=== PATIENT | female | born 1970 | race Caucasian/White ===

== ENCOUNTER 2020-08-12 08:55 | Inpatient (IN) | payer BC, SELFPAY ==
[2020-08-12] VITALS (19 sets, daily range): BP systolic 105–144; BP diastolic 51–94; PULSE 90–111; RESP 16–24; TEMP 36.8–37.3; O2SAT 75–92; BMI 35.1
--- NOTE | ~2020-08-12 | XR_ITS ---
EXAMINATION: XR chest 1V portable DATE: 08/12/2020 09:51 INDICATION: Shortness of breath. COVID positive. TECHNIQUE: frontal view of the chest was obtained. COMPARISON: None FINDINGS: Patchy bilateral airspace opacities consistent with pneumonia. No pleural effusion or pneumothorax. T he cardiomediastinal silhouette is normal. Visualized bones and soft tissues are unremarkable. IMPRESSION: 1. Patchy bilateral airspace disease consistent with pneumonia. Reviewed, dictated and finalized at location A. CH [employer] LANGUAGE TUTOR
--- NOTE | 2020-08-12 09:20 | ECG_ITS ---
Measurements Intervals Deport Rate: 92 P: 37 CT: 159 QRS: 64 QRSD: 93 T: 18 QT: 355 QTc: 439 Interpretive Statements SINUS RHYTHM BORDERLINE T WAVE ABNORMALITY- INFERIOR LEADS BASELINE ARTIFACT- AVR BORDERLINE ECG Electronically Signed On 08-12-2020 10:15:53 [employer]PERATIONS BUSINESS PARTNER by Arthur Peres D.O.
--- NOTE | 2020-08-12 09:22 | ED.SOB ---
HPI - SOB/Dyspnea General Chief Complaint: Shortness of Breath/Dyspnea Stated Complaint: 49YO female w/ known h.o KJ BABIN (diagnosed on 08/08/20) was at home under self quarantine when she started having SOB that started last night. Patient here for eval. Source: patient Mode of arrival: ambulatory Limitations: no limitations History of Present Illness MD elicited complaint: shortness of breath Related Data Home Medications Medication Instructions Recorded Confirmed ketorolac 10 mg PO PRN PRN 08/12/20 08/12/20 montelukast 10 mg PO DAILY 08/12/20 08/12/20 rizatriptan 10 mg TRANSLINGUAL PRN PRN 08/12/20 08/12/20 Allergies Allergy/AdvReac Type Severity Reaction Status Date / Time No Known Allergies Allergy Verified 08/12/20 09:35 Review of Systems Constitutional: Constitutional: Reports as per HPI, Reports chills, Reports fatigue and Reports fever(s) Eyes: Eyes: Reports as per HPI and Reports no additional eye complaints ENT: Reports system reviewed and no additional complaints, except as documented Cardiovascular: Cardiovascular: Reports as per HPI, Reports no additional cardiovascular complaints, Denies chest pain and Denies rapid heart rate Respiratory: Respiratory: Reports as per HPI, Denies chest congestion, Reports cough, Reports dyspnea and Denies wheezing Gastrointestinal: Gastrointestinal: Reports no additional gastrointestinal complaints Genitourinary: Genitourinary: Reports no additional female genitourinary complaints Musculoskeletal: Musculoskeletal: Reports no additional musculoskeletal complaints Integumentary/Breasts: Skin/Breast: Reports system reviewed and no additional complaints, except as docu Neurologic: Reports system reviewed and no additional complaints, except as documented Psychiatric: Psychiatric: Reports no additional psychiatric complaints Endocrine: Endocrine: Reports no additional endocrine complaints Hematologic/Lymphatic: Hematologic/Lymphatic: Reports no additional hematologic/lymphatic complaints Allergic/Immunologic: Allergic/Immunologic: Reports no additional allergic/immunologic complaints PMFSH Past Medical History Medical History Migraine headache Seasonal allergies Exam Const: General: no acute distress, alert and ill appearing Orientation/consciousness: patient oriented x3 HENMT: Head: normal to inspection Eyes: Conjunctivae: conjunctivae normal Pupils: Equal, round and reactive pupils present Neck: Neck: normal visual inspection and no lymphadenopathy Chest: Chest palpation & inspection: normal inspection of the chest Resp: Effort & Inspection: normal respiratory effort, not labored and no retractions Auscultation: clear to auscultation bilaterally, breath sounds present and lung sounds not diminished Cardio: Rate: regular rate and bradycardic Rhythm: regular rhythm GI: Inspection: non-distended GI Palp: Yes Soft to palpation, No Tenderness to palpation present (GI), No Guarding due to palpation present (GI) and No Rigid due to palpation : General: Yes no CVA tenderness Skin: General skin exam: normal color Neuro: General: patient oriented x3, moves all extremities, no meningeal signs, no focal motor deficits and CN's II-XI intact bilaterally Cranial nerves: Yes Nystagmus not present Extrem: General: normal to inspection Psych: Mental Status: mental status grossly normal Affect: normal affect Attitude: cooperative Thought content: Yes Normal thought content present Course Course Emergency Course: Patient received Solumedrol, ALbuterol inh and Spiriva Inh. Will get admitted. 08/12/20 21:00 [facility] has no bed availability, however patient is on waiting list there. 08/13/20 00:24 D/W Dr Bah (Hospitalist) regarding transfer to [facility]. They have no beds. 08/13/20 00:30 Nursing calls as O2 sats persisting in 70-80% w/ ABG results that show PO2 34%
[2020-08-12] MEDS: methylPREDNISolone SOD SUCC 125 MG VIAL IV PUSH (09:34)
[2020-08-12] MEDS: ALBUTEROL SULFATE (*SP) INHALER 2 PUFF INHALATION ×3 (09:47→20:18)
[2020-08-12 09:54] LABS: Base Excess ABG -2.4 mmol/L (0-2); Basophils Absolute Auto 0.01 K/mm3 (0.00-0.10); Basophils Percent Auto 0.2 % (0.0-1.0); HCO3 ABG 21.4 mmol/L (23-29); Hematocrit 39.4 % (35.0-49.0); Hemoglobin 13.4 g/dL (12.0-15.0); Immature Granulocyte Absolute 0.05 K/mm3 (0.00-0.00); Immature Granulocyte Percent A 0.9 % (0.0-0.0); Lymphocytes Absolute Auto 0.83 K/mm3 (1.10-4.50); Lymphocytes Percent Auto 14.9 % (18.0-42.0); Mean Corpuscular Hemoglobin 30.1 pg (27.0-31.0); Mean Corpuscular Volume 88.5 fL (78.0-102.0); Mean Platelet Volume 8.9 fl (9.2-11.8); Monocytes Absolute Auto 0.26 K/mm3 (0.10-0.90); Monocytes Percent Auto 4.7 % (2.0-11.0); Neutrophils Absolute Auto 4.4 K/mm3 (1.7-7.2); Neutrophils Percent Auto 79.3 % (50.0-70.0); Oxygen Content ABG 20.5 %vol (16.0-22.0); Oxygen Saturation ABG 90.5 % (95-97); Oxyhemoglobin 89.9 % (94-100); PCO2 ABG 34.5 mmHg (35-45); PO2 ABG 55.6 mmHg (80-90); Platelet Count Result 242 K/mm3 (150-420); Red Blood Count 4.45 M/mm3 (4.20-5.40); Red Cell Distribution Width 12.4 % (11.6-14.4); Total Hemoglobin 16.3 g/dL; White Blood Count 5.6 K/mm3 (4.8-10.8); pH ABG 7.41 (7.35-7.45)
[2020-08-12 09:55] LABS: Site Drawn RIGHT RADIAL
--- NOTE | 2020-08-12 09:55 | PC.NURSE ---
SPOKE WITH DR DIXON REGARDING SAPO2 LEVEL 86-89% ON O25L. DR DIXON COMFORTABLE WITH THAT LEVEL. PT RESTING COMFORTABLY AT THIS LEVEL. EXPLAINED TO PT TO USE CALL DIGGS IF INCREASED SHORTNESS OF BREATH OR NEED ARISES FOR INCREASED OXYGEN. PT VERBALIZES UNDERSTANDING.
[2020-08-12 09:56] LABS: Device NASAL CANNULA; Modified Allen's Test Pass
[2020-08-12 10:07] LABS: INR 0.9; Partial Thromboplastin Time 33.8 SEC (22.3-31.6); Prothrombin Time 9.5 Seconds (9.64-11.0)
[2020-08-12 10:11] LABS: Alanine Aminotransferase 134 U/L (14-59); Albumin Level 3.4 g/dL (3.4-5.0); Alkaline Phosphatase 124 U/L (46-116); Anion Gap 13 mmol/L (8-16); Aspartate Amino Transferase 70 U/L (15-37); Bilirubin,Total 0.3 mg/dL (0.00-1.00); Blood Urea Nitrogen 14 mg/dL (7-18); Calcium 8.8 mg/dL (8.5-10.1); Carbon Dioxide 23 mmol/L (21-32); Chloride 101 mmol/L (98-108); Estimated Glomerular Filt Rate > 60; Glucose 114 mg/dL (70-99); Osmolality Calculated 285 mOsm/kg (285-295); Potassium 4.2 mmol/L (3.5-5.1); Sodium 137 mmol/L (136-145); Total Protein 7.8 g/dL (6.4-8.2)
[2020-08-12 10:12] LABS: D Dimer 0.46 mg/L (0.19-0.50); Troponin I < 0.02 ng/mL (0.00-0.056)
[2020-08-12 10:13] LABS: Influenza Control Valid (Valid)
[2020-08-12 10:22] LABS: BNP 18 pg/mL (0-100)
--- NOTE | 2020-08-12 10:46 | PC.NURSE ---
report to TEMITOPE Tripathi. care turned over at this time.
--- NOTE | 2020-08-12 11:04 | PC.NURSE ---
PT CARE IS ASSUMED AT THIS TIME. PT HERE AFTER RECENT DIAGNOSIS OF COVID-19 AND JUST KEEPS GETTING MORE SHORT OF BREATH. PT STATES THAT SHE FEELS BETTER SINCE ADMISSION WITH TREATMENT. SPO2 FOUND TO BE 85% ON 5 L NASAL CANULA AND DECREASES TO 83% WITH EXERTION. PT CHANGED TO NRB MASK AT 12L WITH SPO2 READING 91% - RT CALLED FOR HIGH FLOW TO BE APPLIED. PT DOES NOT APPEAR TO BE IN RESPIRATORY DISTRESS AT THIS TIME. PT SITTING UP ON PHONE. LUNG SOUNDS CLEAR.
--- NOTE | 2020-08-12 11:23 | PC.NURSE ---
[facility] CALLED FOR POSSIBLE TRANSFER - BED AVAILABILITY TONIGHT
--- NOTE | 2020-08-12 11:25 | PCRTNOTE ---
high flow humidified oxygen administered via AIRVO2, titrated to keep Sp02 >92%. settings titrated up to flow of 55 lpm via medium high flow nasal cannula, Fi02 80%, temperature 36 degrees. HR 90, RR 12-16, Sp02 94% resting comfortably. tolerating well.
[2020-08-12] MEDS: REMDESIVIR 200 MG/NS 250 ML 200 MG/250 ML BAG 250 MG IVPB (12:06)
[2020-08-12] MEDS: DEXAMETHASONE SOD PHOS INJ 4 MG/ML VIAL 6 MG IV PUSH (13:45)
--- NOTE | 2020-08-12 13:49 | PC.NURSE ---
1230 her from er to room #212 while waitng for bed at higher level of care (rajendra). high flow o2 on. sats between 86-90%hr per tele is sr with rates 80-90's. claims less sob since arrival. lungs sound clear. iv cont. call light use explained. eating lunch xavier
--- NOTE | 2020-08-12 13:55 | PC.NURSE ---
1356 rests quietly in bed. hob up. spo2 cont @ 88-90% with high flow. hr 90's xavier
--- NOTE | 2020-08-12 16:09 | PC.NURSE ---
pt resting in bed, reports loss of taste, given popsicle on request, no updates on bed from rajendra at this time, iv running
--- NOTE | 2020-08-12 19:49 | PC.NURSE ---
md called about 02 sat of 87% on high flow and increased work of breathing, orders another dose of spiriva, respiratory therapy has been up to change sterile water and check machine
--- NOTE | 2020-08-12 20:22 | PC.NURSE ---
One time dose of spiriva given at this time
--- NOTE | 2020-08-12 21:10 | PC.NURSE ---
Bhumi from ER calls with bed update, no beds available at this time per rajendra
--- NOTE | 2020-08-12 21:31 | PC.NURSE ---
pt is unhappy that there is no bed available at this time, requests that they try getting her into another hospital, dr notified, he will come up and speak with pt when able
--- NOTE | 2020-08-12 21:57 | PC.NURSE ---
Spo2 87% on high flow, heart rate 107 on telemetry. Charge nurse in speaking with the patient at this time per patient request.
--- NOTE | 2020-08-12 22:14 | PC.NURSE ---
Dr. Castro in speaking with patient
--- NOTE | 2020-08-12 22:40 | ADMGEN ---
This patient, Lou Boone, was admitted to 2nd Floor Room 212-1. Patient/family oriented to hospital policies and general routines including ID bracelet, bed and alarms, visiting hours, pain management, procedures, bathroom and other care routines, personal items, smoking policy, room service/diet, and visiting hours. Information on how to activate the Rapid Response Team has been discussed. Patient/Family are encouraged to report perceived risks to care and to ask questions if they do not understand what they are told or what they should do.
[2020-08-12] MEDS: LORazepam (*CRX) 0.5 MG TABLET PO (22:56)
--- NOTE | 2020-08-12 23:30 | PC.NURSE ---
SPO2 75% at this time on high flow oxygen. Respirations are tachypneic but appear unlabored. Charge nurse notified.
--- NOTE | 2020-08-12 23:48 | PC.NURSE ---
Dr. Castro notified of pt's SAO2 of 66% with high flow oxygen on. New orders for C-PAP received and noted.
--- NOTE | 2020-08-12 23:57 | PC.NURSE ---
Notified respiratory therapy of new order for C-pap for pt. They said they would be out to set it up.
[2020-08-13] VITALS: PULSE 98
[2020-08-13 00:08] LABS: Base Excess ABG 2.8 mmol/L (0-2); HCO3 ABG 25.2 mmol/L (23-29); Oxygen Content ABG 14.8 %vol (16.0-22.0); Oxygen Saturation ABG 76.2 % (95-97); Oxyhemoglobin 75.7 % (94-100); PCO2 ABG 32.5 mmHg (35-45); pH ABG 7.51 (7.35-7.45)
[2020-08-13 00:10] VITALS: PULSE 106; RESP 32; O2SAT 62
--- NOTE | 2020-08-13 00:26 | PC.NURSE ---
Lab called with critical low PO2 results of 34.6
--- NOTE | 2020-08-13 00:26 | PC.NURSE ---
Dr. Castro notified of pt's low critical PO2 of 34.6. He said he is talking to [facility] for a possible transfer.
[2020-08-13 00:28] LABS: PO2 ABG 34.6 mmHg (80-90)
[2020-08-13 00:29] LABS: Device CPAP; Modified Allen's Test Pass; Site Drawn RIGHT RADIAL
--- NOTE | 2020-08-13 00:59 | PC.NURSE ---
Dr. Castro notified of the respiratory therapists recommendations to intubate pt. He said he would be up to see pt.
--- NOTE | 2020-08-13 01:08 | PC.NURSE ---
[facility] called back and said pt has been accepted as a patient at their facility They will call back when they have a bed available.
--- NOTE | 2020-08-13 01:20 | PC.NURSE ---
Pt to ER for intubation procedure
--- NOTE | 2020-08-13 01:33 | PC.NURSE ---
[facility] called and said they have a bed available
--- NOTE | 2020-08-13 01:42 | PC.NURSE ---
Attempted to notify pt's per her request but he was unavailable. Message left on his voice mail.
[2020-08-13 02:05] VITALS: PULSE 100; O2SAT 90
--- NOTE | 2020-08-13 03:30 | PC.NURSE ---
Patient transferred to [facility] by Arch at this time.
--- NOTE | 2020-08-13 03:59 | PC.NURSE ---
Called pt's home phone but no one answered. Message left on voice mail.
--- NOTE | 2020-08-13 04:02 | PC.NURSE ---
Harry Boone notified of pt's being transferred to [facility] for continued treatment.
--- NOTE | 2020-08-13 04:25 | PC.NURSE ---
Mr. Boone called and said that he was coming to the hospital to miner pick his 's belongings. Pt was instructed where to come to miner pick pt's belongings.
--- NOTE | 2020-08-13 09:21 | PC.NURSE ---
[facility] gave Vecuronium (2nd dose before leaving ED)
--- NOTE | 2020-08-26 09:01 | P.SS_ITS ---
Same Day Admit/Disch: HPI History of Present Illness Chief complaint: SOB COVID Narrative: Lou Boone is a 49 year old female diagnosed w/ COVID Positive CAP and was an ER hold. She had a prolonged ER hold sec to lack of hospital beds. Multiple Hospitals were called however we were unable to find a bed for her. Patient was eventually admited as an Inpatient sec to SOB w/ Low O2 Sats. She was started on O2, titrate to max grace, then transitioned to High FLow NC and eventually NBR. Her O2 saturations were labile fluctuating anywhere from 70's% to 94%. Multiple breathing treatments, Steroids, Remdisivir were initiated however her O2 Sats remained labile. A stat ABG was repeated which showed decline in PaO2 Saturations now doesn to 34.6. Pulmonology fellow at [facility] was contacted who agreed with need for intubation and urgent transfer to [facility]. An ICU bed was available for this patient. She was transferred back down to ER for Intubation. An LMA was placed sec to Difficult RSI. LMA was appropriately placed with her O2 saturations >95%. Multiple medications were used to maintain Sedation (Versed, Fentanyl) however patient breaking through. Propofol was started with good response. Patient was transferred to [facility] by Helicopter. [facility] Past Medical History Medical History Migraine headache Seasonal allergies Social History Social History Smoking packs per day: 2 Smoking cigarettes per day: 40.0 Years smoked: 26 Smoking pack-years: 52.00 Smoking status: Former smoker Tobacco type: cigarettes Second hand tobacco smoke exposure: Yes Alcohol intake: current Substance use: never Gender identity (if verbalized by the patient): Female Sexual Orientation (if Verbalized by the Patient): Straight or Heterosexual Spiritual care concerns: No Same Day Admit/Disch: Med Pre-admit Medications Home Medications Medication Instructions Recorded Confirmed Type ketorolac 10 mg PO PRN PRN 08/12/20 08/12/20 History montelukast 10 mg PO DAILY 08/12/20 08/12/20 History rizatriptan 10 mg TRANSLINGUAL PRN PRN 08/12/20 08/12/20 History DS: Summary Time Spent with Patient Time attestation: Total time spent providing and/or coordinating discharge services: DS: Admitting Diagnosis Admitting Diagnosis Admitting Diagnosis: SOB COVID Discharge Plan Discharge Attending physician on discharge: Sky Castro Consulting providers: Arthur Peres ; Donny Sam Discharging Clinician: Sky Castro Patient Disposition: Acute Care Hospital Discharge Medications: No Action ketorolac 10 mg tablet 10 mg PO PRN PRN (Reason: Migraine Headache) RF: 0 rizatriptan 10 mg tablet,disintegrating 10 mg translingual PRN PRN (Reason: Migraine Headache) RF: 0 montelukast 10 mg tablet 10 mg PO DAILY RF: 0 Date of admission: 08/12/20 22:22 Primary Care Provider: Jad Ryan Admitting Provider: Sky Castro Attending physician on admission: Sky Castro Condition: Stable
--- NOTE | 2020-08-26 09:11 | P.PNCROSS_ITS ---
Event Note Event Note Event Note: Lou Boone is a 49 year old female diagnosed w/ COVID Positive CAP and was an ER hold. She had a prolonged ER hold sec to lack of hospital beds. Multiple Hospitals were called however we were unable to find a bed for her. Patient was eventually admited as an Inpatient sec to SOB w/ Low O2 Sats. She was started on O2, titrate to max grace, then transitioned to High FLow NC and eventually NBR. Her O2 saturations were labile fluctuating anywhere from 70's% to 94%. Multiple breathing treatments, Steroids, Remdisivir were initiated however her O2 Sats remained labile. A stat ABG was repeated which showed decline in PaO2 Saturations now doesn to 34.6. Pulmonology fellow at [facility] was contacted who agreed with need for intubation and urgent transfer to [facility]. An ICU bed was available for this patient. She was transferred back down to ER for Intubation. An LMA was placed sec to Difficult RSI. LMA was appropriately placed with her O2 saturations >95%. Multiple medications were used to maintain Sedation (Versed, Fentanyl) however patient breaking through. Propofol was started with good response. Patient was transferred to [facility] by Helicopter. Discharge Condition: Stable, Improved
== END 2020-08-13 03:30 | disposition short-term general hospital (02) | DRG 208 ==
LOC: CHSED 10:14 → CHS2ND 11:52 → CHSED 22:31 → CHS2ND 22:31
PROVIDERS: Admitting Provider Family Medicine; Emergency Provider Family Medicine; PCP Internal Medicine; Visit Provider Family Medicine
DX: U07.1 COVID-19 (principal); J12.89 Other viral pneumonia; J80 Acute respiratory distress syndrome
CPT/HCPCS: 36415; 36600; 71045; 80053; 82805; 83880; 84484; 85025; 85380; 85610; 85730; 87040; 87081; 87804; 87880; 93005; 94640; 94660; 96365; 96366; 96367; 96375; 99283; 99285; A9270; J0330; J1100; J2250; J2543; J2704; J2930; J3010

== ENCOUNTER 2020-10-18 11:55 | Outpatient (CLI) | payer BC, SELFPAY ==
--- NOTE | ~2020-10-18 | XR_ITS ---
EXAMINATION: XR chest 2V DATE: 10/18/2020 12:27 INDICATION: COVID-19 pneumonia. TECHNIQUE: Frontal and lateral views of the chest were obtained. COMPARISON: Chest single view 08/12/2020 FINDINGS: The chest demonstrates clear lungs without pneumonia, pleural effusion, or pneumothorax. Th e heart size is normal. IMPRESSION: 1. No acute cardiopulmonary disease. Reviewed, dictated and finalized at location A. RVISOR WATERPROOFING
[2020-10-18 12:11] LABS: Hematocrit 39.2 % (35.0-49.0); Hemoglobin 13.3 g/dL (12.0-15.0); Immature Granulocyte Absolute 0.02 K/mm3 (0.00-0.00); Immature Granulocyte Percent A 0.4 % (0.0-0.0); Lymphocytes Absolute Auto 2.36 K/mm3 (1.10-4.50); Lymphocytes Percent Auto 42.8 % (18.0-42.0); Mean Corpuscular HGB Conc 33.9 g/dL (32.0-36.0); Mean Corpuscular Hemoglobin 29.9 pg (27.0-31.0); Mean Corpuscular Volume 88.1 fL (78.0-102.0); Mean Platelet Volume 8.7 fl (9.2-11.8); Monocytes Absolute Auto 0.41 K/mm3 (0.10-0.90); Monocytes Percent Auto 7.4 % (2.0-11.0); Neutrophils Absolute Auto 2.7 K/mm3 (1.7-7.2); Neutrophils Percent Auto 49.4 % (50.0-70.0); Platelet Count Result 317 K/mm3 (150-420); Red Blood Count 4.45 M/mm3 (4.20-5.40); Red Cell Distribution Width 13.6 % (11.6-14.4); White Blood Count 5.5 K/mm3 (4.8-10.8)
[2020-10-18 12:16] LABS: Base Excess ABG -2.6 mmol/L (0-2); HCO3 ABG 21.9 mmol/L (23-29); Oxygen Content ABG 18.7 %vol (16.0-22.0); Oxygen Saturation ABG 94.5 % (95-97); Oxyhemoglobin 93.8 % (94-100); PCO2 ABG 37.1 mmHg (35-45); PO2 ABG 71.6 mmHg (80-90); Total Hemoglobin 14.2 g/dL; pH ABG 7.39 (7.35-7.45)
[2020-10-18 12:17] LABS: Device ROOM AIR; Modified Allen's Test Pass; Site Drawn RIGHT RADIAL
[2020-10-18 12:44] LABS: Alanine Aminotransferase 31 U/L (14-59); Albumin Level 4.4 g/dL (3.4-5.0); Alkaline Phosphatase 56 U/L (46-116); Anion Gap 8 mmol/L (8-16); Aspartate Amino Transferase 19 U/L (15-37); Bilirubin,Total 0.3 mg/dL (0.00-1.00); Blood Urea Nitrogen 17 mg/dL (7-18); Calcium 10.1 mg/dL (8.5-10.1); Carbon Dioxide 27 mmol/L (21-32); Chloride 101 mmol/L (98-108); Estimated Glomerular Filt Rate > 60; Glucose 95 mg/dL (70-99); Magnesium 2.2 mg/dL (1.8-2.4); Osmolality Calculated 283 mOsm/kg (285-295); Phosphorus 4.5 mg/dL (2.6-4.7); Potassium 4.6 mmol/L (3.5-5.1); Sodium 136 mmol/L (136-145); Total Protein 8.1 g/dL (6.4-8.2)
[2020-10-18 12:47] LABS: CRP < 0.2 mg/dL (0.0-0.9)
== END 2020-10-18 11:56 | disposition home or self-care (01) ==
LOC: CHSLAB 11:57
PROVIDERS: PCP Internal Medicine; Visit Provider Internal Medicine
DX: U07.1 COVID-19 (principal)
CPT/HCPCS: 36415; 36600; 71046; 80053; 82805; 83735; 84100; 85025; 86140

== ENCOUNTER 2022-04-26 13:47 | Outpatient (CLI) | payer BC, SELFPAY ==
--- NOTE | ~2022-04-26 | MM_ITS ---
EXAMINATION: MM screening chelly BI w jim HISTORY: Screening TECHNIQUE: Craniocaudal and mediolateral oblique 3-D tomosynthesis images were obtained and synthetic 2-D images were generated. CAD analysis was submitted and interpreted. COMPARISON: 03/11/2019 BREAST PARENCHYMAL COMPOSITION: Breast composed of scattered areas of fibroglandular density FINDINGS: There is no evidence of suspicious mass, calcification, or architectural distortion to sugg est malignancy in either breast. There has been no suspicious interval change. IMPRESSION: 1. No mammographic evidence of malignancy. 2. Recommend routine screening mammography in one year. BI-RADS Category 1: Negative Reviewed, dictated and finalized at location A.
== END 2022-04-26 13:48 | disposition home or self-care (01) ==
LOC: CHSIMG 13:48
PROVIDERS: PCP Internal Medicine; Visit Provider Internal Medicine
DX: Z12.31 Encounter for screening mammogram for malignant neoplasm of breast (principal)
CPT/HCPCS: 77063; 77067

== ENCOUNTER 2023-05-18 23:02 | Emergency (ER) | payer OTHER, SELFPAY ==
--- NOTE | 2023-05-18 23:10 | ED.ANIMALBIT ---
HPI - Animal Bite General Chief Complaint: Animal Bite Stated Complaint: Dog Bite on R ring finger Time Seen by Provider: 05/18/23 23:09 Source: patient Mode of arrival: ambulatory Limitations: no limitations History of Present Illness HPI narrative: Patient is a 52-year-old female with a dog bite from her own personal dog at home this evening prior to arrival. This was provoked event. The dog is up-to-date on vaccines. Patient does not remember her last tetanus shot. She has been using pressure on the area for over an hour without relief of bleeding. MD complaint: animal bite Onset (ago): hour(s) (1) Animal: dog Description of animal: household pet Mechanism: bite Location: other ( Right hand 4th digit /ring finger) Pain description: sharp Severity scale (1-10): 4 Context: playing with animal and provoked Associated symptoms: none Treatments prior to arrival: pressure Related Data Patient tetanus UTD: No Home Medications Medication Instructions Recorded Confirmed ketorolac 10 mg tablet 10 mg PO PRN PRN Migraine Headache 08/12/20 05/18/23 montelukast 10 mg tablet 10 mg PO DAILY 08/12/20 05/18/23 rizatriptan 10 mg disintegrating 10 mg translingual PRN PRN 08/12/20 05/18/23 tablet Migraine Headache Allergies Allergy/AdvReac Type Severity Reaction Status Date / Time No Known Allergies Allergy Verified 05/18/23 23:16 Review of Systems Review of Systems: All systems reviewed & are unremarkable except as noted in HPI and below Constitutional: Constitutional: Reports no additional constitutional complaints Eyes: Eyes: Reports no additional eye complaints ENT: Reports system reviewed and no additional complaints, except as documented Cardiovascular: Cardiovascular: Reports no additional cardiovascular complaints Respiratory: Respiratory: Reports no additional respiratory complaints Gastrointestinal: Gastrointestinal: Reports no additional gastrointestinal complaints Genitourinary: Genitourinary: Reports no additional female genitourinary complaints Musculoskeletal: Musculoskeletal: Reports no additional musculoskeletal complaints Integumentary/Breasts: Skin/Breast: Reports system reviewed and no additional complaints, except as docu Neurologic: Reports system reviewed and no additional complaints, except as documented Psychiatric: Psychiatric: Reports no additional psychiatric complaints Endocrine: Endocrine: Reports no additional endocrine complaints Hematologic/Lymphatic: Hematologic/Lymphatic: Reports no additional hematologic/lymphatic complaints Allergic/Immunologic: Allergic/Immunologic: Reports no additional allergic/immunologic complaints PMFSH Past Medical History Medical History Migraine headache Seasonal allergies Social History Social History Smoking packs per day: 2 Smoking cigarettes per day: 40.0 Years smoked: 26 Smoking pack-years: 52.00 Smoking status: Former smoker Tobacco type: cigarettes Second hand tobacco smoke exposure: Yes Alcohol intake: current Substance use: never Gender identity (if verbalized by the patient): Female Sexual Orientation (if Verbalized by the Patient): Straight or Heterosexual Spiritual care concerns: No Exam Const: General: healthy appearing Nutritional Appearance: well nourished Orientation/consciousness: patient oriented x3 HENMT: Head: normal to inspection Ears: external ears normal Face/Nose/Sinus: Normal external nose present Eyes: Conjunctivae: conjunctivae normal Pupils: Equal, round and reactive pupils present EOM: EOMs intact bilaterally Neck: Neck: normal visual inspection Chest: Chest palpation & inspection: normal inspection of the chest Resp: Effort & Inspection: normal respiratory effort Auscultation: clear to auscultation bilaterally Cardio: Rate: regular rate Rhythm: regular rhyt
[2023-05-18] MEDS: AMOXICILLIN/CLAVULANATE K 875-125 MG TAB 1 TABLET PO (23:25)
[2023-05-18] MEDS: TETANUS,DIPHTHERIA,AC PERTUSSIS ADULT 0.5 ML (ADACEL) IM (23:25)
[2023-05-18] MEDS: LIDOCAINE HCL 1% LOCAL INJ 10 ML VIAL INFILTRATE (23:26)
[2023-05-19 00:08] VITALS: BP 134/85; PULSE 78; RESP 18; TEMP 36.6; O2SAT 98
== END 2023-05-19 00:10 | disposition home or self-care (01) ==
PROVIDERS: Emergency Provider Emergency Medicine; PCP Internal Medicine
DX: S61.254A Open bite of right ring finger without damage to nail, initial encounter (principal); Z87.891 Personal history of nicotine dependence; Z23 Encounter for immunization; W54.0XXA Bitten by dog, initial encounter; Y92.009 Unspecified place in unspecified non-institutional (private) residence as the place of occurrence of the external cause
CPT/HCPCS: 12001; 90471; 90715; 99283; A9270

== ENCOUNTER 2023-07-08 11:41 | Outpatient (CLI) | payer OTHER, SELFPAY ==
--- NOTE | ~2023-07-08 | MM_ITS ---
EXAMINATION: MM screening [facility] BI w jim HISTORY: Screening mammogram TECHNIQUE: Craniocaudal and mediolateral oblique 3-D tomosynthesis images were obtained and synthetic 2-D images were generated. CAD analysis was submitted and interpreted. COMPARISON: 04/26/2022, 06/16/2019, 03/11/2019 BREAST PARENCHYMAL COMPOSITION: There are scattered areas of fibroglandular density. FINDINGS: A stable mass of the outer right breast is considered benign given the lack of interval peace nge. No suspicious mass, calcification, or architectural distortion are identified in either breast t o suggest malignancy. There has been no suspicious interval change. IMPRESSION: 1. No mammographic evidence of malignancy. 2. Recommend routine screening mammography in one year. BI-RADS Category 2: Benign finding(s). Reviewed, dictated and finalized at location A.
--- NOTE | ~2023-07-08 | DEXA_ITS ---
Bone Density Report Name: JEF HUMMEL Age: 52 Sex: Female Ethnicity: White Date of : 1970 Indication: postmenopausal; screening for osteoporosis; height loss; Referring Provider: Jad Ryan Study: Bone densitometry was performed. Exam Date: July 08, 2023 Accession number: [id number] Bone Density: Region BMD T-score Z-score Classification AP Spine(L1, L3, L4) 1.175 1.1 2.1 Normal Femoral Neck (Left) 0.798 -0.5 0.6 Normal Total Hip (Left) 0.983 0.3 1.0 Normal Femoral Neck (Right) 0.765 -0.8 0.3 Normal Total Hip (Right) 0.910 -0.3 0.4 Normal Femoral Neck Mean 0.782 -0.6 0.4 Normal Total Hip Mean 0.947 0.0 0.7 Normal World Health Organization criteria for BMD impression classify patients as: Normal (T-score at or above -1.0), Osteopenia (T-score between -1.0 and -2.5), or Osteoporosis (T-score at or below -2.5). 10-year Fracture Risk: FRAX not reported because: All T-scores for Spine Total, Hip Total, Femoral Neck at or above -1.0 Clinical Information Provided by Patient: Has used the following medications: Vitamin D Patient maximum height was 66 Menopause Age: 47 No regular weight bearing exercise Does not regularly consume dairy products Onset of menses at age 10 Number of children 3 Impression: The patient has normal bone mass. Discussion: BONE DENSITY IS ABOVE THE MINIMUM DESIRABLE LEVEL AT ALL SKELETAL SITES TESTED. This patient?s bone mineral density is above the minimum desirable level (T-score -1.0 or better) at all sites measured. The patient should follow a healthful lifestyle (good nutrition with adequate calcium and vitamin D, and appropriate weight-bearing exercise). Follow-Up: Consider repeating this study in 5 years or sooner if there is some new clinical indication. Reported by: Dr. Sundeep Green on 07/08/2023 12:17:00 PM. Reviewed, dictated and finalized at location A.
== END 2023-07-08 11:42 | disposition home or self-care (01) ==
LOC: CHSIMG 11:43
PROVIDERS: Absent Provider Family Medicine; PCP Internal Medicine; Visit Provider Internal Medicine
DX: Z12.31 Encounter for screening mammogram for malignant neoplasm of breast (principal); Z78.0 Asymptomatic menopausal state
CPT/HCPCS: 77063; 77067; 77080

== ENCOUNTER 2025-03-26 10:02 | Outpatient (NON) | payer OTHER, SELFPAY | END 2025-03-26 10:03 | disposition home or self-care (01) | LOC: ANHGOSHLAB 10:03 | PROVIDERS: PCP Internal Medicine; Visit Provider Otolaryngology | DX: G43.909 Migraine, unspecified, not intractable, without status migrainosus (principal); J30.2 Other seasonal allergic rhinitis | CPT/HCPCS: 87070; 87075; 87181; 87205 ==

== ENCOUNTER 2025-04-23 13:52 | Outpatient (CLI) | payer OTHER, SELFPAY ==
--- NOTE | ~2025-04-23 | CT_ITS ---
EXAMINATION: CT sinus wo con DATE: 04/23/2025 14:07 INDICATION: Chronic sinusitis TECHNIQUE: Computed tomography (CT) of the paranasal sinuses was performed without intravenous contra st. The dose-length product was 377.88 mGy-cm. Automated exposure control and iterative reconstructio n technique were employed. COMPARISON: None FINDINGS: There is mild mucosal thickening of the eighth white sinuses. There are surgical changes co nsistent with resection of the ostiomeatal units. Leftward nasal septal deviation. No air-fluid level s. No significant mucoperiosteal reaction. Mastoids are pneumatized. Mild mucosal thickening of the r ight maxillary sinus. IMPRESSION: 1. Minimal sinus disease involving the right maxillary and ethmoid sinuses. Reviewed, dictated and finalized at location B.
== END 2025-04-23 13:53 | disposition home or self-care (01) ==
LOC: GOSHIMG 13:53
PROVIDERS: PCP Internal Medicine; Visit Provider Otolaryngology
DX: J32.9 Chronic sinusitis, unspecified (principal); J34.3 Hypertrophy of nasal turbinates; Z87.09 Personal history of other diseases of the respiratory system
CPT/HCPCS: 70486

== ENCOUNTER 2025-04-27 11:53 | Outpatient (NON) | payer OTHER, SELFPAY ==
--- OUTSIDE RECORDS SUMMARY | 2025-04-27 11:56 | XMS_ITS | Clinical Summary ---
Author Organization [facility] Address [address] [place] [address] Care Team Providers Care Odd Bundle Worker Name Role Phone Jad Ryan MD Primary Care Provider [phone] Kristian Lam MD PhD Unavailable [phone] Allergies No known active allergies Medications ketorolac (TORADOL) 10 mg tablet Take 10 mg by mouth every 6 (six) hours as needed for pain Active montelukast (SINGULAIR) 10 mg tablet Take 10 mg by mouth nightly Active rizatriptan ENDS DOWN CHECKER (MAXALT-ENDS DOWN CHECKER) 10 mg disintegrating tabletIndications:M igraine Take 10 mg by mouth once as needed for migraine May repeat in 2 hours if unresolved. Do not exceed 30 mg in 24 hours. Active minocycline (MINOCIN,DYNACIN) 50 mg capsule TAKE 1 CAPSULE BY MOUTH ONCE DAILY NEEDED FOR ACNE 1 Active cholecalciferol, vitamin D3, (VITAMIN D3 ORAL) Take 100 mcg by mouth daily Active multivitamin capsule Take 1 capsule by mouth daily Active ibuprofen/pseudoeph edrine HCl (ADVIL COLD AND SINUS ORAL) Take 1-2 tablets by mouth twice daily Active doxylamine succinate (UNISOM, DOXYLAMINE, ORAL) Take 50 mg by mouth nightly Active fish oil/borage/flax/om3 ,6,9 1 (OMEGA 3-6-9 ORAL) Take 2,000 mg by mouth daily Active testosterone 200 mg pellet 200 mg by implant route every 3 (three) months Active metoprolol tartrate (LOPRESSOR) 25 mg immediate release tablet Take 1 tablet (25 mg total) by mouth daily 30 tablet 11 04/14/202 2 Active Active Problems Problem Noted Date Diagnosed Date Acute respiratory failure with hypoxia 0 Assessment & Plan (08/24/2020 9:01 AM CIVIL ENGINEERING PROJECT DESIGNER): Patient with no significant past medical history and only risk factors of vaping who presented with COVID pneumonia with persistent acute respiratory failure with hypoxia. This is most likely from her acute lung injury from the viral pneumonia and we anticipate a slow recovery process. Her serial CXR have showed bilateral patchy opacities and minimal pleural effusion. There was no evidence of desaturation while off CPAP and she has an overall low risk for STEPHANIE - continue to wean O2 as tolerated - there is currently no indication for nighttime CPAP use - patient may need sleep study in future after recovery from viral pneumonia - patient may benefit from a Pulmonology outpatient follow up to monitor respiratory function after COVID recovery - we appreciate ICU care for other problems History of 2018 novel coronavirus disease (COVID -19) Shortness of breath Immunizations Immunization Administration Dates Next Due Hep B Vaccine 03/08/2019 MMR 03/08/2019 Pfizer SARS-CoV-2 Monovalent Vaccination (12+ Yrs) PURPLE 11/30/2020,11/09/2020 Tdap 10/20/2014 Surgical History Surgery Date Site/Laterality Comments SECTION 10/07/1991 - 10/06/1992 SECTION 10/07/1997 - 10/06/1998 SECTION 10/07/2004 - 10/06/2005 AORTIC ANEURYSM REPAIR SINUS SURGERY 10/07/1986 - 10/06/1987 Medical History Medical History Date Comments Anxiety Social History Tobacco Use Types Packs/Day Years Used Date Smoking Tobacco: Never Smokeless Tobacco: Never Tobacco Cessation:Counseling Given: No Alcohol Use Standard Drinks/Week Comments Defer 0 [...] on file Legal Sex Female 1:13 AM CIVIL ENGINEERING PROJECT DESIGNER Gender Identity Female 06/13/2021 1:53 PM CDT Sexual Orientation Straight 06/13/2021 1: 53 PM CDT Obstetrics History Last Filed Vital Signs Vital Sign Reading Time Taken Comments Blood Pressure 121/62 09/19/2021 10:44 AM CIVIL ENGINEERING PROJECT DESIGNER Pulse 57 09/19/2021 10:44 AM CIVIL ENGINEERING PROJECT DESIGNER Temperature 36.6 C (97.9 F) 08/24/2021 10:40 AM CIVIL ENGINEERING PROJECT DESIGNER Respiratory Rate 18 08/25/2020 4:05 AM CIVIL ENGINEERING PROJECT DESIGNER Oxygen Saturation 95% 09/19/2021 10: 44 AM CIVIL ENGINEERING PROJECT DESIGNER Inhaled Oxygen Concentration - - Weight 103.1 kg (227 lb 6.4 oz) 021 10:44 AM CIVIL ENGINEERING PROJECT DESIGNER Height 167 cm (5' 5.75) 09/19/2021 10: 44 AM CIVIL ENGINEERING PROJECT DESIGNER Body Mass Index 36.98 09/19/2021 10:44 AM CIVIL ENGINEERING PROJECT DESIGNER Plan of Treatment Health Maintenance Due Date Last Done Comments Breast Cancer Screening-Mammogram 1970 Cervical Cancer Screening 1970 Colon Cancer Screening-Colonoscopy 1970 Depression Screening 1968 Regular Well Visit/Exam 18-64 1986 Zoster Vaccine (1 of 2) 2018 Covid-19 Vaccine (3 - 2023-2 5 season) 2024 11/30/2020, 11/09/2020 DTaP/Tdap/Td Vaccine (2 - Td or Tdap) 10/20/2024 10/20/2014 Influenza Vaccine (Season Ended) 2025 Hepatitis B Screening Completed 03/08/2019 Hepatitis C Screening Completed 08/19/2020 Pneumococcal vaccine <65 Aged Out No longer eligible based on patient's age to complete this topic Procedures Procedure Name Priority Date/Time Associated Diagnosis Comments HEPATITIS PANEL, ACUTE Routine 08/19/2020 6:59 PM CIVIL ENGINEERING PROJECT DESIGNER from Last 3 Months or Most Recently Relevant to Health Maintenance Results * Hepatitis panel, acute (08/19/2020 6:59 PM CIVIL ENGINEERING PROJECT DESIGNER) Hep A IgM Nonreactive Nonreactive [facility] Comment: Interpretive Data: If Hep A IgM Ab is reported as Equivocal, a new sample should be drawn in two weeks for testing. Current interpretive data was last revised on 19. Hep B core IgM Nonreactive Nonreactive [facility] Comment: Interpretive Data If HepB Core IgM Ab is reported as Equivocal, a new sample should be drawn in two weeks for testing. Current interpretive data was last revised on 19. Hep C Ab Nonreactive Nonreactive [facility] Comment:Antibodies to HCV no t detected. Does NOT exclude the possibility of recent exposure to HCV. HepBsAg Nonreactive Nonreactive [facility] Blood specimen (specimen) 08/19/2020 6:59 PM CIVIL ENGINEERING PROJECT DESIGNER 08/19/2020 7:29 PM CIVIL ENGINEERING PROJECT DESIGNER us Shanna Pretty MD LAB MICROBIOLOGY - GENER AL ORDERABLES Edited Result - Final [facility] Department [place] [address] from Last 3 Months or Most Recently Relevant to Health Maintenance Insurance [employer] [place] [employer] [place] [facility] Advance Directives For more information, please contact: [phone] * Full Code (Latest Code Status on File) Date Activated Date Inactivated Comments 08/13/2020 4:35 AM 08/25/2020 7:06 PM Care Teams Odd Bundle Worker Relationship Specialty Start Date End Date Jad Ryan MD PCP - General Internal Medicine 05/25/21 Kristian Lam MD PhD [address] [place] [address] Referring Physician Cardiology 01/17/22
--- OUTSIDE RECORDS SUMMARY | 2025-04-27 11:56 | XMS_ITS | Referral Summary ---
Author Organization [facility] Address [address] [place] [address] Care Team Providers Care Coach Name Role Phone Jad Ryan MD Primary Care Provider [phone] Kristian Lam MD PhD Unavailable [phone] Allergies No known active allergies Medications ketorolac (TORADOL) 10 mg tablet Take 10 mg by mouth every 6 (six) hours as needed for pain Active montelukast (SINGULAIR) 10 mg tablet Take 10 mg by mouth nightly Active rizatriptan NAIL KEGGER (MAXALT-NAIL KEGGER) 10 mg disintegrating tabletIndications:M igraine Take 10 [...] 0 Assessment & Plan (08/24/2020 9:01 AM TRACK SUPERINTENDENT): Patient with no significant past medical history [...] Vaccination (12+ Yrs) PURPLE 11/30/2020,11/09/2020 Tdap 10/20/2014 Social History Tobacco Use Types Packs/Day Years [...] on file Legal Sex Female 1:13 AM TRACK SUPERINTENDENT Gender Identity Female 06/13/2021 1:53 PM CDT Sexual Orientation Straight 06/13/2021 1: 53 PM CDT Last Filed Vital Signs Vital Sign Reading Time Taken Comments Blood Pressure 121/62 09/19/2021 10:44 AM TRACK SUPERINTENDENT Pulse 57 09/19/2021 10:44 AM TRACK SUPERINTENDENT Temperature 36.6 C (97.9 F) 08/24/2021 10:40 AM TRACK SUPERINTENDENT Respiratory Rate 18 08/25/2020 4:05 AM TRACK SUPERINTENDENT Oxygen Saturation 95% 09/19/2021 10: 44 AM TRACK SUPERINTENDENT Inhaled Oxygen Concentration - - Weight 103.1 kg (227 lb 6.4 oz) 021 10:44 AM TRACK SUPERINTENDENT Height 167 cm (5' 5.75) 09/19/2021 10: 44 AM TRACK SUPERINTENDENT Body Mass Index 36.98 09/19/2021 10:44 AM TRACK SUPERINTENDENT Plan of Treatment Not on file Procedures Procedure Name Priority Date/Time Associated Diagnosis Comments HEPATITIS PANEL, ACUTE Routine 08/19/2020 6:59 PM TRACK SUPERINTENDENT from Last 3 Months or Most Recently Relevant to Health Maintenance Results * Hepatitis panel, acute (08/19/2020 6:59 PM TRACK SUPERINTENDENT) Hep A IgM Nonreactive Nonreactive [facility] Comment: Interpretive Data: If Hep A IgM Ab is reported as Equivocal, a new sample should be drawn in two weeks for testing. Current interpretive data was last revised on 19. Hep B core IgM Nonreactive Nonreactive [facility] Comment: Interpretive Data If HepB Core IgM Ab is reported as Equivocal, a new sample should be drawn in two weeks for testing. Current interpretive data was last revised on 19. Hep C Ab Nonreactive Nonreactive [facility] Comment:Antibodies to HCV no t detected. Does NOT exclude the possibility of recent exposure to HCV. HepBsAg Nonreactive Nonreactive [facility] Blood specimen (specimen) 08/19/2020 6:59 PM TRACK SUPERINTENDENT 08/19/2020 7:29 PM TRACK SUPERINTENDENT Shanna Pretty MD LAB MICROBIOLOGY - GENER AL ORDERABLES Edited Result - Final [facility] Department [place] [address] from Last 3 Months or Most Recently Relevant to Health Maintenance Insurance [employer] [place] [employer] [place] [employer] [place] Advance Directives For more information, please contact: [phone] * Full Code (Latest Code Status on File) Date Activated Date Inactivated Comments 08/13/2020 4:35 AM 08/25/2020 7:06 PM Care Teams Coach Relationship Specialty Start Date End Date Jad Ryan MD PCP - General Internal Medicine 05/25/21 Kristian Lam MD PhD [address] [place] [address] Referring Physician Cardiology 01/17/22
--- OUTSIDE RECORDS SUMMARY | 2025-04-27 11:56 | XMS_ITS | Encounter Summary ---
Author Organization [facility] Address [address] [place] [address] Phone Care Team Providers Care Skill Labor Name Role Phone Jad Ryan MD Primary Care Provider Reason for Referral * (Routine) - Closed Specialty Diagnoses / Procedures Referred By Contac t Referred To Contact Diagnoses History of 2018 novel coronavirus disease (COVID-19) Sequelae of other specified infectious and parasitic diseases Shortness of breath Procedures Pulmonary Function Test -[facility] PFT [facility]- [facility]; Standard, Oxygen Assessment Titration; Spirometry, Spirometry w/bronchodilator, DLCO and Lung Volumes Nicolette Shaw NP Phone: tel: fax: Referral ID Status Reason Start Date Expiration Date Visits Re quested Visits Authorized [id number] Closed 05/25/2021 06/24/2022 1 1 Reason for Visit * (Routine) - Closed Specialty Diagnoses / Procedures Referred By Contac t Referred To Contact Diagnoses History of 2019 novel coronavirus disease (COVID-19) Sequelae of other specified infectious and parasitic diseases Shortness of breath Procedures Pulmonary Function Test -[facility]- [facility]; Standard, Oxygen Assessment Titration; Spirometry, Spirometry w/bronchodilator, DLCO and Lung Volumes Nicolette Shaw NP Phone: tel: fax: Referral ID Status Reason Start Date Expiration Date Visits Re quested Visits Authorized [id number] Closed 05/25/2021 06/24/2022 1 1 Encounter Details Date Type Department Care Team (Latest Contact Info) Description 06/20/2021 1:47 PM CDT Hospital Encounter [facility] PFT Lab [address] [facility] [address] [place] [address] History of 2019 novel coronavirus disease (COVID-19); [...] on file Legal Sex Female 1:13 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 RAW 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 Gender Identity Female 06/13/2021 1:53 PM CDT [...] 3:16 PM CDT) FVC PRE 3.22 L [facility] FVC %PRE PRED 89 % [facility] FEV1 PRE 2.77 L [facility] FEV1 %PRE PRED 97 % [facility] FEV1/FVC PRE 86.2 % [facility] FRC PL PRE 2.21 L [facility] FRC PL %PRE PRED 74 % [facility] RV PRE 2.10 L [facility] RV %PRE PRED 110 % [facility] TLC PRE 5.31 L [facility] TLC %PRE PRED 100 % [facility] DLCO PRE 20.4 ml/min/mmH g [facility] DLCO %PRE PRED 92 % [facility] Anatomical Region Laterality Modality PFT 06/20/2021 2:07 PM CDT Narrative 06/21/2021 7:51 PM CDT [facility] Division of Pulmonary & Critical Care Medicine [address] [place] [address]; [address]; [place] [address]; [phone] Pulmonary Function Laboratory Pulmonary Stress Test Simple/Oxygen Assessment Patient: Lou Boone Date: 06/20/2021 Physician: Robbin Lewis NP Ht: 65.5 in Wt: 220 lbs Room: OP Testing Director: Flora : 1970 Diagnosis: History of COVID, [...] Standard and oxygen assessment titration PFT performed at:->[facility] Adult PFT Lab- [facility] Procedure:->Standard Procedure:->Oxygen Assessment Titration Standard:->Spirometry, Spirometry w/bronchodilator, DLCO and Lung Volumes Nicolette Lowe SUPERVISOR LENS GENERATING PFT ORDERABLES Final Re sult documented in this encounter Visit Diagnoses Diagnosis History of 2019 novel coronavirus disease (COVID-19) Sequelae of other specified infectious and parasitic diseases Shortness of breath documented in this encounter Care Teams Skill Labor Relationship Specialty Start Date End Date Jad Ryan MD PCP - General Internal Medicine 05/25/21 documented as of this encounter
--- OUTSIDE RECORDS SUMMARY | 2025-04-27 11:56 | XMS_ITS | Clinical Summary ---
Author Organization [facility] Address [address] [place] [address] Care Team Providers Care Plywood Layup Line Core Feeder Name Role Phone Unavailable Primary Care Provider Unavailabl e Allergies No known active allergies Social History Tobacco Use Types Packs/Day Years Used Date Smoking Tobacco: Never Assessed Comments Unknown Sex and Gender Information Value Date Recorded Sex Assigned at Not on file Legal Sex Female 10:25 PM DATA MIGRATION LEAD Gender Identity Not on file Sexual Orientation Not on file Plan of Treatment Health Maintenance Due Date Last Done Comments Cervical Cancer Screening Pa p Smear (Age 30 to 64) Every 3 Years 1968 Colorectal Cancer Screening Colonoscopy (10 Years) 1968 Annual Physical 12/28/1971 Hepatitis C 1986 Cervical Cancer Screening Pa p with HPV Testing (Age 30 to 64) Every 5 Years 1998 Cervical Cancer Screening wi th HPV 1998 Mammogram Screening 2008 Pneumococcal Vaccine: 50+ Years (1 of 1 - PCV) 2018 Zoster Vaccines (1 of 2) 2018 Hepatitis B Vaccines (2 of 3 - 19+ 3-dose series) 04/05/2019 03/08/2019 COVID-19 Vaccine (3 - 2023-2 5 season) 2024 11/30/2020, 11/09/2020 DTaP, Tdap and Td Vaccines ( 2 - Td or Tdap) 10/20/2024 10/20/2014 Meningococcal B Vaccine Aged Out No l onger eligible based on patient's age to complete this topic Meningococcal Vaccine Aged Out No kirby solitario eligible based on patient's age to complete this topic RSV Immunizations Under 20 Months Aged Out No longer eligible b ased on patient's age to complete this topic
--- OUTSIDE RECORDS SUMMARY | 2025-04-27 11:56 | XMS_ITS | Encounter Summary ---
Author Organization [facility] Address [address] [place] [address] Phone Care Team Providers Care Meter Tester Primary Name Role Phone Unknown, Notinfile Primary Care Provider Unavail able Jad Ryan MD Primary Care Provider [phone] Unknown, Notinfile Primary Care Provider Unavail able Unknown, Notinfile Primary Care Provider Unavail able Jad Ryan MD Primary Care Provider [phone] Jad Ryan MD Primary Care Provider [phone] Kristian Lam MD PhD Unavailable [phone] Encounter Details Date Type Department Care Team (Latest Contact Info) Description 08/23/2012 Orders Only [facility] Scanning, Provider Social History Tobacco Use Types Packs/Day Years Used Date Smoking Tobacco: Never Assessed Comments Unknown Sex and Gender Information Value Date Recorded Sex Assigned at Not on file Legal Sex Female 1:13 AM 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 HATCHERY 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 Gender Identity Female 06/13/2021 1:53 PM CDT Sexual Orientation Straight 06/13/2021 1: 53 PM CDT documented as of this encounter Plan of Treatment Not on file documented as of this encounter Procedures Procedure Name Priority Date/Time Associated Diagnosis Comments CARDIOLOGY DOCUMENT SCAN 08/23/2012 documented in this encounter Results * SCAN - CARDIOLOGY (08/23/2012) Anatomical Region Laterality Modality Other us Provider Scanning [facility] CARDIAC SERVICES PROCEDURES Final Result documented in this encounter Visit Diagnoses Not on filedocumented in this encounter Additional Health Concerns Infection Onset Date Last Indicated Resolved Time COVID19 08/17/2020 08/17/2020 09/08/2020 3:05 AM POULTRY HATCHERY SUPERVISOR COVID: Recovered Comment:Added based on recent COVID infection. 09/08/2020 09/09/2020 01/06/2021 3:05 AM C DT documented as of this encounter Care Teams Meter Tester Primary Relationship Specialty Start Date End Date Unknown, Notinfile PCP - General 08/13/20 08/14/20 Jad Ryan MD PCP - General Internal Medicine 08/15/20 08/15/20 Unknown, Notinfile PCP - General 08/16/20 08/23/20 Unknown, Notinfile PCP - General 08/24/20 08/24/20 Jad Ryan MD PCP - General Internal Medicine 08/25/20 05/24/21 Jad Ryan MD PCP - General Internal Medicine 05/25/21 Kristian Lam MD PhD [address] [place] [address] Referring Physician Cardiology 01/17/22 documented as of this encounter
--- OUTSIDE RECORDS SUMMARY | 2025-04-27 11:56 | XMS_ITS | Encounter Summary ---
Author Organization [facility] Address [address] [place] [address] Phone Care Team Providers Care Central Stores Attendant Name Role Phone Unknown, Notinfile Primary Care Provider Unavail able Jad Ryan MD Primary Care Provider [phone] Unknown, Notinfile Primary Care Provider Unavail able Unknown, Notinfile Primary Care Provider Unavail able Jad Ryan MD Primary Care Provider [phone] Jad Ryan MD Primary Care Provider [phone] Kristian Lam MD PhD Unavailable [phone] Encounter Details Date Type Department Care Team (Latest Contact Info) Description 08/12/2020 Orders Only [facility] Scanning, Provider Social History Tobacco Use Types Packs/Day Years Used Date Smoking Tobacco: Never Assessed Comments Unknown Sex and Gender Information Value Date Recorded Sex Assigned at Not on file Legal Sex Female 1:13 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 Gender Identity Female 06/13/2021 1:53 PM CDT Sexual Orientation Straight 06/13/2021 1: 53 PM CDT documented as of this encounter Plan of Treatment Not on file documented as of this encounter Procedures Procedure Name Priority Date/Time Associated Diagnosis Comments CARDIOLOGY DOCUMENT SCAN 08/12/2020 documented in this encounter Results * SCAN - CARDIOLOGY (08/12/2020) Anatomical Region Laterality Modality Other us Provider Scanning CV CARDIAC SERVICES PROCEDURES Final Result documented in this encounter Visit Diagnoses Not on filedocumented in this encounter Additional Health Concerns Infection Onset Date Last Indicated Resolved Time COVID19 08/17/2020 08/17/2020 09/08/2020 3:05 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 COVID: Recovered Comment:Added based on recent COVID infection. 09/08/2020 09/09/2020 01/06/2021 3:05 AM C DT documented as of this encounter Care Teams Central Stores Attendant Relationship Specialty Start Date End Date Unknown, [...] MD PhD [address] [place] [address] Referring Physician Cardiology 01/17/22 documented as of this encounter
== END 2025-04-27 11:54 | disposition home or self-care (01) ==
LOC: ANHGOSHLAB 11:54
PROVIDERS: PCP Internal Medicine; Visit Provider Otolaryngology
DX: J34.89 Other specified disorders of nose and nasal sinuses (principal); J32.9 Chronic sinusitis, unspecified
CPT/HCPCS: 87070; 87075

== ENCOUNTER 2025-07-02 19:00 | Emergency (ER) | payer OTHER, SELFPAY ==
--- OUTSIDE RECORDS SUMMARY | 2021-06-20 13:47 | XMS_ITS | Encounter Summary ---
Author Organization [facility] Address [address] [place] [address] Phone Care Team Providers Care Log Operations Coordinator Name Role Phone Jad Ryan MD Primary Care Provider [phone] Reason for Referral * (Routine) - Closed Specialty Diagnoses / Procedures Referred By Contac t Referred To Contact Diagnoses History of 2018 novel coronavirus disease (COVID-19) Sequelae of other specified infectious and parasitic diseases Shortness of breath Procedures Pulmonary Function Test -[facility] Adult PFT Lab- [facility]; Standard, Oxygen Assessment Titration; Spirometry, Spirometry w/bronchodilator, DLCO and Lung Volumes Nicolette Shaw NP Phone: tel: fax: Referral ID Status Reason Start Date Expiration Date Visits Re quested Visits Authorized [id number] Closed 05/25/2021 06/24/2022 1 1 Reason for Visit * (Routine) - Closed Specialty Diagnoses / Procedures Referred By Contac t Referred To Contact Diagnoses History of 2019 novel coronavirus disease (COVID-19) Sequelae of other specified infectious and parasitic diseases Shortness of breath Procedures Pulmonary Function Test -[facility]FT [facility]- [facility]; Standard, Oxygen Assessment Titration; Spirometry, Spirometry w/bronchodilator, DLCO and Lung Volumes Nicolette Shaw NP Phone: tel: fax: Referral ID Status Reason Start Date Expiration Date Visits Re quested Visits Authorized [id number] Closed 05/25/2021 06/24/2022 1 1 Encounter Details Date Type Department Care Team (Latest Contact Info) Description 06/20/2021 1:47 PM CDT Hospital Encounter [facility] Medicine PFT Lab [address] [facility] [address] [place] [address] History of 2019 novel coronavirus disease (COVID-19); Sequelae of other specified infectious and parasitic diseases; Shortness of breath Social History Tobacco Use Types Packs/Day Years Used Date Smoking Tobacco: Never Smokeless Tobacco: Never Alcohol Use Standard Drinks/Week Comments Defer 0 (1 standard drink = 0.6 oz pur e alcohol) AUDIT-C Answer Date Recorded Q1: How often do you have a drink containing alc ohol? Monthly or less 05/25/2021 Q2: How many drinks containi ng alcohol do you have on a typical day when you are drinking? 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 Gender Identity Female 06/13/2021 1:53 PM CDT Sexual Orientation Straight 06/13/2021 1: 53 PM CDT documented as of this encounter Plan of Treatment Not on file documented as of this encounter Procedures Procedure Name Priority Date/Time Associated Diagnosis Comments PULMONARY FUNCTION TEST (PFT) Routine 06/20/2021 3:16 PM CDT History of 2019 novel coronavirus disease (COVID-19) Sequelae of other specified infectious and parasitic diseases Shortness of breath documented in this encounter Results * Pulmonary Function Test - (06/20/2021 3:16 PM CDT) FVC PRE 3.22 L [facility] FVC %PRE PRED 89 % [facility] FEV1 PRE 2.77 L [facility] FEV1 %PRE PRED 97 % [facility] FEV1/FVC PRE 86.2 % [facility] FRC PL PRE 2.21 L [facility] FRC PL %PRE PRED 74 % [facility] RV PRE 2.10 L [facility] RV %PRE PRED 110 % [facility] TLC PRE 5.31 L [facility] TLC %PRE PRED 100 % [facility] DLCO PRE 20.4 ml/min/mmH g [facility] DLCO %PRE PRED 92 % [facility] Anatomical Region Laterality Modality PFT 06/20/2021 2:07 PM CDT Narrative 06/21/2021 7:51 PM CDT [facility] Division of Pulmonary & Critical Care Medicine [address] [place] [address]; [address]; [place] [address]; [phone] Pulmonary Function Laboratory Pulmonary Stress Test Simple/Oxygen Assessment Patient: Lou Boone Date: 06/20/2021 Physician: Robbin Lewis NP Ht: 65.5 in Wt: 220 lbs Room: OP Pressurizer: Flora : 1970 Diagnosis: History of COVID, PARTIDA Time(min) Distance (ft)/ Sparks O2 L/M SpO2 HR Marcio* BP FEV1/ % Pred Rest: RA 97 93 0 124/84 2.77/97 Walk/Bike: 1 150 RA 100 104 2 2 300 RA 100 106 3 3 600 RA 100 114 3 4 750 RA 100 114 4 5 900 RA 100 118 4 6 min 0 sec 1100 RA 100 111 4 Recovery: 1 RA 100 102 2 132/84 2.71/94 5 RA 100 99 0.5 117/69 / *Marcio rate of perceived exertion (1-10 dyspnea scale) Memo, CHEST 2003; [id number] Walk Test Summary: Six Minute Walk Distance: 1100 ft Six minute Walk Work [distance (m) x body wt (kg)]: 33,550 kg.m (normal >60,000 kg.m) Oxygen required to maintain SpO2 greater than 90% during six minutes of walking: L/M Comments: ATS script; head probe; 0 stops. Oxygen assessment. Interpretation: Breathing room air, SpO2 is normal at rest and during exercise sufficient to increase pulse from 93 to 118 b/min, SpO2 is stable. On this basis, SpO2 is adequate at rest breathing room air and while walking breathing room air. This level of exercise is associated with no significant change of FEV1. Braeden Reed MD By signing this report, the attending pulmonary physician certifies that he/she has personally reviewed and interpreted the graphic and numerical data associated with this pulmonary function study and has reviewed and /or edited a preliminary draft report and agrees with the written final report. Standard and oxygen assessment titration PFT performed at:->[facility] Adult PFT Lab- [facility] Procedure:->Standard Procedure:->Oxygen Assessment Titration Standard:->Spirometry, Spirometry w/bronchodilator, DLCO and Lung Volumes Nicolette Lowe PROCESS CHECKER PFT ORDERABLES Final Re sult documented in this encounter Visit Diagnoses Diagnosis History of 2019 novel coronavirus disease (COVID-19) Sequelae of other specified infectious and parasitic diseases Shortness of breath documented in this encounter Care Teams Log Operations Coordinator Relationship Specialty Start Date End Date Jad Ryan MD PCP - General Internal Medicine 05/25/21 documented as of this encounter
[2025-07-02] VITALS (14 sets, daily range): BP systolic 130–155; BP diastolic 72–105; PULSE 60–79; RESP 12–26; TEMP 36.1; O2SAT 92–100
--- NOTE | ~2025-07-02 | CT_ITS ---
EXAMINATION: CT BRAIN W/O DATE: 07/02/2025 20:17 INDICATION: Headache. Near syncope. TECHNIQUE: Computed tomography (CT) of the head was performed without intravenous contrast. The dose-length product was 605.33 mGy-cm. Automated exposure control and iterative reconstruction technique were employed. COMPARISON: No prior studies for comparison. FINDINGS: Normal brain parenchymal volume for age. Normal barbour-white differentiation. No acute intracranial hemorrhage, infarction, mass or mass effect. No ventriculomegaly or midline shift. Midline sagittal images demonstrate a normal corpus callosum, craniovertebral junction and sella turcica. Basilar cisterns are patent. Paranasal sinuses and mastoids are pneumatized. No depressed skull fractures. IMPRESSION: 1. No acute intracranial abnormality. Reviewed, dictated and finalized at location O.
--- NOTE | ~2025-07-02 | XR_ITS ---
EXAMINATION: XR chest 2V 07/02/2025 20:17 INDICATION: Redness of breath PROCEDURE: 2 view chest COMPARISON: 10/18/2020 FINDINGS: The lungs are clear. The cardiomediastinal silhouette is within normal limits. There are no pleural effusions. There is no pneumothorax suspected. IMPRESSION: 1: NO ACUTE CARDIOPULMONARY DISEASE. Reviewed, dictated and finalized at location O.
--- NOTE | 2025-07-02 19:09 | ECG_ITS ---
Test Date: 2025-07-02 19:11:54 Measurements Intervals [place] Rate: 68 P: 44 VT: 145 QRS: 46 QRSD: 86 T: 30 QT: 410 QTc: 439 Interpretive Statements SINUS RHYTHM WITH MARKED SINUS ARRHYTHMIA LOW QRS VOLTAGE IN PRECORDIAL LEADS [QRS DEFLECTION < 1.0 mV IN CHEST LEADS] POSSIBLE INFERIOR MYOCARDIAL INFARCTION , OF INDETERMINATE AGE [30 ms Q WAVE IN II/aVF] No previous ECG available for comparison Electronically Signed On 07-05-2025 06:22:20 CDT by Brittney Rahman M.D.
--- NOTE | 2025-07-02 19:24 | ED_ITS ---
HPI - SOB/Dyspnea General Chief Complaint: Shortness of Breath/Dyspnea Stated Complaint: shortness of breath and dizzy Time Seen by Provider: 07/02/25 19:09 Source: patient Mode of arrival: ambulatory Limitations: no limitations History of Present Illness HPI Narrative: Patient is a 54-year-old female half-way picker feeder and exposure to COVID as well as a history of lung COVID here with shortness of breath and general weakness and near syncope today. She is also restless. MD elicited complaint: shortness of breath Pertinent past history: other (None) Onset (ago): day(s) (1) Context: other (Patient has shortness of breath and weakness with near syncope today and recent exposure to COVID at the half-way) Timing: constant Severity: moderate Exacerbating factors: movement Relieving factors: nothing Known history of: other (None) Associated symptoms: nausea/vomiting, sense of impending doom, dizziness and lightheadedness Treatment prior to arrival: none Related Data Home oxygen amount: none Home Medications ?Medication ?Instructions ?Recorded ?Confirmed ?Last Taken ?Type ketorolac 10 mg tablet 10 mg PO PRN PRN Migraine He adache 08/12/20 04/27/25 Unknown History rizatriptan 10 mg disintegrating 10 mg translingual WA N PRN 08/12/20 04/27/25 Unknown History tablet Migraine Headache norethindrone acetate 1 mg-ethinyl tablet PO 04/27/25 04/27/25 Unknown History estradiol 5 mcg tablet Allergies Allergy/AdvReac Type Severity Reaction Status Date / Time No Known Allergies Allergy Verified 04/27/25 10:18 Review of Systems 2 Review of Systems: All systems reviewed & are unremarkable except as noted in HPI and below Constitutional: Constitutional: Reports no additional constitutional complaints Eyes: Eyes: Reports no additional eye complaints ENT: Reports system reviewed and no additional complaints, except as documented Cardiovascular: Cardiovascular: Reports no additional cardiovascular complaints Respiratory: Respiratory: Reports no additional respiratory complaints Gastrointestinal: Gastrointestinal: Reports no additional gastrointestinal complaints Genitourinary: Genitourinary: Reports no additional female genitourinary complaints Musculoskeletal: Musculoskeletal: Reports no additional musculoskeletal complaints Integumentary/Breasts: Skin/Breast: Reports system reviewed and no additional complaints, except as docu Neurologic: Reports system reviewed and no additional complaints, except as documented Psychiatric: Psychiatric: Reports no additional psychiatric complaints Endocrine: Endocrine: Reports no additional endocrine complaints Hematologic/Lymphatic: Hematologic/Lymphatic: Reports no additional hematologic/lymphatic complaints Allergic/Immunologic: Allergic/Immunologic: Reports no additional allergic/immunologic complaints [facility] Past Medical History Medical History Seasonal allergies Migraine headache Social History Social History Smoking packs per day: 2 Smoking cigarettes per day: 40.0 Years smoked: 26 Smoking pack-years: 52.00 Smoking status: Former smoker Tobacco type: cigarettes Second hand tobacco smoke exposure: Yes Alcohol intake: current Substance use: never Gender identity (if verbalized by the patient): Female Sexual Orientation (if Verbalized by the Patient): Straight or Heterosexual Spiritual care concerns: No Exam 2 Const: General: healthy appearing Nutritional Appearance: well nourished Orientation/consciousness: patient oriented x3 HENMT: Head: normal to inspection Ears: external ears normal F leann/Nose/Sinus: Normal external nose present Eyes: Conjunctivae: conjunctivae normal Pupils: Equal, round and reactive pupils present EOM: EOMs intact bilaterally Neck: Neck: normal visual inspection Chest: Chest palpation & inspection: normal inspection of the chest Resp: Effort & Inspection: normal respiratory effort and not labored A uscultation: clear to auscultation bilaterally and no crackles Cardio: Rate: regular rate Rhythm: regular rhythm Heart sounds: no murmurs GI: Inspection: non-distended GI Palp: Yes Soft to palpation and No Tenderness to palpation present (GI) Auscultation: normal bowel sounds : General: Yes bladder normal to palpation Back/Spine/Pelvis: Back: no CVA tenderness Skin: General skin exam: normal color Rashes: no rashes Wounds: no wounds Neuro: General: patient oriented x3, moves all extremities, no meningeal signs, no focal motor deficits and CN's II-XI intact bilaterally Cranial nerves: Yes Nystagmus not present Speech: normal speech Gait exam (Neuro): Normal gait present Other: Fast exam is negative, GCS is 15, NIH is 0 Extrem: General: normal to inspection, no clubbing, cyanosis or edema and no pedal edema Psych: Mental Status: mental status grossly normal Affect: normal affect and Anxious affect present Attitude: cooperative Course Vital Signs Vital signs: Vital Signs Temperature 36.1 C L 07/02/25 19:00 Pulse Rate 79 07/02/25 19:00 Respiratory Rate 22 H 07/02/25 19:00 Blood Pressure 141/74 H 07/02/25 19:00 Pulse Oximetry 99 07/02/25 19:00 Oxygen Delivery Room Air 07/02/25 19:00 Temperature 36.1 C L 07/02/25 19:00 Pulse Rate 71 07/02/25 20:46 Respiratory Rate 15 07/02/25 20:46 Blood Pressure 150/82 H 07/02/25 20:46 Pulse Oximetry 95 07/02/25 20:46 Oxygen Delivery Room Air 07/02/25 19:00 MDM - SOB/Dyspnea MDM Narrative Medical decision making narrative: Patient is a 54-year-old female with shortness of breath, nausea, near syncope today. Checked neuro/general workup. CT head with worsening headaches over time. UA. EKG. Workup was essentially negative. After discussion with the patient, she says that stress is really her likely nidus of physical changes. She cried for a minute and the agreed that likely stress related changes tonight. Lab Data Attestation: I reviewed the patient's lab results. 07/02/25 20:02 07/02/25 19:50 Labs: Lab Results 07/02/25 07/02/25 07/02/25 Range/Units 19:08 19:26 19:50 WBC (4.8-10.8) K/mm3 RBC (4.20-5.40) M/mm3 Hgb (12.0-15.0) g/dL Hct (35.0-49.0) % MCV (78.0-102.0) fL MCH (27.0-31.0) pg MCHC (32-36) g/dL RDW (11.6-14.4) % Plt Count (150-420) K/mm3 MPV (9.2-11.8) fl Immature Gran % (Auto) (0.0-0.0) % Neut % (Auto) (50.0-70.0) % Lymph % (Auto) (18.0-42.0) % Slope % (Auto) (2.0-11.0) % Eos % (Auto) (1.0-6.0) % Baso % (Auto) (0.0-1.0) % Lymph # (Auto) (1.10-4.50) K/mm3 Slope # (Auto) (0.10-0.90) K/mm3 Eos # (Auto) (0.02-0.50) K/mm3 Baso # (Auto) (0.00-0.10) K/mm3 Abs Immat Gran (auto) (0.00-0.00) K/mm3 Absolute Neuts (auto) (1.70-7.20) K/mm3 Absolute Nucleated RBC (0.00-0.00) K/mm3 Nucleated RBC % (0-0.0) % D-Dimer 0.19 (0.19-0.50) mg/L Sodium 138 (137-145) mmol/L Potassium 4.0 (3.4-5.0) mmol/L Chloride 103 (98-107) mmol/L Carbon Dioxide 23 (22-30) mmol/L Anion Gap 12 (4-12) mmol/L BUN 10 (7-17) mg/dL Creatinine 0.84 (0.7-1.0) mg/dL Estim Creat Clear Calc 69 ml/min Estimated GFR > 60 (59 - ) Glucose 116 H (65-110) mg/dL POC Capillary Glucose 104 (65-105) mg/dl Calculated Osmolality 286 (285-295) mOsm/kg Lactic Acid 1.1 (0.4-2.0) mmol/L Calcium 10.1 (8.4-10.2) mg/dL Total Bilirubin 0.6 (0.2-1.3) mg/dL AST 30 (14-36) U/L ALT 28 (6-35) U/L Alkaline Phosphatase 39 (38-126) U/L Total Creatine Kinase 54 (30-135) U/L Troponin I Pending NT-Pro-B Natriuret Pep Pending Total Protein 8.5 H (6.3-8.2) g/dL Albumin 4.8 (3.5-5.1) g/dL Urine Color (Yellow) Urine Appearance (Clear) Urine pH (5.0-8.0) Ur Specific Industry (1.010-1.020) Urine Protein (Negative) Urine Glucose (UA) (Negative) Urine Ketones (Negative) Ur Blood (Man) (Negative) Urine Nitrate (Negative) Urine Bilirubin (Negative) Urine Urobilinogen (0.2-1.0) mg/dL Leukocyte Esterase Rfl (Negative) NESTOR/UL Influenza A (RT-PCR) Negative (Negative) Influenza B (RT-PCR) Negative (Negative) RSV (RT-PCR) Negative (Negative) SARS-CoV-2 RNA (RT-PCR) Negative (Negative) 07/02/25 Range/Units 20:02 WBC 9.2 (4.8-10.8) K/mm3 RBC 4.39 (4.20-5.40) M/mm3 Hgb 13.8 (12.0-15.0) g/dL Hct 39.9 (35.0-49.0) % MCV 90.9 (78.0-102.0) fL MCH 31.4 H (27.0-31.0) pg MCHC 34.6 (32-36) g/dL RDW 12.6 (11.6-14.4) % Plt Count 290 (150-420) K/mm3 MPV 9.2 (9.2-11.8) fl Immature Gran % (Auto) 0.4 H (0.0-0.0) % Neut % (Auto) 74.4 H (50.0-70.0) % Lymph % (Auto) 19.3 (18.0-42.0) % Slope % (Auto) 5.8 (2.0-11.0) % Eos % (Auto) 0.0 L (1.0-6.0) % Baso % (Auto) 0.1 (0.0-1.0) % Lymph # (Auto) 1.77 (1.10-4.50) K/mm3 Slope # (Auto) 0.53 (0.10-0.90) K/mm3 Eos # (Auto) 0.00 L (0.02-0.50) K/mm3 Baso # (Auto) 0.01 (0.00-0.10) K/mm3 Abs Immat Gran (auto) 0.04 H (0.00-0.00) K/mm3 Absolute Neuts (auto) 6.82 (1.70-7.20) K/mm3 Absolute Nucleated RBC 0.00 (0.00-0.00) K/mm3 Nucleated RBC % 0.0 (0-0.0) % D-Dimer (0.19-0.50) mg/L Sodium (137-145) mmol/L Potassium (3.4-5.0) mmol/L Chloride (98-107) mmol/L Carbon Dioxide (22-30) mmol/L Anion Gap (4-12) mmol/L BUN (7-17) mg/dL Creatinine (0.7-1.0) mg/dL Estim Creat Clear Calc ml/min Estimated GFR (59 - ) Glucose (65-110) mg/dL POC Capillary Glucose (65-105) mg/dl Calculated Osmolality (285-295) mOsm/kg Lactic Acid (0.4-2.0) mmol/L Calcium (8.4-10.2) mg/dL Total Bilirubin (0.2-1.3) mg/dL AST (14-36) U/L ALT (6-35) U/L Alkaline Phosphatase (38-126) U/L Total Creatine Kinase (30-135) U/L Troponin I NT-Pro-B Natriuret Pep Total Protein (6.3-8.2) g/dL Albumin (3.5-5.1) g/dL Urine Color Light yellow (Yellow) Urine Appearance Clear (Clear) Urine pH 6.0 (5.0-8.0) Ur Specific Industry 1.020 (1.010-1.020) Urine Protein Negative (Negative) Urine Glucose (UA) Negative (Negative) Urine Ketones 1+ H (Negative) Ur Blood (Man) Negative (Negative) Urine Nitrate Negative (Negative) Urine Bilirubin Negative (Negative) Urine Urobilinogen 0.2 (0.2-1.0) mg/dL Leukocyte Esterase Rfl Negative (Negative) NESTOR/UL Influenza A (RT-PCR) (Negative) Influenza B (RT-PCR) (Negative) RSV (RT-PCR) (Negative) SARS-CoV-2 RNA (RT-PCR) (Negative) Imaging Data Attestation: I personally reviewed and interpreted this imaging study as follows: Radiologist's impression: CT scan of the head was negative for acute process Chest x-ray was negative for acute process ECG Data EKG #1: Attestation: I personally reviewed and interpreted this ECG as follows: ECG completion date: 07/02/25 ECG completion time: 19:46 EKG Interpretation: normal rate, sinus rhythm, no ectopy, non-specific ST changes, normal QRS, normal QT and NL axis Discharge Plan Discharge Clinical Impression: Dizziness, Anxiety Patient Disposition: Home Condition: Stable Instructions: Stress (ED) Additional Instructions: Please follow-up with primary doctor next week. If this continues, further workup and medication to be started by the primary doctor in follow-up. Patient Language: Latvian Prescriptions: New ondansetron 4 mg tablet,disintegrating 4 mg PO Q8H PRN (Reason: nausea and vomiting) Qty: 30 0RF No Action ketorolac 10 mg tablet 10 mg PO PRN PRN (Reason: Migraine Headache) rizatriptan 10 mg tablet,disintegrating 10 mg translingual PRN PRN (Reason: Migraine Headache) norethindrone ac-eth estradiol 1-5 mg-mcg tablet PO mupirocin [Centany] 2 % ointment See Rx Instructions topical .COMPLEX Qty: 44 3RF Rx Instructions: topically; Melt one to two inches in each irrigation bottle. Irrigate with one to two bottles daily azelastine 137 mcg (0.1 %) spray,non-aerosol 1 - 2 spray intranasal Q12H Qty: 30 0RF Rx Instructions: administer into each nostril. Aim back/up/out fluticasone propionate [Flonase Allergy Relief] 50 mcg/actuation spray,suspension 2 spray intranasal BID Qty: 16 3RF Rx Instructions: administer into each nostril. Aim back/up/out doxycycline hyclate 100 mg capsule 100 mg PO BID Qty: 14 0RF Follow-up/Referrals: Jad Ryan MD [Primary Care Provider, Internal Medicine] Time of Disposition: 21:43
--- NOTE | 2025-07-02 19:28 | PC.NURSE ---
covid swab sent to lab
[2025-07-02] MEDS: SODIUM CHLORIDE 0.9% IV 1,000 ML 999 ML IV CONT (19:48)
[2025-07-02] MEDS: ONDANSETRON INJ 4 MG/2 ML VIAL IV PUSH (19:57)
[2025-07-02 20:21] LABS: Hematocrit 39.9 % (35.0-49.0); Hemoglobin 13.8 g/dL (12.0-15.0); Immature Granulocyte Percent A 0.4 % (0.0-0.0); Lymphocytes Absolute Auto 1.77 K/mm3 (1.10-4.50); Mean Corpuscular HGB Conc 34.6 g/dL (32-36); Mean Corpuscular Hemoglobin 31.4 pg (27.0-31.0); Mean Corpuscular Volume 90.9 fL (78.0-102.0); Nucleated Red Blood Cells Absolute Auto 0.00 K/mm3 (0.00-0.00); Nucleated Red Blood Cells Perc 0.0 % (0-0.0); Platelet Count Result 290 K/mm3 (150-420); Red Blood Count 4.39 M/mm3 (4.20-5.40); White Blood Count 9.2 K/mm3 (4.8-10.8)
--- OUTSIDE RECORDS SUMMARY | 2025-07-02 20:27 | XMS_ITS | Encounter Summary ---
Author Organization [facility] Address [address] [place] [address] Phone Care Team Providers Care Slot Floorperson Name Role Phone Unknown, Notinfile Primary Care Provider Unavail able Jad Ryan MD Primary Care Provider [phone] Unknown, Notinfile Primary Care Provider Unavail able Unknown, Notinfile Primary Care Provider Unavail able Jad Ryan MD Primary Care Provider [phone] Jad Ryan MD Primary Care Provider [phone] Kristian Lam MD PhD Unavailable [phone] Encounter Details Date Type Department Care Team (Latest Contact Info) Description 08/23/2012 Orders Only [facility] Scanning, Provider Social History Tobacco Use Types Packs/Day Years Used Date Smoking Tobacco: Never Assessed Comments Unknown Sex and Gender Information Value Date Recorded Sex Assigned at Not on file 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 09/08/2020 09/09/2020 01/06/2021 3:05 AM C DT documented as of this encounter Care Teams Slot Floorperson Relationship Specialty Start Date End Date Unknown, [...] MD PhD [address] [place] [address] Referring Physician Cardiology 01/17/22 documented as of this encounter
--- OUTSIDE RECORDS SUMMARY | 2025-07-02 20:27 | XMS_ITS | Clinical Summary ---
Author Organization [facility] Address [address] [place] [address] Care Team Providers Care Title Insurance Sales Representative Name Role Phone Jad Ryan MD Primary Care Provider [phone] Kristian Lam MD PhD Unavailable [phone] Allergies No known active allergies Medications ketorolac (TORADOL) 10 mg tablet Take 10 mg by mouth every 6 (six) hours as needed for pain Active montelukast (SINGULAIR) 10 mg tablet Take 10 mg by mouth nightly Active rizatriptan REFINISHER (MAXALT-REFINISHER) 10 mg disintegrating tabletIndications:M igraine Take 10 [...] 0 Assessment & Plan (08/24/2020 9:01 AM FINANCIAL SYSTEMS DIRECTOR): Patient with no significant past medical history [...] on file Legal Sex Female 1:13 AM FINANCIAL SYSTEMS DIRECTOR Gender Identity Female 06/13/2021 1:53 PM CDT Sexual Orientation Straight 06/13/2021 1: 53 PM CDT Obstetrics History Last Filed Vital Signs Vital Sign Reading Time Taken Comments Blood Pressure 121/62 09/19/2021 10:44 AM FINANCIAL SYSTEMS DIRECTOR Pulse 57 09/19/2021 10:44 AM FINANCIAL SYSTEMS DIRECTOR Temperature 36.6 C (97.9 F) 08/24/2021 10:40 AM FINANCIAL SYSTEMS DIRECTOR Respiratory Rate 18 08/25/2020 4:05 AM FINANCIAL SYSTEMS DIRECTOR Oxygen Saturation 95% 09/19/2021 10: 44 AM FINANCIAL SYSTEMS DIRECTOR Inhaled Oxygen Concentration - - Weight 103.1 kg (227 lb 6.4 oz) 021 10:44 AM FINANCIAL SYSTEMS DIRECTOR Height 167 cm (5' 5.75) 09/19/2021 10: 44 AM FINANCIAL SYSTEMS DIRECTOR Body Mass Index 36.98 09/19/2021 10:44 AM FINANCIAL SYSTEMS DIRECTOR Plan of Treatment Health Maintenance Due Date Last Done Comments Breast Cancer Screening-Mammogram 1968 Cervical Cancer Screening 1968 Colon Cancer Screening-Colonoscopy 1968 Depression Screening 1968 Regular Well Visit/Exam 18-64 1986 Zoster Vaccine (1 of 2) 2018 DTaP/Tdap/Td Vaccine (2 - Td or Tdap) 10/20/2024 10/20/2014 Covid-19 Vaccine (3 - 2024-2 6 season) 2025 11/30/2020, 11/09/2020 Influenza Vaccine (#1) 2025 Hepatitis B Screening Completed 03/08/2019 Hepatitis C Screening Completed 08/19/2020 Pneumococcal vaccine <65 Aged Out No longer eligible based on patient's age to complete this topic Procedures Procedure Name Priority Date/Time Associated Diagnosis Comments HEPATITIS PANEL, ACUTE Routine 08/19/2020 6:59 PM FINANCIAL SYSTEMS DIRECTOR from Last 3 Months or Most Recently Relevant to Health Maintenance Results * Hepatitis panel, acute (08/19/2020 6:59 PM FINANCIAL SYSTEMS DIRECTOR) Hep A IgM Nonreactive Nonreactive [facility] Comment: Interpretive Data: If Hep A IgM Ab is reported as Equivocal, a new sample should be drawn in two weeks for testing. Current interpretive data was last revised on 19. Hep B core IgM Nonreactive Nonreactive [facility] Comment: Interpretive Data If HepB Core IgM Ab is reported as Equivocal, a new sample should be drawn in two weeks for testing. Current interpretive data was last revised on 19. Hep C Ab Nonreactive Nonreactive [facility] Comment:Antibodies to HCV no t detected. Does NOT exclude the possibility of recent exposure to HCV. HepBsAg Nonreactive Nonreactive [facility] Blood specimen (specimen) 08/19/2020 6:59 PM FINANCIAL SYSTEMS DIRECTOR 08/19/2020 7:29 PM FINANCIAL SYSTEMS DIRECTOR us Shanna Pretty MD LAB MICROBIOLOGY - GENER AL ORDERABLES Edited Result - Final [facility] Department [place] [address] from Last 3 Months or Most Recently Relevant to Health Maintenance Insurance [employer] [facility] Advance Directives For more information, please contact: [phone] * Full Code (Latest Code Status on File) Date Activated Date Inactivated Comments 08/13/2020 4:35 AM 08/25/2020 7:06 PM Care Teams Title Insurance Sales Representative Relationship Specialty Start Date End Date Jad Ryan MD PCP - General Internal Medicine 05/25/21 Kristian Lam MD PhD [address] [place] [address] Referring Physician Cardiology 01/17/22
--- OUTSIDE RECORDS SUMMARY | 2025-07-02 20:27 | XMS_ITS | Clinical Summary ---
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
--- NOTE | 2025-07-02 20:43 | PC.NURSE ---
Pt's breathing labored when she got up to use the restroom.
[2025-07-02 21:09] LABS: Influenza A QL RT-PCR Negative (Negative); Influenza B QL RT-PCR Negative (Negative); RSV RNA, RT-PCR Negative (Negative); SARS-CoV-2 RNA PCR Negative (Negative)
[2025-07-02 21:21] LABS: Add Urine Microscopic? NO; Appearance Urine Clear (Clear); Glucose Urine UA Negative (Negative); Leukocyte Esterase Ur Negative LEU/UL (Negative); Nitrate Urine Negative (Negative); Specific Grav Ur 1.020 (1.010-1.020)
[2025-07-02 21:29] LABS: Alanine Aminotransferase 28 U/L (6-35); Albumin Level 4.8 g/dL (3.5-5.1); Alkaline Phosphatase 39 U/L (38-126); Anion Gap 12 mmol/L (4-12); Aspartate Amino Transferase 30 U/L (14-36); Bilirubin,Total 0.6 mg/dL (0.2-1.3); Blood Urea Nitrogen 10 mg/dL (7-17); Calcium 10.1 mg/dL (8.4-10.2); Carbon Dioxide 23 mmol/L (22-30); Chloride 103 mmol/L (98-107); Creatine Kinase 54 U/L (30-135); Estimated CRCL calculation 69 ml/min; Estimated Glomerular Filt Rate > 60; Glucose 116 mg/dL (65-110); Osmolality Calculated 286 mOsm/kg (285-295); Potassium 4.0 mmol/L (3.4-5.0); Sodium 138 mmol/L (137-145); Total Protein 8.5 g/dL (6.3-8.2)
--- NOTE | 2025-07-02 21:29 | PC.NURSE ---
Pt's breathing not as labored when she got up to use the restroom. Much improved from last time.
[2025-07-02 21:41] LABS: NT Pro B Type Natriuretic Pept 108 pg/mL (19.9-100); Troponin I < 0.012 ng/mL (0.000-0.034)
--- NOTE | 2025-07-02 21:44 | PC.NURSE ---
ERP aware of pt's vital signs. No new orders.
--- NOTE | 2025-07-06 14:02 | PC.NURSE ---
preliminary blood cultures x2 reviewed. no growth in 24 hours
--- NOTE | 2025-07-07 13:26 | PC.NURSE ---
PRELIMINARY BLOOD CULTURE RESULTS X2: NO GROWTH IN 48 HRS
--- NOTE | 2025-07-08 13:15 | PC.NURSE ---
PRELIMINARY BLOOD CULTURE REPORT; NO GROWTH IN 48 HOURS.
--- NOTE | 2025-07-09 13:48 | PC.NURSE ---
PRELIMINARY BLOOD CULTURE REPORT; NO GROWTH IN 48 HOURS.
--- NOTE | 2025-07-11 01:33 | PC.NURSE ---
final blood culture reports no growth in five days.
--- NOTE | 2025-07-13 14:21 | PC.NURSE ---
Preliminary blood culture report; no growth in 48 hours.
--- NOTE | 2025-07-14 13:20 | PC.NURSE ---
final blood culture reviewed. no growth in 7 days
== END 2025-07-02 22:02 | disposition home or self-care (01) ==
PROVIDERS: Emergency Provider Emergency Medicine; PCP Internal Medicine
DX: R42 Dizziness and giddiness (principal); F41.9 Anxiety disorder, unspecified; Z87.891 Personal history of nicotine dependence; Z20.822 Contact with and (suspected) exposure to COVID-19
CPT/HCPCS: 36415; 70450; 71046; 80053; 81003; 82550; 82948; 83605; 83880; 84484; 85025; 85380; 87637; 93005; 96361; 96374; 99284; J2405; J7030

== ENCOUNTER 2025-07-14 11:51 | Emergency (ER) | payer OTHER, SELFPAY ==
--- NOTE | ~2025-07-14 | CT_ITS ---
Lou Boone EXAMINATION: CT abdomen pelvis w con COMPARISON: None HISTORY: RLQ pain TECHNIQUE: Axial images were obtained through the abdomen, pelvis post administration of IV contrast. Oral contrast was also administered. Coronal reconstruction images were obtained from the axial views. CT scan performed using dose optimization techniques including the following automated exposure control; adjustment of mA and/or kV; use of iterative reconstruction technique. Automatic exposure control was used to reduce radiation dose. Permanent radiation dose record is archived to PACS. FINDINGS: CT abdomen: LUNG BASES: The lung bases are clear. The visualized portions of the heart and pericardium are unremarkable. LIVER: Unremarkable, liver contours intact, no lesions. SPLEEN: Unremarkable. KIDNEYS: Right Kidney: Unremarkable. No calculi. No hydronephrosis. Left Kidney: Unremarkable. No calculi. No hydronephrosis ADRENAL GLANDS: Unremarkable. PANCREAS: Unremarkable. GALLBLADDER/BILIARY: Unremarkable. No biliary dilatation. STOMACH AND ESOPHAGUS: Visualized stomach and esophagus within normal limits. BOWEL/MESENTERY: Moderate fecal content, no colitis or diverticulitis. Mesentery normal. There are some fluid-filled loops of small bowel however there are no dilated small bowel loops appreciated. Appendix is not identified however there is no inflammation surrounding the cecum. ADENOPATHY/RETROPERITONEUM: No lymphadenopathy. AORTA/VASCULATURE: Normal caliber aorta. FREE FLUID OR FREE AIR: No free fluid.. CT pelvis: SOLID ORGANS/REPRODUCTIVE: Uterus appears atrophic, no adnexal mass. BLADDER: Within normal limits. OSSEOUS STRUCTURES: No acute osseous abnormality.No suspicious lesions. OVERLYING SOFT TISSUES: Unremarkable. IMPRESSION: Nonspecific fluid-filled loops of small bowel, findings can BE seen with early enteritis. Appendix not identified.If pain persists follow-up is recommended Reviewed, dictated and finalized at location P.
[2025-07-14 11:53] VITALS: BP 149/92; PULSE 87; RESP 18; TEMP 36.7; O2SAT 99
--- NOTE | 2025-07-14 11:53 | ED.ABDPAIN ---
HPI - Abdominal Pain General Chief Complaint: Abdominal Pain Stated Complaint: rt. side flank pain Time Seen by Provider: 07/14/25 11:52 Source: patient Mode of arrival: ambulatory Limitations: no limitations History of Present Illness HPI narrative: Patient is a 54-year-old female with right lower quadrant abdominal pain for the past day. She had acute onset pain today. No nausea vomiting or diarrhea. There was some initial nausea however. MD elicited complaint: abdominal pain (Right lower quadrant) and flank pain (Right) Pertinent past history: none Onset (ago): day(s) (1) Pain Consistency: constant Location: RLQ Severity: severe Pain scale (0-10): 8 Quality: sharp Radiation: R flank Migration to: no migration Exacerbating factors: nothing Relieving factors: nothing Context: confirms other (Patient has acute onset of right lower quadrant pain today without relationship to any particular issue) Associated symptoms: nausea Treatments prior to arrival: other (None) Related Data Home Medications ?Medication ?Instructions ?Recorded ?Confirmed ?Last Taken ?Type ketorolac 10 mg tablet 10 mg PO PRN PRN Migraine Headache 08/12/20 04/27/25 Unknown History rizatriptan 10 mg disintegrating 10 mg translingual PRN PRN 08/12/20 04/27/25 Unknown History tablet Migraine Headache norethindrone acetate 1 mg-ethinyl tablet PO 04/27/25 04/27/25 Unknown History estradiol 5 mcg tablet Allergies Allergy/AdvReac Type Severity Reaction Status Date / Time No Known Allergies Allergy Verified 07/14/25 11:58 Review of Systems Review of Systems: All systems reviewed & are unremarkable except as noted in HPI and below Constitutional: Constitutional: Reports no additional constitutional complaints Eyes: Eyes: Reports no additional eye complaints ENT: Reports system reviewed and no additional complaints, except as documented Cardiovascular: Cardiovascular: Reports no additional cardiovascular complaints Respiratory: Respiratory: Reports no additional respiratory complaints Gastrointestinal: Gastrointestinal: Reports no additional gastrointestinal complaints Genitourinary: Genitourinary: Reports no additional female genitourinary complaints Musculoskeletal: Musculoskeletal: Reports no additional musculoskeletal complaints Integumentary/Breasts: Skin/Breast: Reports system reviewed and no additional complaints, except as docu Neurologic: Reports system reviewed and no additional complaints, except as documented Psychiatric: Psychiatric: Reports no additional psychiatric complaints Endocrine: Endocrine: Reports no additional endocrine complaints Hematologic/Lymphatic: Hematologic/Lymphatic: Reports no additional hematologic/lymphatic complaints Allergic/Immunologic: Allergic/Immunologic: Reports no additional allergic/immunologic complaints PENDING SALE TO [facility] Past Medical History Medical History Seasonal allergies Migraine headache Social History Social History Smoking packs per day: 2 Smoking cigarettes per day: 40.0 Years smoked: 26 Smoking pack-years: 52.00 Smoking status: Former smoker Tobacco type: cigarettes Second hand tobacco smoke exposure: Yes Alcohol intake: current Substance use: never Gender identity (if verbalized by the patient): Female Sexual Orientation (if Verbalized by the Patient): Straight or Heterosexual Spiritual care concerns: No Exam Const: General: ill appearing; No no acute distress (Acute pain right lower quadrant) Nutritional Appearance: well nourished Orientation/consciousness: patient oriented x3 Limitations: no limitations HENMT: Head: normal to inspection Ears: external ears normal Face/Nose/Sinus: Normal external nose present Eyes: Conjunctivae: conjunctivae normal Pupils: Equal, round and reactive pupils present EOM: EOMs intact bilaterally Neck: Neck: normal visual inspection Chest: Chest palpation & inspection: normal inspection of the chest Resp: Effort & Inspection: normal respiratory effort and not labored Auscultation: clear to auscultation bilaterally and no crackles Cardio: Rate: regular rate Rhythm: regular rhythm Heart sounds: no murmurs GI: Inspection: non-distended GI Palp: Yes Soft to palpation, Yes Tenderness to palpation present (GI) (Right lower quadrant), Yes Guarding due to palpation present (GI), No Rigid due to palpation, No Hernia present, No Palpable mass present and Yes Rebound tenderness present Auscultation: normal bowel sounds : General: Yes bladder normal to palpation Back/Spine/Pelvis: Back: no CVA tenderness Skin: General skin exam: normal color Rashes: no rashes Wounds: no wounds Neuro: General: patient oriented x3, moves all extremities, no meningeal signs, no focal motor deficits and CN's II-XI intact bilaterally Extrem: General: normal to inspection, no clubbing, cyanosis or edema and no pedal edema Psych: Mental Status: mental status grossly normal Affect: normal affect Attitude: cooperative Course Vital Signs Vital signs: Vital Signs Temperature 36.7 C 07/14/25 11:53 Pulse Rate 87 07/14/25 11:53 Respiratory Rate 18 07/14/25 11:53 Blood Pressure 149/92 H 07/14/25 11:53 Pulse Oximetry 99 07/14/25 11:53 Oxygen Delivery Room Air 07/14/25 11:53 Temperature 36.7 C 07/14/25 11:53 Pulse Rate 91 07/14/25 12:48 Respiratory Rate 20 07/14/25 12:48 Blood Pressure 151/85 H 07/14/25 12:48 Pulse Oximetry 96 07/14/25 12:48 Oxygen Delivery Room Air 07/14/25 12:48 MDM - Abdominal Pain MDM Narrative Medical decision making narrative: Patient is a 54-year-old female with right lower quadrant pain radiating to the right flank for the past day. We will do abdominal pain workup. Workup was essentially negative and I discussed the case with surgery at [facility] and they will accept the patient to monitor for 24 hours and make further recommendations. No need for antibiotics with no white count or fever. Lab Data Attestation: I reviewed the patient's lab results. 07/14/25 12:12 07/14/25 12:12 Labs: Lab Results 07/14/25 Range/Units 12:12 WBC 7.4 (4.8-10.8) K/mm3 RBC 5.00 (4.20-5.40) M/mm3 Hgb 15.5 H (12.0-15.0) g/dL Hct 45.1 (35.0-49.0) % MCV 90.2 (78.0-102.0) fL MCH 31.0 (27.0-31.0) pg MCHC 34.4 (32-36) g/dL RDW 12.7 (11.6-14.4) % Plt Count 330 (150-420) K/mm3 MPV 9.0 L (9.2-11.8) fl Immature Gran % (Auto) 0.5 H (0.0-0.0) % Neut % (Auto) 63.9 (50.0-70.0) % Lymph % (Auto) 29.8 (18.0-42.0) % [place] % (Auto) 5.7 (2.0-11.0) % Eos % (Auto) 0.0 L (1.0-6.0) % Baso % (Auto) 0.1 (0.0-1.0) % Lymph # (Auto) 2.21 (1.10-4.50) K/mm3 [place] # (Auto) 0.42 (0.10-0.90) K/mm3 Eos # (Auto) 0.00 L (0.02-0.50) K/mm3 Baso # (Auto) 0.01 (0.00-0.10) K/mm3 Abs Immat Gran (auto) 0.04 H (0.00-0.00) K/mm3 Absolute Neuts (auto) 4.73 (1.70-7.20) K/mm3 Absolute Nucleated RBC 0.00 (0.00-0.00) K/mm3 Nucleated RBC % 0.0 (0-0.0) % PT 9.5 (9.50-12.1) Seconds INR 0.8 APTT 26.5 (23.9-30.70) Sec Sodium 141 (137-145) mmol/L Potassium 4.3 (3.4-5.0) mmol/L Chloride 106 (98-107) mmol/L Carbon Dioxide 21 L (22-30) mmol/L Anion Gap 14 H (4-12) mmol/L BUN 10 (7-17) mg/dL Creatinine 0.93 (0.7-1.0) mg/dL Estim Creat Clear Calc 64 ml/min Estimated GFR > 60 (59 - ) Glucose 94 (65-110) mg/dL Calculated Osmolality 291 (285-295) mOsm/kg Lactic Acid 0.9 (0.4-2.0) mmol/L Calcium 10.7 H (8.4-10.2) mg/dL Total Bilirubin 0.7 (0.2-1.3) mg/dL AST 27 (14-36) U/L ALT 27 (6-35) U/L Alkaline Phosphatase 42 (38-126) U/L Troponin I < 0.012 (0.000-0.034) ng/mL Total Protein 10.5 H (6.3-8.2) g/dL Albumin 5.2 H (3.5-5.1) g/dL Lipase 123 (23-300) U/L Urine Color Light yellow (Yellow) Urine Appearance Clear (Clear) Urine pH 6.0 (5.0-8.0) Ur Specific [place] 1.010 (1.010-1.020) Urine Protein Negative (Negative) Urine Glucose (UA) Negative (Negative) Urine Ketones Negative (Negative) Ur Blood (Man) Negative (Negative) Urine Nitrate Negative (Negative) Urine Bilirubin Negative (Negative) Urine Urobilinogen 0.2 (0.2-1.0) mg/dL Leukocyte Esterase Rfl Negative (Negative) NESTOR/UL Imaging Data Attestation: I personally reviewed and interpreted this imaging study as follows: Radiologist's impression: ITS Impressions Abdomen/Pelvis CT 07/14/25 12:26 IMPRESSION: Nonspecific fluid-filled loops of small bowel, findings can BE seen with early enteritis. Appendix not identified.If pain persists follow-up is recommended CT scan with contrast of abdomen and pelvis shows IMPRESSION: Nonspecific fluid-filled loops of small bowel, findings can BE seen with early enteritis. Appendix not identified.If pain persists follow-up is recommended ECG Data EKG #1: Attestation: I personally reviewed and interpreted this ECG as follows: ECG completion date: 07/14/25 ECG completion time: 13:44 normal rate, sinus rhythm (With sinus arrhythmia), no ectopy, non-specific ST changes (Inferior Q-wave without change from prior EKG), normal QRS, normal QT and NL axis Discharge Plan Discharge Clinical Impression: Abdominal pain, right lower quadrant Patient Disposition: Acute Care Hospital Condition: Stable Patient Language: Kazakh Prescriptions: No Action ketorolac 10 mg tablet 10 mg PO PRN PRN (Reason: Migraine Headache) rizatriptan 10 mg tablet,disintegrating 10 mg translingual PRN PRN (Reason: Migraine Headache) ondansetron 4 mg tablet,disintegrating 4 mg PO Q8H PRN (Reason: nausea and vomiting) Qty: 30 0RF norethindrone ac-eth estradiol 1-5 mg-mcg tablet PO mupirocin [Centany] 2 % ointment See Rx Instructions topical .COMPLEX Qty: 44 3RF Rx Instructions: topically; Melt one to two inches in each irrigation bottle. Irrigate with one to two bottles daily azelastine 137 mcg (0.1 %) spray,non-aerosol 1 - 2 spray intranasal Q12H Qty: 30 0RF Rx Instructions: administer into each nostril. Aim back/up/out doxycycline hyclate 100 mg capsule 100 mg PO BID Qty: 14 0RF fluticasone propionate [Flonase Allergy Relief] 50 mcg/actuation spray,suspension 2 spray intranasal BID Qty: 16 3RF Rx Instructions: administer into each nostril. Aim back/up/out Follow-up/Referrals: Jad Ryan MD [Primary Care Provider, Internal Medicine] Time of Disposition: 14:34
[2025-07-14] MEDS: ONDANSETRON INJ 4 MG/2 ML VIAL IV PUSH (12:06)
[2025-07-14] MEDS: MORPHINE SULFATE (*CRX) 2 MG/ML INJ 4 MG IV PUSH (12:06)
[2025-07-14] MEDS: SODIUM CHLORIDE 0.9% IV 1,000 ML 999 ML IV CONT (12:09)
[2025-07-14 12:19] LABS: Hematocrit 45.1 % (35.0-49.0); Hemoglobin 15.5 g/dL (12.0-15.0); Immature Granulocyte Percent A 0.5 % (0.0-0.0); Lymphocytes Absolute Auto 2.21 K/mm3 (1.10-4.50); Mean Corpuscular HGB Conc 34.4 g/dL (32-36); Mean Corpuscular Hemoglobin 31.0 pg (27.0-31.0); Mean Corpuscular Volume 90.2 fL (78.0-102.0); Nucleated Red Blood Cells Absolute Auto 0.00 K/mm3 (0.00-0.00); Nucleated Red Blood Cells Perc 0.0 % (0-0.0); Platelet Count Result 330 K/mm3 (150-420); Red Blood Count 5.00 M/mm3 (4.20-5.40); White Blood Count 7.4 K/mm3 (4.8-10.8)
[2025-07-14 12:21] LABS: Add Urine Microscopic? NO; Appearance Urine Clear (Clear); Glucose Urine UA Negative (Negative); Leukocyte Esterase Ur Negative LEU/UL (Negative); Nitrate Urine Negative (Negative); Specific Grav Ur 1.010 (1.010-1.020)
[2025-07-14 12:29] LABS: Alanine Aminotransferase 27 U/L (6-35); Albumin Level 5.2 g/dL (3.5-5.1); Alkaline Phosphatase 42 U/L (38-126); Anion Gap 14 mmol/L (4-12); Aspartate Amino Transferase 27 U/L (14-36); Bilirubin,Total 0.7 mg/dL (0.2-1.3); Blood Urea Nitrogen 10 mg/dL (7-17); Calcium 10.7 mg/dL (8.4-10.2); Carbon Dioxide 21 mmol/L (22-30); Chloride 106 mmol/L (98-107); Estimated CRCL calculation 64 ml/min; Estimated Glomerular Filt Rate > 60; Glucose 94 mg/dL (65-110); Lipase 123 U/L (23-300); Osmolality Calculated 291 mOsm/kg (285-295); Potassium 4.3 mmol/L (3.4-5.0); Sodium 141 mmol/L (137-145); Total Protein 10.5 g/dL (6.3-8.2)
[2025-07-14] MEDS: HYDROmorphone HCL INJ (*CRX) 2 MG/ML VIAL 0.5 MG IV PUSH (12:30)
[2025-07-14 12:32] LABS: INR 0.8; Partial Thromboplastin Time 26.5 Sec (23.9-30.70); Prothrombin Time 9.5 Seconds (9.50-12.1)
--- NOTE | 2025-07-14 12:37 | ECG_ITS ---
Test Date: 2025-07-14 12:43:59 Measurements Intervals Embudo Rate: 88 P: 65 GA: 169 QRS: 75 QRSD: 87 T: 26 QT: 361 QTc: 439 Interpretive Statements SINUS RHYTHM MINIMAL Q WAVES- LATERAL LEADS INFERIOR INFARCT, AGE INDETERMINATE BASELINE ARTIFACT- I, II, III, AVR, AVL, AVF, V1 ABNORMAL ECG Compared to ECG 07/02/2025 19:11:54 NO SIGNIFICANT CHANGE Electronically Signed On 07-14-2025 13:00:13 CDT by Arthur Peres D.O.
[2025-07-14 12:48] VITALS: BP 151/85; PULSE 91; RESP 20; O2SAT 96
[2025-07-14 13:01] LABS: Troponin I < 0.012 ng/mL (0.000-0.034)
--- NOTE | 2025-07-14 13:06 | PC.NURSE ---
Pt resting, still c/o pain, ERP Dr matute in to speak w/ pt about tests and POC to transfer for surgical consult and eval. Pt wants to go to [facility].
[2025-07-14] MEDS: HYDROmorphone HCL INJ (*CRX) 2 MG/ML VIAL 1 MG IV PUSH ×2 (13:23→16:28)
--- NOTE | 2025-07-14 14:10 | PC.NURSE ---
Dr Rosario spoke w/ pt and her spouse about POC for possible transfer or d/c home and return if pain isn't better in 24 hrs. Explained consult information given by Dr Mcelroy at [facility]. Pt states she will transfer to [facility].
[2025-07-14 14:46] VITALS: BP 144/85; PULSE 77; RESP 20; O2SAT 96
--- NOTE | 2025-07-14 14:50 | PC.NURSE ---
Pt resting w/ lights off, awaiting bed assignment call from [facility].
--- NOTE | 2025-07-14 16:24 | PC.NURSE ---
Pt states pain is increasing again. Order obtained for pain med before transferring w/ EMS.
[2025-07-14 16:30] VITALS: BP 155/85; PULSE 82; RESP 20; TEMP 36.8; O2SAT 98
--- NOTE | 2025-07-17 12:49 | PC.NURSE ---
blood culture, preliminary, no growth
--- NOTE | 2025-07-21 14:38 | PC.NURSE ---
blood final no growth
== END 2025-07-14 16:31 | disposition short-term general hospital (02) ==
PROVIDERS: Emergency Provider Emergency Medicine; PCP Internal Medicine
DX: R10.31 Right lower quadrant pain (principal); Z87.891 Personal history of nicotine dependence
CPT/HCPCS: 36415; 74177; 80053; 81003; 83605; 83690; 84484; 85025; 85610; 85730; 87040; 93005; 96361; 96374; 96375; 96376; 99285; J1171; J2270; J2405; J7030; Q9967

== ENCOUNTER 2025-07-14 17:20 | Inpatient (IN) | payer OTHER, SELFPAY ==
--- NOTE | ~2025-07-14 | US_ITS ---
Clinical history:Severe pelvic pain. LMP 2018. EXAM:Ultrasound pelvis complete with transvaginal TECHNIQUE:Multiple static grayscale images and color Doppler and abdominal and transvaginal images were obtained of the pelvis. Comparisons:None available FINDINGS: Uterus measures 6.8 x 3.10 x 4.7 cm. Endometrial stripe is not adequately visualized for evaluation. Ovaries were not visualized. Nonspecific fluid in the cervical canal and endometrial canal. Nonspecific fluid in the cul-de-sac.There is a 6 x 4 x 4 mm probable nabothian cyst in the cervix. IMPRESSION: 1. Nonspecific fluid in the cervical canal and endometrial canal. Nonspecific fluid in the cul-de-sac. 2. Ovaries were not visualized. 3. Endometrial stripe was not adequately visualized for evaluation. 4. Visualized uterus is unremarkable. If symptoms persist or worsen, consider a short-term follow-up study or additional imaging for further assessment. Reviewed, dictated and finalized at location Q. IMPRESSION: 1. Nonspecific fluid in the cervical canal and endometrial canal. Nonspecific f luid in the cul-de-sac. 2. Ovaries were not visualized. 3. Endometrial stripe was not adequately visualized for evaluation. 4. Visualized uterus is unremarkable. If symptoms persist or worsen, consider a short-term follow-up study or additio nal imaging for further assessment.
--- NOTE | ~2025-07-14 | XR_ITS ---
Examination: XR chest 2V Clinical History: elevated WBC, eval for pneumonia Comparison: 07/02/2025 Technique: PA and Lateral Findings: NG tube. Cardiomediastinal silhouette normal size and configuration. Minimal bibasilar atelectasis. No acute bony abnormality. IMPRESSION: 1. NG tube in place. 2. Mild bibasilar atelectasis. Small developing airspace opacity left base not excluded. Reviewed, dictated and finalized at location R.
--- NOTE | ~2025-07-14 | XR_ITS ---
EXAMINATION: XR sm bowel follow through WS DATE: 07/16/2025 14:08 INDICATION: Small bowel obstruction TECHNIQUE: Pit Boss radiograph(s) of the abdomen was/were obtained. Oral contrast was administered, and sequential radiographs of the abdomen were obtained through 4 1/2 hours. COMPARISON: CT dated 07/15/2025 FINDINGS: Pit Boss image demonstrates nasogastric tube tip in proximal side port in the body the stomach. There several dilated loops of small bowel in the central to left abdomen which measure up to 5 cm in maximal diameter. Subsequent images demonstrate slow advancement of contrast through multiple mildly dilated loops of small bowel. There is still significant contrast material in the stomach but no definitive contrast within the colon on the 4 1/2 hour images. IMPRESSION: 1. Persistent small bowel obstruction with multiple persistent mildly dilated loops of small bowel and no definitive oral contrast material in the colon after 4 1/2 hours. Reviewed, dictated and finalized at location A. IMPRESSION: 1. Persistent small bowel obstruction with multiple persistent mildly dilated l oops of small bowel and no definitive oral contrast material in the colon after 4 1/2 hours.
--- NOTE | ~2025-07-14 | XR_ITS ---
EXAMINATION: XR abdomen gastric tube insert DATE: 07/15/2025 19:11 INDICATION: Nasogastric tube placement TECHNIQUE: A supine view of the abdomen and lower chest was obtained for evaluation of feeding tube placement. COMPARISON: None. FINDINGS: Nasogastric tube tip in proximal side port in the body the stomach. Excreted contrast in the bilateral renal collecting systems from prior contrast enhanced CT. Lung bases are clear. Heart size is normal. IMPRESSION: 1. Nasogastric tube in the stomach. Reviewed, dictated and finalized at location A.
--- NOTE | ~2025-07-14 | XR_ITS ---
Abdominal radiograph(s) INDICATION: Vomiting COMPARISON: Small bowel follow-through one week prior TECHNIQUE: Supine and upright AP abdomen FINDINGS/IMPRESSION: 1. Residual enteric contrast scattered throughout ascending, transverse, proximal descending colon, and rectum. 2. Persistent dilated small bowel loops with air-fluid levels. Severe ileus possible but more worrisome for small bowel obstruction. Reviewed, dictated and finalized at location R.
--- NOTE | ~2025-07-14 | CT_ITS ---
EXAMINATION: CT abdomen pelvis w con DATE: 07/15/2025 17:05 INDICATION: Severe abdominal pain TECHNIQUE: Computed tomography (CT) of the abdomen and pelvis was performed with 100 mL Omnipaque-350 intravenous contrast. Automated exposure control and iterative reconstruction technique were employed. The dose-length product was 584.80 mGy-cm. COMPARISON: 07/14/2025 FINDINGS: Discoid atelectasis in the bilateral lower lobes. Heart size is normal. No pericardial or pleural effusion. Liver, spleen, pancreas, bilateral adrenal glands and kidneys are normal. Bladder, uterus and bilateral adnexa are unremarkable. Colon is unremarkable. The appendix is not visualized. No periceca l inflammatory change to suggest acute appendicitis. Interval increase in now extensive mildly dilated gas and fluid-filled small bowel which extends from a transition point in the right lower quadrant as seen on the prior study to the proximal jejunum. The transition point is best appreciated on coronal series 601, image 52. The more distal ileum is relatively decompressed extending to the ileocecal valve. There has been interval development of mild wall thickening along many of the loops of dilated jejunum extending to a transition point consistent with enteritis. There is relatively uniform mucosal enhancement throughout the small bowel including the dilated bowel and loops with wall thickening. Contrast enhanced mesenteric arteries and draining veins can be seen in the small bowel mesentery extending to the affected loops of small bowel which argues against ischemia. Small amount of atherosclerotic plaque at the origins of the celiac axis and superior mesenteric artery without hemodynamicall y significant stenosis. Small amount of likely reactive ascites in the pelvis. No abscess or free intraperitoneal gas. No pathologically enlarged abdominal or pelvic lymphadenopathy. Mild to moderate lower thoracic and moderate to severe lumbar spondylosis. IMPRESSION: 1. Interval progression of now multiple mildly dilated loops of small bowel extending to persistent transition point in the right lower quadrant consistent with small bowel obstruction. 2. New edematous wall thickening of many of the loops of jejunum consistent with an enteritis which could be infectious or inflammatory in etiology. Ischemia is considered unlikely given the contrast enhanced arteries and veins extending to the mesentery to the affected segments of bowel which also demonstrate mucosal enhancement. 3. New small amount of likely reactive ascites. Reviewed, dictated and finalized at location A. IMPRESSION: 1. Interval progression of now multiple mildly dilated loops of small bowel ext ending to persistent transition point in the right lower quadrant consistent wi th small bowel obstruction. 2. New edematous wall thickening of many of the loops of jejunum consistent wit h an enteritis which could be infectious or inflammatory in etiology. Ischemia is considered unlikely given the contrast enhanced arteries and veins extending to the mesentery to the affected segments of bowel which also demonstrate muco melinda enhancement. 3. New small amount of likely reactive ascites.
--- NOTE | ~2025-07-14 | XR_ITS ---
EXAMINATION: XR abdomen gastric tube insert, 07/23/2025 15:20 CDT HISTORY: NG tube insertion COMPARISON: No comparisons available. Technique: 3 view. Findings: There are dilated small bowel loops consistent with obstruction the largest 4 cm. No free air. No abnormal calcifications No acute osseous abnormality. Nasogastric tube terminates in the distal stomach. Impression: 1. Nasogastric tube in appropriate location Reviewed, dictated and finalized at location P. Impression: 1. Nasogastric tube in appropriate location
--- NOTE | ~2025-07-14 | XR_ITS ---
XR abdomen/kub 1V INDICATION: rule out Ileus REFERENCE: NONE FINDINGS: A supine view of the abdomen is submitted.Diffuse gaseous distention of bowel loops may represent ileus. Partial to early small bowel obstruction cannot be excluded. No free air is identified. Osseous structures are intact. IMPRESSION: Diffuse gaseous distention of the bowel loops suggestive of a ileus. Partial to early small bowel obstruction cannot be excluded. Reviewed, dictated and finalized at location S.
[2025-07-14 17:29] VITALS: BMI 29.5
--- NOTE | 2025-07-14 17:31 | ADMGEN ---
This patient, Lou Boone, was admitted to Medical Room 346-01. Patient/family oriented to hospital policies and general routines including ID bracelet, bed and alarms, visiting hours, pain management, procedures, bathroom and other care routines, personal items, smoking policy, room service/diet, and visiting hours. Information on how to activate the Rapid Response Team has been discussed. Patient/Family are encouraged to report perceived risks to care and to ask questions if they do not understand what they are told or what they should do.
[2025-07-14] MEDS: LACTATED RINGERS 1,000 ML 100 ML IV CONT (18:22)
[2025-07-14] MEDS: MORPHINE SULFATE (*CRX) 4 MG/ML INJ IV PUSH (18:23)
--- NOTE | 2025-07-14 18:27 | P.HP_ITS ---
H&P: HPI History of Present Illness Date/Time: 07/14/25 18:27 Chief Complaint: Acute abdominal pain Narrative: 54-year-old female past medical history of migraines presents the hospital with acute abdominal pain. Patient presented to acute abdominal pain out of proportion to exam and diagnostic findings. Patient was transferred to [facility] for surgical consult and higher level of care. Patient has acute acute complaints of right lower quadrant pain on palpation. Some guarding. No rebound tenderness. Denies nausea vomiting fever chills. Lab work shows a normal white count, hemoglobin 15.5, anion gap 14, calcium at 10.7, CT abdomen shows nonspecific fluid-filled loops of small bowel, findings can be seen with early enteritis. Appendix not identified.If pain persists follow-up is recommended. Surgery was consulted plan for NPO at midnight and possible surgery tomorrow. Review of Systems Review of Systems: 12 systems were reviewed and are negativ e except for as per HPI. [facility] Past Medical History Medical History Seasonal allergies Migraine headache Social History Social History Smoking packs per day: 2 Smoking cigarettes per day: 40.0 Years smoked: 26 Smoking pack-years: 52.00 Smoking status: Former smoker Second hand tobacco smoke exposure: Yes Alcohol intake: current Substance use: never Substance use type: does not use Lack of Transportation: No Lack of Food: Never True Current Housing: Decline to Answer Concerned About Future Housing: Decline to Answer Difficulty Paying Gas/Electric Bills: Decline to Answer Difficulty Paying for Meds: Decline to Answer Currently Unemployed: Decline to Answer Education: Decline to Answer Difficulty w/ Childcare or Family Care: Decline to Answer Gender identity (if verbalized by the patient): Female Sexual Orientation (if Verbalized by the Patient): Straight or Heterosexual Spiritual care concerns: No Meds Home Medications and Allergies Home Medications ?Medication ?Instructions ?Recorded ?Confirmed ?Type ketorolac 10 mg tablet 10 mg PO PRN PRN Migraine He adache 08/12/20 07/14/25 History rizatriptan 10 mg disintegrating 10 mg translingual NC N PRN 08/12/20 07/14/25 History tablet Migraine Headache azelastine 137 mcg (0.1 %) nasal 1 - 2 spray intranasa l Q12H #30 mL 03/29/25 07/14/25 Rx spray mupirocin 2 % topical ointment See Rx Instructions top ical 04/27/25 07/14/25 Rx (Centany) .COMPLEX #44 grams norethindrone acetate 1 mg-ethinyl 1 tablet PO DAILY 0 04/27/25 07/14/25 History estradiol 5 mcg tablet ondansetron 4 mg disintegrating 4 mg PO Q8H PRN nausea and 07/02/25 07/14/25 Rx tablet vomiting #30 tabs fluticasone propionate 50 2 spray intranasal BID #16 m L 07/12/25 07/14/25 Rx mcg/actuation nasal spray,suspension (Flonase Allergy Relief) Allergies Allergy/AdvReac Type Severity Reaction Status Date / Time No Known Allergies Allergy Verified 07/14/25 18:08 Exam Narrative: General: well appearing, appears stated age. HEENT: normocephalic, atraumatic. Mucous membranes moist. EOMI, PERRLA, bilateral sclera anicteric, no conjunctival injection. Neck supple without JVD, lymphadenopathy, or bruit. Respiratory: clear to ascultation bilaterally. No rales/rhonic/wheezes. Cardiovascular: Regular rate and rhythm, normal S1-S2 upon ascultation. No murmurs, rubs, or clicks. PMI is nondisplaced, capillary refill less than 3 second. Abdomen: Soft, round, no pulsatile masses, nondistended No rebound, no guarding. No CVA tenderness, no hepatosplenomegaly. Bowel sounds present to all four quadrants. No high pitch or tinkling sounds, resonant to percussion. Right lower quadrant tender to light palpation Extremities: No cyanosis, clubbing, or edema present. Pulses are palpable 2/2. Active ROM to all four extremities. Neuro: Alert and orientated x 4. PERRLA. Cranial nerves 2-12 intact without focal deficit. Skin: Warm, dry, and intact, without rash, erythema, or lesion. Psych: pleasant, cooperative, normal speech, normal affect, no hallucinations, no dysarthia Assessment and Plan Assessment and plan (1) Acute abdominal pain: Code(s): R10.9 - Unspecified abdominal pain Status: Acute Assessment and Plan: Disproportion will to exam and diagnostic findings Surgery consulted NPO midnight for possible surgery Hold pain medication at 6 am, exam so surgeon can evaluate patient White count within normal limits, CRP negative Will defer antibiotics at this time (2) Enteritis: Code(s): K52.9 - Noninfective gastroenteritis and colitis, unspecified Status: Acute Assessment and Plan: IV fluids for hydration White count within normal limits, CRP negative Will defer antibiotics at this time (3) Migraine headache: Code(s): G43.909 - Migraine, unspecified, not intractable, without status migrainosus Status: Acute Assessment and Plan: Continue home meds Quality VTE Prophylaxis VTE prophylaxis: mechanical ordered Hospitalist MIPS Advance Care Plan I have confirmed that the patient's Advanced Care Plan is present, code status i s documented, or surrogate decision maker is listed in patient medical record.: Yes Medication Reconciliation I have utilized all available resources to obtain, update and review the patients current medications (includes all prescriptions, OTC, herbals, cannabis, and nutritional supplements).: Yes
[2025-07-14] MEDS: KETOROLAC 15 MG/ML VIAL (*BKC) IV PUSH (19:49)
[2025-07-14 20:18] LABS: CRP < 0.5 mg/dL (<1.0)
[2025-07-14 21:55] VITALS: BP 153/87; PULSE 57; RESP 16; TEMP 36.5; O2SAT 100
[2025-07-14] MEDS: FLUTICASONE PROPIONATE 0.05% NA SPR 16 GM BTL (*BKC) 2 SPRAY NASAL (22:29)
[2025-07-14] MEDS: HYDROmorphone HCL INJ (*CRX) 1 MG/ML SYR 0.5 MG IV PUSH (22:32)
[2025-07-15] MEDS: KETOROLAC 15 MG/ML VIAL (*BKC) IV PUSH (02:13)
[2025-07-15] MEDS: HYDROmorphone HCL INJ (*CRX) 1 MG/ML SYR 0.5 MG IV PUSH ×2 (02:50→04:05)
[2025-07-15 04:46] LABS: Hematocrit 41.6 % (37.0-47.0); Hemoglobin 14.2 g/dL (12.0-15.0); Immature Granulocyte Percent A 0.5 % (0-0.5); Lymphocytes Absolute Auto 1.68 K/mm3 (0.9-3.2); Mean Corpuscular HGB Conc 34.1 g/dl (32-36); Mean Corpuscular Hemoglobin 30.7 pg (26-34); Mean Corpuscular Volume 90.0 fl (80-100); Nucleated Red Blood Cells Absolute Auto 0.000 K/mm3 (0.0-0.012); Nucleated Red Blood Cells Perc 0.0 % (0.0-0.2); Platelet Count Result 275 k/mm3 (150-375); Red Blood Count 4.62 M/mm3 (4.2-5.4); White Blood Count 10.8 K/mm3 (4.5-10.0)
[2025-07-15 04:55] LABS: Anion Gap 10 mmol/L (4-12); Blood Urea Nitrogen 10 mg/dL (7-17); Calcium 9.2 mg/dL (8.4-10.2); Carbon Dioxide 23 mmol/L (22-30); Chloride 101 mmol/L (98-107); Estimated CRCL calculation 72 ml/min; Estimated Glomerular Filt Rate > 60; Glucose 97 mg/dL (65-110); Potassium 3.7 mmol/L (3.4-5.0); Sodium 134 mmol/L (137-145)
[2025-07-15] MEDS: LACTATED RINGERS 1,000 ML 100 ML IV CONT ×2 (05:31→17:25)
[2025-07-15 05:36] VITALS: BP 154/86; PULSE 95; RESP 16; TEMP 36.2; O2SAT 97
[2025-07-15] MEDS: ONDANSETRON HCL ODT 4 MG TABLET PO (09:41)
[2025-07-15] MEDS: HYDROmorphone HCL INJ (*CRX) 1 MG/ML SYR IV PUSH ×4 (10:19→21:03)
--- NOTE | 2025-07-15 11:09 | PM.CNGS ---
Assessment and Plan Assessment and plan (1) Intractable abdominal pain: Code(s): R10.9 - Unspecified abdominal pain Status: Acute Assessment and Plan: Patient presented to [place] ED yesterday with complaints of right lower quadrant pain that started earlier in the morning. Patient also had associated nausea and vomiting. CT scan demonstrated nonspecific fluid-filled loops of small bowel, findings can be seen with early enteritis. Appendix not identified. Due to patient's unremitting pain, she was transferred to [facility] for further workup. While patient had fairly normal labs yesterday, repeat labs today demonstrated a WBC count of 10.8. Upon exam, patient is very uncomfortable and tearful in bed. Tender to palpation of right lower quadrant and mid lower abdomen. CT reviewed by surgeon with radiologist. Scan still appears to be fairly insignificant for the amount of pain that the patient is in. Lactate drawn and was normal. Continue to treat patient's pain. Will reassess tomorrow and consider repeat imaging or exploratory laparotomy. NPO at midnigt. Plan Discussed patient's case and plan of care with Dr. Mcelroy. History of Present Illness Consult details Consult date: 07/15/25 Reason for consult: abdominal pain Requesting physician: Jonah Lee Oca, MD Narrative: Patient is a 54-year-old female with history of migraines who we have been asked to see in surgical consultation for abdominal pain. Patient states that right lower quadrant pain began yesterday morning when she was getting ready for work. Patient then developed nausea and vomiting. She presented to [place] ED. upon admission there, vital signs were stable and labs were insignificant. A CT of the abdomen and pelvis was performed and demonstrated nonspecific fluid-filled loops of small bowel, findings can be seen with early enteritis. Appendix not identified. Patient continued to have severe right lower quadrant pain. At this time she was transferred to [facility]. Patient states that she has never had pain like this before. Patient's abdominal surgical history includes 3 C sections. She denies any history of ovarian cysts or endometriosis. No bowel or bladder changes. She states that her last bowel movement was yesterday morning. She has not eaten in 2 days. Nacho sstates that she drinks on te weekends. Denies smoking history. When asked about drug use she states that she sometimes gets a shot for migraines, but nothing other than that. [facility] Past Medical History Medical History Seasonal allergies Migraine headache Social History Social History Smoking packs per day: 2 Smoking cigarettes per day: 40.0 Years smoked: 26 Smoking pack-years: 52.00 Smoking status: Former smoker Second hand tobacco smoke exposure: Yes Alcohol intake: current Substance use: never Substance use type: does not use Lack of Transportation: No Lack of Food: Never True Current Housing: Decline to Answer Concerned About Future Housing: Decline to Answer Difficulty Paying Gas/Electric Bills: Decline to Answer Difficulty Paying for Meds: Decline to Answer Currently Unemployed: Decline to Answer Education: Decline to Answer Difficulty w/ Childcare or Family Care: Decline to Answer Gender identity (if verbalized by the patient): Female Sexual Orientation (if Verbalized by the Patient): Straight or Heterosexual Spiritual care concerns: No Meds Home Medications and Allergies Home Medications ?Medication ?Instructions ?Recorded ?Confirmed ?Type ketorolac 10 mg tablet 10 mg PO PRN PRN Migraine Headache 08/12/20 07/14/25 History rizatriptan 10 mg disintegrating 10 mg translingual PRN PRN 08/12/20 07/14/25 History tablet Migraine Headache azelastine 137 mcg (0.1 %) nasal 1 - 2 spray intranasal Q12H #30 mL 03/29/25 07/14/25 Rx spray mupirocin 2 % topical ointment See Rx Instructions topical 04/27/25 07/14/25 Rx ([facility]any) .COMPLEX #44 grams norethindrone acetate 1 mg-ethinyl 1 tablet PO DAILY 04/27/25 07/14/25 History estradiol 5 mcg tablet ondansetron 4 mg disintegrating 4 mg PO Q8H PRN nausea and 07/02/25 07/14/25 Rx tablet vomiting #30 tabs fluticasone propionate 50 2 spray intranasal BID #16 mL 07/12/25 07/14/25 Rx mcg/actuation nasal spray,suspension (Flonase Allergy Relief) Allergies Allergy/AdvReac Type Severity Reaction Status Date / Time No Known Allergies Allergy Verified 07/14/25 18:08 Vital Signs Vital Signs - 24 hr 07/14/25 18:40 07/14/25 21:55 07/15/25 05:36 Temperature 97.7 F 97.2 F L Pulse Rate 57 L 95 Respiratory Rate 16 16 Blood Pressure 153/87 H 154/86 H Pulse Oximetry 100 97 Oxygen Delivery Room Air 07/15/25 08:00 Temperature Pulse Rate Respiratory Rate Blood Pressure Pulse Oximetry Oxygen Delivery Room Air Exam Const: General: in distress and uncomfortable Eyes: General: appearance normal, both eyes and all related structures Neck: Neck: supple and no JVD Resp: Effort & Inspection: normal respiratory effort Cardio: Rate: regular rate GI: Inspection: non-distended GI Palp: Yes Soft to palpation and Yes Tenderness to palpation present (GI) (tender to palpation of right lower quadrant radiating to lower abdomen) Auscultation: normal bowel sounds Skin: General skin exam: normal color and no rashes or lesions noted Neuro: Speech: normal speech Extrem: General: normal to inspection Psych: Mental Status: mental status grossly normal Results Labs 07/15/25 04:32 07/15/25 04:32 Labs: Abnormal lab results 07/15/25 Range/Units 04:32 WBC 10.8 H (4.5-10.0) K/mm3 Neut % (Auto) 77.4 H (45.5-73.1) % Lymph % (Auto) 15.6 L (18.3-44.2) % Baso % (Auto) 0.1 L (0.2-1.2) % [place] # (Auto) 0.7 H (0.1-0.6) K/mm3 Abs Immat Gran (auto) 0.05 H (0.00-0.031) K/mm3 Absolute Neuts (auto) 8.4 H (1.3-6.7) K/mm3 Sodium 134 L (137-145) mmol/L Diabetes panel 07/15/25 Range/Units 04:32 Sodium 134 L (137-145) mmol/L Potassium 3.7 (3.4-5.0) mmol/L Chloride 101 (98-107) mmol/L Carbon Dioxide 23 (22-30) mmol/L BUN 10 (7-17) mg/dL Creatinine 0.82 (0.7-1.0) mg/dL Glucose 97 (65-110) mg/dL Calcium 9.2 (8.4-10.2) mg/dL Calcium panel 07/15/25 Range/Units 04:32 Calcium 9.2 (8.4-10.2) mg/dL Pituitary panel 07/15/25 Range/Units 04:32 Sodium 134 L (137-145) mmol/L Potassium 3.7 (3.4-5.0) mmol/L Chloride 101 (98-107) mmol/L Carbon Dioxide 23 (22-30) mmol/L BUN 10 (7-17) mg/dL Creatinine 0.82 (0.7-1.0) mg/dL Glucose 97 (65-110) mg/dL Calcium 9.2 (8.4-10.2) mg/dL Adrenal panel 07/15/25 Range/Units 04:32 Sodium 134 L (137-145) mmol/L Potassium 3.7 (3.4-5.0) mmol/L Chloride 101 (98-107) mmol/L Carbon Dioxide 23 (22-30) mmol/L BUN 10 (7-17) mg/dL Creatinine 0.82 (0.7-1.0) mg/dL Glucose 97 (65-110) mg/dL Calcium 9.2 (8.4-10.2) mg/dL All other labs normal.
[2025-07-15] MEDS: PIPERACILLIN/TAZOBACTAM SOD 3.375 GM in SODIUM CHLORIDE 0.9% IV 50 ML 100 ML IVPB ×2 (12:31→17:20)
[2025-07-15 14:00] VITALS: BP 147/75; PULSE 95; RESP 19; TEMP 36.4; O2SAT 97
--- NOTE | 2025-07-15 16:41 | P.PNIM_ITS ---
Progress Note: A&P Assessment and Plan (1) Acute abdominal pain: Code(s): R10.9 - Unspecified abdominal pain Status: Acute Assessment and Plan: Disproportion will to exam and diagnostic findings Surgery consulted- NPO midnight for possible surgery tomorrow White count has increased- zosyn started by surgical team Now presenting with new onset lower right/central abdominal pain, cramping, on/off, severe, with nausea. Concern for ovarian torsion or similar pathology. US Pelvis ordered, cyclobenzaprine administered, as well as active pain and nausea medications. Surgery notified. (2) Enteritis: Code(s): K52.9 - Noninfective gastroenteritis and colitis, unspecified Status: Acute Assessment and Plan: IV fluids for hydration White count within normal limits, CRP negative Will defer antibiotics at this time (3) Migraine headache: Code(s): G43.909 - Migraine, unspecified, not intractable, without status migrainosus Status: Acute Assessment and Plan: Continue home meds Subjective Date/time seen: 07/15/25 16:41 Review of Systems Review of Systems: 12 systems were reviewed and are negativ e except for as per HPI. Exam Narrative: General: well appearing, appears stated age. HEENT: normocephalic, atraumatic. Mucous membranes moist. EOMI, PERRLA, bilateral sclera anicteric, no conjunctival injection. Neck supple without JVD, lymphadenopathy, or bruit. Respiratory: clear to ascultation bilaterally. No rales/rhonic/wheezes. Cardiovascular: Regular rate and rhythm, normal S1-S2 upon ascultation. No murmurs, rubs, or clicks. PMI is nondisplaced, capillary refill less than 3 second. Abdomen: Soft, round, no pulsatile masses, nondistended No rebound, no guarding. No CVA tenderness, no hepatosplenomegaly. Bowel sounds present to all four quadrants. No high pitch or tinkling sounds, resonant to percussion. Right lower quadrant tender to light palpation Extremities: No cyanosis, clubbing, or edema present. Pulses are palpable 2/2. Active ROM to all four extremities. Neuro: Alert and orientated x 4. PERRLA. Cranial nerves 2-12 intact without focal deficit. Skin: Warm, dry, and intact, without rash, erythema, or lesion. Psych: pleasant, cooperative, normal speech, normal affect, no hallucinations, no dysarthia Objective Data Vital Signs Vital Signs: Vital Signs - 24 hr 07/14/25 18:40 07/14/25 21:55 07/15/25 05:36 Temperature 97.7 F 97.2 F L Pulse Rate 57 L 95 Respiratory Rate 16 16 Blood Pressure 153/87 H 154/86 H Pulse Oximetry 100 97 Oxygen Delivery Room Air 07/15/25 08:00 07/15/25 14:00 Temperature 97.6 F Pulse Rate 95 Respiratory Rate 19 Blood Pressure 147/75 H Pulse Oximetry 97 Oxygen Delivery Room Air Intake/Output Intake/Output: Intake & Output 07/12/25 07/13/25 07/14/25 07/15/25 23:59 23:59 23:59 23:59 Intake Total 1005 845 Balance 1005 845 Meds/Results Medications: Active Medications Generic Name Dose Route Start Last Admin Trade Name Freq PRN Reason Stop Dose Admin Fluticasone Propionate 2 spray 07/14/25 21:00 07/15/25 11:28 Fluticasone Propionate 0.05% Na Spr 16 Gm Btl (*Bkc) NASAL Not Given Q12HR SONIA Hydromorphone HCl 0.5 mg 07/15/25 10:03 Hydromorphone Hcl Inj (*Crx) 1 Mg/Ml Syr IV PUSH Q3H PRN Pain Rated 7-10 Hydromorphone HCl 1 mg 07/15/25 10:03 07/15/25 13:20 Hydromorphone Hcl Inj (*Crx) 1 Mg/Ml Syr IV PUSH 1 mg Q3H PRN Administration Pain Rated 7-10 Lactated Ringer's 1,000 mls @ 100 mls/hr 07/14/25 17:45 07/15/25 05:31 Lr - Lactated Ringers Iv IV CONT 100 mls/hr .Q10H SONIA Administration Piperacillin Sod/Tazobactam 50 mls @ 100 mls/hr 07/15/25 10:40 07/15/25 12:31 Sod 3.375 gm/ Sodium Chloride IVPB 100 mls/hr Q6HR SONIA Administration Miscellaneous Information 0 each 07/14/25 00:01 Norethindrone Ac-Eth Estradiol 1-5 Mg-Mcg Tablet Can Pt Bring From Home? XX 08/13/25 00:00 CLARIFY SONIA Non-Formulary Medication 1 tablet 07/15/25 09:00 Norethindrone Ac-Eth Estradiol PO 08/14/25 08:59 DAILY SONIA Ondansetron HCl 4 mg 07/15/25 14:16 Ondansetron Inj 4 Mg/2 Ml Vial IV PUSH Q6H PRN Nausea And Vomiting Rizatriptan Benzoate 10 mg 07/14/25 19:02 Rizatriptan Benzoate 10 Mg Odt PO PRN PRN Migraine Headache Labs Labs: Laboratory Results - last 24 hr 07/14/25 07/15/25 07/15/25 19:57 04:32 10:32 WBC 10.8 H RBC 4.62 Hgb 14.2 Hct 41.6 MCV 90.0 MCH 30.7 MCHC 34.1 RDW 12.6 Plt Count 275 MPV 8.9 Immature Gran % (Auto) 0.5 Neut % (Auto) 77.4 H Lymph % (Auto) 15.6 L [place] % (Auto) 6.4 Eos % (Auto) 0.0 Baso % (Auto) 0.1 L Lymph # (Auto) 1.68 [place] # (Auto) 0.7 H Eos # (Auto) 0.0 Baso # (Auto) 0.0 Abs Immat Gran (auto) 0.05 H Absolute Neuts (auto) 8.4 H Absolute Nucleated RBC 0.000 Nucleated RBC % 0.0 Sodium 134 L Potassium 3.7 Chloride 101 Carbon Dioxide 23 Anion Gap 10 BUN 10 Creatinine 0.82 Estim Creat Clear Calc 72 Estimated GFR > 60 Glucose 97 Lactic Acid 1.0 Calcium 9.2 C-Reactive Protein < 0.5 Quality VTE Prophylaxis VTE prophylaxis: mechanical ordered Hospitalist MIPS Advance Care Plan I have confirmed that the patient's Advanced Care Plan is present, code status is documented, or surrogate decision maker is listed in patient medical record.: Yes Medication Reconciliation I have utilized all available resources to obtain, update and review the patients current medications (includes all prescriptions, OTC, herbals, cannab is, and nutritional supplements).: Yes
[2025-07-15] MEDS: ONDANSETRON INJ 4 MG/2 ML VIAL IV PUSH (16:45)
[2025-07-15 16:54] LABS: SPREG INTERNAL CONTROL Positive; Serum Qual hCG Negative
[2025-07-15] MEDS: CYCLOBENZAPRINE HCL 10 MG TABLET PO (17:20)
[2025-07-15 21:12] VITALS: BP 171/97; PULSE 117; RESP 18; TEMP 36.6; O2SAT 96
[2025-07-16] VITALS (13 sets, daily range): BP systolic 114–141; BP diastolic 65–84; PULSE 107–117; RESP 15–20; TEMP 36.1–36.9; O2SAT 92–99
[2025-07-16] MEDS: PIPERACILLIN/TAZOBACTAM SOD 3.375 GM in SODIUM CHLORIDE 0.9% IV 50 ML 100 ML IVPB ×4 (00:32→20:21)
[2025-07-16] MEDS: HYDROmorphone HCL INJ (*CRX) 1 MG/ML SYR IV PUSH ×3 (00:33→08:34)
[2025-07-16] MEDS: ONDANSETRON INJ 4 MG/2 ML VIAL IV PUSH ×2 (00:33→08:35)
[2025-07-16] MEDS: LACTATED RINGERS 1,000 ML 100 ML IV CONT (05:22)
[2025-07-16 06:04] LABS: Hematocrit 47.1 % (37.0-47.0); Hemoglobin 16.5 g/dL (12.0-15.0); Immature Granulocyte Percent A 0.3 % (0-0.5); Lymphocytes Absolute Auto 1.01 K/mm3 (0.9-3.2); Mean Corpuscular HGB Conc 35.0 g/dl (32-36); Mean Corpuscular Hemoglobin 31.4 pg (26-34); Mean Corpuscular Volume 89.5 fl (80-100); Nucleated Red Blood Cells Absolute Auto 0.000 K/mm3 (0.0-0.012); Nucleated Red Blood Cells Perc 0.0 % (0.0-0.2); Platelet Count Result 322 k/mm3 (150-375); Red Blood Count 5.26 M/mm3 (4.2-5.4); White Blood Count 12.4 K/mm3 (4.5-10.0)
[2025-07-16 06:15] LABS: Blood Urea Nitrogen 11 mg/dL (7-17); Carbon Dioxide < 5 mmol/L (22-30); Chloride 96 mmol/L (98-107); Estimated CRCL calculation 22 ml/min; Estimated Glomerular Filt Rate 17; Potassium 5.1 mmol/L (3.4-5.0); Sodium 130 mmol/L (137-145)
[2025-07-16 06:33] LABS: Alanine Aminotransferase 21 U/L (6-35); Alkaline Phosphatase 57 U/L (38-126); Aspartate Amino Transferase 25 U/L (14-36); Bilirubin,Total 0.8 mg/dL (0.2-1.3); Calcium 9.2 mg/dL (8.4-10.2); Glucose 109 mg/dL (65-110); Total Protein 7.3 g/dL (6.3-8.2)
[2025-07-16 08:55] LABS: Albumin Level 4.2 g/dL (3.5-5.1)
--- NOTE | 2025-07-16 09:42 | P.PNIM_ITS ---
Progress Note: A&P Assessment and Plan (1) Acute abdominal pain: Code(s): R10.9 - Unspecified abdominal pain Status: Acute Assessment and Plan: Disproportion will to exam and diagnostic findings Surgery consult noted. White count has increased- zosyn started by surgical team . (2) Enteritis: Code(s): K52.9 - Noninfective gastroenteritis and colitis, unspecified Status: Acute Assessment and Plan: IV fluids for hydration White count within normal limits, CRP negative Will monitor closely (3) Migraine headache: Code(s): G43.909 - Migraine, unspecified, not intractable, without status migrainosus Status: Acute Assessment and Plan: Continue home meds Subjective Date/time seen: 07/16/25 09:42 Interval history: Patient was seen in during the morning rounds today. Feeling slightly better. Pain control. No shortness of breath or chest pain. No nausea or vomiting. Review of Systems Review of Systems: 12 systems were reviewed and are negativ e except for as per HPI. Exam Narrative: General: well appearing, appears stated age. HEENT: normocephalic, atraumatic. Mucous membranes moist. EOMI, PERRLA, bilateral sclera anicteric, no conjunctival injection. Neck supple without JVD, lymphadenopathy, or bruit. Respiratory: clear to ascultation bilaterally. No rales/rhonic/wheezes. Cardiovascular: Regular rate and rhythm, normal S1-S2 upon ascultation. No murmurs, rubs, or clicks. PMI is nondisplaced, capillary refill less than 3 second. Abdomen: Soft, round, no pulsatile masses, nondistended No rebound, no guarding. No CVA tenderness, no hepatosplenomegaly. Bowel sounds present to all four quadrants. No high pitch or tinkling sounds, resonant to percussion. Right lower quadrant tender to light palpation Extremities: No cyanosis, clubbing, or edema present. Pulses are palpable 2/2. Active ROM to all four extremities. Neuro: Alert and orientated x 4. PERRLA. Cranial nerves 2-12 intact without focal deficit. Skin: Warm, dry, and intact, without rash, erythema, or lesion. Psych: pleasant, cooperative, normal speech, normal affect, no hallucinations, no dysarthia Objective Data Vital Signs Vital Signs: Vital Signs - 24 hr 07/15/25 14:00 07/15/25 20:00 07/15/25 21:12 Temperature 36.4 C 36.6 C Pulse Rate 95 117 H Respiratory Rate 19 18 Blood Pressure 147/75 H 171/97 H Pulse Oximetry 97 96 Oxygen Delivery Room Air 07/16/25 05:02 Temperature 36.3 C L Pulse Rate 111 H Respiratory Rate 18 Blood Pressure 141/72 H Pulse Oximetry 97 Oxygen Delivery Intake/Output Intake/Output: Intake & Output 07/13/25 07/14/25 07/15/25 07/16/25 23:59 23:59 23:59 23:59 Intake Total 1005 1945 1050 Output Total 1200 Balance 1005 1945 -150 Meds/Results Medications: Active Medications Generic Name Dose Route Start Last Admin Trade Name Freq PRN Reason Stop Dose Admin Fluticasone Propionate 2 spray 07/14/25 21:00 07/15/25 21:07 Fluticasone Propionate 0.05% Na Spr 16 Gm Btl (*Bkc) NASAL Not Given Q12HR SONIA Hydromorphone HCl 0.5 mg 07/15/25 10:03 Hydromorphone Hcl Inj (*Crx) 1 Mg/Ml Syr IV PUSH Q3H PRN Pain Rated 7-10 Hydromorphone HCl 1 mg 07/15/25 10:03 07/16/25 08:34 Hydromorphone Hcl Inj (*Crx) 1 Mg/Ml Syr IV PUSH 1 mg Q3H PRN Administration Pain Rated 7-10 Lactated Ringer's 1,000 mls @ 100 mls/hr 07/14/25 17:45 07/16/25 05:22 Lr - Lactated Ringers Iv IV CONT 100 mls/hr .Q10H SONIA Administration Piperacillin Sod/Tazobactam 50 mls @ 100 mls/hr 07/15/25 10:40 07/16/25 05:20 Sod 3.375 gm/ Sodium Chloride IVPB 100 mls/hr Q6HR SONIA Administration Miscellaneous Information 0 each 07/14/25 00:01 Norethindrone Ac-Eth Estradiol 1-5 Mg-Mcg Tablet Can Pt Bring From Home? XX 08/13/25 00:00 CLARIFY SONIA Non-Formulary Medication 1 tablet 07/15/25 09:00 Norethindrone Ac-Eth Estradiol PO 08/14/25 08:59 DAILY SONIA Ondansetron HCl 4 mg 07/15/25 14:16 07/16/25 08:35 Ondansetron Inj 4 Mg/2 Ml Vial IV PUSH 4 mg Q6H PRN Administration Nausea And Vomiting Phenol 1 spray 07/15/25 21:34 Phenol/Sod Pheno [place] Eliz[place]de (*Bkc) MUCOUS MEM PRN PRN Sore Throat Rizatriptan Benzoate 10 mg 07/14/25 19:02 Rizatriptan Benzoate 10 Mg Odt PO PRN PRN Migraine Headache Radiology Results: ITS Impressions Abdomen/Pelvis CT 07/15/25 17:09 IMPRESSION: 1. Interval progression of now multiple mildly dilated loops of small bowel extending to persistent transition point in the right lower quadrant consistent with small bowel obstruction. 2. New edematous wall thickening of many of the loops of jejunum consistent with an enteritis which could be infectious or inflammatory in etiology. Ischemia is considered unlikely given the contrast enhanced arteries and veins extending to the mesentery to the affected segments of bowel which also demonstrate mucosal enhancement. 3. New small amount of likely reactive ascites. Pelvic/Transvag US 07/15/25 17:13 IMPRESSION: 1. Nonspecific fluid in the cervical canal and endometrial canal. Nonspecific fluid in the cul-de-sac. 2. Ovaries were not visualized. 3. Endometrial stripe was not adequately visualized for evaluation. 4. Visualized uterus is unremarkable. If symptoms persist or worsen, consider a short-term follow-up study or additional imaging for further assessment. Abdomen X-Ray 07/15/25 19:48 IMPRESSION: 1. Nasogastric tube in the stomach. Labs Labs: Laboratory Results - last 24 hr 07/15/25 07/15/25 07/16/25 04:31 10:32 05:54 WBC 12.4 H RBC 5.26 Hgb 16.5 H Hct 47.1 H MCV 89.5 MCH 31.4 MCHC 35.0 RDW 12.7 Plt Count 322 MPV 9.0 Immature Gran % (Auto) 0.3 Neut % (Auto) 83.2 H Lymph % (Auto) 8.1 L [place] % (Auto) 8.3 Eos % (Auto) 0.0 Baso % (Auto) 0.1 L Lymph # (Auto) 1.01 [place] # (Auto) 1.0 H Eos # (Auto) 0.0 Baso # (Auto) 0.0 Abs Immat Gran (auto) 0.04 H Absolute Neuts (auto) 10.3 H Absolute Nucleated RBC 0.000 Nucleated RBC % 0.0 Sodium 130 L Potassium 5.1 H Chloride 96 L Carbon Dioxide < 5 L Anion Gap BUN 11 Creatinine 2.89 H Estim Creat Clear Calc 22 Estimated GFR 17 L Glucose 109 Lactic Acid 1.0 Calcium 9.2 Total Bilirubin 0.8 AST 25 ALT 21 Alkaline Phosphatase 57 Total Protein 7.3 Albumin 4.2 Serum HCG, Qual Negative Quality VTE Prophylaxis VTE prophylaxis: mechanical ordered
--- NOTE | 2025-07-16 10:56 | WPDPN ---
Subjective Date/time seen: 07/16/25 10:56 Interval history: Patient was having pretty severe abdominal pain last evening. Repeat CT scan abdomen pelvis was done with IV contrast. This time the CT showed what appeared to be a transition point in the distal small bowel consistent with a small-bowel obstruction without perforation or evidence of bowel ischemia. Nasogastric tube was placed which did help some of her symptoms of abdominal pain. Was able to get some sleep last night without need for IV pain medications. Still is not passing more flatus or had a bowel movement. Water-soluble small bowel study is in progress. Final results still pending. [place] [address] [place] [address] this morning.. She is on IV Zosyn. Her creatinine went from normal to 2.8. This likely due to some degree of volume depletion but also the fact she had [address] scan studies in the course of 48hours likely causing degree of contrast nephropathy. For flush the kidneys with normal saline IV [id number]. Will need to monitor kidney function closely and if it continues to worsen then will need a Nephrology consult. If the small bowel follow-through study shows she has a high-grade small-bowel obstruction on imaging then she will likely need to have exploratory laparotomy with possible bowel resection later today. Objective Data Vital Signs Vital Signs: Vital Signs - 24 hr 07/15/25 14:00 07/15/25 20:00 07/15/25 21:12 Temperature 36.4 C 36.6 C Pulse Rate 95 117 H Respiratory Rate 19 18 Blood Pressure 147/75 H 171/97 H Pulse Oximetry 97 96 Oxygen Delivery Room Air 07/16/25 05:02 07/16/25 08:00 Temperature 36.3 C L Pulse Rate 111 H Respiratory Rate 18 Blood Pressure 141/72 H Pulse Oximetry 97 Oxygen Delivery Room Air Intake/Output Intake/Output: Intake & Output 07/13/25 07/14/25 07/15/25 07/16/25 23:59 23:59 23:59 23:59 Intake Total 1005 1945 1050 Output Total 1200 Balance 1005 1945 -150 Meds/Results Medications: Active Medications Generic Name Dose Route Start Last Admin Trade Name Freq PRN Reason Stop Dose Admin Fluticasone Propionate 2 spray 07/14/25 21:00 07/16/25 10:25 Fluticasone Propionate 0.05% Na Spr 16 Gm Btl (*Bkc) NASAL Not Given Q12HR SONIA Hydromorphone HCl 0.5 mg 07/15/25 10:03 Hydromorphone Hcl Inj (*Crx) 1 Mg/Ml Syr IV PUSH Q3H PRN Pain Rated 7-10 Hydromorphone HCl 1 mg 07/15/25 10:03 07/16/25 08:34 Hydromorphone Hcl Inj (*Crx) 1 Mg/Ml Syr IV PUSH 1 mg Q3H PRN Administration Pain Rated 7-10 Piperacillin Sod/Tazobactam 50 mls @ 100 mls/hr 07/15/25 10:40 07/16/25 05:20 Sod 3.375 gm/ Sodium Chloride IVPB 100 mls/hr Q6HR SONIA Administration Sodium Chloride 1,000 mls @ 150 mls/hr 07/16/25 10:55 Normal Saline Iv IV CONT .Q6H40M [facility] Miscellaneous Information 0 each 07/14/25 00:01 Norethindrone Ac-Eth Estradiol 1-5 Mg-Mcg Tablet Can Pt Bring From Home? XX 08/13/25 00:00 CLARIFY [facility] Non-Formulary Medication 1 tablet 07/15/25 09:00 Norethindrone Ac-Eth Estradiol PO 08/14/25 08:59 DAILY [facility] Ondansetron HCl 4 mg 07/15/25 14:16 07/16/25 08:35 Ondansetron Inj 4 Mg/2 Ml Vial IV PUSH 4 mg Q6H PRN Administration Nausea And Vomiting Phenol 1 spray 07/15/25 21:34 Phenol/Sod Pheno [place] Elizalde (*Bkc) MUCOUS MEM PRN PRN Sore Throat Rizatriptan Benzoate 10 mg 07/14/25 19:02 Rizatriptan Benzoate 10 Mg Odt PO PRN PRN Migraine Headache Radiology Results: ITS Impressions Abdomen/Pelvis CT 07/15/25 17:09 IMPRESSION: 1. Interval progression of now multiple mildly dilated loops of small bowel extending to persistent transition point in the right lower quadrant consistent with small bowel obstruction. 2. New edematous wall thickening of many of the loops of jejunum consistent with an enteritis which could be infectious or inflammatory in etiology. Ischemia is considered unlikely given the contrast enhanced arteries and veins extending to the mesentery to the affected segments of bowel which also demonstrate mucosal enhancement. 3. New small amount of likely reactive ascites. Pelvic/Transvag US 07/15/25 17:13 IMPRESSION: 1. Nonspecific fluid in the cervical canal and endometrial canal. Nonspecific fluid in the cul-de-sac. 2. Ovaries were not visualized. 3. Endometrial stripe was not adequately visualized for evaluation. 4. Visualized uterus is unremarkable. If symptoms persist or worsen, consider a short-term follow-up study or additional imaging for further assessment. Abdomen X-Ray 07/15/25 19:48 IMPRESSION: 1. Nasogastric tube in the stomach. Labs Labs: Laboratory Results - last 24 hr 07/15/25 07/15/25 07/16/25 04:31 10:32 05:54 WBC 12.4 H RBC 5.26 Hgb 16.5 H Hct 47.1 H MCV 89.5 MCH 31.4 MCHC 35.0 RDW 12.7 Plt Count 322 MPV 9.0 Immature Gran % (Auto) 0.3 Neut % (Auto) 83.2 H Lymph % (Auto) 8.1 L [place] % (Auto) 8.3 Eos % (Auto) 0.0 Baso % (Auto) 0.1 L Lymph # (Auto) 1.01 [place] # (Auto) 1.0 H Eos # (Auto) 0.0 Baso # (Auto) 0.0 Abs Immat Gran (auto) 0.04 H Absolute Neuts (auto) 10.3 H Absolute Nucleated RBC 0.000 Nucleated RBC % 0.0 Sodium 130 L Potassium 5.1 H Chloride 96 L Carbon Dioxide < 5 L Anion Gap BUN 11 Creatinine 2.89 H Estim Creat Clear Calc 22 Estimated GFR 17 L Glucose 109 Lactic Acid 1.0 Calcium 9.2 Total Bilirubin 0.8 AST 25 ALT 21 Alkaline Phosphatase 57 Total Protein 7.3 Albumin 4.2 Serum HCG, Qual Negative
[2025-07-16] MEDS: SODIUM CHLORIDE 0.9% IV 1,000 ML 150 ML IV CONT ×2 (12:28→21:38)
--- NOTE | 2025-07-16 12:43 | PC.NURSE ---
Pt angry, not feeling well and wants to be connected back to suction. Education provided that we cannot do that until the procedure is completed. Call made to [facility]ar[facility] and . Per radiologist, ok to attach to suction and take out only 100ml. Pt made aware of situation and 100ml suctioned. Pt ng re-clamped after. Pt resting comfortably at this time.
--- NOTE | 2025-07-16 14:10 | WPDHPUPDATE1 ---
History and Physical Update Update Date/Time: 07/16/25 14:10 History and Physical has been reviewed, including an updated exam of the patient. There are NO changes in the patient's condition. Risks, benefits, and alternatives have been discussed and questions answered. Patient agrees to proceed with procedure.
--- NOTE | 2025-07-16 15:42 | WPDANESEPPF ---
Anes - Initial Pre Proc Eval Procedure: Operation Date: 07/16/25 15:30 Proposed Procedures p Exploratory Laparotomy, Possible Bowel Resection - Garry Mcelroy MD Date/Time: 07/16/25 15:42 Surgeon: Darrel Lopez MD Pre Op Diagnosis: Acute Abdominal Pain Patient Data Age: 54 Gender: F Height: 1.68 m Weight: 82.8 kg Last Vital Signs Temp 36.1 C L 07/16/25 14:57 Pulse 117 H 07/16/25 14:57 Resp 18 07/16/25 05:02 BP 132/65 07/16/25 14:57 Pulse Ox 97 07/16/25 14:57 O2 Del Method Room Air 07/16/25 14:57 Allergies Allergy/AdvReac Type Severity Reaction Status Date / Time No Known Allergies Allergy Verified 07/14/25 18:08 Home Medications ?Medication ?Instructions ?Recorded ?Confirmed ?Type ketorolac 10 mg tablet 10 mg PO PRN PRN Migraine Headache 08/12/20 07/14/25 History rizatriptan 10 mg disintegrating 10 mg translingual PRN PRN 08/12/20 07/14/25 History tablet Migraine Headache azelastine 137 mcg (0.1 %) nasal 1 - 2 spray intranasal Q12H #30 mL 03/29/25 07/14/25 Rx spray mupirocin 2 % topical ointment See Rx Instructions topical 04/27/25 07/14/25 Rx ([facility]) .COMPLEX #44 grams norethindrone acetate 1 mg-ethinyl 1 tablet PO DAILY 04/27/25 07/14/25 History estradiol 5 mcg tablet ondansetron 4 mg disintegrating 4 mg PO Q8H PRN nausea and 07/02/25 07/14/25 Rx tablet vomiting #30 tabs fluticasone propionate 50 2 spray intranasal BID #16 mL 07/12/25 07/14/25 Rx mcg/actuation nasal spray,suspension (Flonase Allergy Relief) Laboratory Tests 07/15/25 07/16/25 04:31 05:54 WBC 12.4 H K/mm3 (4.5-10.0) RBC 5.26 M/mm3 (4.2-5.4) Hgb 16.5 H g/dL (12.0-15.0) Hct 47.1 H % (37.0-47.0) MCV 89.5 fl (80-100) MCH 31.4 pg (26-34) MCHC 35.0 g/dl (32-36) RDW 12.7 % (11.5-14.5) Plt Count 322 k/mm3 (150-375) MPV 9.0 fl (7.4-10.4) Immature Gran % (Auto) 0.3 % (0-0.5) Neut % (Auto) 83.2 H % (45.5-73.1) Lymph % (Auto) 8.1 L % (18.3-44.2) [place] % (Auto) 8.3 % (2.6-8.5) Eos % (Auto) 0.0 % (0-4.4) Baso % (Auto) 0.1 L % (0.2-1.2) Lymph # (Auto) 1.01 K/mm3 (0.9-3.2) [place] # (Auto) 1.0 H K/mm3 (0.1-0.6) Eos # (Auto) 0.0 K/mm3 (0-0.3) Baso # (Auto) 0.0 K/mm3 (0.0-0.1) Abs Immat Gran (auto) 0.04 H K/mm3 (0.00-0.031) Absolute Neuts (auto) 10.3 H K/mm3 (1.3-6.7) Absolute Nucleated RBC 0.000 K/mm3 (0.0-0.012) Nucleated RBC % 0.0 % (0.0-0.2) Sodium 130 L mmol/L (137-145) Potassium 5.1 H mmol/L (3.4-5.0) Chloride 96 L mmol/L (98-107) Carbon Dioxide < 5 L mmol/L (22-30) Anion Gap mmol/L (4-12) BUN 11 mg/dL (7-17) Creatinine 2.89 H mg/dL (0.7-1.0) Estim Creat Clear Calc 22 ml/min Estimated GFR 17 L (59 - ) Glucose 109 mg/dL (65-110) Calcium 9.2 mg/dL (8.4-10.2) Total Bilirubin 0.8 mg/dL (0.2-1.3) AST 25 U/L (14-36) ALT 21 U/L (6-35) Alkaline Phosphatase 57 U/L (38-126) Total Protein 7.3 g/dL (6.3-8.2) Albumin 4.2 g/dL (3.5-5.1) Serum HCG, Qual Negative Patient hx anesthesia problems: none Family hx anesthesia problems: none Results Review: All pre-operative results and documents have been reviewed as part of the pre-operative evaluation. [facility] Past Medical History Medical History Seasonal allergies Migraine headache Social History Social History Smoking packs per day: 2 Smoking cigarettes per day: 40.0 Years smoked: 26 Smoking pack-years: 52.00 Smoking status: Former smoker Second hand tobacco smoke exposure: Yes Alcohol intake: current Substance use: never Substance use type: does not use Lack of Transportation: No Lack of Food: Never True Current Housing: Decline to Answer Concerned About Future Housing: Decline to Answer Difficulty Paying Gas/Electric Bills: Decline to Answer Difficulty Paying for Meds: Decline to Answer Currently Unemployed: Decline to Answer Education: Decline to Answer Difficulty w/ Childcare or Family Care: Decline to Answer Gender identity (if verbalized by the patient): Female Sexual Orientation (if Verbalized by the Patient): Straight or Heterosexual Spiritual care concerns: No Anes - Eval Final PreProcedure Day of Procedure 07/16/25 15:42 Patient weight: overweight Heart: tachycardia Lungs: decreased breath sounds Airway: Mallampati scale class II Neurological: alert and oriented Last oral intake: >/= 8 hours ASA classification: III Emergent: yes Anesthetic plan: proceed Anesthesia type and monitoring: general ETT and standard monitoring Results Review: All pre-operative results and documents have been reviewed as part of the pre-operative evaluation. Informed Consent: The patient's anesthetic plan and its attendant risks and benefits were discussed with the patient/family/POA. Questions were solicited and answers provided to the satisfaction of the patient/family/POA.
[2025-07-16] MEDS: LACTATED RINGERS 1,000 ML 30 ML IV CONT ×2 (15:46→17:48)
[2025-07-16] MEDS: LIDO 1%/EPINEPHRINE/PF 1:200,000 30 ML VIAL XX (17:03)
[2025-07-16] MEDS: BUPivacaine HCL 0.5% 10 ML AMP 30 ML INFILTRATE (17:04)
--- NOTE | 2025-07-16 18:45 | P.OP_ITS ---
Procedure Note - Detailed Date of Procedure 07/16/25 Pre-op Diagnosis High-grade small-bowel obstruction Post-op Diagnosis Other (High-grade small-bowel obstruction secondary to internal hernia and abdominal adhesions) Procedure Performed Exploratory laparotomy with abdominal adhesiolysis. Surgeon Garry Mcelroy MD Transmitter Engineer [employer] Rachael Benton Anesthesia General Indications Patient is a 54-year-old female who presented to an outside emergency room with severe right lower quadrant abdominal pain. She was then subsequent transfer to [facility] for further evaluation. Her initial CT scan of the abdomen pelvis showed no evidence of acute appendicitis and only a single loop of small bowel which was minimally dilated which was fluid filled without inflammatory changes. There is no evidence to suggest ischemic bowel. She continued having abdominal pain was very severe and another CT scan was performed 24hours later. This showed the interval development of multiple loops of dilated small bowel with air-fluid levels and a transition zone the right lower quadrant suggestive of a small-bowel obstruction. Nasogastric tube was then placed for decompression and then a water-soluble small bowel follow-through was then performed. Contrast was very delayed going through the small bowel and at4.5hours there was not convincing evidence that the contrast had reached the colon. Given the initial CT scan findings and the patient's overall abdominal exam and clinical course it was recommended that she undergo exploratory laparotomy for what was likely adhesions causing a mechanical small-bowel obstruction. Findings The patient distal small-bowel obstruction which was high grade. It appeared to be due to abdominal adhesions and what I could only most closely described as an internal hernia. Patient had a loop of the distals ileum which coursed up underneath the mesentery to the cecum and proximal ascending colon into a deep pocket of the retroperitoneum where the knuckle of small bowel came and trapped within acute angulation and causing a high-grade small-bowel obstruction. No perforation. All the small bowel appeared to be viable. Once the small bowel had been reduced out of this defect I then examined and found that mostly defect was actually thin mesentery and peritoneal reflection and so this was divided opening up the defect so could no longer constrict the small bowel. I then proceeded to mobilize the cecum and proximal ascending colon to make sure that the small bowel cannot get entrapped underneath the cecum any longer. Description of Procedure After informed consent was obtained patient brought to the operating room she was placed supine position and general endotracheal anesthesia was administered. A Swan catheter was placed to decompress the bladder. The abdomen was then prepped and draped usual sterile fashion. A nasogastric tube was already in place. Time-out was then performed correctly identifying the patient as well as procedure to be performed. She was already on scheduled IV antibiotics. I made a midline incision starting in the mid epigastric region and extending it to midway between the umbilicus and the pubic symphysis. Dissection carried sharply down to the skin with a scalpel the electrocautery I dissected down through the subcutaneous tissues into the midline fascia. I entered the abdomen through the midline fascia just at the umbilicus. Once I was inside the abdomen there was moderate amount of clear non cloudy moser appearing ascites fluid which was aspirated from the abdomen with a pool sucker. I then opened the fascia to mesh to skin incision length. I then proceeded to eviscerate the small bowel. All the small bowel was dilated but was all completely viable. I followed the distal small bowel until it entered what seemed to be an adhesive band and defect through the mesentery to the cecum and ascending right colon. A knuckle of distal jejunum name and trapped within this internal hernia defect and became adherent to the peritoneum causing sharp angulation of this knuckle of small bowel and a high-grade small-bowel obstruction. The bowel was completely viable. Once I had divided the adhesion and small amount the mesentery I was able to reduce the small bowel easily. There was no injury to the small bowel and it was all viable. I then examined the defect through the mesentery which was relatively small and on the inferior side of it there was only a small amount of the mesentery and peritoneal reflection which was present. I divided this electrocautery without any significant bleeding. I then mobilized the cecum and the proximal right ascending colon from its lateral peritoneal attachments in order to make sure that the small bowel could no longer be entrapped underneath the cecum. This was done electrocautery. I then proceeded to run the whole small bowel from the ileocecal valve proximal to the ligament of Treitz. There were no other adhesions. Curiously I did not find the appendix and so it was likely removed at 1 of her previous C-sections. Patient ever having an appendectomy. Ice milked all the small bowel contents back into the stomach on aspirated from the already placed NG tube. Approximately1.5L of succus was aspirated from the stomach. The small bowel was then decompressed and it was then gently placed back into the midportion of the abdomen in general folds. I then irrigated the abdomen with L of warm saline solution. The irrigation fluid was aspirated from the abdomen and there is no bleeding noted. I then pulled the omentum down over the small bowel. I then proceeded to close the abdomen by placement of looped 1. PDS suture at each end incision and running the fascial sutures to the med just above the umbilicus. The 2 sutures were then tied together. I then irrigated out the subcutaneous tissue sterile saline solution hemostasis was good. I then injected 1% lidocaine mixed with 0.5% Marcaine with some epinephrine around the fascial edges for postoperative pain relief. I then close incision utilizing interrupted 3-0 Vicryl sutures in subcutaneous tissues. This then followed by a running subcuticular 4-0 Monocryl suture to approximate the skin edges. The incision was then cleaned the skin glue was applied. A sterile dressing was applied. The patient tolerated the procedure well no complications. All sponges, needles, and instrument counts were correct at the end procedure. EBL was _50__cc. The patient was awakened and taken to recovery in stable and satisfactory condition. Implants None Estimated Blood Loss 50 Urine Output 400 Drains No Packing No Pathology None sent Complications No immediate complications Condition Stable Disposition PACU [facility] Billing Surgery - Charge Forward: Surgery Billing
[2025-07-16] MEDS: fentaNYL CITRATE INJ (*CRX) 100 MCG/2 ML VIAL 25 MCG IV PUSH ×4 (18:53→19:02)
--- NOTE | 2025-07-16 19:54 | PC.NURSE ---
1924 PATIENT RETURN TO ROOM VIA BED FROM PACU. BRENDEN STATES SHE IS COMFORTABLE AT THIS TIME. CURRENTLY REVIEWING NEW ORDERS.
[2025-07-16] MEDS: diazePAM INJ (*CRX) 10 MG/2 ML SYRINGE 5 MG IV PUSH (20:24)
[2025-07-16] MEDS: MAG HYDROX/AL HYDROX/SIMETH 30 ML UDC FEED TUBE (21:25)
[2025-07-16] MEDS: MORPHINE SULFATE PCA (*CRX) 30 MG/30 ML SYR IV CONT (21:39)
[2025-07-16] MEDS: MORPHINE SULFATE (*CRX) 4 MG/ML INJ IV PUSH (23:24)
[2025-07-17] VITALS (9 sets, daily range): BP systolic 106–129; BP diastolic 58–74; PULSE 94–112; RESP 16–20; TEMP 36.5–37; O2SAT 92–97
[2025-07-17] MEDS: PIPERACILLIN/TAZOBACTAM SOD 3.375 GM in SODIUM CHLORIDE 0.9% IV 50 ML 100 ML IVPB ×5 (01:12→23:51)
[2025-07-17] MEDS: SODIUM CHLORIDE 0.9% IV 1,000 ML 150 ML IV CONT ×3 (04:39→19:27)
[2025-07-17] MEDS: ONDANSETRON INJ 4 MG/2 ML VIAL IV PUSH (04:49)
[2025-07-17 05:32] LABS: Hematocrit 40.6 % (37.0-47.0); Hemoglobin 13.6 g/dL (12.0-15.0); Immature Granulocyte Percent A 0.6 % (0-0.5); Lymphocytes Absolute Auto 0.90 K/mm3 (0.9-3.2); Mean Corpuscular HGB Conc 33.5 g/dl (32-36); Mean Corpuscular Hemoglobin 31.1 pg (26-34); Mean Corpuscular Volume 92.9 fl (80-100); Nucleated Red Blood Cells Absolute Auto 0.000 K/mm3 (0.0-0.012); Nucleated Red Blood Cells Perc 0.0 % (0.0-0.2); Platelet Count Result 281 k/mm3 (150-375); Red Blood Count 4.37 M/mm3 (4.2-5.4); White Blood Count 11.8 K/mm3 (4.5-10.0)
[2025-07-17] MEDS: MORPHINE SULFATE (*CRX) 4 MG/ML INJ IV PUSH ×4 (05:44→22:26)
[2025-07-17 06:02] LABS: Alanine Aminotransferase 25 U/L (6-35); Albumin Level 3.3 g/dL (3.5-5.1); Alkaline Phosphatase 40 U/L (38-126); Anion Gap 7 mmol/L (4-12); Aspartate Amino Transferase 35 U/L (14-36); Bilirubin,Total 0.7 mg/dL (0.2-1.3); Blood Urea Nitrogen 13 mg/dL (7-17); Calcium 7.9 mg/dL (8.4-10.2); Carbon Dioxide 28 mmol/L (22-30); Chloride 104 mmol/L (98-107); Estimated CRCL calculation 64 ml/min; Estimated Glomerular Filt Rate > 60; Glucose 127 mg/dL (65-110); Potassium 4.1 mmol/L (3.4-5.0); Sodium 139 mmol/L (137-145); Total Protein 5.9 g/dL (6.3-8.2)
[2025-07-17] MEDS: MAG HYDROX/AL HYDROX/SIMETH 30 ML UDC FEED TUBE ×3 (06:38→22:27)
[2025-07-17] MEDS: ENOXAPARIN 30 MG/0.3 ML SYRINGE SUB-Q (08:43)
[2025-07-17] MEDS: diazePAM INJ (*CRX) 10 MG/2 ML SYRINGE 5 MG IV PUSH ×2 (08:43→20:23)
[2025-07-17] MEDS: PANTOPRAZOLE SODIUM IV 40 MG VIAL IV PUSH (08:43)
[2025-07-17] MEDS: LIDOCAINE 5% PATCH 1 PATCH TRANSDERM (08:44)
--- NOTE | 2025-07-17 14:34 | PM.PNGS ---
Progress Note: A&P Assessment and Plan (1) Complete small bowel obstruction: Code(s): K56.601 - Complete intestinal obstruction, unspecified as to cause Status: Acute Assessment and Plan: Await return of bowel function Increase activity Continue RESEARCH MANUFACTURING OPERATOR for pain management (2) Enteritis: Code(s): K52.9 - Noninfective gastroenteritis and colitis, unspecified Status: Acute Assessment and Plan: On Zosyn for presumed coverage. Might be able to discontinue tomorrow since no infectious source identified at time of surgery. Subjective Subjective Date/Time Seen: 07/17/25 14:34 Interval history: Pain control still an issue. Using RESEARCH MANUFACTURING OPERATOR but requiring breakthrough pain meds. No flatus yet. Sat up in chair overnight and did well. Exam GI: Inspection: non-distended and incision (intact, dressing dry) GI Palp: Yes Tenderness to palpation present (GI) (incisional) Auscultation: normoactive bowel sounds Objective Data Vital Signs Vital Signs: Vital Signs - 24 hr 07/16/25 14:57 07/16/25 17:48 07/16/25 18:00 Temperature 97 F L 97.1 F L Pulse Rate 117 H 110 H 109 H Respiratory Rate 16 16 Blood Pressure 132/65 136/76 130/73 Pulse Oximetry 97 98 99 Oxygen Delivery Room Air Simple Face Mask Simple Face Mask Oxygen Flow Rate 6 6 07/16/25 18:15 07/16/25 18:30 07/16/25 18:45 Temperature Pulse Rate 107 H 110 H 110 H Respiratory Rate 16 16 20 Blood Pressure 124/72 114/84 128/74 Pulse Oximetry 98 95 94 Oxygen Delivery Simple Face Mask Room Air Room Air Oxygen Flow Rate 6 07/16/25 19:00 07/16/25 19:15 07/16/25 20:00 Temperature 98.4 F Pulse Rate 113 H 115 H 115 H Respiratory Rate 15 20 16 Blood Pressure 131/69 124/77 128/72 Pulse Oximetry 92 95 96 Oxygen Delivery Room Air Nasal Cannula Oxygen Flow Rate 2 07/16/25 20:00 07/16/25 20:15 07/16/25 20:45 Temperature 98.2 F 98.2 F Pulse Rate 115 H 115 H Respiratory Rate 16 16 Blood Pressure 114/76 123/72 Pulse Oximetry 96 96 Oxygen Delivery Room Air Oxygen Flow Rate 07/16/25 21:39 07/17/25 00:00 07/17/25 04:38 Temperature 98.2 F 97.7 F Pulse Rate 107 H 103 H Respiratory Rate 18 18 18 Blood Pressure 114/67 112/71 Pulse Oximetry 96 97 Oxygen Delivery Oxygen Flow Rate 07/17/25 08:00 07/17/25 08:15 07/17/25 10:55 Temperature 97.7 F Pulse Rate 94 Respiratory Rate 18 16 Blood Pressure 106/58 L Pulse Oximetry 94 96 Oxygen Delivery Room Air Oxygen Flow Rate Intake/Output Intake/Output: Intake & Output 07/14/25 07/15/25 07/16/25 07/17/25 23:59 23:59 23:59 23:59 Intake Total 1005 1945 2200 2250 Output Total 1700 600 Balance 1005 0064 [id number] 0582 Meds/Results Medications: Active Medications Generic Name Dose Route Start Last Admin Trade Name Freq PRN Reason Stop Dose Admin Acetaminophen 650 mg 07/16/25 19:16 Acetaminophen 650 Mg Suppository RECTAL Q6H PRN Mild Pain (1-3) or Fever Al Hydrox/Mg Hydrox/Simethicone 30 ml 07/16/25 22:00 07/17/25 14:33 Mag Hydrox/Al Hydrox/Simeth 30 Ml Udc FEED TUBE 30 ml Q8H SONIA Administration Diazepam 5 mg 07/16/25 20:00 07/17/25 08:43 Diazepam Inj (*Crx) 10 Mg/2 Ml Syringe IV PUSH 5 mg Q12H SONIA Administration Enoxaparin Sodium 30 mg 07/17/25 09:00 07/17/25 08:43 Enoxaparin 30 Mg/0.3 Ml Syringe SUB-Q 30 mg DAILY SONIA Administration Fluticasone Propionate 2 spray 07/14/25 21:00 07/17/25 08:44 Fluticasone Propionate 0.05% Na Spr 16 Gm Btl (*Bkc) NASAL Not Given Q12HR SONIA Piperacillin Sod/Tazobactam 50 mls @ 100 mls/hr 07/15/25 10:40 07/17/25 12:30 Sod 3.375 gm/ Sodium Chloride IVPB Infused Q6HR SONIA Infusion Sodium Chloride 1,000 mls @ 150 mls/hr 07/16/25 10:55 07/17/25 11:51 Normal Saline Iv IV CONT 150 mls/hr .Q6H40M SONIA Administration Morphine Sulfate 30 mg in 30 mls @ 1 mls/hr 07/16/25 18:14 07/17/25 10:55 Morphine Sulfate [employer] Server IV CONT 1 mg/hr PRN PRN 1 mls/hr RESEARCH MANUFACTURING OPERATOR Management Titration Protocol 1 MG/HR Lidocaine 1 patch 07/17/25 09:00 07/17/25 08:44 Lidocaine 5% Patch TRANSDERM 1 patch DAILY SONIA Administration Miscellaneous Information 0 each 07/14/25 00:01 07/16/25 12:29 Norethindrone Ac-Eth Estradiol 1-5 Mg-Mcg Tablet Can Pt Bring From Home? XX 08/13/25 00:00 Not Given CLARIFY SONIA Morphine Sulfate 4 mg 07/16/25 19:32 07/17/25 14:32 Morphine Sulfate (*Crx) 4 Mg/Ml Inj IV PUSH 4 mg Q4H PRN Administration Breakthrough Pain Non-Formulary Medication 1 tablet 07/15/25 09:00 Norethindrone Ac-Eth Estradiol PO 08/14/25 08:59 DAILY SONIA Ondansetron HCl 4 mg 07/15/25 14:16 07/17/25 04:49 Ondansetron Inj 4 Mg/2 Ml Vial IV PUSH 4 mg Q6H PRN Administration Nausea And Vomiting Pantoprazole Sodium 40 mg 07/17/25 09:00 07/17/25 08:43 Pantoprazole Sodium Iv 40 Mg Vial IV PUSH 40 mg QAM SONIA Administration Phenol 1 spray 07/15/25 21:34 Phenol/Sod Pheno [place] Elizalde (*Bkc) MUCOUS MEM PRN PRN Sore Throat Rizatriptan Benzoate 10 mg 07/14/25 19:02 Rizatriptan Benzoate 10 Mg Odt PO PRN PRN Migraine Headache Radiology Results: ITS Impressions Abdomen/Pelvis CT 07/15/25 17:09 IMPRESSION: 1. Interval progression of now multiple mildly dilated loops of small bowel extending to persistent transition point in the right lower quadrant consistent with small bowel obstruction. 2. New edematous wall thickening of many of the loops of jejunum consistent with an enteritis which could be infectious or inflammatory in etiology. Ischemia is considered unlikely given the contrast enhanced arteries and veins extending to the mesentery to the affected segments of bowel which also demonstrate mucosal enhancement. 3. New small amount of likely reactive ascites. Pelvic/Transvag US 07/15/25 17:13 IMPRESSION: 1. Nonspecific fluid in the cervical canal and endometrial canal. Nonspecific fluid in the cul-de-sac. 2. Ovaries were not visualized. 3. Endometrial stripe was not adequately visualized for evaluation. 4. Visualized uterus is unremarkable. If symptoms persist or worsen, consider a short-term follow-up study or additional imaging for further assessment. Abdomen X-Ray 07/15/25 19:48 IMPRESSION: 1. Nasogastric tube in the stomach. Small Bowel X-Ray 07/16/25 14:10 IMPRESSION: 1. Persistent small bowel obstruction with multiple persistent mildly dilated loops of small bowel and no definitive oral contrast material in the colon after 4 1/2 hours. Labs Labs: Laboratory Results - last 24 hr 07/17/25 05:18 WBC 11.8 H RBC 4.37 Hgb 13.6 Hct 40.6 MCV 92.9 MCH 31.1 MCHC 33.5 RDW 13.2 Plt Count 281 MPV 9.1 Immature Gran % (Auto) 0.6 H Neut % (Auto) 82.0 H Lymph % (Auto) 7.6 L [place] % (Auto) 9.7 H Eos % (Auto) 0.0 Baso % (Auto) 0.1 L Lymph # (Auto) 0.90 [place] # (Auto) 1.2 H Eos # (Auto) 0.0 Baso # (Auto) 0.0 Abs Immat Gran (auto) 0.07 H Absolute Neuts (auto) 9.7 H Absolute Nucleated RBC 0.000 Nucleated RBC % 0.0 Sodium 139 Potassium 4.1 Chloride 104 Carbon Dioxide 28 Anion Gap 7 BUN 13 Creatinine 0.93 Estim Creat Clear Calc 64 Estimated GFR > 60 Glucose 127 H Calcium 7.9 L Total Bilirubin 0.7 AST 35 ALT 25 Alkaline Phosphatase 40 Total Protein 5.9 L Albumin 3.3 L
--- NOTE | 2025-07-17 15:39 | P.PNIM_ITS ---
Progress Note: A&P Assessment and Plan (1) Enteritis: Code(s): K52.9 - Noninfective gastroenteritis and colitis, unspecified Status: Acute Assessment and Plan: IV fluids for hydration White count within normal limits, CRP negative Will monitor closely DC Zosyn 07/18 if WBC continues to trend stable (2) Migraine headache: Code(s): G43.909 - Migraine, unspecified, not intractable, without status migrainosus Status: Acute Assessment and Plan: Continue home meds (3) Complete small bowel obstruction: Code(s): K56.601 - Complete intestinal obstruction, unspecified as to cause Status: Acute Assessment and Plan: Onset of severe abdominal pain, initial CT largely negative, did not show appendix. Pelvis US negative as well, with ovaries not appearing. Repeat CT then positive for SBO, for which NG tube was started and patient was planned for surgery. Labs initially showed elevation of Cr, but repeat in the AM normal- likely contrast-mediated. Exploratory laparotomy confirmed high-grade SBO. Bowel was viable, no need for colostomy. NG tube still in place, pain control with PROBATION AND PATROL AGENT, monitoring for patient to pass flatus and stool. Subjective Date/time seen: 07/17/25 15:39 Interval history: Admitted for SBO s/p ex-lap with surgery service. Review of Systems Review of Systems: 12 systems were reviewed and are negativ e except for as per HPI. Exam Narrative: General: well appearing, appears stated age. HEENT: normocephalic, atraumatic. Mucous membranes moist. EOMI, PERRLA, bilateral sclera anicteric, no conjunctival injection. Neck supple without JVD, lymphadenopathy, or bruit. Respiratory: clear to ascultation bilaterally. No rales/rhonic/wheezes. Cardiovascular: Regular rate and rhythm, normal S1-S2 upon ascultation. No murmurs, rubs, or clicks. PMI is nondisplaced, capillary refill less than 3 second. Abdomen: Soft, round, no pulsatile masses, nondistended. No CVA tenderness, no hepatosplenomegaly. Bowel sounds present to all four quadrants. No high pitch o r tinkling sounds, resonant to percussion. Right lower quadrant tender to light palpation Extremities: No cyanosis, clubbing, or edema present. Pulses are palpable 2/2. Active ROM to all four extremities. Neuro: Alert and orientated x 4. PERRLA. Cranial nerves 2-12 intact without focal deficit. Skin: Warm, dry, and intact, without rash, erythema, or lesion. Psych: pleasant, cooperative, normal speech, normal affect, no hallucinations, no dysarthia Objective Data Vital Signs Vital Signs: Vital Signs - 24 hr 07/16/25 17:48 07/16/25 18:00 07/16/25 18:15 Temperature 97.1 F L Pulse Rate 110 H 109 H 107 H Respiratory Rate 16 16 16 Blood Pressure 136/76 130/73 124/72 Pulse Oximetry 98 99 98 Oxygen Delivery Simple Face Mask Simple Face Mask Simple Face Mask Oxygen Flow Rate 6 6 6 07/16/25 18:30 07/16/25 18:45 07/16/25 19:00 Temperature Pulse Rate 110 H 110 H 113 H Respiratory Rate 16 20 15 Blood Pressure 114/84 128/74 131/69 Pulse Oximetry 95 94 92 Oxygen Delivery Room Air Room Air Room Air Oxygen Flow Rate 07/16/25 19:15 07/16/25 20:00 07/16/25 20:00 Temperature 98.4 F Pulse Rate 115 H 115 H Respiratory Rate 20 16 Blood Pressure 124/77 128/72 Pulse Oximetry 95 96 Oxygen Delivery Nasal Cannula Room Air Oxygen Flow Rate 2 07/16/25 20:15 07/16/25 20:45 07/16/25 21:39 Temperature 98.2 F 98.2 F Pulse Rate 115 H 115 H Respiratory Rate 16 16 18 Blood Pressure 114/76 123/72 Pulse Oximetry 96 96 Oxygen Delivery Oxygen Flow Rate 07/17/25 00:00 07/17/25 04:38 07/17/25 08:00 Temperature 98.2 F 97.7 F Pulse Rate 107 H 103 H Respiratory Rate 18 18 Blood Pressure 114/67 112/71 Pulse Oximetry 96 97 Oxygen Delivery Room Air Oxygen Flow Rate 07/17/25 08:15 07/17/25 10:55 07/17/25 15:24 Temperature 97.7 F Pulse Rate 94 Respiratory Rate 18 16 18 Blood Pressure 106/58 L Pulse Oximetry 94 96 Oxygen Delivery Oxygen Flow Rate Intake/Output Intake/Output: Intake & Output 07/14/25 07/15/25 07/16/25 07/17/25 23:59 23:59 23:59 23:59 Intake Total 1005 1945 2200 2250 Output Total 1700 600 Balance 1005 5498 304 9950 Meds/Results Medications: Active Medications Generic Name Dose Route Start Last Admin Trade Name Freq PRN Reason Stop Dose Admin Acetaminophen 650 mg 07/16/25 19:16 Acetaminophen 650 Mg Suppository RECTAL Q6H PRN Mild Pain (1-3) or Fever Al Hydrox/Mg Hydrox/Simethicone 30 ml 07/16/25 22:00 07/17/25 14:33 Mag Hydrox/Al Hydrox/Simeth 30 Ml Udc FEED TUBE 30 ml Q8H SONIA Administration Diazepam 5 mg 07/16/25 20:00 07/17/25 08:43 Diazepam Inj (*Crx) 10 Mg/2 Ml Syringe IV PUSH 5 mg Q12H SONIA Administration Enoxaparin Sodium 30 mg 07/17/25 09:00 07/17/25 08:43 Enoxaparin 30 Mg/0.3 Ml Syringe SUB-Q 30 mg DAILY SONIA Administration Fluticasone Propionate 2 spray 07/14/25 21:00 07/17/25 08:44 Fluticasone Propionate 0.05% Na Spr 16 Gm Btl (*Bkc) NASAL Not Given Q12HR SONIA Piperacillin Sod/Tazobactam 50 mls @ 100 mls/hr 07/15/25 10:40 07/17/25 12:30 Sod 3.375 gm/ Sodium Chloride IVPB Infused Q6HR SONIA Infusion Sodium Chloride 1,000 mls @ 150 mls/hr 07/16/25 10:55 07/17/25 11:51 Normal Saline Iv IV CONT 150 mls/hr .Q6H40M SONIA Administration Morphine Sulfate 30 mg in 30 mls @ 1 mls/hr 07/16/25 18:14 07/17/25 15:24 Morphine Sulfate Internal Revenue Agent IV CONT 1 mg/hr PRN PRN 1 mls/hr PROBATION AND PATROL AGENT Management Titration Protocol 1 MG/HR Lidocaine 1 patch 07/17/25 09:00 07/17/25 08:44 Lidocaine 5% Patch TRANSDERM 1 patch DAILY SONIA Administration Miscellaneous Information 0 each 07/14/25 00:01 07/16/25 12:29 Norethindrone Ac-Eth Estradiol 1-5 Mg-Mcg Tablet Can Pt Bring From Home? XX 08/13/25 00:00 Not Given CLARIFY SONIA Morphine Sulfate 4 mg 07/16/25 19:32 07/17/25 14:32 Morphine Sulfate (*Crx) 4 Mg/Ml Inj IV PUSH 4 mg Q4H PRN Administration Breakthrough Pain Non-Formulary Medication 1 tablet 07/15/25 09:00 Norethindrone Ac-Eth Estradiol PO 08/14/25 08:59 DAILY SONIA Ondansetron HCl 4 mg 07/15/25 14:16 07/17/25 04:49 Ondansetron Inj 4 Mg/2 Ml Vial IV PUSH 4 mg Q6H PRN Administration Nausea And Vomiting Pantoprazole Sodium 40 mg 07/17/25 09:00 07/17/25 08:43 Pantoprazole Sodium Iv 40 Mg Vial IV PUSH 40 mg QAM SONIA Administration Phenol 1 spray 07/15/25 21:34 Phenol/Sod Pheno [place] Elizalde (*Bkc) MUCOUS MEM PRN PRN Sore Throat Rizatriptan Benzoate 10 mg 07/14/25 19:02 Rizatriptan Benzoate 10 Mg Odt PO PRN PRN Migraine Headache Radiology Results: ITS Impressions Abdomen/Pelvis CT 07/15/25 17:09 IMPRESSION: 1. Interval progression of now multiple mildly dilated loops of small bowel extending to persistent transition point in the right lower quadrant consistent with small bowel obstruction. 2. New edematous wall thickening of many of the loops of jejunum consistent with an enteritis which could be infectious or inflammatory in etiology. Ischemia is considered unlikely given the contrast enhanced arteries and veins extending to the mesentery to the affected segments of bowel which also demonstrate mucosal enhancement. 3. New small amount of likely reactive ascites. Pelvic/Transvag US 07/15/25 17:13 IMPRESSION: 1. Nonspecific fluid in the cervical canal and endometrial canal. Nonspecific fluid in the cul-de-sac. 2. Ovaries were not visualized. 3. Endometrial stripe was not adequately visualized for evaluation. 4. Visualized uterus is unremarkable. If symptoms persist or worsen, consider a short-term follow-up study or additional imaging for further assessment. Abdomen X-Ray 07/15/25 19:48 IMPRESSION: 1. Nasogastric tube in the stomach. Small Bowel X-Ray 07/16/25 14:10 IMPRESSION: 1. Persistent small bowel obstruction with multiple persistent mildly dilated loops of small bowel and no definitive oral contrast material in the colon after 4 1/2 hours. Labs Labs: Laboratory Results - last 24 hr 07/17/25 05:18 WBC 11.8 H RBC 4.37 Hgb 13.6 Hct 40.6 MCV 92.9 MCH 31.1 MCHC 33.5 RDW 13.2 Plt Count 281 MPV 9.1 Immature Gran % (Auto) 0.6 H Neut % (Auto) 82.0 H Lymph % (Auto) 7.6 L [place] % (Auto) 9.7 H Eos % (Auto) 0.0 Baso % (Auto) 0.1 L Lymph # (Auto) 0.90 [place] # (Auto) 1.2 H Eos # (Auto) 0.0 Baso # (Auto) 0.0 Abs Immat Gran (auto) 0.07 H Absolute Neuts (auto) 9.7 H Absolute Nucleated RBC 0.000 Nucleated RBC % 0.0 Sodium 139 Potassium 4.1 Chloride 104 Carbon Dioxide 28 Anion Gap 7 BUN 13 Creatinine 0.93 Estim Creat Clear Calc 64 Estimated GFR > 60 Glucose 127 H Calcium 7.9 L Total Bilirubin 0.7 AST 35 ALT 25 Alkaline Phosphatase 40 Total Protein 5.9 L Albumin 3.3 L Quality VTE Prophylaxis VTE prophylaxis: mechanical ordered Hospitalist [facility] Advance Care Plan I have confirmed that the patient's Advanced Care Plan is present, code status is documented, or surrogate decision maker is listed in patient medical record.: Yes Medication Reconciliation I have utilized all available resources to obtain, update and review the patients current medications (includes all prescriptions, OTC, herbals, cannabis, and nutritional supplements).: Yes
[2025-07-17] MEDS: MORPHINE SULFATE PCA (*CRX) 30 MG/30 ML SYR IV CONT (16:37)
[2025-07-17] MEDS: FLUTICASONE PROPIONATE 0.05% NA SPR 16 GM BTL (*BKC) 2 SPRAY NASAL (20:28)
[2025-07-18] VITALS (13 sets, daily range): BP systolic 124–149; BP diastolic 72–85; PULSE 100–114; RESP 16–20; TEMP 36.4–37.2; O2SAT 90–96
[2025-07-18] MEDS: SODIUM CHLORIDE 0.9% IV 1,000 ML 150 ML IV CONT ×4 (03:21→23:30)
[2025-07-18] MEDS: PIPERACILLIN/TAZOBACTAM SOD 3.375 GM in SODIUM CHLORIDE 0.9% IV 50 ML 100 ML IVPB ×2 (05:39→11:31)
[2025-07-18] MEDS: MAG HYDROX/AL HYDROX/SIMETH 30 ML UDC FEED TUBE ×3 (05:39→23:29)
[2025-07-18 05:44] LABS: Hematocrit 37.8 % (37.0-47.0); Hemoglobin 12.3 g/dL (12.0-15.0); Immature Granulocyte Percent A 0.2 % (0-0.5); Lymphocytes Absolute Auto 0.82 K/mm3 (0.9-3.2); Mean Corpuscular HGB Conc 32.5 g/dl (32-36); Mean Corpuscular Hemoglobin 31.0 pg (26-34); Mean Corpuscular Volume 95.2 fl (80-100); Nucleated Red Blood Cells Absolute Auto 0.000 K/mm3 (0.0-0.012); Nucleated Red Blood Cells Perc 0.0 % (0.0-0.2); Platelet Count Result 232 k/mm3 (150-375); Red Blood Count 3.97 M/mm3 (4.2-5.4); White Blood Count 4.6 K/mm3 (4.5-10.0)
[2025-07-18] MEDS: MORPHINE SULFATE PCA (*CRX) 30 MG/30 ML SYR IV CONT ×2 (06:03→13:48)
[2025-07-18 06:04] LABS: Alanine Aminotransferase 25 U/L (6-35); Albumin Level 3.2 g/dL (3.5-5.1); Alkaline Phosphatase 41 U/L (38-126); Anion Gap 4 mmol/L (4-12); Aspartate Amino Transferase 49 U/L (14-36); Bilirubin,Total 0.7 mg/dL (0.2-1.3); Blood Urea Nitrogen 9 mg/dL (7-17); Calcium 7.4 mg/dL (8.4-10.2); Carbon Dioxide 27 mmol/L (22-30); Chloride 105 mmol/L (98-107); Estimated CRCL calculation 77 ml/min; Estimated Glomerular Filt Rate > 60; Glucose 107 mg/dL (65-110); Potassium 3.7 mmol/L (3.4-5.0); Sodium 136 mmol/L (137-145); Total Protein 5.8 g/dL (6.3-8.2)
[2025-07-18] MEDS: PANTOPRAZOLE SODIUM IV 40 MG VIAL IV PUSH (09:44)
[2025-07-18] MEDS: diazePAM INJ (*CRX) 10 MG/2 ML SYRINGE 5 MG IV PUSH ×2 (09:44→23:29)
[2025-07-18] MEDS: ENOXAPARIN 30 MG/0.3 ML SYRINGE SUB-Q (09:45)
[2025-07-18] MEDS: LIDOCAINE 5% PATCH 1 PATCH TRANSDERM (09:45)
[2025-07-18] MEDS: ONDANSETRON INJ 4 MG/2 ML VIAL IV PUSH (09:59)
--- NOTE | 2025-07-18 13:31 | P.PNIM_ITS ---
Progress Note: A&P Assessment and Plan (1) Enteritis: Code(s): K52.9 - Noninfective gastroenteritis and colitis, unspecified Status: Acute Assessment and Plan: IV fluids for hydration DC Zosyn 07/18 if WBC continues to trend stable-WBC has normalized significantly, will await surgery note in regards to discontinuing Zosyn (2) Migraine headache: Code(s): G43.909 - Migraine, unspecified, not intractable, without status migrainosus Status: Acute Assessment and Plan: Continue home meds (3) Complete small bowel obstruction: Code(s): K56.601 - Complete intestinal obstruction, unspecified as to cause Status: Acute Assessment and Plan: Onset of severe abdominal pain, initial CT largely negative, did not show appendix. Pelvis US negative as well, with ovaries not appearing. Repeat CT then positive for SBO, for which NG tube was started and patient was planned for surgery. Labs initially showed elevation of Cr, but repeat in the AM normal- likely contrast-mediated. Exploratory laparotomy confirmed high-grade SBO. Bowel was viable, no need for colostomy. NG tube still in place, pain control with COMPUTER TYPESETTER, monitoring for patient to pass flatus and stool. Subjective Date/time seen: 07/18/25 13:31 Interval history: Admitted for SBO s/p ex-lap with surgery service. Review of Systems Review of Systems: 12 systems were reviewed and are negativ e except for as per HPI. Exam Narrative: General: well appearing, appears stated age. HEENT: normocephalic, atraumatic. Mucous membranes moist. EOMI, PERRLA, bilateral sclera anicteric, no conjunctival injection. Neck supple without JVD, lymphadenopathy, or bruit. Respiratory: clear to ascultation bilaterally. No rales/rhonic/wheezes. Cardiovascular: Regular rate and rhythm, normal S1-S2 upon ascultation. No murmurs, rubs, or clicks. PMI is nondisplaced, capillary refill less than 3 second. Abdomen: Soft, round, no pulsatile masses, nondistended. No CVA tenderness, no hepatosplenomegaly. Bowel sounds present to all four quadrants. No high pitch or tinkling sounds, resonant to percussion. Right lower quadrant tender to light palpation. NG tube in place Extremities: No cyanosis, clubbing, or edema present. Pulses are palpable 2/2. Active ROM to all four extremities. Neuro: Alert and orientated x 4. PERRLA. Cranial nerves 2-12 intact without focal deficit. Skin: Warm, dry, and intact, without rash, erythema, or lesion. Psych: pleasant, cooperative, normal speech, normal affect, no hallucinations, no dysarthia Objective Data Vital Signs Vital Signs: Vital Signs - 24 hr 07/17/25 15:24 07/17/25 16:08 07/17/25 16:37 Temperature 97.9 F Pulse Rate 112 H Respiratory Rate 18 20 20 Blood Pressure 127/70 Pulse Oximetry 92 92 Oxygen Delivery 07/17/25 16:37 07/17/25 19:36 07/17/25 20:00 Temperature 98.6 F Pulse Rate 109 H Respiratory Rate 20 20 20 Blood Pressure 129/74 Pulse Oximetry 92 92 Oxygen Delivery 07/18/25 00:00 07/18/25 00:59 07/18/25 04:00 Temperature 98.2 F 98.1 F Pulse Rate 114 H 109 H Respiratory Rate 20 18 20 Blood Pressure 124/72 142/82 H Pulse Oximetry 96 96 93 Oxygen Delivery 07/18/25 06:03 07/18/25 08:00 07/18/25 09:50 Temperature Pulse Rate Respiratory Rate 18 Blood Pressure Pulse Oximetry 94 92 Oxygen Delivery Room Air Room Air 07/18/25 09:51 07/18/25 09:52 Temperature 97.9 F Pulse Rate 107 H Respiratory Rate 18 18 Blood Pressure 140/76 Pulse Oximetry 92 92 Oxygen Delivery Intake/Output Intake/Output: Intake & Output 10/09/25 10/10/25 10/11/25 10/12/25 23:59 23:59 23:59 23:59 Intake Total 194 2200 4090 2422.5 Output Total 6801 694 6282 Balance 7051 005 4580 1222.5 Meds/Results Medications: Active Medications Generic Name Dose Route Start Last Admin Trade Name Freq PRN Reason Stop Dose Admin Acetaminophen 650 mg 07/16/25 19:16 Acetaminophen 650 Mg Suppository RECTAL Q6H PRN Mild Pain (1-3) or Fever Al Hydrox/Mg Hydrox/Simethicone 30 ml 07/16/25 22:00 07/18/25 05:39 Mag Hydrox/Al Hydrox/Simeth 30 Ml Udc FEED TUBE 30 ml Q8H SONIA Administration Diazepam 5 mg 07/16/25 20:00 07/18/25 09:44 Diazepam Inj (*Crx) 10 Mg/2 Ml Syringe IV PUSH 5 mg Q12H SONIA Administration Enoxaparin Sodium 30 mg 07/17/25 09:00 07/18/25 09:45 Enoxaparin 30 Mg/0.3 Ml Syringe SUB-Q 30 mg DAILY SONIA Administration Fluticasone Propionate 2 spray 07/14/25 21:00 07/18/25 09:55 Fluticasone Propionate 0.05% Na Spr 16 Gm Btl (*Bkc) NASAL Not Given Q12HR SONIA Piperacillin Sod/Tazobactam 50 mls @ 100 mls/hr 07/15/25 10:40 07/18/25 11:31 Sod 3.375 gm/ Sodium Chloride IVPB 100 mls/hr Q6HR SONIA Administration Sodium Chloride 1,000 mls @ 150 mls/hr 07/16/25 10:55 07/18/25 09:58 Normal Saline Iv IV CONT 150 mls/hr .Q6H40M SONIA Administration Morphine Sulfate 30 mg in 30 mls @ 1 mls/hr 07/16/25 18:14 07/18/25 09:52 Morphine Sulfate Sound Ranging Crewmember IV CONT 1 mg/hr PRN PRN 1 mls/hr COMPUTER TYPESETTER Management Titration Protocol 1 MG/HR Lidocaine 1 patch 07/17/25 09:00 07/18/25 09:45 Lidocaine 5% Patch TRANSDERM 1 patch DAILY SONIA Administration Miscellaneous Information 0 each 07/14/25 00:01 07/16/25 12:29 Norethindrone Ac-Eth Estradiol 1-5 Mg-Mcg Tablet Can Pt Bring From Home? XX 08/13/25 00:00 Not Given CLARIFY SONIA Morphine Sulfate 4 mg 07/16/25 19:32 07/17/25 22:26 Morphine Sulfate (*Crx) 4 Mg/Ml Inj IV PUSH 4 mg Q4H PRN Administration Breakthrough Pain Non-Formulary Medication 1 tablet 07/15/25 09:00 Norethindrone Ac-Eth Estradiol PO 08/14/25 08:59 DAILY SONIA Ondansetron HCl 4 mg 07/15/25 14:16 07/18/25 09:59 Ondansetron Inj 4 Mg/2 Ml Vial IV PUSH 4 mg Q6H PRN Administration Nausea And Vomiting Pantoprazole Sodium 40 mg 07/17/25 09:00 07/18/25 09:44 Pantoprazole Sodium Iv 40 Mg Vial IV PUSH 40 mg QAM SONIA Administration Phenol 1 spray 07/15/25 21:34 Phenol/Sod Pheno [place] Elizalde (*Bkc) MUCOUS MEM PRN PRN Sore Throat Rizatriptan Benzoate 10 mg 07/14/25 19:02 Rizatriptan Benzoate 10 Mg Odt PO PRN PRN Migraine Headache Radiology Results: ITS Impressions Abdomen/Pelvis CT 07/15/25 17:09 IMPRESSION: 1. Interval progression of now multiple mildly dilated loops of small bowel extending to persistent transition point in the right lower quadrant consistent with small bowel obstruction. 2. New edematous wall thickening of many of the loops of jejunum consistent with an enteritis which could be infectious or inflammatory in etiology. Ischemia is considered unlikely given the contrast enhanced arteries and veins extending to the mesentery to the affected segments of bowel which also demonstrate mucosal enhancement. 3. New small amount of likely reactive ascites. Pelvic/Transvag US 07/15/25 17:13 IMPRESSION: 1. Nonspecific fluid in the cervical canal and endometrial canal. Nonspecific fluid in the cul-de-sac. 2. Ovaries were not visualized. 3. Endometrial stripe was not adequately visualized for evaluation. 4. Visualized uterus is unremarkable. If symptoms persist or worsen, consider a short-term follow-up study or additional imaging for further assessment. Abdomen X-Ray 07/15/25 19:48 IMPRESSION: 1. Nasogastric tube in the stomach. Small Bowel X-Ray 07/16/25 14:10 IMPRESSION: 1. Persistent small bowel obstruction with multiple persistent mildly dilated loops of small bowel and no definitive oral contrast material in the colon after 4 1/2 hours. Labs Labs: Laboratory Results - last 24 hr 07/18/25 05:28 WBC 4.6 RBC 3.97 L Hgb 12.3 Hct 37.8 MCV 95.2 MCH 31.0 MCHC 32.5 RDW 13.2 Plt Count 232 MPV 9.3 Immature Gran % (Auto) 0.2 Neut % (Auto) 61.2 Lymph % (Auto) 18.0 L [place] % (Auto) 20.4 H Eos % (Auto) 0.0 Baso % (Auto) 0.2 Lymph # (Auto) 0.82 L [place] # (Auto) 0.9 H Eos # (Auto) 0.0 Baso # (Auto) 0.0 Abs Immat Gran (auto) 0.01 Absolute Neuts (auto) 2.8 Absolute Nucleated RBC 0.000 Nucleated RBC % 0.0 Sodium 136 L Potassium 3.7 Chloride 105 Carbon Dioxide 27 Anion Gap 4 BUN 9 Creatinine 0.77 Estim Creat Clear Calc 77 Estimated GFR > 60 Glucose 107 Calcium 7.4 L Total Bilirubin 0.7 AST 49 H ALT 25 Alkaline Phosphatase 41 Total Protein 5.8 L Albumin 3.2 L Quality VTE Prophylaxis VTE prophylaxis: mechanical ordered Hospitalist [facility] [place] Advance Care Plan I have confirmed that the patient's Advanced Care Plan is present, code status is documented, or surrogate decision maker is listed in patient medical record.: Yes Medication Reconciliation I have utilized all available resources to obtain, update and review the patients current medications (includes all prescriptions, OTC, herbals, cannabi s, and nutritional supplements).: Yes
--- NOTE | 2025-07-18 13:36 | P.PNGS_ITS ---
Progress Note: A&P Assessment and Plan (1) Complete small bowel obstruction: Code(s): K56.601 - Complete intestinal obstruction, unspecified as to cause Status: Acute Assessment and Plan: * Await return of bowel function * Increase activity * Continue PROGRAM MANAGEMENT INTERN for pain management (2) Enteritis: Code(s): K52.9 - Noninfective gastroenteritis and colitis, unspecified Status: Acute Assessment and Plan: * Discontinue Zosyn Subjective Subjective Date/Time Seen: 07/18/25 13:36 Interval history: No flatus or BM yet. Still requiring PROGRAM MANAGEMENT INTERN for pain control. Exam GI: Inspection: non-distended and incision (intact with glue) GI Palp: Yes Tenderness to palpation present (GI) (incisional) Auscultation: normoactive bowel sounds Objective Data Vital Signs Vital Signs: Vital Signs - 24 hr 07/17/25 15:24 07/17/25 16:08 07/17/25 16:37 Temperature 97.9 F Pulse Rate 112 H Respiratory Rate 18 20 20 Blood Pressure 127/70 Pulse Oximetry 92 92 Oxygen Delivery 07/17/25 16:37 07/17/25 19:36 07/17/25 20:00 Temperature 98.6 F Pulse Rate 109 H Respiratory Rate 20 20 20 Blood Pressure 129/74 Pulse Oximetry 92 92 Oxygen Delivery 07/18/25 00:00 07/18/25 00:59 07/18/25 04:00 Temperature 98.2 F 98.1 F Pulse Rate 114 H 109 H Respiratory Rate 20 18 20 Blood Pressure 124/72 142/82 H Pulse Oximetry 96 96 93 Oxygen Delivery 07/18/25 06:03 07/18/25 08:00 07/18/25 09:50 Temperature Pulse Rate Respiratory Rate 18 Blood Pressure Pulse Oximetry 94 92 Oxygen Delivery Room Air Room Air 07/18/25 09:51 07/18/25 09:52 Temperature 97.9 F Pulse Rate 107 H Respiratory Rate 18 18 Blood Pressure 140/76 Pulse Oximetry 92 92 Oxygen Delivery Intake/Output Intake/Output: Intake & Output 07/15/25 07/16/25 07/17/25 07/18/25 23:59 23:59 23:59 23:59 Intake Total 1945 2200 4090 2422.5 Output Total 0218 824 5523 Balance 0734 424 4474 1222.5 Meds/Results Medications: Active Medications Generic Name Dose Route Start Last Admin Trade Name Freq PRN Reason Stop Dose Admin Acetaminophen 650 mg 07/16/25 19:16 Acetaminophen 650 Mg Suppository RECTAL Q6H PRN Mild Pain (1-3) or Fever Al Hydrox/Mg Hydrox/Simethicone 30 ml 07/16/25 22:00 07/18/25 05:39 Mag Hydrox/Al Hydrox/Simeth 30 Ml Udc FEED TUBE 30 ml Q8H SONIA Administration Diazepam 5 mg 07/16/25 20:00 07/18/25 09:44 Diazepam Inj (*Crx) 10 Mg/2 Ml Syringe IV PUSH 5 mg Q12H SONIA Administration Enoxaparin Sodium 30 mg 07/17/25 09:00 07/18/25 09:45 Enoxaparin 30 Mg/0.3 Ml Syringe SUB-Q 30 mg DAILY SONIA Administration Fluticasone Propionate 2 spray 07/14/25 21:00 07/18/25 09:55 Fluticasone Propionate 0.05% Na Spr 16 Gm Btl (*Bkc) NASAL Not Given Q12HR SONIA Piperacillin Sod/Tazobactam 50 mls @ 100 mls/hr 07/15/25 10:40 07/18/25 11:31 Sod 3.375 gm/ Sodium Chloride IVPB 100 mls/hr Q6HR SONIA Administration Sodium Chloride 1,000 mls @ 150 mls/hr 07/16/25 10:55 07/18/25 09:58 Normal Saline Iv IV CONT 150 mls/hr .Q6H40M SONIA Administration Morphine Sulfate 30 mg in 30 mls @ 1 mls/hr 07/16/25 18:14 07/18/25 09:52 Morphine Sulfate Tug Captain IV CONT 1 mg/hr PRN PRN 1 mls/hr PROGRAM MANAGEMENT INTERN Management Titration Protocol 1 MG/HR Lidocaine 1 patch 07/17/25 09:00 07/18/25 09:45 Lidocaine 5% Patch TRANSDERM 1 patch DAILY SONIA Administration Miscellaneous Information 0 each 07/14/25 00:01 07/16/25 12:29 Norethindrone Ac-Eth Estradiol 1-5 Mg-Mcg Tablet Can Pt Bring From Home? XX 08/13/25 00:00 Not Given CLARIFY SONIA Morphine Sulfate 4 mg 07/16/25 19:32 07/17/25 22:26 Morphine Sulfate (*Crx) 4 Mg/Ml Inj IV PUSH 4 mg Q4H PRN Administration Breakthrough Pain Non-Formulary Medication 1 tablet 07/15/25 09:00 Norethindrone Ac-Eth Estradiol PO 08/14/25 08:59 DAILY SONIA Ondansetron HCl 4 mg 07/15/25 14:16 07/18/25 09:59 Ondansetron Inj 4 Mg/2 Ml Vial IV PUSH 4 mg Q6H PRN Administration Nausea And Vomiting Pantoprazole Sodium 40 mg 07/17/25 09:00 07/18/25 09:44 Pantoprazole Sodium Iv 40 Mg Vial IV PUSH 40 mg QAM SONIA Administration Phenol 1 spray 07/15/25 21:34 Phenol/Sod Pheno [place] Elizalde (*Bkc) MUCOUS MEM PRN PRN Sore Throat Rizatriptan Benzoate 10 mg 07/14/25 19:02 Rizatriptan Benzoate 10 Mg Odt PO PRN PRN Migraine Headache Radiology Results: ITS Impressions Abdomen/Pelvis CT 07/15/25 17:09 IMPRESSION: 1. Interval progression of now multiple mildly dilated loops of small bowel extending to persistent transition point in the right lower quadrant consistent with small bowel obstruction. 2. New edematous wall thickening of many of the loops of jejunum consistent with an enteritis which could be infectious or inflammatory in etiology. Ischemia is considered unlikely given the contrast enhanced arteries and veins extending to the mesentery to the affected segments of bowel which also demonstrate mucosal enhancement. 3. New small amount of likely reactive ascites. Pelvic/Transvag US 07/15/25 17:13 IMPRESSION: 1. Nonspecific fluid in the cervical canal and endometrial canal. Nonspecific fluid in the cul-de-sac. 2. Ovaries were not visualized. 3. Endometrial stripe was not adequately visualized for evaluation. 4. Visualized uterus is unremarkable. If symptoms persist or worsen, consider a short-term follow-up study or additional imaging for further assessment. Abdomen X-Ray 07/15/25 19:48 IMPRESSION: 1. Nasogastric tube in the stomach. Small Bowel X-Ray 07/16/25 14:10 IMPRESSION: 1. Persistent small bowel obstruction with multiple persistent mildly dilated loops of small bowel and no definitive oral contrast material in the colon after 4 1/2 hours. Labs Labs: Laboratory Results - last 24 hr 07/18/25 05:28 WBC 4.6 RBC 3.97 L Hgb 12.3 Hct 37.8 MCV 95.2 MCH 31.0 MCHC 32.5 RDW 13.2 Plt Count 232 MPV 9.3 Immature Gran % (Auto) 0.2 Neut % (Auto) 61.2 Lymph % (Auto) 18.0 L [place] % (Auto) 20.4 H Eos % (Auto) 0.0 Baso % (Auto) 0.2 Lymph # (Auto) 0.82 L [place] # (Auto) 0.9 H Eos # (Auto) 0.0 Baso # (Auto) 0.0 Abs Immat Gran (auto) 0.01 Absolute Neuts (auto) 2.8 Absolute Nucleated RBC 0.000 Nucleated RBC % 0.0 Sodium 136 L Potassium 3.7 Chloride 105 Carbon Dioxide 27 Anion Gap 4 BUN 9 Creatinine 0.77 Estim Creat Clear Calc 77 Estimated GFR > 60 Glucose 107 Calcium 7.4 L Total Bilirubin 0.7 AST 49 H ALT 25 Alkaline Phosphatase 41 Total Protein 5.8 L Albumin 3.2 L
[2025-07-18] MEDS: RIZATRIPTAN BENZOATE 10 MG ODT PO ×2 (15:40→18:26)
[2025-07-18] MEDS: FLUTICASONE PROPIONATE 0.05% NA SPR 16 GM BTL (*BKC) 2 SPRAY NASAL (23:30)
[2025-07-19] VITALS (10 sets, daily range): BP systolic 127–146; BP diastolic 73–87; PULSE 102–110; RESP 16–18; TEMP 36.4–37; O2SAT 90–99
[2025-07-19] MEDS: MORPHINE SULFATE PCA (*CRX) 30 MG/30 ML SYR IV CONT ×3 (01:39→22:46)
[2025-07-19 06:02] LABS: Hematocrit 36.1 % (37.0-47.0); Hemoglobin 12.1 g/dL (12.0-15.0); Immature Granulocyte Percent A 0.4 % (0-0.5); Lymphocytes Absolute Auto 1.03 K/mm3 (0.9-3.2); Mean Corpuscular HGB Conc 33.5 g/dl (32-36); Mean Corpuscular Hemoglobin 31.0 pg (26-34); Mean Corpuscular Volume 92.6 fl (80-100); Nucleated Red Blood Cells Absolute Auto 0.000 K/mm3 (0.0-0.012); Nucleated Red Blood Cells Perc 0.0 % (0.0-0.2); Platelet Count Result 248 k/mm3 (150-375); Red Blood Count 3.90 M/mm3 (4.2-5.4); White Blood Count 5.5 K/mm3 (4.5-10.0)
[2025-07-19 06:34] LABS: Alanine Aminotransferase 29 U/L (6-35); Albumin Level 3.1 g/dL (3.5-5.1); Alkaline Phosphatase 48 U/L (38-126); Anion Gap 6 mmol/L (4-12); Aspartate Amino Transferase 46 U/L (14-36); Bilirubin,Total 0.7 mg/dL (0.2-1.3); Blood Urea Nitrogen 7 mg/dL (7-17); Calcium 7.5 mg/dL (8.4-10.2); Carbon Dioxide 28 mmol/L (22-30); Chloride 99 mmol/L (98-107); Estimated CRCL calculation 85 ml/min; Estimated Glomerular Filt Rate > 60; Glucose 98 mg/dL (65-110); Potassium 3.2 mmol/L (3.4-5.0); Sodium 133 mmol/L (137-145); Total Protein 6.0 g/dL (6.3-8.2)
[2025-07-19] MEDS: MAG HYDROX/AL HYDROX/SIMETH 30 ML UDC FEED TUBE ×3 (06:35→20:37)
[2025-07-19] MEDS: diazePAM INJ (*CRX) 10 MG/2 ML SYRINGE 5 MG IV PUSH ×2 (09:04→20:35)
[2025-07-19] MEDS: ENOXAPARIN 40 MG/0.4 ML SYRINGE SUB-Q (09:04)
[2025-07-19] MEDS: FLUTICASONE PROPIONATE 0.05% NA SPR 16 GM BTL (*BKC) 2 SPRAY NASAL ×2 (09:05→20:36)
[2025-07-19] MEDS: LIDOCAINE 5% PATCH 1 PATCH TRANSDERM (09:05)
[2025-07-19] MEDS: POTASSIUM CHLORIDE INJ 40 MEQ in SODIUM CHLORIDE 0.9% IV 500 ML 130 MEQ IVPB (09:06)
[2025-07-19] MEDS: PANTOPRAZOLE SODIUM IV 40 MG VIAL IV PUSH (09:06)
--- NOTE | 2025-07-19 13:09 | PC.NURSE ---
preliminary blood culture results x2: no growth in 48 hrs
--- NOTE | 2025-07-19 14:03 | P.PNIM_ITS ---
Progress Note: A&P Assessment and Plan (1) Complete small bowel obstruction: Code(s): K56.601 - Complete intestinal obstruction, unspecified as to cause Status: Acute Assessment and Plan: Onset of severe abdominal pain, initial CT largely negative, did not show appendix. Pelvis US negative as well, with ovaries not appearing. Repeat CT then positive for SBO, for which NG tube was started and patient was planned for surgery. Labs initially showed elevation of Cr, but repeat in the AM normal- likely contrast-mediated. Exploratory laparotomy confirmed high-grade SBO. Bowel was viable, no need for colostomy. NG tube still in place, pain control with WASTEWATER DESIGN ENGINEER, monitoring for patient to pass flatus and stool. Zosyn discontinued, white count remained stable. (2) Enteritis: Code(s): K52.9 - Noninfective gastroenteritis and colitis, unspecified Status: Acute Assessment and Plan: IV fluids for hydration Zosyn discontinued (3) Migraine headache: Code(s): G43.909 - Migraine, unspecified, not intractable, without status migrainosus Status: Acute Assessment and Plan: Takes rizatriptan home, however not able to take medications at this time, sumatriptan subcutaneous p.r.n. Subjective Date/time seen: 07/19/25 14:03 Interval history: Admitted for SBO s/p ex-lap with surgery service. Review of Systems Review of Systems: 12 systems were reviewed and are negativ e except for as per HPI. Exam Narrative: General: well appearing, appears stated age. HEENT: normocephalic, atraumatic. Mucous membranes moist. EOMI, PERRLA, bilateral sclera anicteric, no conjunctival injection. Neck supple without JVD, lymphadenopathy, or bruit. Respiratory: clear to ascultation bilaterally. No rales/rhonic/wheezes. Cardiovascular: Regular rate and rhythm, normal S1-S2 upon ascultation. No murmu rs, rubs, or clicks. PMI is nondisplaced, capillary refill less than 3 second. Abdomen: Soft, round, no pulsatile masses, nondistended. No CVA tenderness, no hepatosplenomegaly. Bowel sounds present to all four quadrants. No high pitch or tinkling sounds, resonant to percussion. Right lower quadrant tender to light palpation. NG tube in place Extremities: No cyanosis, clubbing, or edema present. Pulses are palpable 2/2. Active ROM to all four extremities. Neuro: Alert and orientated x 4. PERRLA. Cranial nerves 2-12 intact without focal deficit. Skin: Warm, dry, and intact, without rash, erythema, or lesion. Psych: pleasant, cooperative, normal speech, normal affect, no hallucinations, no dysarthia Objective Data Vital Signs Vital Signs: Vital Signs - 24 hr 07/18/25 15:47 07/18/25 17:42 07/18/25 20:00 Temperature Pulse Rate 106 H Respiratory Rate 19 16 16 Blood Pressure Pulse Oximetry 91 91 Oxygen Delivery Room Air 07/18/25 21:00 07/19/25 01:39 07/19/25 01:39 Temperature 98.9 F Pulse Rate 100 Respiratory Rate 18 18 18 Blood Pressure 149/85 H Pulse Oximetry 90 Oxygen Delivery 07/19/25 05:00 07/19/25 09:00 07/19/25 09:05 Temperature 98.2 F 98.4 F Pulse Rate 110 H 104 H Respiratory Rate 18 16 Blood Pressure 131/73 127/87 Pulse Oximetry 93 99 Oxygen Delivery Room Air 07/19/25 11:54 07/19/25 11:54 07/19/25 13:00 Temperature 98.6 F Pulse Rate 107 H Respiratory Rate 16 16 17 Blood Pressure 131/87 Pulse Oximetry 99 99 96 Oxygen Delivery Intake/Output Intake/Output: Intake & Output 07/16/25 07/17/25 07/18/25 07/19/25 23:59 23:59 23:59 23:59 Intake Total 2200 4090 4390.0 65 Output Total 4961 081 8289 300 Balance 500 3490 1290.0 -235 Meds/Results Medications: Active Medications Generic Name Dose Route Start Last Admin Trade Name Freq PRN Reason Stop Dose Admin Acetaminophen 650 mg 07/16/25 19:16 Acetaminophen 650 Mg Suppository RECTAL Q6H PRN Mild Pain (1-3) or Fever Al Hydrox/Mg Hydrox/Simethicone 30 ml 07/16/25 22:00 07/19/25 06:35 Mag Hydrox/Al Hydrox/Simeth 30 Ml Udc FEED TUBE 30 ml Q8H SONIA Administration Diazepam 5 mg 07/16/25 20:00 07/19/25 09:04 Diazepam Inj (*Crx) 10 Mg/2 Ml Syringe IV PUSH 5 mg Q12H SONIA Administration Enoxaparin Sodium 40 mg 07/19/25 09:00 07/19/25 09:04 Enoxaparin 40 Mg/0.4 Ml Syringe SUB-Q 40 mg DAILY SONIA Administration Fluticasone Propionate 2 spray 07/14/25 21:00 07/19/25 09:05 Fluticasone Propionate 0.05% Na Spr 16 Gm Btl (*Bkc) NASAL 2 spray Q12HR SONIA Administration Sodium Chloride 1,000 mls @ 150 mls/hr 07/16/25 10:55 07/18/25 23:30 Normal Saline Iv IV CONT 150 mls/hr .Q6H40M SONIA Administration Morphine Sulfate 30 mg in 30 mls @ 1 mls/hr 07/16/25 18:14 07/19/25 11:54 Morphine Sulfate Reconciliation Analyst IV CONT 1 mg/hr PRN PRN 1 mls/hr WASTEWATER DESIGN ENGINEER Management Administration Protocol 1 MG/HR Lidocaine 1 patch 07/17/25 09:00 07/19/25 09:05 Lidocaine 5% Patch TRANSDERM 1 patch DAILY SONIA Administration Miscellaneous Information 0 each 07/14/25 00:01 07/16/25 12:29 Norethindrone Ac-Eth Estradiol 1-5 Mg-Mcg Tablet Can Pt Bring From Home? XX 08/13/25 00:00 Not Given CLARIFY SONIA Morphine Sulfate 4 mg 07/16/25 19:32 07/17/25 22:26 Morphine Sulfate (*Crx) 4 Mg/Ml Inj IV PUSH 4 mg Q4H PRN Administration Breakthrough Pain Non-Formulary Medication 1 tablet 07/15/25 09:00 Norethindrone Ac-Eth Estradiol PO 08/14/25 08:59 DAILY SONIA Ondansetron HCl 4 mg 07/15/25 14:16 07/18/25 09:59 Ondansetron Inj 4 Mg/2 Ml Vial IV PUSH 4 mg Q6H PRN Administration Nausea And Vomiting Pantoprazole Sodium 40 mg 07/17/25 09:00 07/19/25 09:06 Pantoprazole Sodium Iv 40 Mg Vial IV PUSH 40 mg QAM SONIA Administration Phenol 1 spray 07/15/25 21:34 Phenol/Sod Pheno [place] Elizalde (*Bkc) MUCOUS MEM PRN PRN Sore Throat Rizatriptan Benzoate 10 mg 07/14/25 19:02 07/18/25 18:26 Rizatriptan Benzoate 10 Mg Odt PO 10 mg PRN PRN Administration Migraine Headache Radiology Results: ITS Impressions Abdomen/Pelvis CT 07/15/25 17:09 IMPRESSION: 1. Interval progression of now multiple mildly dilated loops of small bowel extending to persistent transition point in the right lower quadrant consistent with small bowel obstruction. 2. New edematous wall thickening of many of the loops of jejunum consistent with an enteritis which could be infectious or inflammatory in etiology. Ischemia is considered unlikely given the contrast enhanced arteries and veins extending to the mesentery to the affected segments of bowel which also demonstrate mucosal enhancement. 3. New small amount of likely reactive ascites. Pelvic/Transvag US 07/15/25 17:13 IMPRESSION: 1. Nonspecific fluid in the cervical canal and endometrial canal. Nonspecific fluid in the cul-de-sac. 2. Ovaries were not visualized. 3. Endometrial stripe was not adequately visualized for evaluation. 4. Visualized uterus is unremarkable. If symptoms persist or worsen, consider a short-term follow-up study or additional imaging for further assessment. Abdomen X-Ray 07/15/25 19:48 IMPRESSION: 1. Nasogastric tube in the stomach. Small Bowel X-Ray 07/16/25 14:10 IMPRESSION: 1. Persistent small bowel obstruction with multiple persistent mildly dilated loops of small bowel and no definitive oral contrast material in the colon after 4 1/2 hours. Labs Labs: Laboratory Results - last 24 hr 07/19/25 05:22 WBC 5.5 RBC 3.90 L Hgb 12.1 Hct 36.1 L MCV 92.6 MCH 31.0 MCHC 33.5 RDW 12.9 Plt Count 248 MPV 9.7 Immature Gran % (Auto) 0.4 Neut % (Auto) 66.7 Lymph % (Auto) 18.6 [place] % (Auto) 14.1 H Eos % (Auto) 0.0 Baso % (Auto) 0.2 Lymph # (Auto) 1.03 [place] # (Auto) 0.8 H Eos # (Auto) 0.0 Baso # (Auto) 0.0 Abs Immat Gran (auto) 0.02 Absolute Neuts (auto) 3.7 Absolute Nucleated RBC 0.000 Nucleated RBC % 0.0 Sodium 133 L Potassium 3.2 L Chloride 99 Carbon Dioxide 28 Anion Gap 6 BUN 7 Creatinine 0.69 L Estim Creat Clear Calc 85 Estimated GFR > 60 Glucose 98 Calcium 7.5 L Total Bilirubin 0.7 AST 46 H ALT 29 Alkaline Phosphatase 48 Total Protein 6.0 L Albumin 3.1 L Quality VTE Prophylaxis VTE prophylaxis: mechanical ordered Hospitalist [facility] Advance Care Plan I have confirmed that the patient's Advanced Care Plan is present, code status is documented, or surrogate decision maker is listed in patient medical record.: Yes Medication Reconciliation I have utilized all available resources to obtain, update and review the patients current medications (includes all prescriptions, OTC, herbals, cannabis, and nutritional supplements).: Yes
--- NOTE | 2025-07-19 14:54 | PM.PNGS ---
Progress Note: A&P Assessment and Plan (1) Complete small bowel obstruction: Code(s): K56.601 - Complete intestinal obstruction, unspecified as to cause Status: Acute Assessment and Plan: Await return of bowel function. Continue NG tube and bowel rest. Will decrease IV fluids to 120 mL/hr. Pain is controlled on CUSTOM GARMENT DESIGNER. Will adjust the CUSTOM GARMENT DESIGNER setting and stop the continuous infusion. Also will add IV Ibuprofen scheduled every 8 hours. Potassium 3.2 and replaced this morning. Repeat labs in the am and check mag and phos. Increase activity. Ambulate in the halls and up to chair during the day. Plan I have discussed the patient's case and plan of care with Dr. Mcelroy Subjective Subjective Date/Time Seen: 07/19/25 14:54 Post Op day: 3 (Exploratory laparotomy with abdominal adhesiolysis) Patient reports: no new complaints, no flatus, no bowel movement and afebrile Interval history: Patient seen today. NG in place with 1L out in past 24 hours. No flatus or BM. Pain is better controlled today. She reports feeling like she has pushed the CUSTOM GARMENT DESIGNER less this morning. No other complaints at this time. Exam Const: General: comfortable and no acute distress GI: Inspection: non-distended and incision (dry and glue intact, no drainage, no erythema) GI Palp: Yes Soft to palpation, Yes Tenderness to palpation present (GI) and No Guarding due to palpation present (GI) Auscultation: Hypoactive bowel sounds present Rectal Exam: deferred Other: NG with bilious output Extrem: General: no calf tenderness and no edema Objective Data Vital Signs Vital Signs: Vital Signs - 24 hr 07/18/25 15:47 07/18/25 17:42 07/18/25 20:00 Temperature Pulse Rate 106 H Respiratory Rate 19 16 16 Blood Pressure Pulse Oximetry 91 91 Oxygen Delivery Room Air 07/18/25 21:00 07/19/25 01:39 07/19/25 01:39 Temperature 98.9 F Pulse Rate 100 Respiratory Rate 18 18 18 Blood Pressure 149/85 H Pulse Oximetry 90 Oxygen Delivery 07/19/25 05:00 07/19/25 09:00 07/19/25 09:05 Temperature 98.2 F 98.4 F Pulse Rate 110 H 104 H Respiratory Rate 18 16 Blood Pressure 131/73 127/87 Pulse Oximetry 93 99 Oxygen Delivery Room Air 07/19/25 11:54 07/19/25 11:54 07/19/25 13:00 Temperature 98.6 F Pulse Rate 107 H Respiratory Rate 16 16 17 Blood Pressure 131/87 Pulse Oximetry 99 99 96 Oxygen Delivery Intake/Output Intake/Output: Intake & Output 07/16/25 07/17/25 07/18/25 07/19/25 23:59 23:59 23:59 23:59 Intake Total 2200 4090 4390.0 65 Output Total 1527 824 0682 300 Balance 500 3490 1290.0 -235 Meds/Results Medications: Active Medications Generic Name Dose Route Start Last Admin Trade Name Freq PRN Reason Stop Dose Admin Acetaminophen 650 mg 07/16/25 19:16 Acetaminophen 650 Mg Suppository RECTAL Q6H PRN Mild Pain (1-3) or Fever Al Hydrox/Mg Hydrox/Simethicone 30 ml 07/16/25 22:00 07/19/25 14:49 Mag Hydrox/Al Hydrox/Simeth 30 Ml Udc FEED TUBE 30 ml Q8H SONIA Administration Diazepam 5 mg 07/16/25 20:00 07/19/25 09:04 Diazepam Inj (*Crx) 10 Mg/2 Ml Syringe IV PUSH 5 mg Q12H SONIA Administration Enoxaparin Sodium 40 mg 07/19/25 09:00 07/19/25 09:04 Enoxaparin 40 Mg/0.4 Ml Syringe SUB-Q 40 mg DAILY SONIA Administration Fluticasone Propionate 2 spray 07/14/25 21:00 07/19/25 09:05 Fluticasone Propionate 0.05% Na Spr 16 Gm Btl (*Bkc) NASAL 2 spray Q12HR SONIA Administration Sodium Chloride 1,000 mls @ 150 mls/hr 07/16/25 10:55 07/18/25 23:30 Normal Saline Iv IV CONT 150 mls/hr .Q6H40M SONIA Administration Morphine Sulfate 30 mg in 30 mls @ 1 mls/hr 07/16/25 18:14 07/19/25 11:54 Morphine Sulfate Vice President Of Recruiting IV CONT 1 mg/hr PRN PRN 1 mls/hr CUSTOM GARMENT DESIGNER Management Administration Protocol 1 MG/HR Lidocaine 1 patch 07/17/25 09:00 07/19/25 09:05 Lidocaine 5% Patch TRANSDERM 1 patch DAILY SONIA Administration Miscellaneous Information 0 each 07/14/25 00:01 07/16/25 12:29 Norethindrone Ac-Eth Estradiol 1-5 Mg-Mcg Tablet Can Pt Bring From Home? XX 08/13/25 00:00 Not Given CLARIFY SONIA Morphine Sulfate 4 mg 07/16/25 19:32 07/17/25 22:26 Morphine Sulfate (*Crx) 4 Mg/Ml Inj IV PUSH 4 mg Q4H PRN Administration Breakthrough Pain Non-Formulary Medication 1 tablet 07/15/25 09:00 Norethindrone Ac-Eth Estradiol PO 08/14/25 08:59 DAILY SONIA Ondansetron HCl 4 mg 07/15/25 14:16 07/18/25 09:59 Ondansetron Inj 4 Mg/2 Ml Vial IV PUSH 4 mg Q6H PRN Administration Nausea And Vomiting Pantoprazole Sodium 40 mg 07/17/25 09:00 07/19/25 09:06 Pantoprazole Sodium Iv 40 Mg Vial IV PUSH 40 mg QAM SONIA Administration Phenol 1 spray 07/15/25 21:34 Phenol/Sod Pheno [place] Elizalde (*Bkc) MUCOUS MEM PRN PRN Sore Throat Sumatriptan Succinate 6 mg 07/20/25 09:00 Sumatriptan Succinate 6 Mg/0.5 Ml Vial SUB-Q PRN PRN migraine Radiology Results: ITS Impressions Abdomen/Pelvis CT 07/15/25 17:09 IMPRESSION: 1. Interval progression of now multiple mildly dilated loops of small bowel extending to persistent transition point in the right lower quadrant consistent with small bowel obstruction. 2. New edematous wall thickening of many of the loops of jejunum consistent with an enteritis which could be infectious or inflammatory in etiology. Ischemia is considered unlikely given the contrast enhanced arteries and veins extending to the mesentery to the affected segments of bowel which also demonstrate mucosal enhancement. 3. New small amount of likely reactive ascites. Pelvic/Transvag US 07/15/25 17:13 IMPRESSION: 1. Nonspecific fluid in the cervical canal and endometrial canal. Nonspecific fluid in the cul-de-sac. 2. Ovaries were not visualized. 3. Endometrial stripe was not adequately visualized for evaluation. 4. Visualized uterus is unremarkable. If symptoms persist or worsen, consider a short-term follow-up study or additional imaging for further assessment. Abdomen X-Ray 07/15/25 19:48 IMPRESSION: 1. Nasogastric tube in the stomach. Small Bowel X-Ray 07/16/25 14:10 IMPRESSION: 1. Persistent small bowel obstruction with multiple persistent mildly dilated loops of small bowel and no definitive oral contrast material in the colon after 4 1/2 hours. Labs Labs: Laboratory Results - last 24 hr 07/19/25 05:22 WBC 5.5 RBC 3.90 L Hgb 12.1 Hct 36.1 L MCV 92.6 MCH 31.0 MCHC 33.5 RDW 12.9 Plt Count 248 MPV 9.7 Immature Gran % (Auto) 0.4 Neut % (Auto) 66.7 Lymph % (Auto) 18.6 [place] % (Auto) 14.1 H Eos % (Auto) 0.0 Baso % (Auto) 0.2 Lymph # (Auto) 1.03 [place] # (Auto) 0.8 H Eos # (Auto) 0.0 Baso # (Auto) 0.0 Abs Immat Gran (auto) 0.02 Absolute Neuts (auto) 3.7 Absolute Nucleated RBC 0.000 Nucleated RBC % 0.0 Sodium 133 L Potassium 3.2 L Chloride 99 Carbon Dioxide 28 Anion Gap 6 BUN 7 Creatinine 0.69 L Estim Creat Clear Calc 85 Estimated GFR > 60 Glucose 98 Calcium 7.5 L Total Bilirubin 0.7 AST 46 H ALT 29 Alkaline Phosphatase 48 Total Protein 6.0 L Albumin 3.1 L
[2025-07-19] MEDS: IBUPROFEN IV 800 MG/200 ML 800 MG/200 ML BAG 400 MG IVPB ×2 (15:43→20:36)
[2025-07-19] MEDS: SODIUM CHLORIDE 0.9% IV 1,000 ML 120 ML IV CONT ×2 (16:50→20:36)
[2025-07-20] VITALS (7 sets, daily range): BP systolic 128–154; BP diastolic 69–92; PULSE 78–102; RESP 15–20; TEMP 36.6–37.1; O2SAT 90–98; BMI 29.5
[2025-07-20] MEDS: ONDANSETRON INJ 4 MG/2 ML VIAL IV PUSH (02:30)
[2025-07-20] MEDS: IBUPROFEN IV 800 MG/200 ML 800 MG/200 ML BAG 400 MG IVPB ×3 (05:22→20:22)
[2025-07-20] MEDS: MAG HYDROX/AL HYDROX/SIMETH 30 ML UDC FEED TUBE ×3 (05:23→20:22)
[2025-07-20 05:59] LABS: Hematocrit 30.5 % (37.0-47.0); Hemoglobin 10.2 g/dL (12.0-15.0); Immature Granulocyte Percent A 0.8 % (0-0.5); Lymphocytes Absolute Auto 1.14 K/mm3 (0.9-3.2); Mean Corpuscular HGB Conc 33.4 g/dl (32-36); Mean Corpuscular Hemoglobin 30.8 pg (26-34); Mean Corpuscular Volume 92.1 fl (80-100); Nucleated Red Blood Cells Absolute Auto 0.000 K/mm3 (0.0-0.012); Nucleated Red Blood Cells Perc 0.0 % (0.0-0.2); Platelet Count Result 211 k/mm3 (150-375); Red Blood Count 3.31 M/mm3 (4.2-5.4); White Blood Count 4.7 K/mm3 (4.5-10.0)
[2025-07-20 06:37] LABS: Alanine Aminotransferase 21 U/L (6-35); Albumin Level 2.5 g/dL (3.5-5.1); Alkaline Phosphatase 54 U/L (38-126); Anion Gap 10 mmol/L (4-12); Aspartate Amino Transferase 31 U/L (14-36); Bilirubin,Total 0.3 mg/dL (0.2-1.3); Blood Urea Nitrogen 4 mg/dL (7-17); Calcium 6.1 mg/dL (8.4-10.2); Carbon Dioxide 22 mmol/L (22-30); Chloride 100 mmol/L (98-107); Estimated CRCL calculation 120 ml/min; Estimated Glomerular Filt Rate > 60; Glucose 75 mg/dL (65-110); Magnesium 2.0 mg/dL (1.6-2.3); Potassium 2.8 mmol/L (3.4-5.0); Sodium 132 mmol/L (137-145); Total Protein 5.0 g/dL (6.3-8.2)
[2025-07-20] MEDS: diazePAM INJ (*CRX) 10 MG/2 ML SYRINGE 5 MG IV PUSH ×2 (09:21→20:21)
[2025-07-20] MEDS: PANTOPRAZOLE SODIUM IV 40 MG VIAL IV PUSH (09:21)
[2025-07-20] MEDS: POTASSIUM CHLORIDE INJ 40 MEQ in SODIUM CHLORIDE 0.9% IV 500 ML 130 MEQ IVPB (09:22)
[2025-07-20] MEDS: LIDOCAINE 5% PATCH 1 PATCH TRANSDERM (09:22)
[2025-07-20] MEDS: FLUTICASONE PROPIONATE 0.05% NA SPR 16 GM BTL (*BKC) 2 SPRAY NASAL ×2 (09:33→20:21)
[2025-07-20] MEDS: ENOXAPARIN 40 MG/0.4 ML SYRINGE SUB-Q (09:34)
--- NOTE | 2025-07-20 11:17 | P.PNGS_ITS ---
Progress Note: A&P Assessment and Plan (1) Complete small bowel obstruction: Code(s): K56.601 - Complete intestinal obstruction, unspecified as to cause Status: Acute Assessment and Plan: * Await return of bowel function. She is passing some flatus, no BM yet. Continue NG tube and bowel rest. Will give dulcolax suppository. * Postoperative pain is controlled on ASSISTANT QUALITY MANAGER, will increase the interval for boluses and plan to d/c the ASSISTANT QUALITY MANAGER tomorrow with transition to IV push pain medication. Continue diazepam and IV ibuprofen. * Potassium 2.8 this am and being replaced with IV KCL 40 meq and continuous fluids adjusted to have 30 meq KCL in NS. Phos significantly high, will repeat phos and potassium this afternoon. Corrected calcium low, will give 1 gm Ca gluconate. * Increase activity. Ambulate in the halls and up to chair during the day. Plan I have discussed the patient's case and plan of care with Dr. Mcelroy Subjective Subjective Date/Time Seen: 07/20/25 11:17 Post Op day: 4 (Exploratory laparotomy with abdominal adhesiolysis) Patient reports: voiding w/o difficulty, flatus, no bowel movement and afebrile Interval history: Patient feels her postoperative pain is improving. She did well overnight with only bolus doses from the ASSISTANT QUALITY MANAGER pump. Her boluses have decreased in the amount she required over the past 24 hours. She was able to sit in the chair yesterday and ambulate in the room without any issues. She passed a lot of flatus last night and this morning. No BM yet. She had 1100 cc documented output from the NG tube in the past 24 hours. Nursing does not believe they have given her many ice chips. Exam Const: General: comfortable and no acute distress GI: Inspection: non-distended and incision (dry and glue intact, no drainage, no erythema) GI Palp: Yes Soft to palpation, Yes Tenderness to palpation present (GI) (expected incisional tenderness) and No Guarding due to palpation present (GI) Auscultation: normal bowel sounds Other: NG with bilious output Extrem: General: no calf tenderness and no edema Objective Data Vital Signs Vital Signs: Vital Signs - 24 hr 07/19/25 11:54 07/19/25 11:54 07/19/25 13:00 Temperature 98.6 F Pulse Rate 107 H Respiratory Rate 16 16 17 Blood Pressure 131/87 Pulse Oximetry 99 99 96 Oxygen Delivery 07/19/25 16:06 07/19/25 16:51 07/19/25 20:00 Temperature 98.4 F Pulse Rate 108 H 102 H Respiratory Rate 16 16 18 Blood Pressure 130/84 Pulse Oximetry 99 98 90 Oxygen Delivery Room Air 07/19/25 22:00 07/19/25 22:46 07/20/25 02:00 Temperature 97.5 F L Pulse Rate 102 H 78 Respiratory Rate 16 18 20 Blood Pressure 146/82 H Pulse Oximetry 93 90 90 Oxygen Delivery 07/20/25 06:22 07/20/25 09:56 Temperature 98.8 F Pulse Rate 102 H 97 Respiratory Rate 18 16 Blood Pressure 154/82 H 128/79 Pulse Oximetry 97 91 Oxygen Delivery Intake/Output Intake/Output: Intake & Output 07/17/25 07/18/25 07/19/25 07/20/25 23:59 23:59 23:59 23:59 Intake Total 4090 4390.0 1957 5 Output Total 600 3100 300 2100 Balance 3490 1290.0 6837 -0192 Meds/Results Medications: Active Medications Generic Name Dose Route Start Last Admin Trade Name Freq PRN Reason Stop Dose Admin Acetaminophen 650 mg 07/16/25 19:16 Acetaminophen 650 Mg Suppository RECTAL Q6H PRN Mild Pain (1-3) or Fever Al Hydrox/Mg Hydrox/Simethicone 30 ml 07/16/25 22:00 07/20/25 05:23 Mag Hydrox/Al Hydrox/Simeth 30 Ml Udc FEED TUBE 30 ml Q8H SONIA Administration Diazepam 5 mg 07/16/25 20:00 07/20/25 09:21 Diazepam Inj (*Crx) 10 Mg/2 Ml Syringe IV PUSH 5 mg Q12H SONIA Administration Enoxaparin Sodium 40 mg 07/19/25 09:00 07/20/25 09:34 Enoxaparin 40 Mg/0.4 Ml Syringe SUB-Q 40 mg DAILY SONIA Administration Fluticasone Propionate 2 spray 07/14/25 21:00 07/20/25 09:33 Fluticasone Propionate 0.05% Na Spr 16 Gm Btl (*Bkc) NASAL 2 spray Q12HR SONIA Administration Morphine Sulfate 30 mg in 30 mls @ 0 mls/hr 07/16/25 18:14 07/19/25 22:46 Morphine Sulfate Lettuce Cutter IV CONT 0 mg/hr PRN PRN 0 mls/hr ASSISTANT QUALITY MANAGER Management Administration Protocol 0 MG/HR Ibuprofen 800 mg in 200 mls @ 400 mls/hr 07/19/25 15:00 07/20/25 05:22 Caldolor 800 Mg/200 Ml IVPB 400 mls/hr Q8HR SONIA Administration Potassium Chloride/Sodium Chloride 1,000 mls @ 100 mls/hr 07/20/25 07:45 Kcl 30 Meq/Ns IV CONT .Q10H SONIA Potassium Chloride 40 meq/ 520 mls @ 130 mls/hr 07/20/25 08:30 07/20/25 09:22 Sodium Chloride IVPB 07/20/25 12:29 130 mls/hr ONCE ONE Administration Lidocaine 1 patch 07/17/25 09:00 07/20/25 09:22 Lidocaine 5% Patch TRANSDERM 1 patch DAILY SONIA Administration Morphine Sulfate 4 mg 07/16/25 19:32 07/17/25 22:26 Morphine Sulfate (*Crx) 4 Mg/Ml Inj IV PUSH 4 mg Q4H PRN Administration Breakthrough Pain Ondansetron HCl 4 mg 07/15/25 14:16 07/20/25 02:30 Ondansetron Inj 4 Mg/2 Ml Vial IV PUSH 4 mg Q6H PRN Administration Nausea And Vomiting Pantoprazole Sodium 40 mg 07/17/25 09:00 07/20/25 09:21 Pantoprazole Sodium Iv 40 Mg Vial IV PUSH 40 mg QAM SONIA Administration Phenol 1 spray 07/15/25 21:34 Phenol/Sod Pheno [place] Elizalde (*Bkc) MUCOUS MEM PRN PRN Sore Throat Sumatriptan Succinate 6 mg 07/20/25 09:00 Sumatriptan Succinate 6 Mg/0.5 Ml Vial SUB-Q PRN PRN migraine Radiology Results: ITS Impressions Abdomen/Pelvis CT 07/15/25 17:09 IMPRESSION: 1. Interval progression of now multiple mildly dilated loops of small bowel extending to persistent transition point in the right lower quadrant consistent with small bowel obstruction. 2. New edematous wall thickening of many of the loops of jejunum consistent with an enteritis which could be infectious or inflammatory in etiology. Ischemia is considered unlikely given the contrast enhanced arteries and veins extending to the mesentery to the affected segments of bowel which also demonstrate mucosal enhancement. 3. New small amount of likely reactive ascites. Pelvic/Transvag US 07/15/25 17:13 IMPRESSION: 1. Nonspecific fluid in the cervical canal and endometrial canal. Nonspecific fluid in the cul-de-sac. 2. Ovaries were not visualized. 3. Endometrial stripe was not adequately visualized for evaluation. 4. Visualized uterus is unremarkable. If symptoms persist or worsen, consider a short-term follow-up study or additional imaging for further assessment. Abdomen X-Ray 07/15/25 19:48 IMPRESSION: 1. Nasogastric tube in the stomach. Small Bowel X-Ray 07/16/25 14:10 IMPRESSION: 1. Persistent small bowel obstruction with multiple persistent mildly dilated loops of small bowel and no definitive oral contrast material in the colon after 4 1/2 hours. Labs Labs: Laboratory Results - last 24 hr 07/20/25 05:50 WBC 4.7 RBC 3.31 L Hgb 10.2 L Hct 30.5 L MCV 92.1 MCH 30.8 MCHC 33.4 RDW 12.6 Plt Count 211 MPV 9.0 Immature Gran % (Auto) 0.8 H Neut % (Auto) 60.0 Lymph % (Auto) 24.2 [place] % (Auto) 14.8 H Eos % (Auto) 0.0 Baso % (Auto) 0.2 Lymph # (Auto) 1.14 [place] # (Auto) 0.7 H Eos # (Auto) 0.0 Baso # (Auto) 0.0 Abs Immat Gran (auto) 0.04 H Absolute Neuts (auto) 2.8 Absolute Nucleated RBC 0.000 Nucleated RBC % 0.0 Sodium 132 L Potassium 2.8 L* Chloride 100 Carbon Dioxide 22 Anion Gap 10 BUN 4 L Creatinine 0.47 L Estim Creat Clear Calc 120 Estimated GFR > 60 Glucose 75 Calcium 6.1 L Phosphorus 10.0 H Magnesium 2.0 Total Bilirubin 0.3 AST 31 ALT 21 Alkaline Phosphatase 54 Total Protein 5.0 L Albumin 2.5 L
[2025-07-20] MEDS: KCL 30 MEQ/0.9% SOD CHL 1,000 ML 100 ML IV CONT ×2 (13:52→22:17)
[2025-07-20] MEDS: BISACODYL 10 MG SUPPOSITORY RECTAL (13:54)
--- NOTE | 2025-07-20 14:04 | P.PNIM_ITS ---
Progress Note: A&P Assessment and Plan (1) Complete small bowel obstruction: Code(s): K56.601 - Complete intestinal obstruction, unspecified as to cause Status: Acute Assessment and Plan: Onset of severe abdominal pain, initial CT largely negative, did not show appendix. Pelvis US negative as well, with ovaries not appearing. Repeat CT then positive for SBO S/p Exlap with abdominal adhesiolysis advance diet per Gen surgery Continue NG tube drainage and IVF (2) Enteritis: Code(s): K52.9 - Noninfective gastroenteritis and colitis, unspecified Status: Acute Assessment and Plan: IV fluids for hydration Zosyn discontinued (3) Migraine headache: Code(s): G43.909 - Migraine, unspecified, not intractable, without status migrainosus Status: Acute Assessment and Plan: Takes rizatriptan home, however not able to take medications at this time, sumatriptan subcutaneous p.r.n. Plan DVT prophylaxis on Sq Lovenox Subjective Date/time seen: 07/20/25 14:04 Interval history: Comfortable at bedside bowel sounds present, s/p Ex Lap Review of Systems Review of Systems: 12 systems were reviewed and are negativ e except for as per HPI. Exam Narrative: General: well appearing, appears stated age. HEENT: normocephalic, atraumatic. Mucous membranes moist. EOMI, PERRLA, bilateral sclera anicteric, no conjunctival injection. Neck supple without JVD, lymphadenopathy, or bruit. Respiratory: clear to ascultation bilaterally. No rales/rhonic/wheezes. Cardiovascular: Regular rate and rhythm, normal S1-S2 upon ascultation. No murmu rs, rubs, or clicks. PMI is nondisplaced, capillary refill less than 3 second. Abdomen: Soft, round, no pulsatile masses, nondistended. No CVA tenderness, no hepatosplenomegaly. Bowel sounds present to all four quadrants. No high pitch or tinkling sounds, resonant to percussion. Right lower quadrant tender to light palpation. NG tube in place Extremities: No cyanosis, clubbing, or edema present. Pulses are palpable 2/2. Active ROM to all four extremities. Neuro: Alert and orientated x 4. PERRLA. Cranial nerves 2-12 intact without focal deficit. Skin: Warm, dry, and intact, without rash, erythema, or lesion. Psych: pleasant, cooperative, normal speech, normal affect, no hallucinations, no dysarthia Objective Data Vital Signs Vital Signs: Vital Signs - 24 hr 07/19/25 16:06 07/19/25 16:51 07/19/25 20:00 Temperature 98.4 F Pulse Rate 108 H 102 H Respiratory Rate 16 16 18 Blood Pressure 130/84 Pulse Oximetry 99 98 90 Oxygen Delivery Room Air 07/19/25 22:00 07/19/25 22:46 07/20/25 02:00 Temperature 97.5 F L Pulse Rate 102 H 78 Respiratory Rate 16 18 20 Blood Pressure 146/82 H Pulse Oximetry 93 90 90 Oxygen Delivery 07/20/25 06:22 07/20/25 08:00 07/20/25 09:56 Temperature 98.8 F Pulse Rate 102 H 97 Respiratory Rate 18 16 Blood Pressure 154/82 H 128/79 Pulse Oximetry 97 91 Oxygen Delivery Room Air 07/20/25 13:43 Temperature 97.9 F Pulse Rate 99 Respiratory Rate 18 Blood Pressure 152/92 H Pulse Oximetry 95 Oxygen Delivery Intake/Output Intake/Output: Intake & Output 07/17/25 07/18/25 07/19/25 07/20/25 23:59 23:59 23:59 23:59 Intake Total 4090 4390.0 1957 5 Output Total 600 3100 300 2100 Balance 3490 1290.0 0827 -4903 Meds/Results Medications: Active Medications Generic Name Dose Route Start Last Admin Trade Name Freq PRN Reason Stop Dose Admin Acetaminophen 650 mg 07/16/25 19:16 Acetaminophen 650 Mg Suppository RECTAL Q6H PRN Mild Pain (1-3) or Fever Al Hydrox/Mg Hydrox/Simethicone 30 ml 07/16/25 22:00 07/20/25 05:23 Mag Hydrox/Al Hydrox/Simeth 30 Ml Udc FEED TUBE 30 ml Q8H SONIA Administration Diazepam 5 mg 07/16/25 20:00 07/20/25 09:21 Diazepam Inj (*Crx) 10 Mg/2 Ml Syringe IV PUSH 5 mg Q12H SONIA Administration Enoxaparin Sodium 40 mg 07/19/25 09:00 07/20/25 09:34 Enoxaparin 40 Mg/0.4 Ml Syringe SUB-Q 40 mg DAILY SONIA Administration Fluticasone Propionate 2 spray 07/14/25 21:00 07/20/25 09:33 Fluticasone Propionate 0.05% Na Spr 16 Gm Btl (*Bkc) NASAL 2 spray Q12HR SONIA Administration Morphine Sulfate 30 mg in 30 mls @ 0 mls/hr 07/16/25 18:14 07/19/25 22:46 Morphine Sulfate Supervisor [employer] IV CONT 0 mg/hr PRN PRN 0 mls/hr CONCRETE BLOCK PLANT SUPERVISOR Management Administration Protocol 0 MG/HR Ibuprofen 800 mg in 200 mls @ 400 mls/hr 07/19/25 15:00 07/20/25 05:22 Caldolor 800 Mg/200 Ml IVPB 400 mls/hr Q8HR SONIA Administration Potassium Chloride/Sodium Chloride 1,000 mls @ 100 mls/hr 07/20/25 07:45 07/20/25 13:52 Kcl 30 Meq/Ns IV CONT 100 mls/hr .Q10H SONIA Administration Lidocaine 1 patch 07/17/25 09:00 07/20/25 09:22 Lidocaine 5% Patch TRANSDERM 1 patch DAILY SONIA Administration Morphine Sulfate 4 mg 07/16/25 19:32 07/17/25 22:26 Morphine Sulfate (*Crx) 4 Mg/Ml Inj IV PUSH 4 mg Q4H PRN Administration Breakthrough Pain Ondansetron HCl 4 mg 07/15/25 14:16 07/20/25 02:30 Ondansetron Inj 4 Mg/2 Ml Vial IV PUSH 4 mg Q6H PRN Administration Nausea And Vomiting Pantoprazole Sodium 40 mg 07/17/25 09:00 07/20/25 09:21 Pantoprazole Sodium Iv 40 Mg Vial IV PUSH 40 mg QAM SONIA Administration Phenol 1 spray 07/15/25 21:34 Phenol/Sod Pheno [place] Elizalde (*Bkc) MUCOUS MEM PRN PRN Sore Throat Sumatriptan Succinate 6 mg 07/20/25 09:00 Sumatriptan Succinate 6 Mg/0.5 Ml Vial SUB-Q PRN PRN migraine Radiology Results: ITS Impressions Abdomen/Pelvis CT 07/15/25 17:09 IMPRESSION: 1. Interval progression of now multiple mildly dilated loops of small bowel extending to persistent transition point in the right lower quadrant consistent with small bowel obstruction. 2. New edematous wall thickening of many of the loops of jejunum consistent with an enteritis which could be infectious or inflammatory in etiology. Ischemia is considered unlikely given the contrast enhanced arteries and veins extending to the mesentery to the affected segments of bowel which also demonstrate mucosal enhancement. 3. New small amount of likely reactive ascites. Pelvic/Transvag US 07/15/25 17:13 IMPRESSION: 1. Nonspecific fluid in the cervical canal and endometrial canal. Nonspecific fluid in the cul-de-sac. 2. Ovaries were not visualized. 3. Endometrial stripe was not adequately visualized for evaluation. 4. Visualized uterus is unremarkable. If symptoms persist or worsen, consider a short-term follow-up study or additional imaging for further assessment. Abdomen X-Ray 07/15/25 19:48 IMPRESSION: 1. Nasogastric tube in the stomach. Small Bowel X-Ray 07/16/25 14:10 IMPRESSION: 1. Persistent small bowel obstruction with multiple persistent mildly dilated loops of small bowel and no definitive oral contrast material in the colon after 4 1/2 hours. Labs Labs: Laboratory Results - last 24 hr 07/20/25 05:50 WBC 4.7 RBC 3.31 L Hgb 10.2 L Hct 30.5 L MCV 92.1 MCH 30.8 MCHC 33.4 RDW 12.6 Plt Count 211 MPV 9.0 Immature Gran % (Auto) 0.8 H Neut % (Auto) 60.0 Lymph % (Auto) 24.2 [place] % (Auto) 14.8 H Eos % (Auto) 0.0 Baso % (Auto) 0.2 Lymph # (Auto) 1.14 [place] # (Auto) 0.7 H Eos # (Auto) 0.0 Baso # (Auto) 0.0 Abs Immat Gran (auto) 0.04 H Absolute Neuts (auto) 2.8 Absolute Nucleated RBC 0.000 Nucleated RBC % 0.0 Sodium 132 L Potassium 2.8 L* Chloride 100 Carbon Dioxide 22 Anion Gap 10 BUN 4 L Creatinine 0.47 L Estim Creat Clear Calc 120 Estimated GFR > 60 Glucose 75 Calcium 6.1 L Phosphorus 10.0 H Magnesium 2.0 Total Bilirubin 0.3 AST 31 ALT 21 Alkaline Phosphatase 54 Total Protein 5.0 L Albumin 2.5 L Quality VTE Prophylaxis VTE prophylaxis: mechanical ordered
[2025-07-20] MEDS: CALCIUM GLUC 1,000 MG/NS 50 ML 1,000 MG/50 ML BAG 100 MG IVPB (16:23)
[2025-07-20] MEDS: MAGNESIUM SULF 2 GM/WATER 50ML 2 GM/50 ML BAG IVPB (16:23)
[2025-07-20 18:37] LABS: Potassium 3.5 mmol/L (3.4-5.0)
[2025-07-20] MEDS: MORPHINE SULFATE PCA (*CRX) 30 MG/30 ML SYR IV CONT (22:07)
[2025-07-21 02:00] VITALS: PULSE 66
[2025-07-21 05:37] LABS: Hematocrit 34.9 % (37.0-47.0); Hemoglobin 11.8 g/dL (12.0-15.0); Immature Granulocyte Percent A 1.5 % (0-0.5); Lymphocytes Absolute Auto 1.33 K/mm3 (0.9-3.2); Mean Corpuscular HGB Conc 33.8 g/dl (32-36); Mean Corpuscular Hemoglobin 30.7 pg (26-34); Mean Corpuscular Volume 90.9 fl (80-100); Nucleated Red Blood Cells Absolute Auto 0.000 K/mm3 (0.0-0.012); Nucleated Red Blood Cells Perc 0.0 % (0.0-0.2); Platelet Count Result 274 k/mm3 (150-375); Red Blood Count 3.84 M/mm3 (4.2-5.4); White Blood Count 7.8 K/mm3 (4.5-10.0)
[2025-07-21] MEDS: IBUPROFEN IV 800 MG/200 ML 800 MG/200 ML BAG 400 MG IVPB ×3 (05:37→21:02)
[2025-07-21 06:00] VITALS: BP 154/91; PULSE 93; RESP 18; TEMP 36.2; O2SAT 96
[2025-07-21 06:01] LABS: Alanine Aminotransferase 25 U/L (6-35); Albumin Level 3.2 g/dL (3.5-5.1); Alkaline Phosphatase 49 U/L (38-126); Anion Gap 10 mmol/L (4-12); Aspartate Amino Transferase 36 U/L (14-36); Bilirubin,Total 0.6 mg/dL (0.2-1.3); Blood Urea Nitrogen 4 mg/dL (7-17); Calcium 7.9 mg/dL (8.4-10.2); Carbon Dioxide 20 mmol/L (22-30); Chloride 103 mmol/L (98-107); Estimated CRCL calculation 110 ml/min; Estimated Glomerular Filt Rate > 60; Glucose 80 mg/dL (65-110); Magnesium 2.3 mg/dL (1.6-2.3); Potassium 3.4 mmol/L (3.4-5.0); Sodium 133 mmol/L (137-145); Total Protein 5.8 g/dL (6.3-8.2)
[2025-07-21] MEDS: KCL 30 MEQ/0.9% SOD CHL 1,000 ML 100 ML IV CONT (09:36)
[2025-07-21] MEDS: PANTOPRAZOLE SODIUM IV 40 MG VIAL IV PUSH (09:38)
[2025-07-21] MEDS: diazePAM INJ (*CRX) 10 MG/2 ML SYRINGE 5 MG IV PUSH ×2 (09:39→21:02)
[2025-07-21] MEDS: LIDOCAINE 5% PATCH 1 PATCH TRANSDERM (09:39)
[2025-07-21] MEDS: FLUTICASONE PROPIONATE 0.05% NA SPR 16 GM BTL (*BKC) 2 SPRAY NASAL ×2 (09:39→21:05)
[2025-07-21] MEDS: ENOXAPARIN 40 MG/0.4 ML SYRINGE SUB-Q (09:39)
[2025-07-21] MEDS: POTASSIUM PHOS,M-BASIC-D-BASIC 20 MMOL in SODIUM CHLORIDE 0.9% IV 250 ML 64.17 MMOL IVPB (09:54)
[2025-07-21 10:00] VITALS: BP 148/95; PULSE 95; RESP 16; TEMP 36.6; O2SAT 98
--- NOTE | 2025-07-21 12:22 | P.PNGS_ITS ---
Progress Note: A&P Assessment and Plan (1) Complete small bowel obstruction: Code(s): K56.601 - Complete intestinal obstruction, unspecified as to cause Status: Acute Assessment and Plan: * Patient had several bowel movements overnight. Will clamp NG this morning and consider pulling NG this afternoon if she tolerates well. * Postoperative pain is controlled on SUPPLY PLANNER. Will d/c this and transition to IV push pain medication. Continue diazepam and IV ibuprofen. * Potassium 3.4 this am and phosphorus 1.6. Repleted with Kphos. Corrected calcium is within normal limits. * Increase activity. Ambulate in the halls and up to chair during the day. Plan I have discussed the patient's case and plan of care with Dr. Mcelroy Subjective Subjective Date/Time Seen: 07/21/25 12:22 Post Op day: 5 Patient reports: no new complaints and feels better Interval history: Patient doing well today. Reports several bowel movements yesterday and throughout the night. NG canister had 800 ml of bilious thick green output this morning. However, patient has been eating quite a few cups of icee chips. No nausea or vomiting. Exam Const: General: comfortable and no acute distress GI: Inspection: non-distended and incision (dry and glue intact, no drainage, no erythema) Auscultation: normal bowel sounds Other: NG with bilious output Objective Data Vital Signs Vital Signs: Vital Signs - 24 hr 07/20/25 13:43 07/20/25 16:24 07/20/25 20:00 Temperature 97.9 F 97.9 F Pulse Rate 99 98 98 Respiratory Rate 18 15 15 Blood Pressure 152/92 H 134/70 Pulse Oximetry 95 98 98 Oxygen Delivery Room Air 07/20/25 22:00 07/21/25 02:00 07/21/25 06:00 Temperature 98.1 F 97.1 F L Pulse Rate 100 66 93 Respiratory Rate 16 18 Blood Pressure 131/69 154/91 H Pulse Oximetry 94 96 Oxygen Delivery 07/21/25 09:40 07/21/25 10:00 Temperature 97.9 F Pulse Rate 95 Respiratory Rate 16 Blood Pressure 148/95 H Pulse Oximetry 98 Oxygen Delivery Room Air Intake/Output Intake/Output: Intake & Output 07/18/25 07/19/25 07/20/25 07/21/25 23:59 23:59 23:59 23:59 Intake Total 4390.0 1957 1476.7 1000 Output Total 3100 300 2600 2100 Balance 1290.0 1657 -1123.3 -1100 Meds/Results Medications: Active Medications Generic Name Dose Route Start Last Admin Trade Name Freq PRN Reason Stop Dose Admin Acetaminophen 650 mg 07/16/25 19:16 Acetaminophen 650 Mg Suppository RECTAL Q6H PRN Mild Pain (1-3) or Fever Al Hydrox/Mg Hydrox/Simethicone 30 ml 07/16/25 22:00 07/21/25 05:35 Mag Hydrox/Al Hydrox/Simeth 30 Ml Udc FEED TUBE Not Given Q8H SONIA Diazepam 5 mg 07/16/25 20:00 07/21/25 09:39 Diazepam Inj (*Crx) 10 Mg/2 Ml Syringe IV PUSH 5 mg Q12H SONIA Administration Enoxaparin Sodium 40 mg 07/19/25 09:00 07/21/25 09:39 Enoxaparin 40 Mg/0.4 Ml Syringe SUB-Q 40 mg DAILY SONIA Administration Fluticasone Propionate 2 spray 07/14/25 21:00 07/21/25 09:39 Fluticasone Propionate 0.05% Na Spr 16 Gm Btl (*Bkc) NASAL 2 spray Q12HR SONIA Administration Morphine Sulfate 30 mg in 30 mls @ 0 mls/hr 07/16/25 18:14 07/20/25 22:07 Morphine Sulfate [employer] IV CONT 0 mg/hr PRN PRN 0 mls/hr SUPPLY PLANNER Management Administration Protocol 0 MG/HR Ibuprofen 800 mg in 200 mls @ 400 mls/hr 07/19/25 15:00 07/21/25 05:37 Caldolor 800 Mg/200 Ml IVPB 400 mls/hr Q8HR SONIA Administration Potassium Chloride/Sodium Chloride 1,000 mls @ 100 mls/hr 07/20/25 07:45 07/21/25 09:36 Kcl 30 Meq/Ns IV CONT 100 mls/hr .Q10H SONIA Administration Potassium Phosphate 20 mmol/ 256.6667 mls @ 64.167 mls/hr 07/21/25 09:00 07/21/25 09:54 Sodium Chloride IVPB 07/21/25 12:59 64.17 mls/hr ONCE ONE Administration Lidocaine 1 patch 07/17/25 09:00 07/21/25 09:39 Lidocaine 5% Patch TRANSDERM 1 patch DAILY SONIA Administration Morphine Sulfate 4 mg 07/16/25 19:32 07/17/25 22:26 Morphine Sulfate (*Crx) 4 Mg/Ml Inj IV PUSH 4 mg Q4H PRN Administration Breakthrough Pain Ondansetron HCl 4 mg 07/15/25 14:16 07/20/25 02:30 Ondansetron Inj 4 Mg/2 Ml Vial IV PUSH 4 mg Q6H PRN Administration Nausea And Vomiting Pantoprazole Sodium 40 mg 07/17/25 09:00 07/21/25 09:38 Pantoprazole Sodium Iv 40 Mg Vial IV PUSH 40 mg QAM SONIA Administration Phenol 1 spray 07/15/25 21:34 Phenol/Sod Pheno [place] Elizalde (*Bkc) MUCOUS MEM PRN PRN Sore Throat Sumatriptan Succinate 6 mg 07/20/25 09:00 Sumatriptan Succinate 6 Mg/0.5 Ml Vial SUB-Q PRN PRN migraine Radiology Results: ITS Impressions Abdomen/Pelvis CT 07/15/25 17:09 IMPRESSION: 1. Interval progression of now multiple mildly dilated loops of small bowel extending to persistent transition point in the right lower quadrant consistent with small bowel obstruction. 2. New edematous wall thickening of many of the loops of jejunum consistent with an enteritis which could be infectious or inflammatory in etiology. Ischemia is considered unlikely given the contrast enhanced arteries and veins extending to the mesentery to the affected segments of bowel which also demonstrate mucosal enhancement. 3. New small amount of likely reactive ascites. Pelvic/Transvag US 07/15/25 17:13 IMPRESSION: 1. Nonspecific fluid in the cervical canal and endometrial canal. Nonspecific fluid in the cul-de-sac. 2. Ovaries were not visualized. 3. Endometrial stripe was not adequately visualized for evaluation. 4. Visualized uterus is unremarkable. If symptoms persist or worsen, consider a short-term follow-up study or additional imaging for further assessment. Abdomen X-Ray 07/15/25 19:48 IMPRESSION: 1. Nasogastric tube in the stomach. Small Bowel X-Ray 07/16/25 14:10 IMPRESSION: 1. Persistent small bowel obstruction with multiple persistent mildly dilated loops of small bowel and no definitive oral contrast material in the colon after 4 1/2 hours. Labs Labs: Laboratory Results - last 24 hr 07/20/25 07/20/25 07/21/25 15:15 15:15 05:22 WBC 7.8 RBC 3.84 L Hgb 11.8 L Hct 34.9 L MCV 90.9 MCH 30.7 MCHC 33.8 RDW 12.6 Plt Count 274 MPV 9.2 Immature Gran % (Auto) 1.5 H Neut % (Auto) 68.0 Lymph % (Auto) 17.1 L [place] % (Auto) 12.6 H Eos % (Auto) 0.3 Baso % (Auto) 0.5 Lymph # (Auto) 1.33 [place] # (Auto) 1.0 H Eos # (Auto) 0.0 Baso # (Auto) 0.0 Abs Immat Gran (auto) 0.12 H Absolute Neuts (auto) 5.3 Absolute Nucleated RBC 0.000 Nucleated RBC % 0.0 Sodium 133 L Potassium 3.5 3.4 Chloride 103 Carbon Dioxide 20 L Anion Gap 10 BUN 4 L Creatinine 0.52 L Estim Creat Clear Calc 110 Estimated GFR > 60 Glucose 80 Calcium 7.9 L Phosphorus 1.6 L Cancelled Magnesium 2.3 Total Bilirubin 0.6 AST 36 ALT 25 Alkaline Phosphatase 49 Total Protein 5.8 L Albumin 3.2 L
[2025-07-21 13:25] VITALS: BP 138/81; PULSE 94; RESP 18; TEMP 36.9; O2SAT 99
--- NOTE | 2025-07-21 13:56 | P.PNIM_ITS ---
Progress Note: A&P Assessment and Plan (1) Complete small bowel obstruction: Code(s): K56.601 - Complete intestinal obstruction, unspecified as to cause Status: Acute Assessment and Plan: Onset of severe abdominal pain, initial CT largely negative, did not show appendix. Pelvis US negative as well, with ovaries not appearing. Repeat CT then positive for SBO S/p Exlap with abdominal adhesiolysis advance diet per Gen surgery Continue NG tube drainage and IVF pending diet advancement (2) Enteritis: Code(s): K52.9 - Noninfective gastroenteritis and colitis, unspecified Status: Acute Assessment and Plan: IV fluids for hydration Zosyn discontinued (3) Migraine headache: Code(s): G43.909 - Migraine, unspecified, not intractable, without status migrainosus Status: Acute Assessment and Plan: Takes rizatriptan home, however not able to take medications at this time, sumatriptan subcutaneous p.r.n. Plan DVT prophylaxis on Sq Lovenox Subjective Date/time seen: 07/21/25 13:56 Interval history: Comfortable at bedside Review of Systems Review of Systems: 12 systems were reviewed and are negativ e except for as per HPI. Exam Narrative: General: well appearing, appears stated age. HEENT: normocephalic, atraumatic. Mucous membranes moist. EOMI, PERRLA, bilateral sclera anicteric, no conjunctival injection. Neck supple without JVD, lymphadenopathy, or bruit. Respiratory: clear to ascultation bilaterally. No rales/rhonic/wheezes. Cardiovascular: Regular rate and rhythm, normal S1-S2 upon ascultation. No murmurs, rubs, or clicks. PMI is nondisplaced, capillary refill less than 3 second. Abdomen: Soft, round, no pulsatile masses, nondistended. No CVA tenderness, no hepatosplenomegaly. Bowel sounds present to all four quadrants. No high pitch or tinkling sounds, resonant to percussion. Right lower quadrant tender to light palpation. NG tube in place Extremities: No cyanosis, clubbing, or edema present. Pulses are palpable 2/2. Active ROM to all four extremities. Neuro: Alert and orientated x 4. PERRLA. Cranial nerves 2-12 intact without focal deficit. Skin: Warm, dry, and intact, without rash, erythema, or lesion. Psych: pleasant, cooperative, normal speech, normal affect, no hallucinations, no dysarthia Objective Data Vital Signs Vital Signs: Vital Signs - 24 hr 07/20/25 16:24 07/20/25 20:00 07/20/25 22:00 Temperature 97.9 F 98.1 F Pulse Rate 98 98 100 Respiratory Rate 15 15 16 Blood Pressure 134/70 131/69 Pulse Oximetry 98 98 94 Oxygen Delivery Room Air 07/21/25 02:00 07/21/25 06:00 07/21/25 09:40 Temperature 97.1 F L Pulse Rate 66 93 Respiratory Rate 18 Blood Pressure 154/91 H Pulse Oximetry 96 Oxygen Delivery Room Air 07/21/25 10:00 07/21/25 13:25 Temperature 97.9 F 98.4 F Pulse Rate 95 94 Respiratory Rate 16 18 Blood Pressure 148/95 H 138/81 Pulse Oximetry 98 99 Oxygen Delivery Intake/Output Intake/Output: Intake & Output 07/18/25 07/19/25 07/20/25 07/21/25 23:59 23:59 23:59 23:59 Intake Total 4390.0 1957 1476.7 1200 Output Total 3100 300 2600 2100 Balance 1290.0 1657 -1123.3 -900 Meds/Results Medications: Active Medications Generic Name Dose Route Start Last Admin Trade Name Freq PRN Reason Stop Dose Admin Acetaminophen 650 mg 07/16/25 19:16 Acetaminophen 650 Mg Suppository RECTAL Q6H PRN Mild Pain (1-3) or Fever Al Hydrox/Mg Hydrox/Simethicone 30 ml 07/16/25 22:00 07/21/25 05:35 Mag Hydrox/Al Hydrox/Simeth 30 Ml Udc FEED TUBE Not Given Q8H SONIA Diazepam 5 mg 07/16/25 20:00 07/21/25 09:39 Diazepam Inj (*Crx) 10 Mg/2 Ml Syringe IV PUSH 5 mg Q12H SONIA Administration Enoxaparin Sodium 40 mg 07/19/25 09:00 07/21/25 09:39 Enoxaparin 40 Mg/0.4 Ml Syringe SUB-Q 40 mg DAILY SONIA Administration Fluticasone Propionate 2 spray 07/14/25 21:00 07/21/25 09:39 Fluticasone Propionate 0.05% Na Spr 16 Gm Btl (*Bkc) NASAL 2 spray Q12HR SONIA Administration Ibuprofen 800 mg in 200 mls @ 400 mls/hr 07/19/25 15:00 07/21/25 13:18 Caldolor 800 Mg/200 Ml IVPB 400 mls/hr Q8HR SONIA Administration Potassium Chloride/Sodium Chloride 1,000 mls @ 100 mls/hr 07/20/25 07:45 09:36 Kcl 30 Meq/Ns IV CONT 100 mls/hr .Q10H SONIA Administration Lidocaine 1 patch 07/17/25 09:00 07/21/25 09:39 Lidocaine 5% Patch TRANSDERM 1 patch DAILY SONIA Administration Morphine Sulfate 4 mg 07/16/25 19:32 07/17/25 22:26 Morphine Sulfate (*Crx) 4 Mg/Ml Inj IV PUSH 4 mg Q4H PRN Administration Pain Rated 7-10 Morphine Sulfate 2 mg 07/21/25 12:29 Morphine Sulfate (*Crx) 4 Mg/Ml Inj IV PUSH Q4H PRN Pain Rated 4-6 Ondansetron HCl 4 mg 07/15/25 14:16 07/20/25 02:30 Ondansetron Inj 4 Mg/2 Ml Vial IV PUSH 4 mg Q6H PRN Administration Nausea And Vomiting Pantoprazole Sodium 40 mg 07/17/25 09:00 07/21/25 09:38 Pantoprazole Sodium Iv 40 Mg Vial IV PUSH 40 mg QAM SONIA Administration Phenol 1 spray 07/15/25 21:34 Phenol/Sod Pheno [place] Elizalde (*Bkc) MUCOUS MEM PRN PRN Sore Throat Sumatriptan Succinate 6 mg 07/20/25 09:00 Sumatriptan Succinate 6 Mg/0.5 Ml Vial SUB-Q PRN PRN migraine Radiology Results: ITS Impressions Abdomen/Pelvis CT 07/15/25 17:09 IMPRESSION: 1. Interval progression of now multiple mildly dilated loops of small bowel extending to persistent transition point in the right lower quadrant consistent with small bowel obstruction. 2. New edematous wall thickening of many of the loops of jejunum consistent with an enteritis which could be infectious or inflammatory in etiology. Ischemia is considered unlikely given the contrast enhanced arteries and veins extending to the mesentery to the affected segments of bowel which also demonstrate mucosal enhancement. 3. New small amount of likely reactive ascites. Pelvic/Transvag US 07/15/25 17:13 IMPRESSION: 1. Nonspecific fluid in the cervical canal and endometrial canal. Nonspecific fluid in the cul-de-sac. 2. Ovaries were not visualized. 3. Endometrial stripe was not adequately visualized for evaluation. 4. Visualized uterus is unremarkable. If symptoms persist or worsen, consider a short-term follow-up study or additional imaging for further assessment. Abdomen X-Ray 07/15/25 19:48 IMPRESSION: 1. Nasogastric tube in the stomach. Small Bowel X-Ray 07/16/25 14:10 IMPRESSION: 1. Persistent small bowel obstruction with multiple persistent mildly dilated loops of small bowel and no definitive oral contrast material in the colon after 4 1/2 hours. Labs Labs: Laboratory Results - last 24 hr 07/20/25 07/20/25 07/21/25 15:15 15:15 05:22 WBC 7.8 RBC 3.84 L Hgb 11.8 L Hct 34.9 L MCV 90.9 MCH 30.7 MCHC 33.8 RDW 12.6 Plt Count 274 MPV 9.2 Immature Gran % (Auto) 1.5 H Neut % (Auto) 68.0 Lymph % (Auto) 17.1 L [place] % (Auto) 12.6 H Eos % (Auto) 0.3 Baso % (Auto) 0.5 Lymph # (Auto) 1.33 [place] # (Auto) 1.0 H Eos # (Auto) 0.0 Baso # (Auto) 0.0 Abs Immat Gran (auto) 0.12 H Absolute Neuts (auto) 5.3 Absolute Nucleated RBC 0.000 Nucleated RBC % 0.0 Sodium 133 L Potassium 3.5 3.4 Chloride 103 Carbon Dioxide 20 L Anion Gap 10 BUN 4 L Creatinine 0.52 L Estim Creat Clear Calc 110 Estimated GFR > 60 Glucose 80 Calcium 7.9 L Phosphorus 1.6 L Cancelled Magnesium 2.3 Total Bilirubin 0.6 AST 36 ALT 25 Alkaline Phosphatase 49 Total Protein 5.8 L Albumin 3.2 L Quality VTE Prophylaxis VTE prophylaxis: mechanical ordered
[2025-07-21] MEDS: MORPHINE SULFATE (*CRX) 4 MG/ML INJ 2 MG IV PUSH (16:58)
[2025-07-21 18:00] VITALS: BP 134/78; PULSE 93; RESP 16; TEMP 36.6; O2SAT 98
[2025-07-21] MEDS: MORPHINE SULFATE (*CRX) 4 MG/ML INJ IV PUSH (19:51)
[2025-07-21 22:00] VITALS: BP 166/92; PULSE 100; RESP 20; TEMP 36.5; O2SAT 98
[2025-07-22] MEDS: MORPHINE SULFATE (*CRX) 4 MG/ML INJ IV PUSH ×3 (03:53→13:08)
[2025-07-22] MEDS: KCL 30 MEQ/0.9% SOD CHL 1,000 ML 100 ML IV CONT ×3 (03:54→17:33)
[2025-07-22 04:51] LABS: Hematocrit 40.6 % (37.0-47.0); Hemoglobin 13.8 g/dL (12.0-15.0); Immature Granulocyte Percent A 5.9 % (0-0.5); Lymphocytes Absolute Auto 1.28 K/mm3 (0.9-3.2); Mean Corpuscular HGB Conc 34.0 g/dl (32-36); Mean Corpuscular Hemoglobin 30.4 pg (26-34); Mean Corpuscular Volume 89.4 fl (80-100); Nucleated Red Blood Cells Absolute Auto 0.000 K/mm3 (0.0-0.012); Nucleated Red Blood Cells Perc 0.0 % (0.0-0.2); Platelet Count Result 345 k/mm3 (150-375); Red Blood Count 4.54 M/mm3 (4.2-5.4); White Blood Count 9.6 K/mm3 (4.5-10.0)
[2025-07-22 05:22] LABS: Alanine Aminotransferase 35 U/L (6-35); Albumin Level 3.5 g/dL (3.5-5.1); Alkaline Phosphatase 55 U/L (38-126); Anion Gap 11 mmol/L (4-12); Aspartate Amino Transferase 44 U/L (14-36); Bilirubin,Total 0.8 mg/dL (0.2-1.3); Blood Urea Nitrogen 3 mg/dL (7-17); Calcium 8.3 mg/dL (8.4-10.2); Carbon Dioxide 19 mmol/L (22-30); Chloride 102 mmol/L (98-107); Estimated CRCL calculation 108 ml/min; Estimated Glomerular Filt Rate > 60; Glucose 100 mg/dL (65-110); Magnesium 2.0 mg/dL (1.6-2.3); Potassium 3.8 mmol/L (3.4-5.0); Sodium 132 mmol/L (137-145); Total Protein 6.4 g/dL (6.3-8.2)
[2025-07-22] MEDS: IBUPROFEN IV 800 MG/200 ML 800 MG/200 ML BAG 400 MG IVPB (05:34)
[2025-07-22 06:00] VITALS: BP 155/93; PULSE 108; RESP 18; TEMP 36.2; O2SAT 97
[2025-07-22] MEDS: diazePAM INJ (*CRX) 10 MG/2 ML SYRINGE 5 MG IV PUSH (08:41)
[2025-07-22] MEDS: ENOXAPARIN 40 MG/0.4 ML SYRINGE SUB-Q (08:41)
[2025-07-22] MEDS: PANTOPRAZOLE SODIUM IV 40 MG VIAL IV PUSH (08:41)
[2025-07-22] MEDS: LIDOCAINE 5% PATCH 1 PATCH TRANSDERM (08:46)
[2025-07-22] MEDS: FLUTICASONE PROPIONATE 0.05% NA SPR 16 GM BTL (*BKC) 2 SPRAY NASAL ×2 (08:49→19:55)
[2025-07-22 11:06] VITALS: BP 153/89; PULSE 106; RESP 18; TEMP 36.5; O2SAT 98
[2025-07-22] MEDS: ONDANSETRON INJ 4 MG/2 ML VIAL IV PUSH ×3 (11:31→23:17)
--- NOTE | 2025-07-22 13:23 | P.PNIM_ITS ---
Progress Note: A&P Assessment and Plan (1) Complete small bowel obstruction: Code(s): K56.601 - Complete intestinal obstruction, unspecified as to cause Status: Acute Assessment and Plan: Onset of severe abdominal pain, initial CT largely negative, did not show appendix. Pelvis US negative as well, with ovaries not appearing. Repeat CT then positive for SBO S/p Exlap with abdominal adhesiolysis S/p NG tube advance diet per Gen surgery (2) Enteritis: Code(s): K52.9 - Noninfective gastroenteritis and colitis, unspecified Status: Acute Assessment and Plan: IV fluids for hydration Zosyn discontinued (3) Migraine headache: Code(s): G43.909 - Migraine, unspecified, not intractable, without status migrainosus Status: Acute Assessment and Plan: Takes rizatriptan home, however not able to take medications at this time, sumatriptan subcutaneous p.r.n. Plan DVT prophylaxis on Sq Lovenox Subjective Date/time seen: 07/22/25 13:23 Interval history: Comfortable at bedside Advance diet per gen surgery Review of Systems Review of Systems: 12 systems were reviewed and are negativ e except for as per HPI. Exam Narrative: General: well appearing, appears stated age. HEENT: normocephalic, atraumatic. Mucous membranes moist. EOMI, PERRLA, bilateral sclera anicteric, no conjunctival injection. Neck supple without JVD, lymphadenopathy, or bruit. Respiratory: clear to ascultation bilaterally. No rales/rhonic/wheezes. Cardiovascular: Regular rate and rhythm, normal S1-S2 upon ascultation. No murmurs, rubs, or clicks. PMI is nondisplaced, capillary refill less than 3 second. Abdomen: Soft, round, no pulsatile masses, nondistended. No CVA tenderness, no hepatosplenomegaly. Bowel sounds present to all four quadrants. No high pitch or tinkling sounds, resonant to percussion. Right lower quadrant tender to light palpation. NG tube in place Extremities: No cyanosis, clubbing, or edema present. Pulses are palpable 2/2. Active ROM to all four extremities. Neuro: Alert and orientated x 4. PERRLA. Cranial nerves 2-12 intact without focal deficit. Skin: Warm, dry, and intact, without rash, erythema, or lesion. Psych: pleasant, cooperative, normal speech, normal affect, no hallucinations, no dysarthia Objective Data Vital Signs Vital Signs: Vital Signs - 24 hr 07/21/25 13:25 07/21/25 18:00 07/21/25 21:02 Temperature 98.4 F 97.8 F Pulse Rate 94 93 Respiratory Rate 18 16 Blood Pressure 138/81 134/78 Pulse Oximetry 99 98 Oxygen Delivery Room Air 07/21/25 22:00 07/22/25 06:00 07/22/25 08:00 Temperature 97.7 F 97.1 F L Pulse Rate 100 108 H Respiratory Rate 20 18 Blood Pressure 166/92 H 155/93 H Pulse Oximetry 98 97 Oxygen Delivery Room Air 07/22/25 11:06 Temperature 97.7 F Pulse Rate 106 H Respiratory Rate 18 Blood Pressure 153/89 H Pulse Oximetry 98 Oxygen Delivery Intake/Output Intake/Output: Intake & Output 07/19/25 07/20/25 07/21/25 07/22/25 23:59 23:59 23:59 23:59 Intake Total 1957 1476.7 3630 1256.7 Output Total 300 2600 2102 Balance 1657 -1123.3 1528 1256.7 Meds/Results Medications: Active Medications Generic Name Dose Route Start Last Admin Trade Name Freq PRN Reason Stop Dose Admin Acetaminophen 650 mg 07/16/25 19:16 Acetaminophen 650 Mg Suppository RECTAL Q6H PRN Mild Pain (1-3) or Fever Hydrocodone Bitart/Acetaminophen 1 tab 07/22/25 11:42 Hydrocodone/Acetaminophen (*Crx) 5-325 Mg Tablet PO Q4H PRN Pain Rated 4-6 Hydrocodone Bitart/Acetaminophen 1 tab 07/22/25 11:43 Hydrocodone/Acetaminophen (*Crx) 10-325 Mg Tablet PO Q6H PRN Pain Rated 7-10 Diazepam 5 mg 07/22/25 11:35 07/22/25 13:12 Diazepam (*Crx) 5 Mg Tablet PO Not Given Q12HR SONIA Enoxaparin Sodium 40 mg 07/19/25 09:00 07/22/25 08:41 Enoxaparin 40 Mg/0.4 Ml Syringe SUB-Q 40 mg DAILY SONIA Administration Fluticasone Propionate 2 spray 07/14/25 21:00 07/22/25 08:49 Fluticasone Propionate 0.05% Na Spr 16 Gm Btl (*Bkc) NASAL 2 spray Q12HR SONIA Administration Potassium Chloride/Sodium Chloride 1,000 mls @ 100 mls/hr 07/20/25 07:45 07/22/25 08:46 Kcl 30 Meq/Ns IV CONT 100 mls/hr .Q10H SONIA Administration Ibuprofen 800 mg 07/22/25 14:00 Ibuprofen 400 Mg Tablet PO Q8HR SONIA Lidocaine 1 patch 07/17/25 09:00 07/22/25 08:46 Lidocaine 5% Patch TRANSDERM 1 patch DAILY SONIA Administration Morphine Sulfate 4 mg 07/16/25 19:32 07/22/25 13:08 Morphine Sulfate (*Crx) 4 Mg/Ml Inj IV PUSH 4 mg Q4H PRN Administration Pain Rated 7-10 Morphine Sulfate 2 mg 07/21/25 12:29 07/21/25 16:58 Morphine Sulfate (*Crx) 4 Mg/Ml Inj IV PUSH 2 mg Q4H PRN Administration Pain Rated 4-6 Ondansetron HCl 4 mg 07/15/25 14:16 07/22/25 11:31 Ondansetron Inj 4 Mg/2 Ml Vial IV PUSH 4 mg Q6H PRN Administration Nausea And Vomiting Pantoprazole Sodium 40 mg 07/17/25 09:00 07/22/25 08:41 Pantoprazole Sodium Iv 40 Mg Vial IV PUSH 40 mg QAM SONIA Administration Phenol 1 spray 07/15/25 21:34 Phenol/Sod Pheno [place] Elizalde (*Bkc) MUCOUS MEM PRN PRN Sore Throat Sumatriptan Succinate 6 mg 07/20/25 09:00 Sumatriptan Succinate 6 Mg/0.5 Ml Vial SUB-Q PRN PRN migraine Radiology Results: ITS Impressions Abdomen/Pelvis CT 07/15/25 17:09 IMPRESSION: 1. Interval progression of now multiple mildly dilated loops of small bowel extending to persistent transition point in the right lower quadrant consistent with small bowel obstruction. 2. New edematous wall thickening of many of the loops of jejunum consistent with an enteritis which could be infectious or inflammatory in etiology. Ischemia is considered unlikely given the contrast enhanced arteries and veins extending to the mesentery to the affected segments of bowel which also demonstrate mucosal enhancement. 3. New small amount of likely reactive ascites. Pelvic/Transvag US 07/15/25 17:13 IMPRESSION: 1. Nonspecific fluid in the cervical canal and endometrial canal. Nonspecific fluid in the cul-de-sac. 2. Ovaries were not visualized. 3. Endometrial stripe was not adequately visualized for evaluation. 4. Visualized uterus is unremarkable. If symptoms persist or worsen, consider a short-term follow-up study or additional imaging for further assessment. Abdomen X-Ray 07/15/25 19:48 IMPRESSION: 1. Nasogastric tube in the stomach. Small Bowel X-Ray 07/16/25 14:10 IMPRESSION: 1. Persistent small bowel obstruction with multiple persistent mildly dilated loops of small bowel and no definitive oral contrast material in the colon after 4 1/2 hours. Labs Labs: Laboratory Results - last 24 hr 07/22/25 04:35 WBC 9.6 RBC 4.54 Hgb 13.8 Hct 40.6 MCV 89.4 MCH 30.4 MCHC 34.0 RDW 12.6 Plt Count 345 MPV 8.9 Immature Gran % (Auto) 5.9 H Neut % (Auto) 67.7 Lymph % (Auto) 13.4 L [place] % (Auto) 12.3 H Eos % (Auto) 0.0 Baso % (Auto) 0.7 Lymph # (Auto) 1.28 [place] # (Auto) 1.2 H Eos # (Auto) 0.0 Baso # (Auto) 0.1 Abs Immat Gran (auto) 0.57 H Absolute Neuts (auto) 6.5 Absolute Nucleated RBC 0.000 Nucleated RBC % 0.0 Sodium 132 L Potassium 3.8 Chloride 102 Carbon Dioxide 19 L Anion Gap 11 BUN 3 L Creatinine 0.53 L Estim Creat Clear Calc 108 Estimated GFR > 60 Glucose 100 Calcium 8.3 L Magnesium 2.0 Total Bilirubin 0.8 AST 44 H ALT 35 Alkaline Phosphatase 55 Total Protein 6.4 Albumin 3.5 Quality VTE Prophylaxis VTE prophylaxis: mechanical ordered
[2025-07-22 15:00] VITALS: BP 156/91; PULSE 98; RESP 18; TEMP 35.9; O2SAT 96
--- NOTE | 2025-07-22 15:44 | P.PNGS_ITS ---
Progress Note: A&P Assessment and Plan (1) Complete small bowel obstruction: Code(s): K56.601 - Complete intestinal obstruction, unspecified as to cause Status: Acute Assessment and Plan: * Patient had a more formed bowel movement today. Tolerated full liquids without nausea or vomiting. Will advance to regular diet as tolerated. * IV pain medications switched to orals. * Potassium 3.8 this am. Corrected calcium is within normal limits. * Increase activity. Ambulate in the halls and up to chair during the day. Plan I have discussed the patient's case and plan of care with Dr. Mcelroy Subjective Subjective Date/Time Seen: 07/22/25 15:44 Patient reports: no new complaints, still having pain, bowel movement (formed) and afebrile Interval history: Patient doing well today. Tolerating full liquids. Still complains of some abdominal pain. Exam GI: Inspection: non-distended and incision (dry and glue intact, no drainage, no erythema) GI Palp: Yes Soft to palpation, Yes Tenderness to palpation present (GI) (lower abdominal tenderness), No Guarding due to palpation present (GI) and No Hernia present Rectal Exam: deferred Objective Data Vital Signs Vital Signs: Vital Signs - 24 hr 07/21/25 18:00 07/21/25 21:02 07/21/25 22:00 Temperature 97.8 F 97.7 F Pulse Rate 93 100 Respiratory Rate 16 20 Blood Pressure 134/78 166/92 H Pulse Oximetry 98 98 Oxygen Delivery Room Air 07/22/25 06:00 07/22/25 08:00 07/22/25 11:06 Temperature 97.1 F L 97.7 F Pulse Rate 108 H 106 H Respiratory Rate 18 18 Blood Pressure 155/93 H 153/89 H Pulse Oximetry 97 98 Oxygen Delivery Room Air 07/22/25 15:00 Temperature 96.6 F L Pulse Rate 98 Respiratory Rate 18 Blood Pressure 156/91 H Pulse Oximetry 96 Oxygen Delivery Intake/Output Intake/Output: Intake & Output 07/19/25 07/20/25 07/21/25 07/22/25 23:59 23:59 23:59 23:59 Intake Total 7 1476.7 3630 1496.7 Output Total 300 2600 2102 Balance 1657 -1123.3 1528 1496.7 Meds/Results Medications: Active Medications Generic Name Dose Route Start Last Admin Trade Name Freq PRN Reason Stop Dose Admin Acetaminophen 650 mg 07/16/25 19:16 Acetaminophen 650 Mg Suppository RECTAL Q6H PRN Mild Pain (1-3) or Fever Hydrocodone Bitart/Acetaminophen 1 tab 07/22/25 11:42 Hydrocodone/Acetaminophen (*Crx) 5-325 Mg Tablet PO Q4H PRN Pain Rated 4-6 Hydrocodone Bitart/Acetaminophen 1 tab 07/22/25 11:43 Hydrocodone/Acetaminophen (*Crx) 10-325 Mg Tablet PO Q6H PRN Pain Rated 7-10 Diazepam 5 mg 07/22/25 11:35 07/22/25 13:12 Diazepam (*Crx) 5 Mg Tablet PO Not Given Q12HR SONIA Enoxaparin Sodium 40 mg 07/19/25 09:00 07/22/25 08:41 Enoxaparin 40 Mg/0.4 Ml Syringe SUB-Q 40 mg DAILY SONIA Administration Fluticasone Propionate 2 spray 07/14/25 21:00 07/22/25 08:49 Fluticasone Propionate 0.05% Na Spr 16 Gm Btl (*Bkc) NASAL 2 spray Q12HR SONIA Administration Potassium Chloride/Sodium Chloride 1,000 mls @ 100 mls/hr 07/20/25 07:45 07/22/25 08:46 Kcl 30 Meq/Ns IV CONT 100 mls/hr .Q10H SONIA Administration Ibuprofen 800 mg 07/22/25 14:00 Ibuprofen 400 Mg Tablet PO Q8HR SONIA Lidocaine 1 patch 07/17/25 09:00 07/22/25 08:46 Lidocaine 5% Patch TRANSDERM 1 patch DAILY SONIA Administration Morphine Sulfate 4 mg 07/16/25 19:32 07/22/25 13:08 Morphine Sulfate (*Crx) 4 Mg/Ml Inj IV PUSH 4 mg Q4H PRN Administration Pain Rated 7-10 Ondansetron HCl 4 mg 07/15/25 14:16 07/22/25 11:31 Ondansetron Inj 4 Mg/2 Ml Vial IV PUSH 4 mg Q6H PRN Administration Nausea And Vomiting Pantoprazole Sodium 40 mg 07/17/25 09:00 07/22/25 08:41 Pantoprazole Sodium Iv 40 Mg Vial IV PUSH 40 mg QAM SONIA Administration Phenol 1 spray 07/15/25 21:34 Phenol/Sod Pheno [place] Elizalde (*Bkc) MUCOUS MEM PRN PRN Sore Throat Sumatriptan Succinate 6 mg 07/20/25 09:00 Sumatriptan Succinate 6 Mg/0.5 Ml Vial SUB-Q PRN PRN migraine Radiology Results: ITS Impressions Abdomen/Pelvis CT 07/15/25 17:09 IMPRESSION: 1. Interval progression of now multiple mildly dilated loops of small bowel extending to persistent transition point in the right lower quadrant consistent with small bowel obstruction. 2. New edematous wall thickening of many of the loops of jejunum consistent with an enteritis which could be infectious or inflammatory in etiology. Ischemia is considered unlikely given the contrast enhanced arteries and veins extending to the mesentery to the affected segments of bowel which also demonstrate mucosal enhancement. 3. New small amount of likely reactive ascites. Pelvic/Transvag US 07/15/25 17:13 IMPRESSION: 1. Nonspecific fluid in the cervical canal and endometrial canal. Nonspecific fluid in the cul-de-sac. 2. Ovaries were not visualized. 3. Endometrial stripe was not adequately visualized for evaluation. 4. Visualized uterus is unremarkable. If symptoms persist or worsen, consider a short-term follow-up study or additional imaging for further assessment. Abdomen X-Ray 07/15/25 19:48 IMPRESSION: 1. Nasogastric tube in the stomach. Small Bowel X-Ray 07/16/25 14:10 IMPRESSION: 1. Persistent small bowel obstruction with multiple persistent mildly dilated loops of small bowel and no definitive oral contrast material in the colon after 4 1/2 hours. Labs Labs: Laboratory Results - last 24 hr 07/22/25 04:35 WBC 9.6 RBC 4.54 Hgb 13.8 Hct 40.6 MCV 89.4 MCH 30.4 MCHC 34.0 RDW 12.6 Plt Count 345 MPV 8.9 Immature Gran % (Auto) 5.9 H Neut % (Auto) 67.7 Lymph % (Auto) 13.4 L [place] % (Auto) 12.3 H Eos % (Auto) 0.0 Baso % (Auto) 0.7 Lymph # (Auto) 1.28 [place] # (Auto) 1.2 H Eos # (Auto) 0.0 Baso # (Auto) 0.1 Abs Immat Gran (auto) 0.57 H Absolute Neuts (auto) 6.5 Absolute Nucleated RBC 0.000 Nucleated RBC % 0.0 Sodium 132 L Potassium 3.8 Chloride 102 Carbon Dioxide 19 L Anion Gap 11 BUN 3 L Creatinine 0.53 L Estim Creat Clear Calc 108 Estimated GFR > 60 Glucose 100 Calcium 8.3 L Magnesium 2.0 Total Bilirubin 0.8 AST 44 H ALT 35 Alkaline Phosphatase 55 Total Protein 6.4 Albumin 3.5
[2025-07-22] MEDS: IBUPROFEN 400 MG TABLET 800 MG PO ×2 (17:26→19:54)
[2025-07-22] MEDS: HYDROcodone/acetaminophen (*CRX) 10-325 MG TABLET 1 TAB PO ×2 (17:29→23:13)
[2025-07-22] MEDS: diazePAM (*CRX) 5 MG TABLET PO (19:54)
[2025-07-22 21:24] VITALS: BP 153/80; PULSE 102; RESP 18; TEMP 36.2; O2SAT 100
[2025-07-23] MEDS: ONDANSETRON INJ 4 MG/2 ML VIAL IV PUSH ×2 (05:33→13:23)
[2025-07-23 06:00] VITALS: BP 158/99; PULSE 110; RESP 16; TEMP 37.2; O2SAT 94
[2025-07-23 06:32] LABS: Hematocrit 40.7 % (37.0-47.0); Hemoglobin 14.0 g/dL (12.0-15.0); Immature Granulocyte Percent A 6.5 % (0-0.5); Lymphocytes Absolute Auto 1.69 K/mm3 (0.9-3.2); Mean Corpuscular HGB Conc 34.4 g/dl (32-36); Mean Corpuscular Hemoglobin 30.6 pg (26-34); Mean Corpuscular Volume 89.1 fl (80-100); Nucleated Red Blood Cells Absolute Auto 0.000 K/mm3 (0.0-0.012); Nucleated Red Blood Cells Perc 0.0 % (0.0-0.2); Platelet Count Result 442 k/mm3 (150-375); Red Blood Count 4.57 M/mm3 (4.2-5.4); White Blood Count 13.8 K/mm3 (4.5-10.0)
[2025-07-23] MEDS: METOCLOPRAMIDE HCL INJ 10 MG/2 ML VIAL 5 MG IV PUSH (06:37)
[2025-07-23 06:55] LABS: Alanine Aminotransferase 61 U/L (6-35); Albumin Level 3.9 g/dL (3.5-5.1); Alkaline Phosphatase 65 U/L (38-126); Anion Gap 16 mmol/L (4-12); Aspartate Amino Transferase 63 U/L (14-36); Bilirubin,Total 0.7 mg/dL (0.2-1.3); Blood Urea Nitrogen 4 mg/dL (7-17); Calcium 9.2 mg/dL (8.4-10.2); Carbon Dioxide 18 mmol/L (22-30); Chloride 99 mmol/L (98-107); Estimated CRCL calculation 94 ml/min; Estimated Glomerular Filt Rate > 60; Glucose 98 mg/dL (65-110); Magnesium 2.0 mg/dL (1.6-2.3); Potassium 3.9 mmol/L (3.4-5.0); Sodium 133 mmol/L (137-145); Total Protein 7.0 g/dL (6.3-8.2)
[2025-07-23] MEDS: PANTOPRAZOLE 40 MG TABLET PO (08:32)
[2025-07-23] MEDS: ENOXAPARIN 40 MG/0.4 ML SYRINGE SUB-Q (08:32)
[2025-07-23] MEDS: LIDOCAINE 5% PATCH 1 PATCH TRANSDERM (08:32)
[2025-07-23] MEDS: diazePAM (*CRX) 5 MG TABLET PO (08:32)
[2025-07-23] MEDS: FLUTICASONE PROPIONATE 0.05% NA SPR 16 GM BTL (*BKC) 2 SPRAY NASAL ×2 (08:33→21:05)
--- NOTE | 2025-07-23 08:45 | PC.NURSE ---
During nursing handoff and morning medications this RN educated the patient on the importance of ambulation with her history of a recent small bowel obstruction. Patient refused activity at both times. RN encouraged patient to walk and move to the chair for breakfast time, even if she doesn't feel up to moving, so she has more movement than staying in bed or to ambulate in the halls. Patient refused.
--- NOTE | 2025-07-23 10:08 | P.PNGS_ITS ---
Progress Note: A&P Assessment and Plan (1) Complete small bowel obstruction: Code(s): K56.601 - Complete intestinal obstruction, unspecified as to cause Status: Acute Assessment and Plan: * Patient developed nausea and vomiting overnight. Still retching up bilious fluid. Will obtain obstructive series today. Added scheduled Reglan. * WBC increased to 13.8 from 9.6. Incision looks clean and dry and is not likely source of infection. UA ordered. Backed diet down to clear liquids. * Pain is tolerable on oral medications. Patient has been declining pain meds due to nausea. * Potassium and magnesium repleted this morning. Plan I have discussed the patient's case and plan of care with Dr. Mcelroy Subjective Subjective Date/Time Seen: 07/23/25 10:08 Patient reports: nausea, vomiting and afebrile Interval history: Patient feeling very nauseous today. States this started yesterday evening and continued throughout the night. Retching up small amounts of bilious fluid upon my visit today. No BM or flatus since yesterday. Abdominal pain decreased. Exam GI: Inspection: non-distended and incision (dry and glue intact, no drainage, no erythema) Auscultation: normal bowel sounds Rectal Exam: deferred Other: minimal tenderness to palpation Extrem: Other: No redness or warmth anywhere on lower extremities. Negative Malinda's sign. Objective Data Vital Signs Vital Signs: Vital Signs - 24 hr 07/22/25 11:06 07/22/25 15:00 07/22/25 21:24 Temperature 97.7 F 96.6 F L 97.2 F L Pulse Rate 106 H 98 102 H Respiratory Rate 18 18 18 Blood Pressure 153/89 H 156/91 H 153/80 H Pulse Oximetry 98 96 100 Oxygen Delivery 07/23/25 06:00 07/23/25 08:00 Temperature 98.9 F Pulse Rate 110 H Respiratory Rate 16 Blood Pressure 158/99 H Pulse Oximetry 94 Oxygen Delivery Room Air Intake/Output Intake/Output: Intake & Output 07/20/25 07/21/25 07/22/25 07/23/25 23:59 23:59 23:59 23:59 Intake Total 1476.7 3630 2375.0 600 Output Total 2600 2102 50 Balance -1123.3 1528 2375.0 550 Meds/Results Medications: Active Medications Generic Name Dose Route Start Last Admin Trade Name Freq PRN Reason Stop Dose Admin Acetaminophen 650 mg 07/16/25 19:16 Acetaminophen 650 Mg Suppository RECTAL Q6H PRN Mild Pain (1-3) or Fever Hydrocodone Bitart/Acetaminophen 1 tab 07/22/25 11:42 Hydrocodone/Acetaminophen (*Crx) 5-325 Mg Tablet PO Q4H PRN Pain Rated 4-6 Hydrocodone Bitart/Acetaminophen 1 tab 07/22/25 11:43 07/22/25 23:13 Hydrocodone/Acetaminophen (*Crx) 10-325 Mg Tablet PO 1 tab Q6H PRN Administration Pain Rated 7-10 Calcium Carbonate 200 mg 07/23/25 04:05 Calcium Carbonate (Tums) 500 Mg (200 Mg Elemental) PO Q6H PRN Indigestion Diazepam 5 mg 07/22/25 11:35 07/23/25 08:32 Diazepam (*Crx) 5 Mg Tablet PO 5 mg Q12HR OSNIA Administration Enoxaparin Sodium 40 mg 07/19/25 09:00 07/23/25 08:32 Enoxaparin 40 Mg/0.4 Ml Syringe SUB-Q 40 mg DAILY SONIA Administration Fluticasone Propionate 2 spray 07/14/25 21:00 07/23/25 08:33 Fluticasone Propionate 0.05% Na Spr 16 Gm Btl (*Bkc) NASAL 2 spray Q12HR SONIA Administration Ibuprofen 800 mg 07/22/25 14:00 07/23/25 06:05 Ibuprofen 400 Mg Tablet PO Not Given Q8HR SONIA Lidocaine 1 patch 07/17/25 09:00 07/23/25 08:32 Lidocaine 5% Patch TRANSDERM 1 patch DAILY SONIA Administration Metoclopramide HCl 10 mg 07/23/25 12:00 Metoclopramide Hcl Inj 10 Mg/2 Ml Vial IV PUSH Q6HR SONIA Morphine Sulfate 4 mg 07/16/25 19:32 07/22/25 13:08 Morphine Sulfate (*Crx) 4 Mg/Ml Inj IV PUSH 4 mg Q4H PRN Administration Pain Rated 7-10 Ondansetron HCl 4 mg 07/15/25 14:16 07/23/25 05:33 Ondansetron Inj 4 Mg/2 Ml Vial IV PUSH 4 mg Q6H PRN Administration Nausea And Vomiting Pantoprazole Sodium 40 mg 07/23/25 09:00 07/23/25 08:32 Pantoprazole 40 Mg Tablet PO 40 mg QAM SONIA Administration Phenol 1 spray 07/15/25 21:34 Phenol/Sod Pheno [place] Elizalde (*Bkc) MUCOUS MEM PRN PRN Sore Throat Sumatriptan Succinate 6 mg 07/20/25 09:00 Sumatriptan Succinate 6 Mg/0.5 Ml Vial SUB-Q PRN PRN migraine Radiology Results: ITS Impressions Abdomen/Pelvis CT 07/15/25 17:09 IMPRESSION: 1. Interval progression of now multiple mildly dilated loops of small bowel extending to persistent transition point in the right lower quadrant consistent with small bowel obstruction. 2. New edematous wall thickening of many of the loops of jejunum consistent with an enteritis which could be infectious or inflammatory in etiology. Ischemia is considered unlikely given the contrast enhanced arteries and veins extending to the mesentery to the affected segments of bowel which also demonstrate mucosal enhancement. 3. New small amount of likely reactive ascites. Pelvic/Transvag US 07/15/25 17:13 IMPRESSION: 1. Nonspecific fluid in the cervical canal and endometrial canal. Nonspecific fluid in the cul-de-sac. 2. Ovaries were not visualized. 3. Endometrial stripe was not adequately visualized for evaluation. 4. Visualized uterus is unremarkable. If symptoms persist or worsen, consider a short-term follow-up study or additional imaging for further assessment. Abdomen X-Ray 07/15/25 19:48 IMPRESSION: 1. Nasogastric tube in the stomach. Small Bowel X-Ray 07/16/25 14:10 IMPRESSION: 1. Persistent small bowel obstruction with multiple persistent mildly dilated loops of small bowel and no definitive oral contrast material in the colon after 4 1/2 hours. Labs Labs: Laboratory Results - last 24 hr 07/23/25 07/23/25 05:43 05:59 WBC 13.8 H RBC 4.57 Hgb 14.0 Hct 40.7 MCV 89.1 MCH 30.6 MCHC 34.4 RDW 12.8 Plt Count 442 H MPV 9.2 Immature Gran % (Auto) 6.5 H Neut % (Auto) 71.0 Lymph % (Auto) 12.3 L [place] % (Auto) 9.5 H Eos % (Auto) 0.0 Baso % (Auto) 0.7 Lymph # (Auto) 1.69 [place] # (Auto) 1.3 H Eos # (Auto) 0.0 Baso # (Auto) 0.1 Abs Immat Gran (auto) 0.89 H Absolute Neuts (auto) 9.8 H Absolute Nucleated RBC 0.000 Nucleated RBC % 0.0 Sodium 133 L Potassium 3.9 Chloride 99 Carbon Dioxide 18 L Anion Gap 16 H BUN 4 L Creatinine 0.62 L Estim Creat Clear Calc 94 Estimated GFR > 60 Glucose 98 POC Capillary Glucose 103 Calcium 9.2 Magnesium 2.0 Total Bilirubin 0.7 AST 63 H ALT 61 H Alkaline Phosphatase 65 Total Protein 7.0 Albumin 3.9
[2025-07-23] MEDS: MAGNESIUM SULF 1 GM/D5W 100 ML 1 GM/100 ML BAG IVPB (11:17)
[2025-07-23] MEDS: METOCLOPRAMIDE HCL INJ 10 MG/2 ML VIAL IV PUSH ×3 (11:17→23:18)
[2025-07-23] MEDS: POTASSIUM PHOS,M-BASIC-D-BASIC 40 MMOL in SODIUM CHLORIDE 0.9% IV 250 ML 43.89 MMOL IVPB (12:31)
--- NOTE | 2025-07-23 13:19 | PCNFU ---
Nutrition Follow-Up Complete: Altered GI function as related to SBO as evidenced by NPO> 5 days. Goal: Meet estimated nutritional needs. Patient has limited progress towards goal. We will continue current goal. Pt current nutrition is Clear liquids. Nutrition recommendation: PPN at 80 ml/hr. Last recorded weight is 82.8 kg, stable Bowel Motility: Last reported BM 07/22 Labs Reviewed:PO4 1.6, Cr 0.62, BUN 4, Na 133 Meds Noted: Reglan, Protonix. Skin: WNL Additional Notes: Patient unable to tolerate full liquids. Emesis and nausea reported. Spoke with surgery today, plans for PPN for nutritional support. Recommend: Clinimix 4.25/5 at 80 ml/hr with 250 ml of 20% Lipid Emulsion. Total Nutrition: 1153 kcal/82 gm protein, meeting 58% kcal needs at 24 kcal/kg and 99% protein needs at 1.0 gm/kg. Agree with diet orders at this time. Will monitor weight, labs, skin, diet orders, meds every Saturday and Saturday.
[2025-07-23 14:00] VITALS: BP 148/88; PULSE 106; RESP 16; TEMP 37; O2SAT 94
--- NOTE | 2025-07-23 14:11 | P.PNIM_ITS ---
Progress Note: A&P Assessment and Plan (1) Complete small bowel obstruction: Code(s): K56.601 - Complete intestinal obstruction, unspecified as to cause Status: Acute Assessment and Plan: Onset of severe abdominal pain, initial CT largely negative, did not show appendix. Pelvis US negative as well, with ovaries not appearing. Repeat CT then positive for SBO S/p Exlap with abdominal adhesiolysis Patient vomiting this morning and repeat Abd imaging showed ileus vs SBO recurrence NPO, IVF, reinsert NG tube Gen surgery informed (2) Enteritis: Code(s): K52.9 - Noninfective gastroenteritis and colitis, unspecified Status: Acute Assessment and Plan: IV fluids for hydration Zosyn discontinued (3) Migraine headache: Code(s): G43.909 - Migraine, unspecified, not intractable, without status migrainosus Status: Acute Assessment and Plan: Takes rizatriptan home, however not able to take medications at this time, sumatriptan subcutaneous p.r.n. Plan DVT prophylaxis on Sq Lovenox Subjective Date/time seen: 07/23/25 14:11 Interval history: Comfortable at bedside Patient vomiting this morning at bedside Abdominal series showed ileus vs SBO reinsert NG tube Review of Systems Review of Systems: 12 systems were reviewed and are negativ e except for as per HPI. Exam Narrative: General: well appearing, appears stated age. HEENT: normocephalic, atraumatic. Mucous membranes moist. EOMI, PERRLA, bilateral sclera anicteric, no conjunctival injection. Neck supple without JVD, lymphadenopathy, or bruit. Respiratory: clear to ascultation bilaterally. No rales/rhonic/wheezes. Cardiovascular: Regular rate and rhythm, normal S1-S2 upon ascultation. No murmurs, rubs, or clicks. PMI is nondisplaced, capillary refill less than 3 second. Abdomen: Soft, round, no pulsatile masses, nondistended. No CVA tenderness, no hepatosplenomegaly. Bowel sounds present to all four quadrants. No high pitch or tinkling sounds, resonant to percussion. Right lower quadrant tender to light palpation. NG tube in place Extremities: No cyanosis, clubbing, or edema present. Pulses are palpable 2/2. Active ROM to all four extremities. Neuro: Alert and orientated x 4. PERRLA. Cranial nerves 2-12 intact without focal deficit. Skin: Warm, dry, and intact, without rash, erythema, or lesion. Psych: pleasant, cooperative, normal speech, normal affect, no hallucinations, no dysarthia Objective Data Vital Signs Vital Signs: Vital Signs - 24 hr 07/22/25 15:00 07/22/25 21:24 07/23/25 06:00 Temperature 96.6 F L 97.2 F L 98.9 F Pulse Rate 98 102 H 110 H Respiratory Rate 18 18 16 Blood Pressure 156/91 H 153/80 H 158/99 H Pulse Oximetry 96 100 94 Oxygen Delivery 07/23/25 08:00 Temperature Pulse Rate Respiratory Rate Blood Pressure Pulse Oximetry Oxygen Delivery Room Air Intake/Output Intake/Output: Intake & Output 07/20/25 07/21/25 07/22/25 07/23/25 23:59 23:59 23:59 23:59 Intake Total 1476.7 3630 2375.0 600 Output Total 2600 2102 550 Balance -1123.3 1528 2375.0 50 Meds/Results Medications: Active Medications Generic Name Dose Route Start Last Admin Trade Name Freq PRN Reason Stop Dose Admin Acetaminophen 650 mg 07/16/25 19:16 Acetaminophen 650 Mg Suppository RECTAL Q6H PRN Mild Pain (1-3) or Fever Hydrocodone Bitart/Acetaminophen 1 tab 07/22/25 11:42 Hydrocodone/Acetaminophen (*Crx) 5-325 Mg Tablet PO Q4H PRN Pain Rated 4-6 Hydrocodone Bitart/Acetaminophen 1 tab 07/22/25 11:43 07/22/25 23:13 Hydrocodone/Acetaminophen (*Crx) 10-325 Mg Tablet PO 1 tab Q6H PRN Administration Pain Rated 7-10 Calcium Carbonate 200 mg 07/23/25 04:05 Calcium Carbonate (Tums) 500 Mg (200 Mg Elemental) PO Q6H PRN Indigestion Diazepam 5 mg 07/22/25 11:35 07/23/25 08:32 Diazepam (*Crx) 5 Mg Tablet PO 5 mg Q12HR SONIA Administration Enoxaparin Sodium 40 mg 07/19/25 09:00 07/23/25 08:32 Enoxaparin 40 Mg/0.4 Ml Syringe SUB-Q 40 mg DAILY SONIA Administration Fluticasone Propionate 2 spray 07/14/25 21:00 07/23/25 08:33 Fluticasone Propionate 0.05% Na Spr 16 Gm Btl (*Bkc) NASAL 2 spray Q12HR SONIA Administration Potassium Phosphate 40 mmol/ 263.3333 mls @ 43.889 mls/hr 07/23/25 11:00 07/23/25 12:31 Sodium Chloride IVPB 07/23/25 16:59 43.89 mls/hr ONCE ONE Administration Ibuprofen 800 mg 07/22/25 14:00 07/23/25 14:03 Ibuprofen 400 Mg Tablet PO Not Given Q8HR SONIA Lidocaine 1 patch 07/17/25 09:00 07/23/25 08:32 Lidocaine 5% Patch TRANSDERM 1 patch DAILY SONIA Administration Metoclopramide HCl 10 mg 07/23/25 12:00 07/23/25 11:17 Metoclopramide Hcl Inj 10 Mg/2 Ml Vial IV PUSH 10 mg Q6HR SONIA Administration Morphine Sulfate 4 mg 07/16/25 19:32 07/22/25 13:08 Morphine Sulfate (*Crx) 4 Mg/Ml Inj IV PUSH 4 mg Q4H PRN Administration Pain Rated 7-10 Ondansetron HCl 4 mg 07/15/25 14:16 07/23/25 13:23 Ondansetron Inj 4 Mg/2 Ml Vial IV PUSH 4 mg Q6H PRN Administration Nausea And Vomiting Pantoprazole Sodium 40 mg 07/23/25 09:00 07/23/25 08:32 Pantoprazole 40 Mg Tablet PO 40 mg QAM SONIA Administration Phenol 1 spray 07/15/25 21:34 Phenol/Sod Pheno [place] Elizalde (*Bkc) MUCOUS MEM PRN PRN Sore Throat Sumatriptan Succinate 6 mg 07/20/25 09:00 Sumatriptan Succinate 6 Mg/0.5 Ml Vial SUB-Q PRN PRN migraine Radiology Results: ITS Impressions Abdomen/Pelvis CT 07/15/25 17:09 IMPRESSION: 1. Interval progression of now multiple mildly dilated loops of small bowel extending to persistent transition point in the right lower quadrant consistent with small bowel obstruction. 2. New edematous wall thickening of many of the loops of jejunum consistent with an enteritis which could be infectious or inflammatory in etiology. Ischemia is considered unlikely given the contrast enhanced arteries and veins extending to the mesentery to the affected segments of bowel which also demonstrate mucosal enhancement. 3. New small amount of likely reactive ascites. Pelvic/Transvag US 07/15/25 17:13 IMPRESSION: 1. Nonspecific fluid in the cervical canal and endometrial canal. Nonspecific fluid in the cul-de-sac. 2. Ovaries were not visualized. 3. Endometrial stripe was not adequately visualized for evaluation. 4. Visualized uterus is unremarkable. If symptoms persist or worsen, consider a short-term follow-up study or additional imaging for further assessment. Small Bowel X-Ray 07/16/25 14:10 IMPRESSION: 1. Persistent small bowel obstruction with multiple persistent mildly dilated loops of small bowel and no definitive oral contrast material in the colon after 4 1/2 hours. Labs Labs: Laboratory Results - last 24 hr 07/23/25 07/23/25 05:43 05:59 WBC 13.8 H RBC 4.57 Hgb 14.0 Hct 40.7 MCV 89.1 MCH 30.6 MCHC 34.4 RDW 12.8 Plt Count 442 H MPV 9.2 Immature Gran % (Auto) 6.5 H Neut % (Auto) 71.0 Lymph % (Auto) 12.3 L [place] % (Auto) 9.5 H Eos % (Auto) 0.0 Baso % (Auto) 0.7 Lymph # (Auto) 1.69 [place] # (Auto) 1.3 H Eos # (Auto) 0.0 Baso # (Auto) 0.1 Abs Immat Gran (auto) 0.89 H Absolute Neuts (auto) 9.8 H Absolute Nucleated RBC 0.000 Nucleated RBC % 0.0 Sodium 133 L Potassium 3.9 Chloride 99 Carbon Dioxide 18 L Anion Gap 16 H BUN 4 L Creatinine 0.62 L Estim Creat Clear Calc 94 Estimated GFR > 60 Glucose 98 POC Capillary Glucose 103 Calcium 9.2 Magnesium 2.0 Total Bilirubin 0.7 AST 63 H ALT 61 H Alkaline Phosphatase 65 Total Protein 7.0 Albumin 3.9 Quality VTE Prophylaxis VTE prophylaxis: mechanical ordered
[2025-07-23] MEDS: KETOROLAC 15 MG/ML VIAL (*BKC) IV PUSH ×2 (14:56→23:17)
[2025-07-23 16:52] LABS: Hematocrit 40.8 % (37.0-47.0); Hemoglobin 14.2 g/dL (12.0-15.0); Immature Granulocyte Percent A 3.7 % (0-0.5); Lymphocytes Absolute Auto 1.44 K/mm3 (0.9-3.2); Mean Corpuscular HGB Conc 34.8 g/dl (32-36); Mean Corpuscular Hemoglobin 30.8 pg (26-34); Mean Corpuscular Volume 88.5 fl (80-100); Nucleated Red Blood Cells Absolute Auto 0.000 K/mm3 (0.0-0.012); Nucleated Red Blood Cells Perc 0.0 % (0.0-0.2); Platelet Count Result 437 k/mm3 (150-375); Red Blood Count 4.61 M/mm3 (4.2-5.4); White Blood Count 17.6 K/mm3 (4.5-10.0)
[2025-07-23 17:12] LABS: Transferrin 163 mg/dL (206-381)
[2025-07-23 17:35] LABS: Partial Thromboplastin Time 30.5 Seconds (22.3-36.8)
[2025-07-23] MEDS: PANTOPRAZOLE SODIUM IV 40 MG VIAL IV PUSH (18:11)
[2025-07-23] MEDS: FAT EMULSIONS IV 20% 250 ML 20.83 ML IVPB (18:20)
[2025-07-23] MEDS: AMINO ACIDS 4.25%/D5W/LYTES/CA 1,000 ML 80 ML IV CONT (18:20)
[2025-07-23 18:36] LABS: Add Urine Microscopic? YES; Appearance Urine Clear (Clear); Glucose Urine UA Negative (Negative); Leukocyte Esterase Ur Negative LEU/UL (Negative); Nitrate Urine Negative (Negative); Specific Grav Ur 1.026 (1.001-1.035)
[2025-07-23] MEDS: MAG HYDROX/AL HYDROX/SIMETH 30 ML UDC PO (21:05)
[2025-07-23 22:00] VITALS: BP 146/97; PULSE 81; RESP 18; TEMP 36.4; O2SAT 96
[2025-07-23] MEDS: diazePAM INJ (*CRX) 10 MG/2 ML SYRINGE 5 MG IV PUSH (23:18)
[2025-07-24 05:21] VITALS: BP 140/94; PULSE 102; RESP 18; TEMP 36.3; O2SAT 97
[2025-07-24 06:07] LABS: Hematocrit 38.5 % (37.0-47.0); Hemoglobin 13.2 g/dL (12.0-15.0); Immature Granulocyte Percent A 5.5 % (0-0.5); Lymphocytes Absolute Auto 2.29 K/mm3 (0.9-3.2); Mean Corpuscular HGB Conc 34.3 g/dl (32-36); Mean Corpuscular Hemoglobin 30.8 pg (26-34); Mean Corpuscular Volume 90.0 fl (80-100); Nucleated Red Blood Cells Absolute Auto 0.000 K/mm3 (0.0-0.012); Nucleated Red Blood Cells Perc 0.0 % (0.0-0.2); Platelet Count Result 404 k/mm3 (150-375); Red Blood Count 4.28 M/mm3 (4.2-5.4); White Blood Count 13.9 K/mm3 (4.5-10.0)
[2025-07-24] MEDS: AMINO ACIDS 4.25%/D5W/LYTES/CA 1,000 ML 80 ML IV CONT ×2 (06:17→17:22)
[2025-07-24] MEDS: METOCLOPRAMIDE HCL INJ 10 MG/2 ML VIAL IV PUSH ×3 (06:17→17:19)
[2025-07-24] MEDS: MAG HYDROX/AL HYDROX/SIMETH 30 ML UDC PO ×3 (06:17→21:28)
[2025-07-24 06:29] LABS: Alanine Aminotransferase 66 U/L (6-35); Albumin Level 3.5 g/dL (3.5-5.1); Alkaline Phosphatase 62 U/L (38-126); Anion Gap 12 mmol/L (4-12); Aspartate Amino Transferase 54 U/L (14-36); Bilirubin,Total 0.8 mg/dL (0.2-1.3); Blood Urea Nitrogen 13 mg/dL (7-17); Calcium 8.7 mg/dL (8.4-10.2); Carbon Dioxide 24 mmol/L (22-30); Chloride 98 mmol/L (98-107); Estimated CRCL calculation 80 ml/min; Estimated Glomerular Filt Rate > 60; Glucose 100 mg/dL (65-110); Magnesium 2.2 mg/dL (1.6-2.3); Potassium 3.1 mmol/L (3.4-5.0); Sodium 134 mmol/L (137-145); Total Protein 6.4 g/dL (6.3-8.2)
[2025-07-24] MEDS: KETOROLAC 15 MG/ML VIAL (*BKC) IV PUSH ×2 (07:16→17:14)
[2025-07-24] MEDS: POTASSIUM CHLORIDE INJ 40 MEQ in SODIUM CHLORIDE 0.9% IV 500 ML 130 MEQ IVPB (08:41)
[2025-07-24] MEDS: PANTOPRAZOLE SODIUM IV 40 MG VIAL IV PUSH (08:42)
[2025-07-24] MEDS: ENOXAPARIN 40 MG/0.4 ML SYRINGE SUB-Q (08:45)
[2025-07-24] MEDS: LIDOCAINE 5% PATCH 1 PATCH TRANSDERM (08:45)
[2025-07-24] MEDS: FLUTICASONE PROPIONATE 0.05% NA SPR 16 GM BTL (*BKC) 2 SPRAY NASAL ×2 (08:50→21:28)
--- NOTE | 2025-07-24 10:38 | PM.PNGS ---
Progress Note: A&P Assessment and Plan (1) Complete small bowel obstruction: Code(s): K56.601 - Complete intestinal obstruction, unspecified as to cause Status: Acute Assessment and Plan: status post ex lap and repair of internal hernia, patient now with ileus, continue NG decompression and bowel rest for now, encourage out of bed and use of IS, await return of bowel function, continue PPN for now Subjective Subjective Date/Time Seen: 07/24/25 10:38 Interval history: feels a little better today, passing some flatus Review of Systems Review of Systems: All systems reviewed & are unremarkable except as noted in HPI and below Exam Const: General: cooperative, comfortable and no acute distress Resp: Auscultation: clear to auscultation bilaterally Cardio: Rate: regular rate Rhythm: regular rhythm GI: Inspection: normal to inspection, distended and incision GI Palp: Yes abdominal tenderness and Yes Soft to palpation Objective Data Vital Signs Vital Signs: Vital Signs - 24 hr 07/23/25 14:00 07/23/25 20:00 07/23/25 22:00 Temperature 37.0 C 36.4 C L Pulse Rate 106 H 81 Respiratory Rate 16 18 Blood Pressure 148/88 H 146/97 H Pulse Oximetry 94 96 Oxygen Delivery Room Air 07/24/25 05:21 Temperature 36.3 C L Pulse Rate 102 H Respiratory Rate 18 Blood Pressure 140/94 H Pulse Oximetry 97 Oxygen Delivery Intake/Output Intake/Output: Intake & Output 07/21/25 07/22/25 07/23/25 07/24/25 23:59 23:59 23:59 23:59 Intake Total 3630 2375.0 600 956 Output Total 2102 3725 1575 Balance 1528 2375.0 -3125 -619 Meds/Results Medications: Active Medications Generic Name Dose Route Start Last Admin Trade Name Freq PRN Reason Stop Dose Admin Acetaminophen 650 mg 07/16/25 19:16 Acetaminophen 650 Mg Suppository RECTAL Q6H PRN Mild Pain (1-3) or Fever Hydrocodone Bitart/Acetaminophen 1 tab 07/22/25 11:42 Hydrocodone/Acetaminophen (*Crx) 5-325 Mg Tablet PO On Hold: 07/23/25 17:17 Q4H PRN Pain Rated 4-6 Al Hydrox/Mg Hydrox/Simethicone 30 ml 07/23/25 22:00 07/24/25 06:17 Mag Hydrox/Al Hydrox/Simeth 30 Ml Udc PO 30 ml Q8HR SONIA Administration Bisacodyl 10 mg 07/23/25 17:10 Bisacodyl 10 Mg Suppository RECTAL QAM PRN Constipation Dextrose 12.5 gm 07/23/25 15:59 Dextrose 50% 25 Gm/50 Ml Syringe IV PUSH PRN PRN Hypoglycemia Protocol Diazepam 5 mg 07/23/25 17:15 07/23/25 23:18 Diazepam Inj (*Crx) 10 Mg/2 Ml Syringe IV PUSH 5 mg Q12H PRN Administration Muscle Spasm Enoxaparin Sodium 40 mg 07/19/25 09:00 07/24/25 08:45 Enoxaparin 40 Mg/0.4 Ml Syringe SUB-Q 40 mg DAILY SONIA Administration Fluticasone Propionate 2 spray 07/14/25 21:00 07/24/25 08:50 Fluticasone Propionate 0.05% Na Spr 16 Gm Btl (*Bkc) NASAL 2 spray Q12HR SONIA Administration Glucagon 1 mg 07/23/25 15:59 Glucagon For Inj 1 Mg Vial IM PRN PRN Hypoglycemia Protocol Glucose 15 gm 07/23/25 15:59 Glucose Oral Gel 15 Gm Of Glucse In 37.5 Gm Tube PO PRN PRN Hypoglycemia Protocol Dextrose 1,000 mls @ 50 mls/hr 07/23/25 17:00 Dextrose 10% IV CONT .Q20H PRN if PN is interrupted Amino Acids/Electrolytes/Dextrose 1,000 mls @ 80 mls/hr 07/23/25 17:00 07/24/25 06:17 Clinimix E 4.25%/5% Solution IV CONT 80 mls/hr .[id number] SONIA Administration Protocol Fat Emulsion Intravenous 250 mls @ 20.833 mls/hr 07/23/25 17:00 07/23/25 18:20 Lipids 20% IVPB 20.83 mls/hr Q24H SONIA Administration Dextrose 1,000 mls @ 100 mls/hr 07/23/25 15:59 Dextrose 5% 1,000 Ml IVPB PRN PRN Hypoglycemia Protocol Potassium Chloride 40 meq/ 520 mls @ 130 mls/hr 07/24/25 07:19 07/24/25 08:41 Sodium Chloride IVPB 07/24/25 11:18 130 mls/hr ONCE ONE Administration Insulin Human Regular 0 units 07/23/25 18:00 07/24/25 06:40 Insulin Human Regular (*Bkc) 100 Units/Ml SUB-Q Not Given Q6HR [facility] Protocol Ketorolac Tromethamine 15 mg 07/23/25 14:22 07/24/25 07:16 Ketorolac 15 Mg/Ml Vial (*Bkc) IV PUSH 07/25/25 06:00 15 mg Q8H PRN Administration Pain Rated 6 or Greater Lidocaine 1 patch 07/17/25 09:00 07/24/25 08:45 Lidocaine 5% Patch TRANSDERM 1 patch DAILY SONIA Administration Metoclopramide HCl 10 mg 07/23/25 12:00 07/24/25 06:17 Metoclopramide Hcl Inj 10 Mg/2 Ml Vial IV PUSH 10 mg Q6HR SONIA Administration Morphine Sulfate 4 mg 07/16/25 19:32 07/22/25 13:08 Morphine Sulfate (*Crx) 4 Mg/Ml Inj IV PUSH 4 mg Q4H PRN Administration Pain Rated 7-10 Ondansetron HCl 4 mg 07/15/25 14:16 07/23/25 13:23 Ondansetron Inj 4 Mg/2 Ml Vial IV PUSH 4 mg Q6H PRN Administration Nausea And Vomiting Pantoprazole Sodium 40 mg 07/24/25 09:00 07/24/25 08:42 Pantoprazole Sodium Iv 40 Mg Vial IV PUSH 40 mg QAM SONIA Administration Phenol 1 spray 07/15/25 21:34 Phenol/Sod Pheno [place] Elizalde (*Bkc) MUCOUS MEM PRN PRN Sore Throat Sumatriptan Succinate 6 mg 07/20/25 09:00 Sumatriptan Succinate 6 Mg/0.5 Ml Vial SUB-Q PRN PRN migraine Radiology Results: ITS Impressions Abdomen/Pelvis CT 07/15/25 17:09 IMPRESSION: 1. Interval progression of now multiple mildly dilated loops of small bowel extending to persistent transition point in the right lower quadrant consistent with small bowel obstruction. 2. New edematous wall thickening of many of the loops of jejunum consistent with an enteritis which could be infectious or inflammatory in etiology. Ischemia is considered unlikely given the contrast enhanced arteries and veins extending to the mesentery to the affected segments of bowel which also demonstrate mucosal enhancement. 3. New small amount of likely reactive ascites. Pelvic/Transvag US 07/15/25 17:13 IMPRESSION: 1. Nonspecific fluid in the cervical canal and endometrial canal. Nonspecific fluid in the cul-de-sac. 2. Ovaries were not visualized. 3. Endometrial stripe was not adequately visualized for evaluation. 4. Visualized uterus is unremarkable. If symptoms persist or worsen, consider a short-term follow-up study or additional imaging for further assessment. Small Bowel X-Ray 07/16/25 14:10 IMPRESSION: 1. Persistent small bowel obstruction with multiple persistent mildly dilated loops of small bowel and no definitive oral contrast material in the colon after 4 1/2 hours. Abdomen X-Ray 07/23/25 15:46 Impression: 1. Nasogastric tube in appropriate location Chest X-Ray 07/24/25 08:19 IMPRESSION: 1. NG tube in place. 2. Mild bibasilar atelectasis. Small developing airspace opacity left base not excluded. Labs Labs: Laboratory Results - last 24 hr 07/23/25 07/23/25 07/23/25 16:15 18:07 18:38 WBC 17.6 H RBC 4.61 Hgb 14.2 Hct 40.8 MCV 88.5 MCH 30.8 MCHC 34.8 RDW 12.8 Plt Count 437 H MPV 9.6 Immature Gran % (Auto) 3.7 H Neut % (Auto) 80.3 H Lymph % (Auto) 8.2 L Gregory % (Auto) 7.1 Eos % (Auto) 0.0 Baso % (Auto) 0.7 Lymph # (Auto) 1.44 Gregory # (Auto) 1.3 H Eos # (Auto) 0.0 Baso # (Auto) 0.1 Abs Immat Gran (auto) 0.66 H Absolute Neuts (auto) 14.2 H Absolute Nucleated RBC 0.000 Nucleated RBC % 0.0 APTT 30.5 Sodium Potassium Chloride Carbon Dioxide Anion Gap BUN Creatinine Estim Creat Clear Calc Estimated GFR Glucose POC Capillary Glucose 112 H Calcium Phosphorus Magnesium Transferrin 163 L Total Bilirubin AST ALT Alkaline Phosphatase Total Protein Albumin Urine Color Dark yellow Urine Appearance Clear Urine pH 5.5 Ur Specific [place] 1.026 Urine Protein 1+ H Urine Glucose (UA) Negative Urine Ketones 4+ H Ur Blood (Man) Negative Urine Nitrate Negative Urine Bilirubin Negative Urine Urobilinogen 1.0 Leukocyte Esterase Rfl Negative Urine RBC 6-10 H Urine WBC 0-5 Ur Squamous Epith Cells Few Urine Bacteria None seen Urine Casts 11-20 Hyaline Casts Present 07/24/25 07/24/25 01:23 05:39 WBC 13.9 H RBC 4.28 Hgb 13.2 Hct 38.5 MCV 90.0 MCH 30.8 MCHC 34.3 RDW 13.0 Plt Count 404 H MPV 9.1 Immature Gran % (Auto) 5.5 H Neut % (Auto) 68.2 Lymph % (Auto) 16.4 L Gregory % (Auto) 9.4 H Eos % (Auto) 0.0 Baso % (Auto) 0.5 Lymph # (Auto) 2.29 Gregory # (Auto) 1.3 H Eos # (Auto) 0.0 Baso # (Auto) 0.1 Abs Immat Gran (auto) 0.76 H Absolute Neuts (auto) 9.5 H Absolute Nucleated RBC 0.000 Nucleated RBC % 0.0 APTT Sodium 134 L Potassium 3.1 L Chloride 98 Carbon Dioxide 24 Anion Gap 12 BUN 13 D Creatinine 0.74 Estim Creat Clear Calc 80 Estimated GFR > 60 Glucose 100 POC Capillary Glucose 103 Calcium 8.7 Phosphorus 3.7 Magnesium 2.2 Transferrin Total Bilirubin 0.8 AST 54 H ALT 66 H Alkaline Phosphatase 62 Total Protein 6.4 Albumin 3.5 Urine Color Urine Appearance Urine pH Ur Specific [place] Urine Protein Urine Glucose (UA) Urine Ketones Ur Blood (Man) Urine Nitrate Urine Bilirubin Urine Urobilinogen Leukocyte Esterase Rfl Urine RBC Urine WBC Ur Squamous Epith Cells Urine Bacteria Urine Casts Hyaline Casts
[2025-07-24] MEDS: diazePAM INJ (*CRX) 10 MG/2 ML SYRINGE 5 MG IV PUSH (11:12)
[2025-07-24 11:30] VITALS: BP 131/74; PULSE 102; RESP 18; TEMP 36.7; O2SAT 96
[2025-07-24 16:52] VITALS: BP 113/78; PULSE 104; RESP 18; TEMP 36.4; O2SAT 94
--- NOTE | 2025-07-24 17:11 | P.PNIM_ITS ---
Progress Note: A&P Assessment and Plan (1) Complete small bowel obstruction: Code(s): K56.601 - Complete intestinal obstruction, unspecified as to cause Status: Acute Assessment and Plan: Onset of severe abdominal pain, initial CT largely negative, did not show appendix. Pelvis US negative as well, with ovaries not appearing. Repeat CT then positive for SBO S/p Exlap with abdominal adhesiolysis Patient vomiting this morning and repeat Abd imaging showed ileus vs SBO recurrence NPO, IVF, reinsert NG tube Gen surgery informed (2) Enteritis: Code(s): K52.9 - Noninfective gastroenteritis and colitis, unspecified Status: Acute Assessment and Plan: IV fluids for hydration Zosyn discontinued (3) Migraine headache: Code(s): G43.909 - Migraine, unspecified, not intractable, without status migrainosus Status: Acute Assessment and Plan: Takes rizatriptan home, however not able to take medications at this time, sumatriptan subcutaneous p.r.n. Plan DVT prophylaxis on Sq Lovenox Subjective Date/time seen: 07/24/25 17:11 Interval history: Comfortable at bedside Continue bowel rest and NG tube, advance diet per Gen surgeyr Review of Systems Review of Systems: 12 systems were reviewed and are negativ e except for as per HPI. Exam Narrative: General: well appearing, appears stated age. HEENT: normocephalic, atraumatic. Mucous membranes moist. EOMI, PERRLA, bilateral sclera anicteric, no conjunctival injection. Neck supple without JVD, lymphadenopathy, or bruit. Respiratory: clear to ascultation bilaterally. No rales/rhonic/wheezes. Cardiovascular: Regular rate and rhythm, normal S1-S2 upon ascultation. No murmurs, rubs, or clicks. PMI is nondisplaced, capillary refill less than 3 second. Abdomen: Soft, round, no pulsatile masses, nondistended. No CVA tenderness, no hepatosplenomegaly. Bowel sounds present to all four quadrants. No high pitch or tinkling sounds, resonant to percussion. Right lower quadrant tender to light palpation. NG tube in place Extremities: No cyanosis, clubbing, or edema present. Pulses are palpable 2/2. Active ROM to all four extremities. Neuro: Alert and orientated x 4. PERRLA. Cranial nerves 2-12 intact without focal deficit. Skin: Warm, dry, and intact, without rash, erythema, or lesion. Psych: pleasant, cooperative, normal speech, normal affect, no hallucinations, no dysarthia Objective Data Vital Signs Vital Signs: Vital Signs - 24 hr 07/23/25 20:00 07/23/25 22:00 07/24/25 05:21 Temperature 97.5 F L 97.4 F L Pulse Rate 81 102 H Respiratory Rate 18 18 Blood Pressure 146/97 H 140/94 H Pulse Oximetry 96 97 Oxygen Delivery Room Air 07/24/25 08:00 07/24/25 11:30 07/24/25 16:52 Temperature 98.1 F 97.6 F Pulse Rate 102 H 104 H Respiratory Rate 18 18 Blood Pressure 131/74 113/78 Pulse Oximetry 96 94 Oxygen Delivery Room Air Intake/Output Intake/Output: Intake & Output 07/21/25 07/22/25 07/23/25 07/24/25 23:59 23:59 23:59 23:59 Intake Total 3630 2375.0 600 1206 Output Total 2102 3725 1575 Balance 1528 2375.0 -3125 -369 Meds/Results Medications: Active Medications Generic Name Dose Route Start Last Admin Trade Name Freq PRN Reason Stop Dose Admin Acetaminophen 650 mg 07/16/25 19:16 Acetaminophen 650 Mg Suppository RECTAL Q6H PRN Mild Pain (1-3) or Fever Hydrocodone Bitart/Acetaminophen 1 tab 07/22/25 11:42 Hydrocodone/Acetaminophen (*Crx) 5-325 Mg Tablet PO On Hold: 07/23/25 17:17 Q4H PRN Pain Rated 4-6 Al Hydrox/Mg Hydrox/Simethicone 30 ml 07/23/25 22:00 07/24/25 13:47 Mag Hydrox/Al Hydrox/Simeth 30 Ml Udc PO 30 ml Q8HR SONIA Administration Bisacodyl 10 mg 07/23/25 17:10 Bisacodyl 10 Mg Suppository RECTAL QAM PRN Constipation Dextrose 12.5 gm 07/23/25 15:59 Dextrose 50% 25 Gm/50 Ml Syringe IV PUSH PRN PRN Hypoglycemia Protocol Diazepam 5 mg 07/23/25 17:15 07/24/25 11:12 Diazepam Inj (*Crx) 10 Mg/2 Ml Syringe IV PUSH 5 mg Q12H PRN Administration Muscle Spasm Enoxaparin Sodium 40 mg 07/19/25 09:00 07/24/25 08:45 Enoxaparin 40 Mg/0.4 Ml Syringe SUB-Q 40 mg DAILY SONIA Administration Fluticasone Propionate 2 spray 07/14/25 21:00 07/24/25 08:50 Fluticasone Propionate 0.05% Na Spr 16 Gm Btl (*Bkc) NASAL 2 spray Q12HR SONIA Administration Glucagon 1 mg 07/23/25 15:59 Glucagon For Inj 1 Mg Vial IM PRN PRN Hypoglycemia Protocol Glucose 15 gm 07/23/25 15:59 Glucose Oral Gel 15 Gm Of Glucse In 37.5 Gm Tube PO PRN PRN Hypoglycemia Protocol Dextrose 1,000 mls @ 50 mls/hr 07/23/25 17:00 Dextrose 10% IV CONT .Q20H PRN if PN is interrupted Amino Acids/Electrolytes/Dextrose 1,000 mls @ 80 mls/hr 07/23/25 17:00 07/24/25 06:17 Clinimix E 4.25%/5% Solution IV CONT 80 mls/hr .[id number] SONIA Administration Protocol Fat Emulsion Intravenous 250 mls @ 20.833 mls/hr 07/23/25 17:00 07/24/25 06:21 Lipids 20% IVPB Infused Q24H SONIA Infusion Dextrose 1,000 mls @ 100 mls/hr 07/23/25 15:59 Dextrose 5% 1,000 Ml IVPB PRN PRN Hypoglycemia Protocol Insulin Human Regular 0 units 07/23/25 18:00 07/24/25 11:19 Insulin Human Regular (*Bkc) 100 Units/Ml SUB-Q Not Given Q6HR SONIA Protocol Ketorolac Tromethamine 15 mg 07/23/25 14:22 07/24/25 07:16 Ketorolac 15 Mg/Ml Vial (*Bkc) IV PUSH 07/25/25 06:00 15 mg Q8H PRN Administration Pain Rated 6 or Greater Lidocaine 1 patch 07/17/25 09:00 07/24/25 08:45 Lidocaine 5% Patch TRANSDERM 1 patch DAILY SONIA Administration Metoclopramide HCl 10 mg 07/23/25 12:00 07/24/25 11:15 Metoclopramide Hcl Inj 10 Mg/2 Ml Vial IV PUSH 10 mg Q6HR SONIA Administration Morphine Sulfate 4 mg 07/16/25 19:32 07/22/25 13:08 Morphine Sulfate (*Crx) 4 Mg/Ml Inj IV PUSH 4 mg Q4H PRN Administration Pain Rated 7-10 Ondansetron HCl 4 mg 07/15/25 14:16 07/23/25 13:23 Ondansetron Inj 4 Mg/2 Ml Vial IV PUSH 4 mg Q6H PRN Administration Nausea And Vomiting Pantoprazole Sodium 40 mg 07/24/25 09:00 07/24/25 08:42 Pantoprazole Sodium Iv 40 Mg Vial IV PUSH 40 mg QAM SONIA Administration Phenol 1 spray 07/15/25 21:34 Phenol/Sod Pheno [place] Elizalde (*Bkc) MUCOUS MEM PRN PRN Sore Throat Sumatriptan Succinate 6 mg 07/20/25 09:00 Sumatriptan Succinate 6 Mg/0.5 Ml Vial SUB-Q PRN PRN migraine Radiology Results: ITS Impressions Abdomen/Pelvis CT 07/15/25 17:09 IMPRESSION: 1. Interval progression of now multiple mildly dilated loops of small bowel extending to persistent transition point in the right lower quadrant consistent with small bowel obstruction. 2. New edematous wall thickening of many of the loops of jejunum consistent with an enteritis which could be infectious or inflammatory in etiology. Ischemia is considered unlikely given the contrast enhanced arteries and veins extending to the mesentery to the affected segments of bowel which also demonstrate mucosal enhancement. 3. New small amount of likely reactive ascites. Pelvic/Transvag US 07/15/25 17:13 IMPRESSION: 1. Nonspecific fluid in the cervical canal and endometrial canal. Nonspecific fluid in the cul-de-sac. 2. Ovaries were not visualized. 3. Endometrial stripe was not adequately visualized for evaluation. 4. Visualized uterus is unremarkable. If symptoms persist or worsen, consider a short-term follow-up study or additio nal imaging for further assessment. Small Bowel X-Ray 07/16/25 14:10 IMPRESSION: 1. Persistent small bowel obstruction with multiple persistent mildly dilated loops of small bowel and no definitive oral contrast material in the colon after 4 1/2 hours. Abdomen X-Ray 07/23/25 15:46 Impression: 1. Nasogastric tube in appropriate location Chest X-Ray 07/24/25 08:19 IMPRESSION: 1. NG tube in place. 2. Mild bibasilar atelectasis. Small developing airspace opacity left base not excluded. Labs Labs: Laboratory Results - last 24 hr 07/23/25 07/23/25 07/23/25 16:15 18:07 18:38 WBC RBC Hgb Hct MCV MCH MCHC RDW Plt Count MPV Immature Gran % (Auto) Neut % (Auto) Lymph % (Auto) [place] % (Auto) Eos % (Auto) Baso % (Auto) Lymph # (Auto) [place] # (Auto) Eos # (Auto) Baso # (Auto) Abs Immat Gran (auto) Absolute Neuts (auto) Absolute Nucleated RBC Nucleated RBC % APTT 30.5 Sodium Potassium Chloride Carbon Dioxide Anion Gap BUN Creatinine Estim Creat Clear Calc Estimated GFR Glucose POC Capillary Glucose 112 H Calcium Phosphorus Magnesium Transferrin 163 L Total Bilirubin AST ALT Alkaline Phosphatase Total Protein Albumin Urine Color Dark yellow Urine Appearance Clear Urine pH 5.5 Ur Specific [place] 1.026 Urine Protein 1+ H Urine Glucose (UA) Negative Urine Ketones 4+ H Ur Blood (Man) Negative Urine Nitrate Negative Urine Bilirubin Negative Urine Urobilinogen 1.0 Leukocyte Esterase Rfl Negative Urine RBC 6-10 H Urine WBC 0-5 Ur Squamous Epith Cells Few Urine Bacteria None seen Urine Casts 11-20 Hyaline Casts Present 07/24/25 07/24/25 07/24/25 01:23 05:39 11:17 WBC 13.9 H RBC 4.28 Hgb 13.2 Hct 38.5 MCV 90.0 MCH 30.8 MCHC 34.3 RDW 13.0 Plt Count 404 H MPV 9.1 Immature Gran % (Auto) 5.5 H Neut % (Auto) 68.2 Lymph % (Auto) 16.4 L [place] % (Auto) 9.4 H Eos % (Auto) 0.0 Baso % (Auto) 0.5 Lymph # (Auto) 2.29 [place] # (Auto) 1.3 H Eos # (Auto) 0.0 Baso # (Auto) 0.1 Abs Immat Gran (auto) 0.76 H Absolute Neuts (auto) 9.5 H Absolute Nucleated RBC 0.000 Nucleated RBC % 0.0 APTT Sodium 134 L Potassium 3.1 L Chloride 98 Carbon Dioxide 24 Anion Gap 12 BUN 13 D Creatinine 0.74 Estim Creat Clear Calc 80 Estimated GFR > 60 Glucose 100 POC Capillary Glucose 103 126 H Calcium 8.7 Phosphorus 3.7 Magnesium 2.2 Transferrin Total Bilirubin 0.8 AST 54 H ALT 66 H Alkaline Phosphatase 62 Total Protein 6.4 Albumin 3.5 Urine Color Urine Appearance Urine pH Ur Specific [place] Urine Protein Urine Glucose (UA) Urine Ketones Ur Blood (Man) Urine Nitrate Urine Bilirubin Urine Urobilinogen Leukocyte Esterase Rfl Urine RBC Urine WBC Ur Squamous Epith Cells Urine Bacteria Urine Casts Hyaline Casts Quality VTE Prophylaxis VTE prophylaxis: mechanical ordered
[2025-07-24 17:14] LABS: Triglycerides 342 mg/dL (<150)
[2025-07-24] MEDS: FAT EMULSIONS IV 20% 250 ML 20.8 ML IVPB (17:22)
[2025-07-24 22:00] VITALS: BP 122/58; PULSE 97; RESP 18; TEMP 36.1; O2SAT 98
[2025-07-25] MEDS: diazePAM INJ (*CRX) 10 MG/2 ML SYRINGE 5 MG IV PUSH ×2 (00:29→23:04)
[2025-07-25] MEDS: METOCLOPRAMIDE HCL INJ 10 MG/2 ML VIAL IV PUSH ×5 (00:30→23:03)
[2025-07-25] MEDS: KETOROLAC 15 MG/ML VIAL (*BKC) IV PUSH ×3 (00:30→23:01)
[2025-07-25 05:52] LABS: Hematocrit 38.2 % (37.0-47.0); Hemoglobin 12.7 g/dL (12.0-15.0); Mean Corpuscular HGB Conc 33.2 g/dl (32-36); Mean Corpuscular Hemoglobin 30.3 pg (26-34); Mean Corpuscular Volume 91.2 fl (80-100); Platelet Count Result 344 k/mm3 (150-375); Red Blood Count 4.19 M/mm3 (4.2-5.4); White Blood Count 11.5 K/mm3 (4.5-10.0)
[2025-07-25] MEDS: MAG HYDROX/AL HYDROX/SIMETH 30 ML UDC PO ×2 (05:58→13:47)
[2025-07-25 06:00] VITALS: BP 126/74; PULSE 108; RESP 16; TEMP 36.3; O2SAT 93
[2025-07-25 06:07] LABS: Alanine Aminotransferase 76 U/L (6-35); Albumin Level 3.4 g/dL (3.5-5.1); Alkaline Phosphatase 57 U/L (38-126); Anion Gap 10 mmol/L (4-12); Aspartate Amino Transferase 56 U/L (14-36); Bilirubin,Total 0.5 mg/dL (0.2-1.3); Blood Urea Nitrogen 17 mg/dL (7-17); Calcium 8.9 mg/dL (8.4-10.2); Carbon Dioxide 24 mmol/L (22-30); Chloride 100 mmol/L (98-107); Estimated CRCL calculation 103 ml/min; Estimated Glomerular Filt Rate > 60; Glucose 93 mg/dL (65-110); Magnesium 2.2 mg/dL (1.6-2.3); Potassium 3.9 mmol/L (3.4-5.0); Sodium 134 mmol/L (137-145); Total Protein 6.0 g/dL (6.3-8.2)
[2025-07-25 06:46] LABS: Band Neutrophils Percent 4 % (0-6); Lymphocytes Absolute Manual 2.18 K/mm3 (1.1-4.5); Lymphocytes Percent Manual 19.0 % (18-44); Metamyelocytes Percent 1 %; Monocytes Absolute Manual 0.57 K/mm3 (0.1-0.90); Monocytes Percent Manual 5 % (3-9); Neutrophils Absolute Manual 8.62 K/mm3 (1.3-6.7); Neutrophils Percent Manual 71 % (46-73); Total Cells Counted 100
[2025-07-25 06:47] LABS: Schistocytes None Seen
--- NOTE | 2025-07-25 09:25 | P.PNGS_ITS ---
Progress Note: A&P Assessment and Plan (1) Complete small bowel obstruction: Code(s): K56.601 - Complete intestinal obstruction, unspecified as to cause Status: Acute Assessment and Plan: much improved, +bowel fxn, exam benign, will clamp NG and hopefully remove later today, cont PPN for now, leukocytosis improved Subjective Subjective Date/Time Seen: 07/25/25 09:25 Interval history: feels much better today, +bowel fxn Review of Systems Review of Systems: All systems reviewed & are unremarkable except as noted in HPI and below Exam Const: General: cooperative, comfortable and no acute distress Resp: Auscultation: clear to auscultation bilaterally Cardio: Rate: regular rate Rhythm: regular rhythm GI: Inspection: normal to inspection, non-distended and incision GI Palp: No abdominal tenderness and Yes Soft to palpation Objective Data Vital Signs Vital Signs: Vital Signs - 24 hr 07/24/25 11:30 07/24/25 16:52 07/24/25 20:00 Temperature 36.7 C 36.4 C Pulse Rate 102 H 104 H Respiratory Rate 18 18 Blood Pressure 131/74 113/78 Pulse Oximetry 96 94 Oxygen Delivery Room Air 07/24/25 22:00 07/25/25 06:00 Temperature 36.1 C L 36.3 C L Pulse Rate 97 108 H Respiratory Rate 18 16 Blood Pressure 122/58 L 126/74 Pulse Oximetry 98 93 Oxygen Delivery Intake/Output Intake/Output: Intake & Output 07/22/25 07/23/25 07/24/25 07/25/25 23:59 23:59 23:59 23:59 Intake Total 2375.0 600 2092.7 0 Output Total 3725 2275 1100 Balance 2375.0 -3125 -182.3 -1100 Meds/Results Medications: Active Medications Generic Name Dose Route Start Last Admin Trade Name Freq PRN Reason Stop Dose Admin Acetaminophen 650 mg 07/16/25 19:16 Acetaminophen 650 Mg Suppository RECTAL Q6H PRN Mild Pain (1-3) or Fever Hydrocodone Bitart/Acetaminophen 1 tab 07/22/25 11:42 Hydrocodone/Acetaminophen (*Crx) 5-325 Mg Tablet PO On Hold: 07/23/25 17:17 Q4H PRN Pain Rated 4-6 Al Hydrox/Mg Hydrox/Simethicone 30 ml 07/23/25 22:00 07/25/25 05:58 Mag Hydrox/Al Hydrox/Simeth 30 Ml Udc PO 30 ml Q8HR SONIA Administration Bisacodyl 10 mg 07/23/25 17:10 Bisacodyl 10 Mg Suppository RECTAL QAM PRN Constipation Dextrose 12.5 gm 07/23/25 15:59 Dextrose 50% 25 Gm/50 Ml Syringe IV PUSH PRN PRN Hypoglycemia Protocol Diazepam 5 mg 07/23/25 17:15 07/25/25 00:29 Diazepam Inj (*Crx) 10 Mg/2 Ml Syringe IV PUSH 5 mg Q12H PRN Administration Muscle Spasm Enoxaparin Sodium 40 mg 07/19/25 09:00 07/24/25 08:45 Enoxaparin 40 Mg/0.4 Ml Syringe SUB-Q 40 mg DAILY SONIA Administration Fluticasone Propionate 2 spray 07/14/25 21:00 07/24/25 21:28 Fluticasone Propionate 0.05% Na Spr 16 Gm Btl (*Bkc) NASAL 2 spray Q12HR SONIA Administration Glucagon 1 mg 07/23/25 15:59 Glucagon For Inj 1 Mg Vial IM PRN PRN Hypoglycemia Protocol Glucose 15 gm 07/23/25 15:59 Glucose Oral Gel 15 Gm Of Glucse In 37.5 Gm Tube PO PRN PRN Hypoglycemia Protocol Dextrose 1,000 mls @ 50 mls/hr 07/23/25 17:00 Dextrose 10% IV CONT .Q20H PRN if PN is interrupted Amino Acids/Electrolytes/Dextrose 1,000 mls @ 80 mls/hr 07/23/25 17:00 07/24/25 17:22 Clinimix E 4.25%/5% Solution IV CONT 80 mls/hr .[id number] SONIA Administration Protocol Fat Emulsion Intravenous 250 mls @ 20.833 mls/hr 07/23/25 17:00 07/24/25 17:22 Lipids 20% IVPB 20.8 mls/hr Q24H SONIA Administration Dextrose 1,000 mls @ 100 mls/hr 07/23/25 15:59 Dextrose 5% 1,000 Ml IVPB PRN PRN Hypoglycemia Protocol Insulin Human Regular 0 units 07/23/25 18:00 07/25/25 07:56 Insulin Human Regular (*Bkc) 100 Units/Ml SUB-Q Not Given Q6HR [facility] Protocol Lidocaine 1 patch 07/17/25 09:00 07/24/25 08:45 Lidocaine 5% Patch TRANSDERM 1 patch DAILY SONIA Administration Metoclopramide HCl 10 mg 07/23/25 12:00 07/25/25 05:58 Metoclopramide Hcl Inj 10 Mg/2 Ml Vial IV PUSH 10 mg Q6HR OSNIA Administration Morphine Sulfate 4 mg 07/16/25 19:32 07/22/25 13:08 Morphine Sulfate (*Crx) 4 Mg/Ml Inj IV PUSH 4 mg Q4H PRN Administration Pain Rated 7-10 Ondansetron HCl 4 mg 07/15/25 14:16 07/23/25 13:23 Ondansetron Inj 4 Mg/2 Ml Vial IV PUSH 4 mg Q6H PRN Administration Nausea And Vomiting Pantoprazole Sodium 40 mg 07/24/25 09:00 07/24/25 08:42 Pantoprazole Sodium Iv 40 Mg Vial IV PUSH 40 mg QAM SONIA Administration Phenol 1 spray 07/15/25 21:34 Phenol/Sod Pheno Warren Elizalde (*Bkc) MUCOUS MEM PRN PRN Sore Throat Sumatriptan Succinate 6 mg 07/20/25 09:00 Sumatriptan Succinate 6 Mg/0.5 Ml Vial SUB-Q PRN PRN migraine Radiology Results: ITS Impressions Abdomen/Pelvis CT 07/15/25 17:09 IMPRESSION: 1. Interval progression of now multiple mildly dilated loops of small bowel extending to persistent transition point in the right lower quadrant consistent with small bowel obstruction. 2. New edematous wall thickening of many of the loops of jejunum consistent with an enteritis which could be infectious or inflammatory in etiology. Ischemia is considered unlikely given the contrast enhanced arteries and veins extending to the mesentery to the affected segments of bowel which also demonstrate mucosal enhancement. 3. New small amount of likely reactive ascites. Pelvic/Transvag US 07/15/25 17:13 IMPRESSION: 1. Nonspecific fluid in the cervical canal and endometrial canal. Nonspecific fluid in the cul-de-sac. 2. Ovaries were not visualized. 3. Endometrial stripe was not adequately visualized for evaluation. 4. Visualized uterus is unremarkable. If symptoms persist or worsen, consider a short-term follow-up study or additional imaging for further assessment. Small Bowel X-Ray 07/16/25 14:10 IMPRESSION: 1. Persistent small bowel obstruction with multiple persistent mildly dilated loops of small bowel and no definitive oral contrast material in the colon after 4 1/2 hours. Abdomen X-Ray 07/23/25 15:46 Impression: 1. Nasogastric tube in appropriate location Chest X-Ray 07/24/25 08:19 IMPRESSION: 1. NG tube in place. 2. Mild bibasilar atelectasis. Small developing airspace opacity left base not excluded. Labs Labs: Laboratory Results - last 24 hr 07/24/25 07/24/25 07/24/25 11:17 16:48 17:02 WBC RBC Hgb Hct MCV MCH MCHC RDW Plt Count MPV Immature Gran % (Auto) Neut % (Auto) Lymph % (Auto) [place] % (Auto) Eos % (Auto) Baso % (Auto) Lymph # (Auto) [place] # (Auto) Eos # (Auto) Baso # (Auto) Abs Immat Gran (auto) Absolute Neuts (auto) Absolute Nucleated RBC Total Counted Neutrophils % (Manual) Band Neutrophils % Lymphocytes % (Manual) Monocytes % (Manual) Metamyelocytes % Nucleated RBC % Abs Neuts (Manual) Abs Lymphs (Manual) Abs Monocytes (Manual) Platelet Estimate Schistocytes Sodium Potassium Chloride Carbon Dioxide Anion Gap BUN Creatinine Estim Creat Clear Calc Estimated GFR Glucose POC Capillary Glucose 126 H 106 H Calcium Phosphorus Magnesium Total Bilirubin AST ALT Alkaline Phosphatase Total Protein Albumin Triglycerides 342 H 07/25/25 07/25/25 01:54 05:38 WBC 11.5 H RBC 4.19 L Hgb 12.7 Hct 38.2 MCV 91.2 MCH 30.3 MCHC 33.2 RDW 13.1 Plt Count 344 MPV 9.8 Immature Gran % (Auto) Not Reportable Neut % (Auto) Not Reportable Lymph % (Auto) Not Reportable [place] % (Auto) Not Reportable Eos % (Auto) Not Reportable Baso % (Auto) Not Reportable Lymph # (Auto) Not Reportable [place] # (Auto) Not Reportable Eos # (Auto) Not Reportable Baso # (Auto) Not Reportable Abs Immat Gran (auto) Not Reportable Absolute Neuts (auto) Not Reportable Absolute Nucleated RBC Not Reportable Total Counted 100 Neutrophils % (Manual) 71 Band Neutrophils % 4 Lymphocytes % (Manual) 19.0 Monocytes % (Manual) 5 Metamyelocytes % 1 Nucleated RBC % Not Reportable Abs Neuts (Manual) 8.62 H Abs Lymphs (Manual) 2.18 Abs Monocytes (Manual) 0.57 Platelet Estimate Adequate Schistocytes None seen Sodium 134 L Potassium 3.9 Chloride 100 Carbon Dioxide 24 Anion Gap 10 BUN 17 Creatinine 0.56 L Estim Creat Clear Calc 103 Estimated GFR > 60 Glucose 93 POC Capillary Glucose 102 Calcium 8.9 Phosphorus 3.9 Magnesium 2.2 Total Bilirubin 0.5 AST 56 H ALT 76 H Alkaline Phosphatase 57 Total Protein 6.0 L Albumin 3.4 L Triglycerides
[2025-07-25] MEDS: ENOXAPARIN 40 MG/0.4 ML SYRINGE SUB-Q (09:45)
[2025-07-25] MEDS: PANTOPRAZOLE SODIUM IV 40 MG VIAL IV PUSH (09:45)
[2025-07-25] MEDS: FLUTICASONE PROPIONATE 0.05% NA SPR 16 GM BTL (*BKC) 2 SPRAY NASAL ×2 (09:46→23:03)
[2025-07-25] MEDS: LIDOCAINE 5% PATCH 1 PATCH TRANSDERM (09:46)
[2025-07-25] MEDS: AMINO ACIDS 4.25%/D5W/LYTES/CA 1,000 ML 80 ML IV CONT ×2 (11:11→23:07)
--- NOTE | 2025-07-25 12:42 | P.PNIM_ITS ---
Progress Note: A&P Assessment and Plan (1) Complete small bowel obstruction: Code(s): K56.601 - Complete intestinal obstruction, unspecified as to cause Status: Acute Assessment and Plan: Onset of severe abdominal pain, initial CT largely negative, did not show appendix. Pelvis US negative as well, with ovaries not appearing. Repeat CT then positive for SBO S/p Exlap with abdominal adhesiolysis Patient vomiting this morning and repeat Abd imaging showed ileus vs SBO recurrence Advance diet per Gen surgery, on PPN Gen surgery informed (2) Enteritis: Code(s): K52.9 - Noninfective gastroenteritis and colitis, unspecified Status: Acute Assessment and Plan: IV fluids for hydration Zosyn discontinued (3) Migraine headache: Code(s): G43.909 - Migraine, unspecified, not intractable, without status migrainosus Status: Acute Assessment and Plan: Takes rizatriptan home, however not able to take medications at this time, sumatriptan subcutaneous p.r.n. Plan DVT prophylaxis on Sq Lovenox Subjective Date/time seen: 07/25/25 12:42 Interval history: Comfortable at bedside Advance diet per Gen surgery Review of Systems Review of Systems: 12 systems were reviewed and are negativ e except for as per HPI. Exam Narrative: General: well appearing, appears stated age. HEENT: normocephalic, atraumatic. Mucous membranes moist. EOMI, PERRLA, bilateral sclera anicteric, no conjunctival injection. Neck supple without JVD, lymphadenopathy, or bruit. Respiratory: clear to ascultation bilaterally. No rales/rhonic/wheezes. Cardiovascular: Regular rate and rhythm, normal S1-S2 upon ascultation. No murmurs, rubs, or clicks. PMI is nondisplaced, capillary refill less than 3 second. Abdomen: Soft, round, no pulsatile masses, nondistended. No CVA tenderness, no hepatosplenomegaly. Bowel sounds present to all four quadrants. No high pitch or tinkling sounds, resonant to percussion. Right lower quadrant tender to light palpation. NG tube in place Extremities: No cyanosis, clubbing, or edema present. Pulses are palpable 2/2. Active ROM to all four extremities. Neuro: Alert and orientated x 4. PERRLA. Cranial nerves 2-12 intact without focal deficit. Skin: Warm, dry, and intact, without rash, erythema, or lesion. Psych: pleasant, cooperative, normal speech, normal affect, no hallucinations, no dysarthia Objective Data Vital Signs Vital Signs: Vital Signs - 24 hr 07/24/25 16:52 07/24/25 20:00 07/24/25 22:00 Temperature 97.6 F 97.0 F L Pulse Rate 104 H 97 Respiratory Rate 18 18 Blood Pressure 113/78 122/58 L Pulse Oximetry 94 98 Oxygen Delivery Room Air 07/25/25 06:00 Temperature 97.3 F L Pulse Rate 108 H Respiratory Rate 16 Blood Pressure 126/74 Pulse Oximetry 93 Oxygen Delivery Intake/Output Intake/Output: Intake & Output 07/22/25 07/23/25 07/24/25 07/25/25 23:59 23:59 23:59 23:59 Intake Total 2375.0 600 2092.7 1000 Output Total 3725 2275 1100 Balance 2375.0 -3125 -182.3 -100 Meds/Results Medications: Active Medications Generic Name Dose Route Start Last Admin Trade Name Freq PRN Reason Stop Dose Admin Acetaminophen 650 mg 07/16/25 19:16 Acetaminophen 650 Mg Suppository RECTAL Q6H PRN Mild Pain (1-3) or Fever Hydrocodone Bitart/Acetaminophen 1 tab 07/22/25 11:42 Hydrocodone/Acetaminophen (*Crx) 5-325 Mg Tablet PO On Hold: 07/23/25 17:17 Q4H PRN Pain Rated 4-6 Al Hydrox/Mg Hydrox/Simethicone 30 ml 07/23/25 22:00 07/25/25 05:58 Mag Hydrox/Al Hydrox/Simeth 30 Ml Udc PO 30 ml Q8HR SONIA Administration Bisacodyl 10 mg 07/23/25 17:10 Bisacodyl 10 Mg Suppository RECTAL QAM PRN Constipation Dextrose 12.5 gm 07/23/25 15:59 Dextrose 50% 25 Gm/50 Ml Syringe IV PUSH PRN PRN Hypoglycemia Protocol Diazepam 5 mg 07/23/25 17:15 07/25/25 00:29 Diazepam Inj (*Crx) 10 Mg/2 Ml Syringe IV PUSH 5 mg Q12H PRN Administration Muscle Spasm Enoxaparin Sodium 40 mg 07/19/25 09:00 07/25/25 09:45 Enoxaparin 40 Mg/0.4 Ml Syringe SUB-Q 40 mg DAILY SONIA Administration Fluticasone Propionate 2 spray 07/14/25 21:00 07/25/25 09:46 Fluticasone Propionate 0.05% Na Spr 16 Gm Btl (*Bkc) NASAL 2 spray Q12HR SONIA Administration Glucagon 1 mg 07/23/25 15:59 Glucagon For Inj 1 Mg Vial IM PRN PRN Hypoglycemia Protocol Glucose 15 gm 07/23/25 15:59 Glucose Oral Gel 15 Gm Of Glucse In 37.5 Gm Tube PO PRN PRN Hypoglycemia Protocol Dextrose 1,000 mls @ 50 mls/hr 07/23/25 17:00 Dextrose 10% IV CONT .Q20H PRN if PN is interrupted Amino Acids/Electrolytes/Dextrose 1,000 mls @ 80 mls/hr 07/23/25 17:00 07/25/25 11:11 Clinimix E 4.25%/5% Solution IV CONT 80 mls/hr .[id number] SONIA Administration Protocol Fat Emulsion Intravenous 250 mls @ 20.833 mls/hr 07/23/25 17:00 07/24/25 17:22 Lipids 20% IVPB 20.8 mls/hr Q24H SONIA Administration Dextrose 1,000 mls @ 100 mls/hr 07/23/25 15:59 Dextrose 5% 1,000 Ml IVPB PRN PRN Hypoglycemia Protocol Insulin Human Regular 0 units 07/23/25 18:00 07/25/25 11:36 Insulin Human Regular (*Bkc) 100 Units/Ml SUB-Q Not Given Q6HR [facility] Protocol Ketorolac Tromethamine 15 mg 07/25/25 11:18 07/25/25 12:08 Ketorolac 15 Mg/Ml Vial (*Bkc) IV PUSH 15 mg Q8HR PRN Administration Pain Rated 4-6 Lidocaine 1 patch 07/17/25 09:00 07/25/25 09:46 Lidocaine 5% Patch TRANSDERM 1 patch DAILY SONIA Administration Metoclopramide HCl 10 mg 07/23/25 12:00 07/25/25 12:08 Metoclopramide Hcl Inj 10 Mg/2 Ml Vial IV PUSH 10 mg Q6HR SONIA Administration Miscellaneous Information 1 each 07/25/25 11:52 Pharmacist Communication Order XX 07/25/25 11:53 ONCE ONE Morphine Sulfate 4 mg 07/16/25 19:32 07/22/25 13:08 Morphine Sulfate (*Crx) 4 Mg/Ml Inj IV PUSH 4 mg Q4H PRN Administration Pain Rated 7-10 Non-Formulary Medication 5 mcg 07/25/25 21:00 Norethindrone Acetate 1 Mg-Eth PO 08/24/25 20:59 QHS SONIA Ondansetron HCl 4 mg 07/15/25 14:16 07/23/25 13:23 Ondansetron Inj 4 Mg/2 Ml Vial IV PUSH 4 mg Q6H PRN Administration Nausea And Vomiting Pantoprazole Sodium 40 mg 07/24/25 09:00 07/25/25 09:45 Pantoprazole Sodium Iv 40 Mg Vial IV PUSH 40 mg QAM SONIA Administration Phenol 1 spray 07/15/25 21:34 Phenol/Sod Pheno Marion Elizalde (*Bkc) MUCOUS MEM PRN PRN Sore Throat Potassium Chloride 40 meq 07/25/25 12:22 Potassium Chloride 20 Meq Packet (For Liquid) PO 07/25/25 12:23 ONCE ONE Sumatriptan Succinate 6 mg 07/20/25 09:00 Sumatriptan Succinate 6 Mg/0.5 Ml Vial SUB-Q PRN PRN migraine Radiology Results: ITS Impressions Abdomen/Pelvis CT 07/15/25 17:09 IMPRESSION: 1. Interval progression of now multiple mildly dilated loops of small bowel extending to persistent transition point in the right lower quadrant consistent with small bowel obstruction. 2. New edematous wall thickening of many of the loops of jejunum consistent with an enteritis which could be infectious or inflammatory in etiology. Ischemia is considered unlikely given the contrast enhanced arteries and veins extending to the mesentery to the affected segments of bowel which also demonstrate mucosal enhancement. 3. New small amount of likely reactive ascites. Pelvic/Transvag US 07/15/25 17:13 IMPRESSION: 1. Nonspecific fluid in the cervical canal and endometrial canal. Nonspecific fluid in the cul-de-sac. 2. Ovaries were not visualized. 3. Endometrial stripe was not adequately visualized for evaluation. 4. Visualized uterus is unremarkable. If symptoms persist or worsen, consider a short-term follow-up study or additional imaging for further assessment. Small Bowel X-Ray 07/16/25 14:10 IMPRESSION: 1. Persistent small bowel obstruction with multiple persistent mildly dilated loops of small bowel and no definitive oral contrast material in the colon after 4 1/2 hours. Abdomen X-Ray 07/23/25 15:46 Impression: 1. Nasogastric tube in appropriate location Chest X-Ray 07/24/25 08:19 IMPRESSION: 1. NG tube in place. 2. Mild bibasilar atelectasis. Small developing airspace opacity left base not excluded. Labs Labs: Laboratory Results - last 24 hr 07/24/25 07/24/25 07/25/25 16:48 17:02 01:54 WBC RBC Hgb Hct MCV MCH MCHC RDW Plt Count MPV Immature Gran % (Auto) Neut % (Auto) Lymph % (Auto) [place] % (Auto) Eos % (Auto) Baso % (Auto) Lymph # (Auto) [place] # (Auto) Eos # (Auto) Baso # (Auto) Abs Immat Gran (auto) Absolute Neuts (auto) Absolute Nucleated RBC Total Counted Neutrophils % (Manual) Band Neutrophils % Lymphocytes % (Manual) Monocytes % (Manual) Metamyelocytes % Nucleated RBC % Abs Neuts (Manual) Abs Lymphs (Manual) Abs Monocytes (Manual) Platelet Estimate Schistocytes Sodium Potassium Chloride Carbon Dioxide Anion Gap BUN Creatinine Estim Creat Clear Calc Estimated GFR Glucose POC Capillary Glucose 106 H 102 Calcium Phosphorus Magnesium Total Bilirubin AST ALT Alkaline Phosphatase Total Protein Albumin Triglycerides 342 H 07/25/25 07/25/25 05:38 11:44 WBC 11.5 H RBC 4.19 L Hgb 12.7 Hct 38.2 MCV 91.2 MCH 30.3 MCHC 33.2 RDW 13.1 Plt Count 344 MPV 9.8 Immature Gran % (Auto) Not Reportable Neut % (Auto) Not Reportable Lymph % (Auto) Not Reportable [place] % (Auto) Not Reportable Eos % (Auto) Not Reportable Baso % (Auto) Not Reportable Lymph # (Auto) Not Reportable [place] # (Auto) Not Reportable Eos # (Auto) Not Reportable Baso # (Auto) Not Reportable Abs Immat Gran (auto) Not Reportable Absolute Neuts (auto) Not Reportable Absolute Nucleated RBC Not Reportable Total Counted 100 Neutrophils % (Manual) 71 Band Neutrophils % 4 Lymphocytes % (Manual) 19.0 Monocytes % (Manual) 5 Metamyelocytes % 1 Nucleated RBC % Not Reportable Abs Neuts (Manual) 8.62 H Abs Lymphs (Manual) 2.18 Abs Monocytes (Manual) 0.57 Platelet Estimate Adequate Schistocytes None seen Sodium 134 L Potassium 3.9 Chloride 100 Carbon Dioxide 24 Anion Gap 10 BUN 17 Creatinine 0.56 L Estim Creat Clear Calc 103 Estimated GFR > 60 Glucose 93 POC Capillary Glucose 127 H Calcium 8.9 Phosphorus 3.9 Magnesium 2.2 Total Bilirubin 0.5 AST 56 H ALT 76 H Alkaline Phosphatase 57 Total Protein 6.0 L Albumin 3.4 L Triglycerides Quality VTE Prophylaxis VTE prophylaxis: mechanical ordered
[2025-07-25] MEDS: POTASSIUM CHLORIDE 20 MEQ PACKET (FOR LIQUID) 40 MEQ PO (13:45)
[2025-07-25 13:57] VITALS: BP 132/70; PULSE 95; RESP 16; TEMP 37.1; O2SAT 92
[2025-07-25] MEDS: FAT EMULSIONS IV 20% 250 ML 20.8 ML IVPB (17:14)
[2025-07-25 18:00] VITALS: BP 134/68; PULSE 72; RESP 16; TEMP 36.6; O2SAT 98
[2025-07-25 22:00] VITALS: BP 138/79; PULSE 101; RESP 18; TEMP 36.6; O2SAT 96
[2025-07-25] MEDS: NORETHINDRONE ACETATE PO (23:03)
[2025-07-25] MEDS: [UNRECOGNIZED DRUG - OTHER] PO (23:03)
[2025-07-26 02:15] VITALS: BP 139/80; PULSE 97; RESP 16; TEMP 36.3; O2SAT 93
[2025-07-26] MEDS: METOCLOPRAMIDE HCL INJ 10 MG/2 ML VIAL IV PUSH ×3 (05:02→17:22)
[2025-07-26 05:33] LABS: Hematocrit 36.9 % (37.0-47.0); Hemoglobin 12.6 g/dL (12.0-15.0); Mean Corpuscular HGB Conc 34.1 g/dl (32-36); Mean Corpuscular Hemoglobin 30.4 pg (26-34); Mean Corpuscular Volume 88.9 fl (80-100); Platelet Count Result 458 k/mm3 (150-375); Red Blood Count 4.15 M/mm3 (4.2-5.4); White Blood Count 12.1 K/mm3 (4.5-10.0)
[2025-07-26 05:39] LABS: INR 1.0; Prothrombin Time 12.9 Seconds (11.1-14.7)
[2025-07-26 05:40] LABS: Alanine Aminotransferase 86 U/L (6-35); Albumin Level 3.6 g/dL (3.5-5.1); Alkaline Phosphatase 63 U/L (38-126); Anion Gap 10 mmol/L (4-12); Aspartate Amino Transferase 58 U/L (14-36); Bilirubin,Total 0.4 mg/dL (0.2-1.3); Blood Urea Nitrogen 17 mg/dL (7-17); Calcium 9.0 mg/dL (8.4-10.2); Carbon Dioxide 26 mmol/L (22-30); Chloride 95 mmol/L (98-107); Estimated CRCL calculation 91 ml/min; Estimated Glomerular Filt Rate > 60; Glucose 122 mg/dL (65-110); Magnesium 2.4 mg/dL (1.6-2.3); Partial Thromboplastin Time 24.9 Seconds (22.3-36.8); Potassium 3.7 mmol/L (3.4-5.0); Sodium 131 mmol/L (137-145); Total Protein 6.4 g/dL (6.3-8.2)
[2025-07-26 05:48] LABS: Transferrin 169 mg/dL (206-381)
[2025-07-26 06:00] VITALS: BP 133/68; PULSE 97; RESP 16; TEMP 36.7; O2SAT 94
[2025-07-26 06:45] LABS: Band Neutrophils Percent 8 % (0-6); Lymphocytes Absolute Manual 2.17 K/mm3 (1.1-4.5); Lymphocytes Percent Manual 18 % (18-44); Monocytes Absolute Manual 0.24 K/mm3 (0.1-0.90); Monocytes Percent Manual 2 % (3-9); Neutrophils Absolute Manual 9.68 K/mm3 (1.3-6.7); Neutrophils Percent Manual 72 % (46-73); Schistocytes None Seen; Total Cells Counted 100
[2025-07-26] MEDS: FLUTICASONE PROPIONATE 0.05% NA SPR 16 GM BTL (*BKC) 2 SPRAY NASAL ×2 (09:00→22:22)
[2025-07-26] MEDS: PANTOPRAZOLE SODIUM IV 40 MG VIAL IV PUSH (09:00)
[2025-07-26] MEDS: ENOXAPARIN 40 MG/0.4 ML SYRINGE SUB-Q (09:00)
[2025-07-26] MEDS: LIDOCAINE 5% PATCH 1 PATCH TRANSDERM (09:00)
--- NOTE | 2025-07-26 12:13 | PM.PNGS ---
Progress Note: A&P Assessment and Plan (1) Complete small bowel obstruction: Code(s): K56.601 - Complete intestinal obstruction, unspecified as to cause Status: Acute Assessment and Plan: NG tube removed yesterday. Tolerating clear liquids. Will advance to fulls. Minimal abdominal pain today. Toradol discontinued and switched to IV ibuprofen. WBC 12.1 today. Incision looks clean and dry and is not likely source of infection. Continue to monitor with daily labs. Plan Discussed patient's case and plan of care with Dr. Mcelroy. Subjective Subjective Date/Time Seen: 07/26/25 12:13 Patient reports: no new complaints and bowel movement Interval history: Patient doing well today. Reports that she had a few bowel movements over the weekend and 7 loose BMs this morning. NG pulled yesterday and patient tolerating clear liquids. Exam Const: General: comfortable and no acute distress GI: Inspection: non-distended GI Palp: Yes Soft to palpation, No Tenderness to palpation present (GI) and No Guarding due to palpation present (GI) Auscultation: normal bowel sounds Other: Incision is clean and dry with no signs of infection Psych: Mental Status: mental status grossly normal Objective Data Vital Signs Vital Signs: Vital Signs - 24 hr 07/25/25 13:57 07/25/25 18:00 07/25/25 20:00 Temperature 98.7 F 98 F Pulse Rate 95 72 Respiratory Rate 16 16 Blood Pressure 132/70 134/68 Pulse Oximetry 92 98 Oxygen Delivery Room Air 07/25/25 22:00 07/26/25 02:15 07/26/25 06:00 Temperature 97.9 F 97.4 F L 98.1 F Pulse Rate 101 H 97 97 Respiratory Rate 18 16 16 Blood Pressure 138/79 139/80 133/68 Pulse Oximetry 96 93 94 Oxygen Delivery Intake/Output Intake/Output: Intake & Output 07/23/25 07/24/25 07/25/25 07/26/25 23:59 23:59 23:59 23:59 Intake Total 600 2092.7 2544.7 740 Output Total 3725 2275 1500 Balance -3125 -182.3 1044.7 740 Meds/Results Medications: Active Medications Generic Name Dose Route Start Last Admin Trade Name Freq PRN Reason Stop Dose Admin Acetaminophen 650 mg 07/16/25 19:16 Acetaminophen 650 Mg Suppository RECTAL Q6H PRN Mild Pain (1-3) or Fever Hydrocodone Bitart/Acetaminophen 1 tab 07/22/25 11:42 Hydrocodone/Acetaminophen (*Crx) 5-325 Mg Tablet PO On Hold: 07/23/25 17:17 Q4H PRN Pain Rated 4-6 Al Hydrox/Mg Hydrox/Simethicone 30 ml 07/23/25 22:00 07/26/25 05:02 Mag Hydrox/Al Hydrox/Simeth 30 Ml Udc PO Not Given Q8HR SONIA Bisacodyl 10 mg 07/23/25 17:10 Bisacodyl 10 Mg Suppository RECTAL QAM PRN Constipation Diazepam 5 mg 07/23/25 17:15 07/25/25 23:04 Diazepam Inj (*Crx) 10 Mg/2 Ml Syringe IV PUSH 5 mg Q12H PRN Administration Muscle Spasm Enoxaparin Sodium 40 mg 07/19/25 09:00 07/26/25 09:00 Enoxaparin 40 Mg/0.4 Ml Syringe SUB-Q 40 mg DAILY SONIA Administration Fluticasone Propionate 2 spray 07/14/25 21:00 07/26/25 09:00 Fluticasone Propionate 0.05% Na Spr 16 Gm Btl (*Bkc) NASAL 2 spray Q12HR SONIA Administration Glucagon 1 mg 07/23/25 15:59 Glucagon For Inj 1 Mg Vial IM PRN PRN Hypoglycemia Protocol Fat Emulsion Intravenous 250 mls @ 20.833 mls/hr 07/23/25 17:00 07/25/25 17:14 Lipids 20% IVPB 20.8 mls/hr Q24H SONIA Administration Lidocaine 1 patch 07/17/25 09:00 07/26/25 09:00 Lidocaine 5% Patch TRANSDERM 1 patch DAILY SONIA Administration Metoclopramide HCl 10 mg 07/23/25 12:00 07/26/25 05:02 Metoclopramide Hcl Inj 10 Mg/2 Ml Vial IV PUSH 10 mg Q6HR SONIA Administration Miscellaneous Information 1 each 07/26/25 00:01 Please Renew Morphine_. Per [employer] Procedure, It Will Discontinue If Not Renewed XX 08/25/25 00:00 CLARIFY SONIA Miscellaneous Information 1 each 07/26/25 00:01 Please Renew Tpn . Per [employer] Procedure, It Will Discontinue If Not Renewed XX 08/25/25 00:00 CLARIFY SONIA Morphine Sulfate 4 mg 07/16/25 19:32 07/22/25 13:08 Morphine Sulfate (*Crx) 4 Mg/Ml Inj IV PUSH 4 mg Q4H PRN Administration Pain Rated 7-10 Non-Formulary Medication 5 mcg 07/25/25 21:00 07/25/25 23:03 Norethindrone Acetate 1 Mg-Eth PO 08/24/25 20:59 5 mcg QHS SONIA Administration Ondansetron HCl 4 mg 07/15/25 14:16 07/23/25 13:23 Ondansetron Inj 4 Mg/2 Ml Vial IV PUSH 4 mg Q6H PRN Administration Nausea And Vomiting Pantoprazole Sodium 40 mg 07/24/25 09:00 07/26/25 09:00 Pantoprazole Sodium Iv 40 Mg Vial IV PUSH 40 mg QAM SONIA Administration Phenol 1 spray 07/15/25 21:34 Phenol/Sod Pheno Rickreall Elizalde (*Bkc) MUCOUS MEM PRN PRN Sore Throat Sumatriptan Succinate 6 mg 07/20/25 09:00 Sumatriptan Succinate 6 Mg/0.5 Ml Vial SUB-Q PRN PRN migraine Radiology Results: ITS Impressions Abdomen/Pelvis CT 07/15/25 17:09 IMPRESSION: 1. Interval progression of now multiple mildly dilated loops of small bowel extending to persistent transition point in the right lower quadrant consistent with small bowel obstruction. 2. New edematous wall thickening of many of the loops of jejunum consistent with an enteritis which could be infectious or inflammatory in etiology. Ischemia is considered unlikely given the contrast enhanced arteries and veins extending to the mesentery to the affected segments of bowel which also demonstrate mucosal enhancement. 3. New small amount of likely reactive ascites. Pelvic/Transvag US 07/15/25 17:13 IMPRESSION: 1. Nonspecific fluid in the cervical canal and endometrial canal. Nonspecific fluid in the cul-de-sac. 2. Ovaries were not visualized. 3. Endometrial stripe was not adequately visualized for evaluation. 4. Visualized uterus is unremarkable. If symptoms persist or worsen, consider a short-term follow-up study or additional imaging for further assessment. Small Bowel X-Ray 07/16/25 14:10 IMPRESSION: 1. Persistent small bowel obstruction with multiple persistent mildly dilated loops of small bowel and no definitive oral contrast material in the colon after 4 1/2 hours. Abdomen X-Ray 07/23/25 15:46 Impression: 1. Nasogastric tube in appropriate location Chest X-Ray 07/24/25 08:19 IMPRESSION: 1. NG tube in place. 2. Mild bibasilar atelectasis. Small developing airspace opacity left base not excluded. Labs Labs: Laboratory Results - last 24 hr 07/26/25 07/26/25 07/26/25 02:52 05:00 06:34 WBC 12.1 H RBC 4.15 L Hgb 12.6 Hct 36.9 L MCV 88.9 MCH 30.4 MCHC 34.1 RDW 12.9 Plt Count 458 H MPV 9.0 Immature Gran % (Auto) Not Reportable Neut % (Auto) Not Reportable Lymph % (Auto) Not Reportable [place] % (Auto) Not Reportable Eos % (Auto) Not Reportable Baso % (Auto) Not Reportable Lymph # (Auto) Not Reportable [place] # (Auto) Not Reportable Eos # (Auto) Not Reportable Baso # (Auto) Not Reportable Abs Immat Gran (auto) Not Reportable Absolute Neuts (auto) Not Reportable Absolute Nucleated RBC Not Reportable Total Counted 100 Neutrophils % (Manual) 72 Band Neutrophils % 8 H Lymphocytes % (Manual) 18 Monocytes % (Manual) 2 L Nucleated RBC % Not Reportable Abs Neuts (Manual) 9.68 H Abs Lymphs (Manual) 2.17 Abs Monocytes (Manual) 0.24 Atypical Lymphocytes Present Platelet Estimate Increased Schistocytes None seen PT 12.9 INR 1.0 APTT 24.9 Sodium 131 L Potassium 3.7 Chloride 95 L Carbon Dioxide 26 Anion Gap 10 BUN 17 Creatinine 0.64 L Estim Creat Clear Calc 91 Estimated GFR > 60 Glucose 122 H POC Capillary Glucose 103 115 H Calcium 9.0 Phosphorus 4.5 Magnesium 2.4 H Transferrin 169 L Total Bilirubin 0.4 AST 58 H ALT 86 H Alkaline Phosphatase 63 Total Protein 6.4 Albumin 3.6 07/26/25 07/26/25 08:22 12:05 WBC RBC Hgb Hct MCV MCH MCHC RDW Plt Count MPV Immature Gran % (Auto) Neut % (Auto) Lymph % (Auto) [place] % (Auto) Eos % (Auto) Baso % (Auto) Lymph # (Auto) [place] # (Auto) Eos # (Auto) Baso # (Auto) Abs Immat Gran (auto) Absolute Neuts (auto) Absolute Nucleated RBC Total Counted Neutrophils % (Manual) Band Neutrophils % Lymphocytes % (Manual) Monocytes % (Manual) Nucleated RBC % Abs Neuts (Manual) Abs Lymphs (Manual) Abs Monocytes (Manual) Atypical Lymphocytes Platelet Estimate Schistocytes PT INR APTT Sodium Potassium Chloride Carbon Dioxide Anion Gap BUN Creatinine Estim Creat Clear Calc Estimated GFR Glucose POC Capillary Glucose 117 H 132 H Calcium Phosphorus Magnesium Transferrin Total Bilirubin AST ALT Alkaline Phosphatase Total Protein Albumin
[2025-07-26] MEDS: MAG HYDROX/AL HYDROX/SIMETH 30 ML UDC PO (13:10)
[2025-07-26 13:38] VITALS: BP 139/84; PULSE 98; RESP 14; TEMP 36.6; O2SAT 96
[2025-07-26] MEDS: diazePAM INJ (*CRX) 10 MG/2 ML SYRINGE 5 MG IV PUSH (14:01)
--- NOTE | 2025-07-26 16:32 | P.PNIM_ITS ---
Progress Note: A&P Assessment and Plan (1) Complete small bowel obstruction: Code(s): K56.601 - Complete intestinal obstruction, unspecified as to cause Status: Acute Assessment and Plan: Onset of severe abdominal pain, initial CT largely negative, did not show appendix. Pelvis US negative as well, with ovaries not appearing. Repeat CT then positive for SBO S/p Exlap with abdominal adhesiolysis On Full liquid diet today, s/p PPN and NG tube Advance diet per Gen surgery Gen surgery following (2) Enteritis: Code(s): K52.9 - Noninfective gastroenteritis and colitis, unspecified Status: Acute Assessment and Plan: IV fluids for hydration Zosyn discontinued (3) Migraine headache: Code(s): G43.909 - Migraine, unspecified, not intractable, without status migrainosus Status: Acute Assessment and Plan: Takes rizatriptan home, however not able to take medications at this time, sumatriptan subcutaneous p.r.n. Plan Diarrhea 9 episodes this morning alone C diff, Stool studies pending IVF and monitor DVT prophylaxis on Sq Lovenox Subjective Date/time seen: 07/26/25 16:32 Interval history: Comfortable at bedside, reported diarrhea and has had 9 loose bowel movements as at the time of encounter this morning. C diff and stool studies ordered Review of Systems Review of Systems: 12 systems were reviewed and are negativ e except for as per HPI. Exam Narrative: General: well appearing, appears stated age. HEENT: normocephalic, atraumatic. Mucous membranes moist. EOMI, PERRLA, bilateral sclera anicteric, no conjunctival injection. Neck supple without JVD, lymphadenopathy, or bruit. Respiratory: clear to ascultation bilaterally. No rales/rhonic/wheezes. Cardiovascular: Regular rate and rhythm, normal S1-S2 upon ascultation. No murmurs, rubs, or clicks. PMI is nondisplaced, capillary refill less than 3 second. Abdomen: Soft, round, no pulsatile masses, nondistended. No CVA tenderness, no hepatosplenomegaly. Bowel sounds present to all four quadrants. No high pitch or tinkling sounds, resonant to percussion. Right lower quadrant tender to light palpation. NG tube in place Extremities: No cyanosis, clubbing, or edema present. Pulses are palpable 2/2. Active ROM to all four extremities. Neuro: Alert and orientated x 4. PERRLA. Cranial nerves 2-12 intact without focal deficit. Skin: Warm, dry, and intact, without rash, erythema, or lesion. Psych: pleasant, cooperative, normal speech, normal affect, no hallucinations, no dysarthia Objective Data Vital Signs Vital Signs: Vital Signs - 24 hr 07/25/25 18:00 07/25/25 20:00 07/25/25 22:00 Temperature 98 F 97.9 F Pulse Rate 72 101 H Respiratory Rate 16 18 Blood Pressure 134/68 138/79 Pulse Oximetry 98 96 Oxygen Delivery Room Air 07/26/25 02:15 07/26/25 06:00 07/26/25 12:00 Temperature 97.4 F L 98.1 F Pulse Rate 97 97 Respiratory Rate 16 16 Blood Pressure 139/80 133/68 Pulse Oximetry 93 94 Oxygen Delivery Room Air 07/26/25 13:38 Temperature 97.8 F Pulse Rate 98 Respiratory Rate 14 Blood Pressure 139/84 Pulse Oximetry 96 Oxygen Delivery Intake/Output Intake/Output: Intake & Output 07/23/25 07/24/25 07/25/25 07/26/25 23:59 23:59 23:59 23:59 Intake Total 600 2092.7 2544.7 1220 Output Total 3725 2275 1500 Balance -3125 -182.3 1044.7 1220 Meds/Results Medications: Active Medications Generic Name Dose Route Start Last Admin Trade Name Freq PRN Reason Stop Dose Admin Acetaminophen 650 mg 07/16/25 19:16 Acetaminophen 650 Mg Suppository RECTAL Q6H PRN Mild Pain (1-3) or Fever Hydrocodone Bitart/Acetaminophen 1 tab 07/22/25 11:42 Hydrocodone/Acetaminophen (*Crx) 5-325 Mg Tablet PO On Hold: 07/23/25 17:17 Q4H PRN Pain Rated 4-6 Al Hydrox/Mg Hydrox/Simethicone 30 ml 07/23/25 22:00 07/26/25 13:10 Mag Hydrox/Al Hydrox/Simeth 30 Ml Udc PO 30 ml Q8HR SONIA Administration Bisacodyl 10 mg 07/23/25 17:10 Bisacodyl 10 Mg Suppository RECTAL QAM PRN Constipation Diazepam 5 mg 07/23/25 17:15 07/26/25 14:01 Diazepam Inj (*Crx) 10 Mg/2 Ml Syringe IV PUSH 5 mg Q12H PRN Administration Muscle Spasm Enoxaparin Sodium 40 mg 07/19/25 09:00 07/26/25 09:00 Enoxaparin 40 Mg/0.4 Ml Syringe SUB-Q 40 mg DAILY SONIA Administration Fluticasone Propionate 2 spray 07/14/25 21:00 07/26/25 09:00 Fluticasone Propionate 0.05% Na Spr 16 Gm Btl (*Bkc) NASAL 2 spray Q12HR SONIA Administration Glucagon 1 mg 07/23/25 15:59 Glucagon For Inj 1 Mg Vial IM PRN PRN Hypoglycemia Protocol Lidocaine 1 patch 07/17/25 09:00 07/26/25 09:00 Lidocaine 5% Patch TRANSDERM 1 patch DAILY SONIA Administration Metoclopramide HCl 10 mg 07/23/25 12:00 07/26/25 13:14 Metoclopramide Hcl Inj 10 Mg/2 Ml Vial IV PUSH 10 mg Q6HR SONIA Administration Miscellaneous Information 1 each 07/26/25 00:01 Please Renew Morphine_. Per [employer] Procedure, It Will Discontinue If Not Renewed XX 08/25/25 00:00 CLARIFY SONIA Miscellaneous Information 1 each 07/26/25 00:01 Please Renew Tpn . Per [employer] Procedure, It Will Discontinue If Not Renewed XX 08/25/25 00:00 CLARIFY SONIA Morphine Sulfate 4 mg 07/16/25 19:32 07/22/25 13:08 Morphine Sulfate (*Crx) 4 Mg/Ml Inj IV PUSH 4 mg Q4H PRN Administration Pain Rated 7-10 Non-Formulary Medication 5 mcg 07/25/25 21:00 07/25/25 23:03 Norethindrone Acetate 1 Mg-Eth PO 08/24/25 20:59 5 mcg QHS SONIA Administration Ondansetron HCl 4 mg 07/15/25 14:16 07/23/25 13:23 Ondansetron Inj 4 Mg/2 Ml Vial IV PUSH 4 mg Q6H PRN Administration Nausea And Vomiting Pantoprazole Sodium 40 mg 07/24/25 09:00 07/26/25 09:00 Pantoprazole Sodium Iv 40 Mg Vial IV PUSH 40 mg QAM SONIA Administration Phenol 1 spray 07/15/25 21:34 Phenol/Sod Pheno Mcmillan Elizalde (*Bkc) MUCOUS MEM PRN PRN Sore Throat Sumatriptan Succinate 6 mg 07/20/25 09:00 Sumatriptan Succinate 6 Mg/0.5 Ml Vial SUB-Q PRN PRN migraine Radiology Results: ITS Impressions Abdomen/Pelvis CT 07/15/25 17:09 IMPRESSION: 1. Interval progression of now multiple mildly dilated loops of small bowel extending to persistent transition point in the right lower quadrant consistent with small bowel obstruction. 2. New edematous wall thickening of many of the loops of jejunum consistent with an enteritis which could be infectious or inflammatory in etiology. Ischemia is considered unlikely given the contrast enhanced arteries and veins extending to the mesentery to the affected segments of bowel which also demonstrate mucosal enhancement. 3. New small amount of likely reactive ascites. Pelvic/Transvag US 07/15/25 17:13 IMPRESSION: 1. Nonspecific fluid in the cervical canal and endometrial canal. Nonspecific fluid in the cul-de-sac. 2. Ovaries were not visualized. 3. Endometrial stripe was not adequately visualized for evaluation. 4. Visualized uterus is unremarkable. If symptoms persist or worsen, consider a short-term follow-up study or additional imaging for further assessment. Small Bowel X-Ray 07/16/25 14:10 IMPRESSION: 1. Persistent small bowel obstruction with multiple persistent mildly dilated loops of small bowel and no definitive oral contrast material in the colon after 4 1/2 hours. Abdomen X-Ray 07/23/25 15:46 Impression: 1. Nasogastric tube in appropriate location Chest X-Ray 07/24/25 08:19 IMPRESSION: 1. NG tube in place. 2. Mild bibasilar atelectasis. Small developing airspace opacity left base not excluded. Labs Labs: Laboratory Results - last 24 hr 07/26/25 07/26/25 07/26/25 02:52 05:00 06:34 WBC 12.1 H RBC 4.15 L Hgb 12.6 Hct 36.9 L MCV 88.9 MCH 30.4 MCHC 34.1 RDW 12.9 Plt Count 458 H MPV 9.0 Immature Gran % (Auto) Not Reportable Neut % (Auto) Not Reportable Lymph % (Auto) Not Reportable [place] % (Auto) Not Reportable Eos % (Auto) Not Reportable Baso % (Auto) Not Reportable Lymph # (Auto) Not Reportable [place] # (Auto) Not Reportable Eos # (Auto) Not Reportable Baso # (Auto) Not Reportable Abs Immat Gran (auto) Not Reportable Absolute Neuts (auto) Not Reportable Absolute Nucleated RBC Not Reportable Total Counted 100 Neutrophils % (Manual) 72 Band Neutrophils % 8 H Lymphocytes % (Manual) 18 Monocytes % (Manual) 2 L Nucleated RBC % Not Reportable Abs Neuts (Manual) 9.68 H Abs Lymphs (Manual) 2.17 Abs Monocytes (Manual) 0.24 Atypical Lymphocytes Present Platelet Estimate Increased Schistocytes None seen PT 12.9 INR 1.0 APTT 24.9 Sodium 131 L Potassium 3.7 Chloride 95 L Carbon Dioxide 26 Anion Gap 10 BUN 17 Creatinine 0.64 L Estim Creat Clear Calc 91 Estimated GFR > 60 Glucose 122 H POC Capillary Glucose 103 115 H Calcium 9.0 Phosphorus 4.5 Magnesium 2.4 H Transferrin 169 L Total Bilirubin 0.4 AST 58 H ALT 86 H Alkaline Phosphatase 63 Total Protein 6.4 Albumin 3.6 07/26/25 07/26/25 07/26/25 08:22 12:05 16:21 WBC RBC Hgb Hct MCV MCH MCHC RDW Plt Count MPV Immature Gran % (Auto) Neut % (Auto) Lymph % (Auto) [place] % (Auto) Eos % (Auto) Baso % (Auto) Lymph # (Auto) [place] # (Auto) Eos # (Auto) Baso # (Auto) Abs Immat Gran (auto) Absolute Neuts (auto) Absolute Nucleated RBC Total Counted Neutrophils % (Manual) Band Neutrophils % Lymphocytes % (Manual) Monocytes % (Manual) Nucleated RBC % Abs Neuts (Manual) Abs Lymphs (Manual) Abs Monocytes (Manual) Atypical Lymphocytes Platelet Estimate Schistocytes PT INR APTT Sodium Potassium Chloride Carbon Dioxide Anion Gap BUN Creatinine Estim Creat Clear Calc Estimated GFR Glucose POC Capillary Glucose 117 H 132 H 123 H Calcium Phosphorus Magnesium Transferrin Total Bilirubin AST ALT Alkaline Phosphatase Total Protein Albumin Quality VTE Prophylaxis VTE prophylaxis: mechanical ordered
[2025-07-26] MEDS: SODIUM CHLORIDE 0.9% IV 1,000 ML 100 ML IV CONT (17:24)
[2025-07-26 18:00] VITALS: BP 134/86; PULSE 97; RESP 16; TEMP 36.9; O2SAT 98
[2025-07-26 18:56] LABS: Toxigenic C. Diff NEGATIVE (NEGATIVE)
[2025-07-26 20:45] VITALS: BP 128/84; PULSE 104; RESP 18; TEMP 36.9; O2SAT 96
[2025-07-26] MEDS: DICYCLOMINE HCL 10 MG CAPSULE 20 MG PO (22:21)
[2025-07-26] MEDS: [UNRECOGNIZED DRUG - OTHER] PO (22:21)
[2025-07-26] MEDS: NORETHINDRONE ACETATE PO (22:21)
[2025-07-27] MEDS: diazePAM INJ (*CRX) 10 MG/2 ML SYRINGE 5 MG IV PUSH ×2 (02:00→06:21)
[2025-07-27] MEDS: SODIUM CHLORIDE 0.9% IV 1,000 ML 100 ML IV CONT (02:03)
[2025-07-27 05:31] LABS: Hematocrit 38.6 % (37.0-47.0); Hemoglobin 12.7 g/dL (12.0-15.0); Mean Corpuscular HGB Conc 32.9 g/dl (32-36); Mean Corpuscular Hemoglobin 29.9 pg (26-34); Mean Corpuscular Volume 90.8 fl (80-100); Platelet Count Result 451 k/mm3 (150-375); Red Blood Count 4.25 M/mm3 (4.2-5.4); White Blood Count 14.5 K/mm3 (4.5-10.0)
[2025-07-27] MEDS: DICYCLOMINE HCL 10 MG CAPSULE 20 MG PO ×2 (05:34→17:24)
[2025-07-27 05:57] LABS: Alanine Aminotransferase 94 U/L (6-35); Albumin Level 3.4 g/dL (3.5-5.1); Alkaline Phosphatase 64 U/L (38-126); Anion Gap 9 mmol/L (4-12); Aspartate Amino Transferase 70 U/L (14-36); Bilirubin,Total 0.5 mg/dL (0.2-1.3); Blood Urea Nitrogen 9 mg/dL (7-17); Calcium 8.1 mg/dL (8.4-10.2); Carbon Dioxide 21 mmol/L (22-30); Chloride 102 mmol/L (98-107); Estimated CRCL calculation 89 ml/min; Estimated Glomerular Filt Rate > 60; Glucose 95 mg/dL (65-110); Magnesium 2.2 mg/dL (1.6-2.3); Sodium 132 mmol/L (137-145); Total Protein 6.1 g/dL (6.3-8.2)
[2025-07-27 06:00] VITALS: BP 100/64; PULSE 92; RESP 16; TEMP 36.8; O2SAT 93
[2025-07-27 06:06] LABS: Potassium 3.4 mmol/L (3.4-5.0)
[2025-07-27] MEDS: HYDROcodone/acetaminophen (*CRX) 5-325 MG TABLET 1 TAB PO ×2 (06:18→20:40)
[2025-07-27 06:27] LABS: Band Neutrophils Percent 5 % (0-6); Lymphocytes Absolute Manual 2.17 K/mm3 (1.1-4.5); Lymphocytes Percent Manual 15 % (18-44); Metamyelocytes Percent 2 %; Monocytes Absolute Manual 2.32 K/mm3 (0.1-0.90); Monocytes Percent Manual 16 % (3-9); Neutrophils Absolute Manual 11.16 K/mm3 (1.3-6.7); Neutrophils Percent Manual 72 % (46-73); Total Cells Counted 100
[2025-07-27 06:28] LABS: Schistocytes None Seen; Smudge Cells PRESENT
[2025-07-27] MEDS: PANTOPRAZOLE SODIUM IV 40 MG VIAL IV PUSH (09:05)
[2025-07-27] MEDS: ENOXAPARIN 40 MG/0.4 ML SYRINGE SUB-Q (09:06)
[2025-07-27] MEDS: LIDOCAINE 5% PATCH 1 PATCH TRANSDERM (09:06)
[2025-07-27] MEDS: FLUTICASONE PROPIONATE 0.05% NA SPR 16 GM BTL (*BKC) 2 SPRAY NASAL ×2 (09:10→20:41)
[2025-07-27 10:00] VITALS: BP 97/53; PULSE 90; RESP 16; TEMP 36.6; O2SAT 95
--- NOTE | 2025-07-27 11:08 | P.PNGS_ITS ---
Progress Note: A&P Assessment and Plan (1) Complete small bowel obstruction: Code(s): K56.601 - Complete intestinal obstruction, unspecified as to cause Status: Acute Assessment and Plan: * Patient tolerated full liquids yesterday. She was experiencing a lot of diarrhea. Abdominal xray was obtained and showed likely ileus, less likely SBO. She was backed down to clear liquids. Will advance to soft low residual diet as patient continues to have bowel movements and denies nausea or vomiting. * Minimal abdominal pain today. All medications switched to orals. * Potassium 3.4. Repleted with oral and IV KCl. * WBC 14.5. Incision looks clean and dry and is not likely a source of infection. Continue to monitor with daily labs. Plan Discussed patient's case and plan of care with Dr. Mcelroy. Subjective Subjective Date/Time Seen: 07/27/25 11:08 Patient reports: voiding w/o difficulty, diarrhea and afebrile Interval history: Patient doing well today, but had severe diarrhea overnight. Hospitalist ordered abdominal xray which demonstrated likely ileus. WBC 14.5. Cdiff negative. Patient given Bentyl Q6 PRN, as well as a dose of Reglan. Patient also states that she felt the Valium helped slow her down. Minimal abdominla pain. No nausea or vomiting yesterday on full liquid diet. Hospitalist backed her down to full liquids overnight. Exam Const: General: comfortable and no acute distress GI: Inspection: normal to inspection, non-distended and incision Auscultation: normal bowel sounds, Hypoactive bowel sounds present and normoactive bowel sounds Rectal Exam: deferred Other: Incision is clean and dry with no signs of infection Objective Data Vital Signs Vital Signs: Vital Signs - 24 hr 07/26/25 12:00 07/26/25 13:38 07/26/25 18:00 Temperature 97.8 F 98.4 F Pulse Rate 98 97 Respiratory Rate 14 16 Blood Pressure 139/84 134/86 Pulse Oximetry 96 98 Oxygen Delivery Room Air 07/26/25 20:00 07/26/25 20:45 07/27/25 06:00 Temperature 98.4 F 98.2 F Pulse Rate 104 H 92 Respiratory Rate 18 16 Blood Pressure 128/84 100/64 Pulse Oximetry 96 93 Oxygen Delivery Room Air 07/27/25 09:16 07/27/25 10:00 Temperature 97.8 F Pulse Rate 90 Respiratory Rate 16 Blood Pressure 97/53 L Pulse Oximetry 95 Oxygen Delivery Room Air Intake/Output Intake/Output: Intake & Output 07/24/25 07/25/25 07/26/25 07/27/25 23:59 23:59 23:59 23:59 Intake Total 2092.7 2544.7 1790 1265 Output Total 2275 1500 2 19 Balance -182.3 1044.7 1788 1246 Meds/Results Medications: Active Medications Generic Name Dose Route Start Last Admin Trade Name Freq PRN Reason Stop Dose Admin Acetaminophen 650 mg 07/16/25 19:16 Acetaminophen 650 Mg Suppository RECTAL Q6H PRN Mild Pain (1-3) or Fever Acetaminophen 650 mg 07/27/25 10:58 Acetaminophen 325 Mg Tablet PO Q6H PRN Mild Pain (1-3) or Fever Hydrocodone Bitart/Acetaminophen 1 tab 07/22/25 11:42 07/27/25 06:18 Hydrocodone/Acetaminophen (*Crx) 5-325 Mg Tablet PO 1 tab Q4H PRN Administration Pain Rated 4-10 Bisacodyl 10 mg 07/23/25 17:10 Bisacodyl 10 Mg Suppository RECTAL QAM PRN Constipation Diazepam 5 mg 07/23/25 17:15 07/27/25 02:00 Diazepam Inj (*Crx) 10 Mg/2 Ml Syringe IV PUSH 5 mg Q12H PRN Administration Muscle Spasm Dicyclomine HCl 20 mg 07/26/25 21:41 07/27/25 05:34 Dicyclomine Hcl 10 Mg Capsule PO 20 mg Q6H PRN Administration Abdominal Cramping Enoxaparin Sodium 40 mg 07/19/25 09:00 07/27/25 09:06 Enoxaparin 40 Mg/0.4 Ml Syringe SUB-Q 40 mg DAILY SONIA Administration Fluticasone Propionate 2 spray 07/14/25 21:00 07/27/25 09:10 Fluticasone Propionate 0.05% Na Spr 16 Gm Btl (*Bkc) NASAL 2 spray Q12HR SONIA Administration Glucagon 1 mg 07/23/25 15:59 Glucagon For Inj 1 Mg Vial IM PRN PRN Hypoglycemia Protocol Potassium Chloride 40 meq/ 520 mls @ 130 mls/hr 07/27/25 11:04 Sodium Chloride IVPB 10/21/25 15:03 ONCE ONE Ibuprofen 600 mg 07/27/25 10:58 Ibuprofen 600 Mg Tablet PO Q6H PRN Pain Lidocaine 1 patch 07/17/25 09:00 07/27/25 09:06 Lidocaine 5% Patch TRANSDERM 1 patch DAILY SONIA Administration Non-Formulary Medication 5 mcg 07/25/25 21:00 07/26/25 22:21 Norethindrone Acetate 1 Mg-Eth PO 08/24/25 20:59 5 mcg QHS SONIA Administration Ondansetron HCl 4 mg 07/15/25 14:16 07/23/25 13:23 Ondansetron Inj 4 Mg/2 Ml Vial IV PUSH 4 mg Q6H PRN Administration Nausea And Vomiting Pantoprazole Sodium 40 mg 07/24/25 09:00 07/27/25 09:05 Pantoprazole Sodium Iv 40 Mg Vial IV PUSH 40 mg QAM SONIA Administration Phenol 1 spray 07/15/25 21:34 Phenol/Sod Pheno [place] Elizalde (*Bkc) MUCOUS MEM PRN PRN Sore Throat Potassium Chloride 40 meq 07/27/25 11:04 Potassium Chloride 20 Meq Er Tablet PO 07/27/25 11:05 ONCE ONE Sumatriptan Succinate 6 mg 07/20/25 09:00 Sumatriptan Succinate 6 Mg/0.5 Ml Vial SUB-Q PRN PRN migraine Radiology Results: ITS Impressions Abdomen/Pelvis CT 07/15/25 17:09 IMPRESSION: 1. Interval progression of now multiple mildly dilated loops of small bowel extending to persistent transition point in the right lower quadrant consistent with small bowel obstruction. 2. New edematous wall thickening of many of the loops of jejunum consistent with an enteritis which could be infectious or inflammatory in etiology. Ischemia is considered unlikely given the contrast enhanced arteries and veins extending to the mesentery to the affected segments of bowel which also demonstrate mucosal enhancement. 3. New small amount of likely reactive ascites. Pelvic/Transvag US 07/15/25 17:13 IMPRESSION: 1. Nonspecific fluid in the cervical canal and endometrial canal. Nonspecific fluid in the cul-de-sac. 2. Ovaries were not visualized. 3. Endometrial stripe was not adequately visualized for evaluation. 4. Visualized uterus is unremarkable. If symptoms persist or worsen, consider a short-term follow-up study or additional imaging for further assessment. Small Bowel X-Ray 07/16/25 14:10 IMPRESSION: 1. Persistent small bowel obstruction with multiple persistent mildly dilated loops of small bowel and no definitive oral contrast material in the colon after 4 1/2 hours. Chest X-Ray 07/24/25 08:19 IMPRESSION: 1. NG tube in place. 2. Mild bibasilar atelectasis. Small developing airspace opacity left base not excluded. Abdomen X-Ray 07/26/25 22:18 IMPRESSION: Diffuse gaseous distention of the bowel loops suggestive of a ileus. Partial to early small bowel obstruction cannot be excluded. Labs Labs: Laboratory Results - last 24 hr 07/26/25 07/26/25 07/26/25 12:05 16:21 17:34 WBC RBC Hgb Hct MCV MCH MCHC RDW Plt Count MPV Immature Gran % (Auto) Neut % (Auto) Lymph % (Auto) [place] % (Auto) Eos % (Auto) Baso % (Auto) Lymph # (Auto) [place] # (Auto) Eos # (Auto) Baso # (Auto) Abs Immat Gran (auto) Absolute Neuts (auto) Absolute Nucleated RBC Total Counted Neutrophils % (Manual) Band Neutrophils % Lymphocytes % (Manual) Monocytes % (Manual) Metamyelocytes % Nucleated RBC % Abs Neuts (Manual) Abs Lymphs (Manual) Abs Monocytes (Manual) Smudge Cells Platelet Estimate Schistocytes Sodium Potassium Chloride Carbon Dioxide Anion Gap BUN Creatinine Estim Creat Clear Calc Estimated GFR Glucose POC Capillary Glucose 132 H 123 H Calcium Magnesium Total Bilirubin AST ALT Alkaline Phosphatase Total Protein Albumin C. difficile (PCR) Negative 07/27/25 07/27/25 05:18 06:49 WBC 14.5 H RBC 4.25 Hgb 12.7 Hct 38.6 MCV 90.8 MCH 29.9 MCHC 32.9 RDW 12.8 Plt Count 451 H MPV 8.9 Immature Gran % (Auto) Not Reportable Neut % (Auto) Not Reportable Lymph % (Auto) Not Reportable [place] % (Auto) Not Reportable Eos % (Auto) Not Reportable Baso % (Auto) Not Reportable Lymph # (Auto) Not Reportable [place] # (Auto) Not Reportable Eos # (Auto) Not Reportable Baso # (Auto) Not Reportable Abs Immat Gran (auto) Not Reportable Absolute Neuts (auto) Not Reportable Absolute Nucleated RBC Not Reportable Total Counted 100 Neutrophils % (Manual) 72 Band Neutrophils % 5 Lymphocytes % (Manual) 15 L Monocytes % (Manual) 16 H Metamyelocytes % 2 Nucleated RBC % Not Reportable Abs Neuts (Manual) 11.16 H Abs Lymphs (Manual) 2.17 Abs Monocytes (Manual) 2.32 H Smudge Cells Present Platelet Estimate Increased Schistocytes None seen Sodium 132 L Potassium 3.4 Chloride 102 Carbon Dioxide 21 L Anion Gap 9 BUN 9 D Creatinine 0.65 L Estim Creat Clear Calc 89 Estimated GFR > 60 Glucose 95 POC Capillary Glucose 114 H Calcium 8.1 L Magnesium 2.2 Total Bilirubin 0.5 AST 70 H ALT 94 H Alkaline Phosphatase 64 Total Protein 6.1 L Albumin 3.4 L C. difficile (PCR)
--- NOTE | 2025-07-27 11:09 | PCNFU ---
Nutrition Follow-Up Complete: Altered GI function as related to SBO as evidenced by NPO> 5 days. goal: Meet estimated nutritional needs. Patient will continue current goal. Pt current nutrition is Low Fiber with Diet supplements. Last recorded weight is 83.3 kg, up from 82.8 kg on admit. Bowel Motility: +BM reported 07/27 Labs Reviewed: Cr 0.65, Alb 3.4, Na 132 Meds Noted: Lovenox, Protonix Skin: WNL Additional Notes: PPN has been discontinued. Spoke with nursing today, patient with multiple episodes of diarrhea on full liquid diet. 0% intake reported on clear liquids for breakfast. Diet order is advancing today for lunch to Low Fiber diet with Ensure Plus High Protein TID. Agree with diet orders. Will continue to monitor for diet tolerance. Will monitor weight, labs, skin, diet orders, meds every 3 days.
[2025-07-27] MEDS: POTASSIUM CHLORIDE INJ 40 MEQ in SODIUM CHLORIDE 0.9% IV 500 ML 130 MEQ IVPB (11:41)
[2025-07-27] MEDS: POTASSIUM CHLORIDE 20 MEQ ER TABLET 40 MEQ PO (11:41)
[2025-07-27] MEDS: IBUPROFEN 600 MG TABLET PO (11:41)
[2025-07-27] MEDS: RIZATRIPTAN BENZOATE 10 MG ODT PO (13:45)
[2025-07-27 14:00] VITALS: BP 90/64; PULSE 94; RESP 18; TEMP 36.9; O2SAT 96
--- NOTE | 2025-07-27 14:14 | P.PNIM_ITS ---
Progress Note: A&P Assessment and Plan (1) Complete small bowel obstruction: Code(s): K56.601 - Complete intestinal obstruction, unspecified as to cause Status: Acute Assessment and Plan: Onset of severe abdominal pain, initial CT largely negative, did not show appendix. Pelvis US negative as well, with ovaries not appearing. Repeat CT then positive for SBO S/p Exlap with abdominal adhesiolysis On Full liquid diet today, s/p PPN and NG tube Advance diet per Gen surgery Gen surgery following (2) Enteritis: Code(s): K52.9 - Noninfective gastroenteritis and colitis, unspecified Status: Acute Assessment and Plan: IV fluids for hydration Zosyn discontinued (3) Migraine headache: Code(s): G43.909 - Migraine, unspecified, not intractable, without status migrainosus Status: Acute Assessment and Plan: Takes rizatriptan home, however not able to take medications at this time, sumatriptan subcutaneous p.r.n. Plan Diarrhea 9 episodes yesterday C diff, Stool studies negative IVF and monitor DVT prophylaxis on Sq Lovenox Subjective Date/time seen: 07/27/25 14:14 Interval history: No acute events overnight. Patient is able to tolerate diet. Possible discharge tomorrow. No episodes of diarrhea. C diff negative Review of Systems Review of Systems: 12 systems were reviewed and are negativ e except for as per HPI. Exam Narrative: General: well appearing, appears stated age. HEENT: normocephalic, atraumatic. Mucous membranes moist. EOMI, PERRLA, bilateral sclera anicteric, no conjunctival injection. Neck supple without JVD, lymphadenopathy, or bruit. Respiratory: clear to ascultation bilaterally. No rales/rhonic/wheezes. Cardiovascular: Regular rate and rhythm, normal S1-S2 upon ascultation. No murmurs, rubs, or clicks. PMI is nondisplaced, capillary refill less than 3 second. Abdomen: Soft, round, no pulsatile masses, nondistended. No CVA tenderness, no hepatosplenomegaly. Bowel sounds present to all four quadrants. No high pitch or tinkling sounds, resonant to percussion. Right lower quadrant tender to light palpation. NG tube in place Extremities: No cyanosis, clubbing, or edema present. Pulses are palpable 2/2. Active ROM to all four extremities. Neuro: Alert and orientated x 4. PERRLA. Cranial nerves 2-12 intact without focal deficit. Skin: Warm, dry, and intact, without rash, erythema, or lesion. Psych: pleasant, cooperative, normal speech, normal affect, no hallucinations, no dysarthia Objective Data Vital Signs Vital Signs: Vital Signs - 24 hr 07/26/25 18:00 07/26/25 20:00 07/26/25 20:45 Temperature 98.4 F 98.4 F Pulse Rate 97 104 H Respiratory Rate 16 18 Blood Pressure 134/86 128/84 Pulse Oximetry 98 96 Oxygen Delivery Room Air 07/27/25 06:00 07/27/25 09:16 07/27/25 10:00 Temperature 98.2 F 97.8 F Pulse Rate 92 90 Respiratory Rate 16 16 Blood Pressure 100/64 97/53 L Pulse Oximetry 93 95 Oxygen Delivery Room Air Intake/Output Intake/Output: Intake & Output 07/24/25 07/25/25 07/26/25 07/27/25 23:59 23:59 23:59 23:59 Intake Total 2092.7 2544.7 1790 2187 Output Total 2275 1500 2 19 Balance -182.3 1044.7 1788 2168 Meds/Results Medications: Active Medications Generic Name Dose Route Start Last Admin Trade Name Freq PRN Reason Stop Dose Admin Acetaminophen 650 mg 07/16/25 19:16 Acetaminophen 650 Mg Suppository RECTAL Q6H PRN Mild Pain (1-3) or Fever Acetaminophen 650 mg 07/27/25 10:58 Acetaminophen 325 Mg Tablet PO Q6H PRN Mild Pain (1-3) or Fever Hydrocodone Bitart/Acetaminophen 1 tab 07/22/25 11:42 07/27/25 06:18 Hydrocodone/Acetaminophen (*Crx) 5-325 Mg Tablet PO 1 tab Q4H PRN Administration Pain Rated 4-10 Bisacodyl 10 mg 07/23/25 17:10 Bisacodyl 10 Mg Suppository RECTAL QAM PRN Constipation Diazepam 5 mg 07/23/25 17:15 07/27/25 02:00 Diazepam Inj (*Crx) 10 Mg/2 Ml Syringe IV PUSH 5 mg Q12H PRN Administration Muscle Spasm Dicyclomine HCl 20 mg 07/26/25 21:41 07/27/25 05:34 Dicyclomine Hcl 10 Mg Capsule PO 20 mg Q6H PRN Administration Abdominal Cramping Enoxaparin Sodium 40 mg 07/19/25 09:00 07/27/25 09:06 Enoxaparin 40 Mg/0.4 Ml Syringe SUB-Q 40 mg DAILY SONIA Administration Fluticasone Propionate 2 spray 07/14/25 21:00 07/27/25 09:10 Fluticasone Propionate 0.05% Na Spr 16 Gm Btl (*Bkc) NASAL 2 spray Q12HR SONIA Administration Glucagon 1 mg 07/23/25 15:59 Glucagon For Inj 1 Mg Vial IM PRN PRN Hypoglycemia Protocol Potassium Chloride 40 meq/ 520 mls @ 130 mls/hr 07/27/25 11:04 07/27/25 11:41 Sodium Chloride IVPB 07/27/25 15:03 130 mls/hr ONCE ONE Administration Ibuprofen 600 mg 07/27/25 10:58 07/27/25 11:41 Ibuprofen 600 Mg Tablet PO 600 mg Q6H PRN Administration Pain Lidocaine 1 patch 07/17/25 09:00 07/27/25 09:06 Lidocaine 5% Patch TRANSDERM 1 patch DAILY SONIA Administration Non-Formulary Medication 5 mcg 07/25/25 21:00 07/26/25 22:21 Norethindrone Acetate 1 Mg-Eth PO 08/24/25 20:59 5 mcg QHS SONIA Administration Ondansetron HCl 4 mg 07/15/25 14:16 07/23/25 13:23 Ondansetron Inj 4 Mg/2 Ml Vial IV PUSH 4 mg Q6H PRN Administration Nausea And Vomiting Pantoprazole Sodium 40 mg 07/24/25 09:00 07/27/25 09:05 Pantoprazole Sodium Iv 40 Mg Vial IV PUSH 40 mg QAM SONIA Administration Phenol 1 spray 07/15/25 21:34 Phenol/Sod Pheno [place] Elizalde (*Bkc) MUCOUS MEM PRN PRN Sore Throat Rizatriptan Benzoate 10 mg 07/27/25 13:07 07/27/25 13:45 Rizatriptan Benzoate 10 Mg Odt PO 10 mg DAILY PRN Administration Migraine Headache Radiology Results: ITS Impressions Abdomen/Pelvis CT 07/15/25 17:09 IMPRESSION: 1. Interval progression of now multiple mildly dilated loops of small bowel extending to persistent transition point in the right lower quadrant consistent with small bowel obstruction. 2. New edematous wall thickening of many of the loops of jejunum consistent with an enteritis which could be infectious or inflammatory in etiology. Ischemia is considered unlikely given the contrast enhanced arteries and veins extending to the mesentery to the affected segments of bowel which also demonstrate mucosal enhancement. 3. New small amount of likely reactive ascites. Pelvic/Transvag US 07/15/25 17:13 IMPRESSION: 1. Nonspecific fluid in the cervical canal and endometrial canal. Nonspecific fluid in the cul-de-sac. 2. Ovaries were not visualized. 3. Endometrial stripe was not adequately visualized for evaluation. 4. Visualized uterus is unremarkable. If symptoms persist or worsen, consider a short-term follow-up study or a dditional imaging for further assessment. Small Bowel X-Ray 07/16/25 14:10 IMPRESSION: 1. Persistent small bowel obstruction with multiple persistent mildly dilated loops of small bowel and no definitive oral contrast material in the colon after 4 1/2 hours. Chest X-Ray 07/24/25 08:19 IMPRESSION: 1. NG tube in place. 2. Mild bibasilar atelectasis. Small developing airspace opacity left base not excluded. Abdomen X-Ray 07/26/25 22:18 IMPRESSION: Diffuse gaseous distention of the bowel loops suggestive of a ileus. Partial to early small bowel obstruction cannot be excluded. Labs Labs: Laboratory Results - last 24 hr 07/26/25 07/26/25 07/27/25 16:21 17:34 05:18 WBC 14.5 H RBC 4.25 Hgb 12.7 Hct 38.6 MCV 90.8 MCH 29.9 MCHC 32.9 RDW 12.8 Plt Count 451 H MPV 8.9 Immature Gran % (Auto) Not Reportable Neut % (Auto) Not Reportable Lymph % (Auto) Not Reportable [place] % (Auto) Not Reportable Eos % (Auto) Not Reportable Baso % (Auto) Not Reportable Lymph # (Auto) Not Reportable [place] # (Auto) Not Reportable Eos # (Auto) Not Reportable Baso # (Auto) Not Reportable Abs Immat Gran (auto) Not Reportable Absolute Neuts (auto) Not Reportable Absolute Nucleated RBC Not Reportable Total Counted 100 Neutrophils % (Manual) 72 Band Neutrophils % 5 Lymphocytes % (Manual) 15 L Monocytes % (Manual) 16 H Metamyelocytes % 2 Nucleated RBC % Not Reportable Abs Neuts (Manual) 11.16 H Abs Lymphs (Manual) 2.17 Abs Monocytes (Manual) 2.32 H Smudge Cells Present Platelet Estimate Increased Schistocytes None seen Sodium 132 L Potassium 3.4 Chloride 102 Carbon Dioxide 21 L Anion Gap 9 BUN 9 D Creatinine 0.65 L Estim Creat Clear Calc 89 Estimated GFR > 60 Glucose 95 POC Capillary Glucose 123 H Calcium 8.1 L Magnesium 2.2 Total Bilirubin 0.5 AST 70 H ALT 94 H Alkaline Phosphatase 64 Total Protein 6.1 L Albumin 3.4 L C. difficile (PCR) Negative 07/27/25 07/27/25 06:49 11:40 WBC RBC Hgb Hct MCV MCH MCHC RDW Plt Count MPV Immature Gran % (Auto) Neut % (Auto) Lymph % (Auto) [place] % (Auto) Eos % (Auto) Baso % (Auto) Lymph # (Auto) [place] # (Auto) Eos # (Auto) Baso # (Auto) Abs Immat Gran (auto) Absolute Neuts (auto) Absolute Nucleated RBC Total Counted Neutrophils % (Manual) Band Neutrophils % Lymphocytes % (Manual) Monocytes % (Manual) Metamyelocytes % Nucleated RBC % Abs Neuts (Manual) Abs Lymphs (Manual) Abs Monocytes (Manual) Smudge Cells Platelet Estimate Schistocytes Sodium Potassium Chloride Carbon Dioxide Anion Gap BUN Creatinine Estim Creat Clear Calc Estimated GFR Glucose POC Capillary Glucose 114 H 95 Calcium Magnesium Total Bilirubin AST ALT Alkaline Phosphatase Total Protein Albumin C. difficile (PCR) Quality VTE Prophylaxis VTE prophylaxis: mechanical ordered Hospitalist MIPS Advance Care Plan I have confirmed that the patient's Advanced Care Plan is present, code status is documented, or surrogate decision maker is listed in patient medical record.: Yes Medication Reconciliation I have utilized all available resources to obtain, update and review the patients current medications (includes all prescriptions, OTC, herbals, cannabis, and nutritional supplements).: Yes
[2025-07-27] MEDS: ACETAMINOPHEN 325 MG TABLET 650 MG PO (15:41)
[2025-07-27 18:00] VITALS: BP 118/67; PULSE 92; RESP 18; TEMP 36.6; O2SAT 95
[2025-07-27] MEDS: diazePAM (*CRX) 5 MG TABLET PO (20:41)
[2025-07-27] MEDS: [UNRECOGNIZED DRUG - OTHER] PO (20:41)
[2025-07-27] MEDS: NORETHINDRONE ACETATE PO (20:41)
[2025-07-27 21:00] VITALS: BP 114/74; PULSE 90; RESP 16; TEMP 36.2; O2SAT 95
[2025-07-27 23:49] VITALS: BP 132/82; PULSE 92; RESP 18; TEMP 36.4; O2SAT 94
[2025-07-28] MEDS: HYDROcodone/acetaminophen (*CRX) 5-325 MG TABLET 1 TAB PO ×2 (01:03→08:17)
[2025-07-28 03:33] VITALS: BP 108/64; PULSE 93; RESP 16; TEMP 36.4; O2SAT 96
[2025-07-28 05:49] LABS: Hematocrit 38.0 % (37.0-47.0); Hemoglobin 12.4 g/dL (12.0-15.0); Mean Corpuscular HGB Conc 32.6 g/dl (32-36); Mean Corpuscular Hemoglobin 30.4 pg (26-34); Mean Corpuscular Volume 93.1 fl (80-100); Platelet Count Result 452 k/mm3 (150-375); Red Blood Count 4.08 M/mm3 (4.2-5.4); White Blood Count 10.9 K/mm3 (4.5-10.0)
[2025-07-28 07:20] LABS: Alanine Aminotransferase 78 U/L (6-35); Albumin Level 3.2 g/dL (3.5-5.1); Alkaline Phosphatase 58 U/L (38-126); Anion Gap 7 mmol/L (4-12); Aspartate Amino Transferase 46 U/L (14-36); Bilirubin,Total 0.4 mg/dL (0.2-1.3); Blood Urea Nitrogen 10 mg/dL (7-17); Calcium 8.1 mg/dL (8.4-10.2); Carbon Dioxide 22 mmol/L (22-30); Chloride 105 mmol/L (98-107); Estimated CRCL calculation 91 ml/min; Estimated Glomerular Filt Rate > 60; Glucose 98 mg/dL (65-110); Potassium 4.2 mmol/L (3.4-5.0); Sodium 134 mmol/L (137-145); Total Protein 5.9 g/dL (6.3-8.2)
[2025-07-28] MEDS: PANTOPRAZOLE SODIUM IV 40 MG VIAL IV PUSH (08:18)
[2025-07-28] MEDS: LIDOCAINE 5% PATCH 1 PATCH TRANSDERM (08:18)
[2025-07-28] MEDS: ENOXAPARIN 40 MG/0.4 ML SYRINGE SUB-Q (08:18)
[2025-07-28] MEDS: FLUTICASONE PROPIONATE 0.05% NA SPR 16 GM BTL (*BKC) 2 SPRAY NASAL (08:19)
--- NOTE | 2025-07-28 08:27 | P.PNIM_ITS ---
Progress Note: A&P Assessment and Plan (1) Complete small bowel obstruction: Code(s): K56.601 - Complete intestinal obstruction, unspecified as to cause Status: Acute Assessment and Plan: Onset of severe abdominal pain, initial CT largely negative, did not show appendix. Pelvis US negative as well, with ovaries not appearing. Repeat CT then positive for SBO S/p Exlap with abdominal adhesiolysis Status post PPN and NG tube Patient is currently on low-fiber diet Advance diet per Gen surgery Gen surgery following (2) Enteritis: Code(s): K52.9 - Noninfective gastroenteritis and colitis, unspecified Status: Acute Assessment and Plan: IV fluids for hydration Zosyn discontinued (3) Migraine headache: Code(s): G43.909 - Migraine, unspecified, not intractable, without status migrainosus Status: Acute Assessment and Plan: Takes rizatriptan home, however not able to take medications at this time, sumatriptan subcutaneous p.r.n. Subjective Date/time seen: 07/28/25 08:27 Review of Systems Review of Systems: 12 systems were reviewed and are negativ e except for as per HPI. Exam Narrative: General: well appearing, appears stated age. HEENT: normocephalic, atraumatic. Mucous membranes moist. EOMI, PERRLA, bilateral sclera anicteric, no conjunctival injection. Neck supple without JVD, lymphadenopathy, or bruit. Respiratory: clear to ascultation bilaterally. No rales/rhonic/wheezes. Cardiovascular: Regular rate and rhythm, normal S1-S2 upon ascultation. No murmurs, rubs, or clicks. PMI is nondisplaced, capillary refill less than 3 second. Abdomen: Soft, round, no pulsatile masses, nondistended. No CVA tenderness, no hepatosplenomegaly. Bowel sounds present to all four quadrants. No high pitch or tinkling sounds, resonant to percussion. Right lower quadrant tender to light palpation. NG tube in place Extremities: No cyanosis, clubbing, or edema present. Pulses are palpable 2/2. Active ROM to all four extremities. Neuro: Alert and orientated x 4. PERRLA. Cranial nerves 2-12 intact without focal deficit. Skin: Warm, dry, and intact, without rash, erythema, or lesion. Psych: pleasant, cooperative, normal speech, normal affect, no hallucinations, no dysarthia Objective Data Vital Signs Vital Signs: Vital Signs - 24 hr 07/27/25 09:16 07/27/25 10:00 07/27/25 14:00 Temperature 97.8 F 98.4 F Pulse Rate 90 94 Respiratory Rate 16 18 Blood Pressure 97/53 L 90/64 L Pulse Oximetry 95 96 Oxygen Delivery Room Air 07/27/25 18:00 07/27/25 20:00 07/27/25 21:00 Temperature 98 F 97.1 F L Pulse Rate 92 90 Respiratory Rate 18 16 Blood Pressure 118/67 114/74 Pulse Oximetry 95 95 Oxygen Delivery Room Air 07/27/25 23:49 07/28/25 03:33 Temperature 97.5 F L 97.5 F L Pulse Rate 92 93 Respiratory Rate 18 16 Blood Pressure 132/82 108/64 Pulse Oximetry 94 96 Oxygen Delivery Intake/Output Intake/Output: Intake & Output 07/25/25 07/26/25 07/27/25 07/28/25 23:59 23:59 23:59 23:59 Intake Total 2544.7 1790 3154 Output Total 1500 2 19 Balance 1044.7 1788 3135 Meds/Results Medications: Active Medications Generic Name Dose Route Start Last Admin Trade Name Freq PRN Reason Stop Dose Admin Acetaminophen 650 mg 07/27/25 10:58 07/27/25 15:41 Acetaminophen 325 Mg Tablet PO 650 mg Q6H PRN Administration Mild Pain (1-3) or Fever Hydrocodone Bitart/Acetaminophen 1 tab 07/22/25 11:42 07/28/25 08:17 Hydrocodone/Acetaminophen (*Crx) 5-325 Mg Tablet PO 1 tab Q4H PRN Administration Pain Rated 4-10 Bisacodyl 10 mg 07/23/25 17:10 Bisacodyl 10 Mg Suppository RECTAL QAM PRN Constipation Diazepam 5 mg 07/27/25 14:34 07/27/25 20:41 Diazepam (*Crx) 5 Mg Tablet PO 5 mg BID PRN Administration Anxiety Dicyclomine HCl 20 mg 07/26/25 21:41 07/27/25 17:24 Dicyclomine Hcl 10 Mg Capsule PO 20 mg Q6H PRN Administration Abdominal Cramping Enoxaparin Sodium 40 mg 07/19/25 09:00 07/28/25 08:18 Enoxaparin 40 Mg/0.4 Ml Syringe SUB-Q 40 mg DAILY SONIA Administration Fluticasone Propionate 2 spray 07/14/25 21:00 07/28/25 08:19 Fluticasone Propionate 0.05% Na Spr 16 Gm Btl (*Bkc) NASAL 2 spray Q12HR SONIA Administration Glucagon 1 mg 07/23/25 15:59 Glucagon For Inj 1 Mg Vial IM PRN PRN Hypoglycemia Protocol Ibuprofen 600 mg 07/27/25 10:58 07/27/25 11:41 Ibuprofen 600 Mg Tablet PO 600 mg Q6H PRN Administration Pain Lidocaine 1 patch 07/17/25 09:00 07/28/25 08:18 Lidocaine 5% Patch TRANSDERM 1 patch DAILY SONIA Administration Non-Formulary Medication 5 mcg 07/25/25 21:00 07/27/25 20:41 Norethindrone Acetate 1 Mg-Eth PO 08/24/25 20:59 5 mcg QHS SONIA Administration Ondansetron HCl 4 mg 07/15/25 14:16 07/23/25 13:23 Ondansetron Inj 4 Mg/2 Ml Vial IV PUSH 4 mg Q6H PRN Administration Nausea And Vomiting Pantoprazole Sodium 40 mg 07/24/25 09:00 07/28/25 08:18 Pantoprazole Sodium Iv 40 Mg Vial IV PUSH 40 mg QAM SONIA Administration Phenol 1 spray 07/15/25 21:34 Phenol/Sod Pheno [place] [facility] (*Bkc) MUCOUS MEM PRN PRN Sore Throat Rizatriptan Benzoate 10 mg 07/27/25 13:07 07/27/25 13:45 Rizatriptan Benzoate 10 Mg Odt PO 10 mg DAILY PRN Administration Migraine Headache Radiology Results: ITS Impressions Abdomen/Pelvis CT 07/15/25 17:09 IMPRESSION: 1. Interval progression of now multiple mildly dilated loops of small bowel extending to persistent transition point in the right lower quadrant consistent with small bowel obstruction. 2. New edematous wall thickening of many of the loops of jejunum consistent with an enteritis which could be infectious or inflammatory in etiology. Ischemia is considered unlikely given the contrast enhanced arteries and veins extending to the mesentery to the affected segments of bowel which also demonstrate mucosal enhancement. 3. New small amount of likely reactive ascites. Pelvic/Transvag US 07/15/25 17:13 IMPRESSION: 1. Nonspecific fluid in the cervical canal and endometrial canal. Nonspecific fluid in the cul-de-sac. 2. Ovaries were not visualized. 3. Endometrial stripe was not adequately visualized for evaluation. 4. Visualized uterus is unremarkable. If symptoms persist or worsen, consider a short-term follow-up study or additional imaging for further assessment. Small Bowel X-Ray 07/16/25 14:10 IMPRESSION: 1. Persistent small bowel obstruction with multiple persistent mildly dilated loops of small bowel and no definitive oral contrast material in the colon after 4 1/2 hours. Chest X-Ray 07/24/25 08:19 IMPRESSION: 1. NG tube in place. 2. Mild bibasilar atelectasis. Small developing airspace opacity left base not excluded. Abdomen X-Ray 07/26/25 22:18 IMPRESSION: Diffuse gaseous distention of the bowel loops suggestive of a ileus. Partial to early small bowel obstruction cannot be excluded. Labs Labs: Laboratory Results - last 24 hr 07/27/25 07/28/25 07/28/25 11:40 05:28 06:58 WBC 10.9 H RBC 4.08 L Hgb 12.4 Hct 38.0 MCV 93.1 MCH 30.4 MCHC 32.6 RDW 12.9 Plt Count 452 H MPV 9.4 Sodium 134 L Potassium 4.2 Chloride 105 Carbon Dioxide 22 Anion Gap 7 BUN 10 Creatinine 0.64 L Estim Creat Clear Calc 91 Estimated GFR > 60 Glucose 98 POC Capillary Glucose 95 Calcium 8.1 L Phosphorus 2.7 Total Bilirubin 0.4 AST 46 H ALT 78 H Alkaline Phosphatase 58 Total Protein 5.9 L Albumin 3.2 L Quality VTE Prophylaxis VTE prophylaxis: mechanical ordered Hospitalist MIPS Advance Care Plan I have confirmed that the patient's Advanced Care Plan is present, code status is documented, or surrogate decision maker is listed in patient medical record.: Yes Medication Reconciliation I have utilized all available resources to obtain, update and review the patients current medications (includes all prescriptions, OTC, herbals, cannabis, and nutritional supplements).: Yes
--- NOTE | 2025-07-28 09:51 | P.PNGS_ITS ---
Progress Note: A&P Assessment and Plan (1) Complete small bowel obstruction: Code(s): K56.601 - Complete intestinal obstruction, unspecified as to cause Status: Acute Assessment and Plan: * Continues to improve following ex lap with abdominal adhesiolysis. She was advanced to a solid diet and is tolerating this well. Bowels are moving. * Potassium replaced yesterday and normal at 4.2 today. * WBC count trending down. Incision healing well. * She is surgically stable for discharge today from a surgical standpoint. She will follow-up with Dr. Mcelroy in 2 weeks. Plan Discussed patient's case and plan of care with Dr. Mcelroy. Subjective Subjective Date/Time Seen: 07/28/25 09:51 Post Op day: 12 (Exploratory laparotomy with abdominal adhesiolysis) Patient reports: no new complaints, feels better, tolerating a regular diet, voiding w/o difficulty, flatus, bowel movement and afebrile Interval history: No specific complaints. no changes overnight. No nausea or vomiting. Postop incisional pain well controlled with oral pain medication. Exam Const: General: comfortable and no acute distress Orientation/consciousness: patient oriented x3 GI: Inspection: non-distended and incision (dry and glue intact, no erythema, no drainage) GI Palp: Yes Soft to palpation, Yes Tenderness to palpation present (GI) (incisional), No Guarding due to palpation present (GI) and No Rebound tenderness present Auscultation: normal bowel sounds Objective Data Vital Signs Vital Signs: Vital Signs - 24 hr 07/27/25 10:00 07/27/25 14:00 07/27/25 18:00 Temperature 97.8 F 98.4 F 98 F Pulse Rate 90 94 92 Respiratory Rate 16 18 18 Blood Pressure 97/53 L 90/64 L 118/67 Pulse Oximetry 95 96 95 Oxygen Delivery 07/27/25 20:00 07/27/25 21:00 07/27/25 23:49 Temperature 97.1 F L 97.5 F L Pulse Rate 90 92 Respiratory Rate 16 18 Blood Pressure 114/74 132/82 Pulse Oximetry 95 94 Oxygen Delivery Room Air 07/28/25 03:33 Temperature 97.5 F L Pulse Rate 93 Respiratory Rate 16 Blood Pressure 108/64 Pulse Oximetry 96 Oxygen Delivery Intake/Output Intake/Output: Intake & Output 10/19/07/26/25 07/27/25 07/28/25 23:59 23:59 23:59 23:59 Intake Total 2544.7 1790 3154 Output Total 1500 2 19 Balance 1044.7 1788 3135 Meds/Results Medications: Active Medications Generic Name Dose Route Start Last Admin Trade Name Freq PRN Reason Stop Dose Admin Acetaminophen 650 mg 07/27/25 10:58 07/27/25 15:41 Acetaminophen 325 Mg Tablet PO 650 mg Q6H PRN Administration Mild Pain (1-3) or Fever Hydrocodone Bitart/Acetaminophen 1 tab 07/22/25 11:42 07/28/25 08:17 Hydrocodone/Acetaminophen (*Crx) 5-325 Mg Tablet PO 1 tab Q4H PRN Administration Pain Rated 4-10 Bisacodyl 10 mg 07/23/25 17:10 Bisacodyl 10 Mg Suppository RECTAL QAM PRN Constipation Diazepam 5 mg 07/27/25 14:34 07/27/25 20:41 Diazepam (*Crx) 5 Mg Tablet PO 5 mg BID PRN Administration Anxiety Dicyclomine HCl 20 mg 07/26/25 21:41 07/27/25 17:24 Dicyclomine Hcl 10 Mg Capsule PO 20 mg Q6H PRN Administration Abdominal Cramping Enoxaparin Sodium 40 mg 07/19/25 09:00 07/28/25 08:18 Enoxaparin 40 Mg/0.4 Ml Syringe SUB-Q 40 mg DAILY OSNIA Administration Fluticasone Propionate 2 spray 07/14/25 21:00 07/28/25 08:19 Fluticasone Propionate 0.05% Na Spr 16 Gm Btl (*Bkc) NASAL 2 spray Q12HR SONIA Administration Glucagon 1 mg 07/23/25 15:59 Glucagon For Inj 1 Mg Vial IM PRN PRN Hypoglycemia Protocol Ibuprofen 600 mg 07/27/25 10:58 07/27/25 11:41 Ibuprofen 600 Mg Tablet PO 600 mg Q6H PRN Administration Pain Lidocaine 1 patch 07/17/25 09:00 07/28/25 08:18 Lidocaine 5% Patch TRANSDERM 1 patch DAILY SONIA Administration Non-Formulary Medication 5 mcg 07/25/25 21:00 07/27/25 20:41 Norethindrone Acetate 1 Mg-Eth PO 08/24/25 20:59 5 mcg QHS SONIA Administration Ondansetron HCl 4 mg 07/15/25 14:16 07/23/25 13:23 Ondansetron Inj 4 Mg/2 Ml Vial IV PUSH 4 mg Q6H PRN Administration Nausea And Vomiting Pantoprazole Sodium 40 mg 07/24/25 09:00 07/28/25 08:18 Pantoprazole Sodium Iv 40 Mg Vial IV PUSH 40 mg QAM SONIA Administration Phenol 1 spray 07/15/25 21:34 Phenol/Sod Pheno [employer] [facility] (*Bkc) MUCOUS MEM PRN PRN Sore Throat Rizatriptan Benzoate 10 mg 07/27/25 13:07 07/27/25 13:45 Rizatriptan Benzoate 10 Mg Odt PO 10 mg DAILY PRN Administration Migraine Headache Radiology Results: ITS Impressions Abdomen/Pelvis CT 07/15/25 17:09 IMPRESSION: 1. Interval progression of now multiple mildly dilated loops of small bowel extending to persistent transition point in the right lower quadrant consistent with small bowel obstruction. 2. New edematous wall thickening of many of the loops of jejunum consistent with an enteritis which could be infectious or inflammatory in etiology. Ischemia is considered unlikely given the contrast enhanced arteries and veins extending to the mesentery to the affected segments of bowel which also demonstrate mucosal enhancement. 3. New small amount of likely reactive ascites. Pelvic/Transvag US 07/15/25 17:13 IMPRESSION: 1. Nonspecific fluid in the cervical canal and endometrial canal. Nonspecific fluid in the cul-de-sac. 2. Ovaries were not visualized. 3. Endometrial stripe was not adequately visualized for evaluation. 4. Visualized uterus is unremarkable. If symptoms persist or worsen, consider a short-term follow-up study or additional imaging for further assessment. Small Bowel X-Ray 07/16/25 14:10 IMPRESSION: 1. Persistent small bowel obstruction with multiple persistent mildly dilated loops of small bowel and no definitive oral contrast material in the colon after 4 1/2 hours. Chest X-Ray 07/24/25 08:19 IMPRESSION: 1. NG tube in place. 2. Mild bibasilar atelectasis. Small developing airspace opacity left base not excluded. Abdomen X-Ray 07/26/25 22:18 IMPRESSION: Diffuse gaseous distention of the bowel loops suggestive of a ileus. Partial to early small bowel obstruction cannot be excluded. Labs Labs: Laboratory Results - last 24 hr 07/27/25 07/28/25 07/28/25 11:40 05:28 06:58 WBC 10.9 H RBC 4.08 L Hgb 12.4 Hct 38.0 MCV 93.1 MCH 30.4 MCHC 32.6 RDW 12.9 Plt Count 452 H MPV 9.4 Sodium 134 L Potassium 4.2 Chloride 105 Carbon Dioxide 22 Anion Gap 7 BUN 10 Creatinine 0.64 L Estim Creat Clear Calc 91 Estimated GFR > 60 Glucose 98 POC Capillary Glucose 95 Calcium 8.1 L Phosphorus 2.7 Total Bilirubin 0.4 AST 46 H ALT 78 H Alkaline Phosphatase 58 Total Protein 5.9 L Albumin 3.2 L
--- NOTE | 2025-07-28 10:36 | P.DS_ITS ---
DS: Admitting Diagnosis Discharge Date 07/28/2025 Admitting Diagnosis Acute abdominal pain DS: Discharge Diagnosis Discharge Diagnosis (1) Complete small bowel obstruction: Code(s): K56.601 - Complete intestinal obstruction, unspecified as to cause Status: Acute Assessment and Plan: Please refer to hospital course for brief summary Onset of severe abdominal pain, initial CT largely negative, did not show appendix. Pelvis US negative as well, with ovaries not appearing. Repeat CT then positive for SBO S/p Exlap with abdominal adhesiolysis Status post PPN and NG tube Patient is currently on low-fiber diet Advance diet per Gen surgery Gen surgery following (2) Enteritis: Code(s): K52.9 - Noninfective gastroenteritis and colitis, unspecified Status: Acute Assessment and Plan: IV fluids for hydration Zosyn discontinued (3) Migraine headache: Code(s): G43.909 - Migraine, unspecified, not intractable, without status migrainosus Status: Acute Assessment and Plan: Takes rizatriptan home, however not able to take medications at this time, sumatriptan subcutaneous p.r.n. DS: Summary Hospital Course Hospital Course: 54-year-old female past medical history of migraines presents the hospital with acute abdominal pain. Patient presented to acute abdominal pain out of proportion to exam and diagnostic findings. Patient was transferred to [facility] for surgical consult and higher level of care. Patient has acute acute complaints of right lower quadrant pain on palpation. Some guarding. No rebound tenderness. Denies nausea vomiting fever chills. Lab work shows a normal white count, hemoglobin 15.5, anion gap 14, calcium at 10.7, CT abdomen shows nonspecific fluid-filled loops of small bowel, findings can be seen with early enteritis. Appendix not identified.If pain persists follow-up is recommended. Surgery was consulted. I assumed care 07/27 Patient underwent Exploratory laparotomy with abdominal adhesiolysis on 07/16/2025. Patient is surgically cleared for discharge. Patient needs to follow-up with Dr. Mcelroy in 2 weeks. Patient had a recently episodes of diarrhea. Diff was negative. Currently patient has no evidence of diarrhea. On the day of discharge, the patient was seen and examined. Vital signs were stable. Physical exam were stable and labs were reviewed at length. Discharge instructions, medications, and follow-up appointments were discussed with the patient at length and all day questions were answered. ER warnings were given. Status at Discharge Cognitive/behavioral status at discharge: Stable Time Spent with Patient Time attestation: Total time spent providing and/or coordinating discharge services: 45 minutes Exam Narrative: General: well appearing, appears stated age. HEENT: normocephalic, atraumatic. Mucous membranes moist. EOMI, PERRLA, bilateral sclera anicteric, no conjunctival injection. Neck supple without JVD, lymphadenopathy, or bruit. Respiratory: clear to ascultation bilaterally. No rales/rhonic/wheezes. Cardiovascular: Regular rate and rhythm, normal S1-S2 upon ascultation. No murmurs, rubs, or clicks. PMI is nondisplaced, capillary refill less than 3 second. Abdomen: Soft, round, no pulsatile masses, nondistended. No CVA tenderness, no hepatosplenomegaly. Bowel sounds present to all four quadrants. No high pitch or tinkling sounds, resonant to percussion. Right lower quadrant tender to light palpation. NG tube in place Extremities: No cyanosis, clubbing, or edema present. Pulses are palpable 2/2. Active ROM to all four extremities. Neuro: Alert and orientated x 4. PERRLA. Cranial nerves 2-12 intact without focal deficit. Skin: Warm, dry, and intact, without rash, erythema, or lesion. Psych: pleasant, cooperative, normal speech, normal affect, no hallucinations, no dysarthia DS: Data Data Completed and Pending Labs on day of discharge: Labs from last 24 hours 07/28/25 07/28/25 07/27/25 06:58 05:28 11:40 WBC 10.9 H RBC 4.08 L Hgb 12.4 Hct 38.0 MCV 93.1 MCH 30.4 MCHC 32.6 RDW 12.9 Plt Count 452 H MPV 9.4 Sodium 134 L Potassium 4.2 Chloride 105 Carbon Dioxide 22 Anion Gap 7 BUN 10 Creatinine 0.64 L Estim Creat Clear Calc 91 Estimated GFR > 60 Glucose 98 POC Capillary Glucose 95 Calcium 8.1 L Phosphorus 2.7 Total Bilirubin 0.4 AST 46 H ALT 78 H Alkaline Phosphatase 58 Total Protein 5.9 L Albumin 3.2 L Preliminary micro results at discharge 07/27/25 18:44 Stool for WBCs - Preliminary Stool Discharge Plan Discharge Attending physician on discharge: Piotr Bhakta Consulting providers: Garry Mcelroy; Blaire Dixon Discharging Clinician: Piotr Bhakta Anticipated Discharge Date/Time: 07/28/25 10:54 Patient Disposition: Home Activity: may shower and other - see discharge instructions Diet: as tolerated and regular Wound Care Instructions: incision open to air Discharge Instructions: General Surgery Instructions for Dr. Mcelroy: * No lifting more than 10-15 lbs until instructed differently by your surgeon (usually up to 6 weeks of lifting restrictions). * Incision is open to air. Okay to shower over incision with soap and water daily, pat dry. Do not submerge in water/pool/bath x 2 weeks. * Walk at least three times daily. Stairs are okay. * Call to schedule an appointment to see Dr. Mcelroy in our office in 2 weeks. * Pain medication was sent electronically to the pharmacy to be taken as needed for moderate to severe pain. You can take Tylenol or Ibuprofen over the counter as needed for pain. Transition to over the counter medication as pain is improving. * In the event of any concerning symptoms please return to ED Patient Instructions: Antibiotic Form Patient Language: Belarusian Stand Alone Forms: General Discharge Information Follow-up/Referrals: Jad Ryan MD [Primary Care Provider, Internal Medicine] Grary Mcelroy MD [Physician, General Surgery] - 2 Weeks Discharge Medications: New hydrocodone-acetaminophen 5-325 mg Tablet 1 tablet PO Q6H PRN (Reason: Pain Rated 4-10) Qty: 12 0RF Continued ketorolac 10 mg tablet 10 mg PO PRN PRN (Reason: Migraine Headache) rizatriptan 10 mg tablet,disintegrating 10 mg translingual PRN PRN (Reason: Migraine Headache) ondansetron 4 mg tablet,disintegrating 4 mg PO Q8H PRN (Reason: nausea and vomiting) Qty: 30 0RF norethindrone ac-eth estradiol 1-5 mg-mcg tablet 1 tablet PO DAILY mupirocin [Centany] 2 % ointment See Rx Instructions topical .COMPLEX Qty: 44 3RF Rx Instructions: topically; Melt one to two inches in each irrigation bottle. Irrigate with one to two bottles daily azelastine 137 mcg (0.1 %) spray,non-aerosol 1 - 2 spray intranasal Q12H Qty: 30 0RF Rx Instructions: administer into each nostril. Aim back/up/out fluticasone propionate [Flonase Allergy Relief] 50 mcg/actuation spray,suspension 2 spray intranasal BID Qty: 16 3RF Rx Instructions: administer into each nostril. Aim back/up/out Date of admission: 07/16/25 11:40 Primary Care Provider: Jad Ryan Admitting Provider: Darrel Lopez Attending physician on admission: Darrel Lopez Condition: Stable
[2025-07-29 18:08] LABS: Calprotectin, Fecal 118 ug/g (0-120)
--- NOTE | 2025-07-30 06:32 | PC.NURSE ---
ON CHART POST DISCHARGE TO VERIFY DOCUMENTATION OF MEDICATION DOSED 07/17/25. PRINT OUT SENT TO PHARMACY.
== END 2025-07-28 12:06 | disposition home or self-care (01) | DRG 336 ==
PROVIDERS: Internal Medicine; Nurse Practitioner Family; Nurse Practitioner Gerontology; Student in an Organized Health Care Education/Training Program; Surgery; Admitting Provider Family Medicine; PCP Internal Medicine; Visit Provider General Practice
PROC: 0DN80ZZ Release Small Intestine, Open Approach (ICD-10-PCS; CPT 49000; principal; 2025-07-16 15:30)
DX: K56.52 Intestinal adhesions [bands] with complete obstruction (principal); K46.0 Unspecified abdominal hernia with obstruction, without gangrene; K91.89 Other postprocedural complications and disorders of digestive system; K52.9 Noninfective gastroenteritis and colitis, unspecified; G43.909 Migraine, unspecified, not intractable, without status migrainosus; E86.0 Dehydration; R11.2 Nausea with vomiting, unspecified; D72.829 Elevated white blood cell count, unspecified; F10.90 Alcohol use, unspecified, uncomplicated; Z87.891 Personal history of nicotine dependence; Z79.51 Long term (current) use of inhaled steroids; Z90.49 Acquired absence of other specified parts of digestive tract; Z98.891 History of uterine scar from previous surgery
CPT/HCPCS: 36415; 71046; 74018; 74019; 74177; 74250; 76830; 76856; 80048; 80053; 81001; 82948; 83605; 83735; 83993; 84100; 84132; 84466; 84478; 84703; 85025; 85027; 85610; 85730; 86140; 87045; 87046; 87427; 87493; 89055; 96361; 96374; 96375; 96376; A9270; G0378; J0330; J0612; J1100; J1171; J1650; J1741; J1885; J2004; J2250; J2270; J2371; J2405; J2470; J2543; J2704; J2765; J3010; J3030; J3360; J3475; J3480; J7030; J7040; J7050; J7120; Q9967